=== PATIENT | male | born 1935 | race Caucasian/White ===

== ENCOUNTER 2016-10-04 12:52 | Inpatient (IN) | payer OTHER ==
[~2016-10-04] VITALS: Ht 185.4 cm; Wt 106.2 kg
[~2016-10-04 12:52] MED LIST: ASPI-482 PO; CARV3.122 PO; CARV6.25 PO; CHOL100013 PO; FURO-69 PO; GLIM4TAB PO; LOSA50TA2 PO; METF10002 PO; OM-31CAP4 PO; POTA10TA5 PO; SIMV40TA PO; WARF5TAB7 PO
--- NOTE | 2016-10-04 13:09 | PHYS DOC ---
Past Medical History Past Medical History: CHF, Diabetes-Type II, High Cholesterol, Hypertension Past Surgical History: Appendectomy Additional Past Surgical Histo: CABG mitral replaced pacer appy Alcohol Use: None Drug Use: None Adult General Chief Complaint Chief Complaint: SHORTNESS OF BREATH HPI HPI This is an 81-year-old male presents with worsening cough and acute respiratory distress today. Per EMS, the patient was using pursed lip breathing and not able to speak in complete sentences upon their arrival. Patient is usually on 4 L of home O2 for history of COPD and CHF. A breathing treatment was administered and the patient felt much better upon arrival. Patient was recently admitted for a community acquired pneumonia and sepsis on September 23. Patient additionally has history of hypertension diabetes and CK D stage III. During his last hospital stay the patient was placed on Zosyn and Vancomycin therapy for his pneumonia. Patient was discharged with an indwelling PICC line and is currently receiving ampicillin therapy. Review of Systems Review of Systems Constitutional: Denies fever or chills [] Eyes: Denies change in visual acuity, redness, or eye pain [] HENT: Denies nasal congestion or sore throat [] Respiratory: Has cough, has shortness of breath [] Cardiovascular: No additional information not addressed in HPI [] GI: Denies abdominal pain, nausea, vomiting, bloody stools or diarrhea [] : Denies dysuria or hematuria [] Musculoskeletal: Denies back pain or joint pain [] Integument: Denies rash or skin lesions [] Neurologic: Denies headache, focal weakness or sensory changes [] Endocrine: Denies polyuria or polydipsia [] Current Medications Current Medications Current Medications Medications (Trade) Dose Ordered Sig/Nito Start Time Stop Time Status Last Admin Dose Admin Albuterol/ Ipratropium (Duoneb) 3 ml 1X ONCE 10/04/16 13:15 10/04/16 13:16 DC 10/04/16 13:06 3 ML Methylprednisolone Sodium Succinate (Solu-Medrol 125mg Vial) 125 mg 1X ONCE 10/04/16 13:15 10/04/16 13:16 DC 10/04/16 13:08 125 MG Allergies Allergies Allergies Coded Allergies Type Severity Reaction Last Updated Verified No Known Drug Allergies 05/11/15 No Physical Exam Physical Exam Constitutional: Well developed, well nourished, no acute distress. [] HENT: Normocephalic, atraumatic, bilateral external ears normal, oropharynx moist, no oral exudates, nose normal. [] Eyes: PERRLA, EOMI, conjunctiva normal, no discharge. [] Neck: Normal range of motion, no tenderness, supple, no stridor. [] Cardiovascular:Heart rate regular rhythm, no murmur [] Lungs & Thorax: Moderate expiratory wheezing bilaterally with no acute respiratory distress, decreased lung sounds bilaterally [] Abdomen: Bowel sounds normal, soft, no tenderness, no masses, no pulsatile masses. [] Skin: Warm, dry, no erythema, no rash, pale. [] Back: No tenderness, no CVA tenderness. [] Extremities: No tenderness, no cyanosis, no clubbing, ROM intact, no edema. [] Neurologic: Alert and oriented X 3, normal motor function, normal sensory function, no focal deficits noted. [] Psychologic: Affect normal, judgement normal, mood normal. [] Current Patient Data Vital Signs Vital Signs Date Time Temp Pulse Resp B/P Pulse Ox O2 Delivery O2 Flow Rate FiO2 10/04/16 13:07 93 Nasal Cannula 6.0 10/04/16 12:56 98.3 75 24 156/64 98.3 Lab Values Laboratory Tests Test 10/04/16 13:00 White Blood Count 11.0x10^3/uL (4.0-11.0) Red Blood Count 4.02x10^6/uL (4.30-5.70) L Hemoglobin 12.4g/dL (13.0-17.5) L Hematocrit 38.9% (39.0-53.0) L Mean Corpuscular Volume 97fL (79-100) Mean Corpuscular Hemoglobin 31pg (25-35) Mean Corpuscular Hemoglobin Concent 32g/dL (31-37) Red Cell Distribution Width 14.8% (11.5-14.5) H Platelet Count 154x10^3/uL (140-400) # Neutrophils (%) (Auto) 82% (31-73) H Lymphocytes (%) (Auto) 10% (24-48) L Monocytes (%) (Auto) 7% (0-9) Eosinophils (%) (Auto) 0% (0-3) Basophils (%) (Auto) 1% (0-3) Neutrophils # (Auto) 9.0x10^3uL (1.8-7.7) H Lymphocytes # (Auto) 1.1x10^3/uL (1.0-4.8) Monocytes # (Auto) 0.7x10^3/uL (0.0-1.1) Eosinophils # (Auto) 0.0x10^3/uL (0.0-0.7) Basophils # (Auto) 0.1x10^3/uL (0.0-0.2) Sodium Level 141mmol/L (136-145) Potassium Level 4.8mmol/L (3.5-5.1) Chloride Level 104mmol/L (98-107) Carbon Dioxide Level 39mmol/L (21-32) H Anion Gap -2 (6-14) L Blood Urea Nitrogen 14mg/dL (8-26) Creatinine 1.3mg/dL (0.7-1.3) Estimated GFR (Cockcroft-Gault) 53.0 Glucose Level 245mg/dL (70-99) H Lactic Acid Level 1.0mmol/L (0.4-2.0) Calcium Level 8.4mg/dL (8.5-10.1) L Troponin I Quantitative 0.163ng/mL (0.000-0.055) KK-Vnx-P-Type Natriuretic Peptide 52740vk/mL (0-449) H Laboratory Tests 10/04/16 13:00 Laboratory Tests 10/04/16 13:00 EKG EKG EKG as interpreted by nm shows an irregular rhythm with a rate of 62 bpm. There do not appear to be any acute changes on this EKG as compared to previous EKG she had obtained on September 23, 2016 Radiology/Procedures Radiology/Procedures Portable one view of the chest as interpreted by nm and the radiologist demonstrates worsening CHF with increased pulmonary vascularity left greater than right perihilar infiltrates are seen. This is compatible with congestive heart failure. Course & Med Decision Making Course & Med Decision Making Pertinent Labs and Imaging studies reviewed. (See chart for details) 81-year-old male who presents with respiratory difficulty will likely be readmitted to the hospital. Blood work and chest film will be obtained to rule out any acute cause of his symptoms. His laboratory workup is consistent with a CHF exacerbation with an elevated pro BNP of 10,000 and a slightly elevated troponin as well as 0.163. The signs are discussed with the structures assembler who agreed to accept the patient for further admission and evaluation. Repeat troponins were ordered for the floor. At this time the patient has no chest pain and has an EKG that does not demonstrate any acute findings consistent with a myocardial infarction. A dose of IV Lasix and IV solumedrol was also administered with a breathing treatment. Symptomatically, the patient feels much better and is saturating in the low 90s on his usual 4 L home O2. He'll be admitted to the [facility] floor for further evaluation and treatment. His case was discussed with the hospitalist, Dr. Wang, who agreed to accept the patient for admission. Patient at this time is receiving ampicillin therapy through a PICC line and I discussed that I believe his symptoms to be primarily cardiac and not infectious in etiology. The hospitalist agreed with this plan and stated cardiology consultation at this time is appropriate Dragon Disclaimer Dragon Disclaimer This electronic medical record was generated, in whole or in part, using a voice recognition dictation system. Departure Departure Impression: Primary Impression: CHF exacerbation Disposition: ADMITTED INPATIENT Admitting Physician: Dyan Jacobs Condition: STABLE Referrals: GIA WINTER Jr, MD (PCP) RODGER PADILLA DO Oct 04, 2016 13:09
[2016-10-04] MEDS ORDERED: IPRATRPIUM/ALBUTEROL 0.5/2.5MG 3 ML NEBU. NEB ONE (13:15)
[2016-10-04] MEDS ORDERED: methylPREDNISolone SOD SUCC PF 125 MG/2 ML VIAL. IV ONE (13:15)
[2016-10-04 13:17] LABS: BASO # 0.1 x10^3/uL (0.0-0.2); BASO % 1 % (0-3); EOS % 0 % (0-3); HEMATOCRIT 38.9 % (39.0-53.0); HEMOGLOBIN 12.4 g/dL (13.0-17.5); LYMPH # 1.1 x10^3/uL (1.0-4.8); LYMPH % 10 % (24-48); MEAN CORPUSCULAR HEMOGLOBIN 31 pg (25-35); MEAN CORPUSCULAR HGB CONC 32 g/dL (31-37); MEAN CORPUSCULAR VOLUME 97 fL (79-100); MONO % 7 % (0-9); NEUT % 82 % (31-73); PLATELET COUNT 154 x10^3/uL (140-400); RED BLOOD COUNT 4.02 x10^6/uL (4.30-5.70); RED CELL DISTRIBUTION WIDTH 14.8 % (11.5-14.5)
--- NOTE | 2016-10-04 13:20 | ACF ---
Admission Forms Criteria HEART FAILURE: COMMON COMPLICATIONS Clinical Indications for Inpatient Care (Place 'X' for any and all applicable criteria): Ongoing inpatient care may be indicated for heart failure with ANY ONE of the following (1)(2)(3)(4)(5): [ ]I. Ongoing need for care for primary condition requiring frequent therapy adjustments because of changes in cardiac function (eg, drug dosage changes for drugs that are renally metabolized) [ ]II. New-onset heart failure [ ]III. Heart failure with decreased urine output not responsive to attempts to optimize volume status [ ]IV. Acute cardiac ischemia causing or associated with failure [X]V. Complications of heart failure, including ANY ONE of the following: [ ]a) Pericardial effusion [ ]b) Symptomatic pleural effusion [ ]c) O2 saturation <90% or PO2 < 60 mm Hg (8.0 kPa) on room air or require baseline supplemental O2 [ ]d) Tachypnea [X]e) Dyspnea [ ]f) Syncope [ ]g) Change in mental status [ ]h) Acute renal insufficiency that is severe (reduction of more than 50% in estimated glomerular filtration rate from baseline) or progressive reduction of more than 25% in estimated glomerular filtration rate from baseline, with creatinine continuing to rise) [ ]i) Hemodynamic instability [ ]j) Anasarca [ ]k) Clinically significant metabolic abnormalities due to heart failure (eg, new-onset metabolic acidosis) Extended stay beyond goal length of stay for primary condition may be needed until ALL of the following are present(1)(3): [ ]a) Stable and effective diuretic regimen established (or patient on stable dialysis regimen if in chronic renal failure) [ ]b) Breathing comfortably at rest [ ]c) Saturation of arterial oxygen greater than 90% or at acceptable baseline [ ]d) Pulmonary edema absent or improved [ ]e) Hemodynamic stability [ ]f) Volume status acceptable on oral medication [ ]g) Peripheral or sacral edema absent or improved [ ]h) Renal function stable and manageable at a lower level of care [ ]i) Complications (eg, pleural effusion) resolved or manageable at a lower level of care [ ]j) Patient or caregiver has received written discharge instructions or educational material addressing activity level, diet, discharge medications, follow-up appointment, weight monitoring, and what to do if symptoms worsen The original [facility] content created by [employer] has been revised. The portions of the content which have been revised are identified through the use of italic text or in bold, and [facility] has neither reviewed nor approved the modified material.All other unmodified content is copyright [facility]. Please see references footnoted in the original [facility] edition 2016 Admission Criteria Met?: Yes HARMEET BRADY Oct 04, 2016 13:20
[2016-10-04 13:22] LABS: CALCIUM 8.4 mg/dL (8.5-10.1); CREATININE 1.3 mg/dL (0.7-1.3); POTASSIUM 4.8 mmol/L (3.5-5.1)
--- NOTE | 2016-10-04 13:25 | RAD ---
Exam: AP portable chest. History: Cough, weakness. Comparison: 09/23/2016. Findings: Cardiac silhouette is enlarged. Median sternotomy wires are present. Dual-lead pacemaker by left subclavian approach is unchanged. Right-sided PICC line is present with tip projecting at the superior vena cava. There is evidence of small bilateral pleural effusions. No pneumothorax is seen. Pulmonary vascularity is increased and indistinct. Left greater than right perihilar infiltrates are seen. Findings are compatible with congestive heart failure. Impression: 1. Interval worsening of congestive heart failure.
--- NOTE | 2016-10-04 13:48 | EKG ---
[facility] [address] [place] [address] Test Date: 2016-10-04 Test Time: 13:08:29 Pat Name: KIKA CORONA Department: Room: Gender: M Blood Typer: : 1935 Requested By: RODGER PADILLA Order Number: [id number] Reading MD: Maksim Burden Measurements Intervals [place] Rate: 62 P: NC: QRS: -42 QRSD: 176 T: 86 QT: 446 QTc: 455 Interpretive Statements V-PACED Electronically Signed On 10-09-2016 10:16:46 RESIDENTIAL INSTRUCTOR by Maksim Burden
[2016-10-04] MEDS ORDERED: FUROSEMIDE 40 MG/4 ML VIAL IVP SCH (14:00)
--- NOTE | 2016-10-04 14:30 | PDOC2 ---
HA ALANIZ SYSTEMS LIBRARIAN 10/04/16 1430: CARDIAC CONSULT DATE OF CONSULT Date of Consult DATE: 10/04/16 TIME: 14:03 REASON FOR CONSULT Reason for Consult: CHF exacerbation REFERRING PHYSICIAN Referring Physician: Tiffanie SOURCE Source: Chart review, Patient HISTORY OF PRESENT ILLNESS HISTORY OF PRESENT ILLNESS This is an 81 yo male admitted for complains of SOA. He was being visited by home health and receives routine visit due to assisted antibiotic therapy in relation to previous pneumonia and bacteremia. He currently has a PICC line for it. Home health staff saw him today lethargic and SOA and was not responding well to commands as described by seda. Family is not available to elborate details of his symptoms. According to stafF as RV contacted the spouse , pt has been compliant with his cardiac meds. Leading up to altered mental state there has been no mention of chest pain, palpitations. Accdg to ED he has been noted with pursed lip breathing and increasing cough. Currently pt is drowsy but arousable enough to obtain some symptom details. Reported increasing SOA, leg swelling, and sleeping most of the day. Denies any chest pain, chills. Upon admission he has been noted with acute CHF. I did note that when fall asleep, despite his O2 he desats in the upper 80s. PAST MEDICAL HISTORY Cardiovascular: AFIB, CAD, CHF, HTN, Hyperlipidemia, Other (bioprosthetic aortic valve replacement, sick sinus syndrome) Pulmonary: COPD, Pneumonia GI: No pertinent hx Heme/Onc: No pertinent hx Hepatobiliary: Cholelithiasis Psych: No pertinent hx Musculoskeletal: Osteoarthritis Infectious disease: No pertinent hx, Other (recent bacteremia enterococcus) Renal/: Chronic renal insuff (CKD3), Benign prostatic enlarg., Other ( bilateral renal cyst) Endocrine: Diabetes (2) Dermatology: No pertinent hx PAST SURGICAL HISTORY Past Surgical History: Pacemaker, Appendectomy, CABG (with AVR bioprosthetic), Other (PICC placement) FAMILY HISTORY Family History Diabetes (brother d/t DM complications, sister has bad neuropathy. ) , Heart Disease SOCIAL HISTORY Social History Smoking: <1 pack per day (Pt started 15 years ago 7 cigs a day after his heart surgery) ALCOHOL: rare Drugs: None CURRENT MEDICATIONS CURRENT MEDICATIONS Current Medications Medications (Trade) Dose Ordered Sig/Nito Route PRN Reason Start Time Stop Time Status Last Admin Dose Admin Albuterol/ Ipratropium (Duoneb) 3 ml 1X ONCE NEB 10/04/16 13:15 10/04/16 13:16 DC 10/04/16 13:06 Methylprednisolone Sodium Succinate (Solu-Medrol 125mg Vial) 125 mg 1X ONCE IV 10/04/16 13:15 10/04/16 13:16 DC 10/04/16 13:08 ALLERGIES ALLERGIES: Coded Allergies: No Known Drug Allergies (Unverified , 05/11/15) ROS Review of System 14 point ROS evaluated with pertinent positives noted per HPI PHYSICAL EXAM General: Cooperative, mild distress HEENT: Atraumatic, Mucous membr. moist/pink Lungs: Other (diminished with bibasilar crackles) Heart: Regular rate (V paced with underlying afib), Other (2/6 systolic murmur to LLS border; S4) Abdomen: Soft, No tenderness, Other (protuberant) Extremities: No cyanosis, Other (3+ bilateral LE pitting edema) Skin: No breakdown, No significant lesion Neuro: Normal speech, Sensation intact Psych/Mental Status: Other (dorwsy) MUSCULOSKELETAL: Osteoarthritic changes both hands VITALS VITALS Vital Signs Date Time Temp Pulse Resp B/P Pulse Ox O2 Delivery O2 Flow Rate FiO2 10/04/16 13:07 93 Nasal Cannula 6.0 10/04/16 12:56 98.3 75 24 156/64 98.3 LABS Lab: Laboratory Tests Test 10/04/16 13:00 White Blood Count 11.0x10^3/uL (4.0-11.0) Red Blood Count 4.02x10^6/uL (4.30-5.70) Hemoglobin 12.4g/dL (13.0-17.5) Hematocrit 38.9% (39.0-53.0) Mean Corpuscular Volume 97fL (79-100) Mean Corpuscular Hemoglobin 31pg (25-35) Mean Corpuscular Hemoglobin Concent 32g/dL (31-37) Red Cell Distribution Width 14.8% (11.5-14.5) Platelet Count 154x10^3/uL (140-400) Neutrophils (%) (Auto) 82% (31-73) Lymphocytes (%) (Auto) 10% (24-48) Monocytes (%) (Auto) 7% (0-9) Eosinophils (%) (Auto) 0% (0-3) Basophils (%) (Auto) 1% (0-3) Neutrophils # (Auto) 9.0x10^3uL (1.8-7.7) Lymphocytes # (Auto) 1.1x10^3/uL (1.0-4.8) Monocytes # (Auto) 0.7x10^3/uL (0.0-1.1) Eosinophils # (Auto) 0.0x10^3/uL (0.0-0.7) Basophils # (Auto) 0.1x10^3/uL (0.0-0.2) Sodium Level 141mmol/L (136-145) Potassium Level 4.8mmol/L (3.5-5.1) Chloride Level 104mmol/L (98-107) Carbon Dioxide Level 39mmol/L (21-32) Anion Gap -2 (6-14) Blood Urea Nitrogen 14mg/dL (8-26) Creatinine 1.3mg/dL (0.7-1.3) Estimated GFR (Cockcroft-Gault) 53.0 Glucose Level 245mg/dL (70-99) Lactic Acid Level 1.0mmol/L (0.4-2.0) Calcium Level 8.4mg/dL (8.5-10.1) Troponin I Quantitative 0.163ng/mL (0.000-0.055) MI-Vuy-V-Type Natriuretic Peptide 87388jl/mL (0-449) ECHOCARDIOGRAM ECHOCARDIOGRAM <Conclusion> TTE Basal inferior wall hypokinesis. Abnormal septal motion secondary to CABG or paced rhythm. The Ejection Fraction is 45%. There is a pacemaker lead in the right ventricle. The left atrium is mildly dilated. Bioprosthetic aortic valve well seated and functioning well. Mild tricuspid regurgitation. The PA pressure was estimated at 41 mmHg. There is no evidence of significant pericardial effusion. DATE: 09/17/161918 <Conclusion> JEROME Left ventricle systolic function is moderately impaired. EF 40% There is no thrombus noted in the left atrial appendage. There is a bioprosthetic aortic valve prosthesis. The leaflets appear thickened but no clear vegetation or thrombus is noted. Doppler and Color Flow revealed mild to moderate mitral regurgitation. There are no obvious vegetations noted on the tricuspid, mitral and pulmonic valves. DATE: 09/21/16 1551 STRESS TEST STRESS TEST Conclusion 1. Regadenoson cardioisotope stress test showed small apical wall infarct without any ischemia. 2. Normal left ventricular systolic function with ejection fraction calculated at 62%. 3. Low risk for cardiovascular events DATE: 06/02/14 1721 ASSESSMENT/PLAN ASSESSMENT/PLAN 1. 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 Pro NT BNP 37112b. Troponin 0.163 which is likely demand mediated. EKG V paced with no acute changes. Continue with lasix therapy. Will obtain ABG. Strong suspicion with likely sleep apnea which may have induce his CHF. Will consult pulmonary. Soumya to DD for strict I & O. 2. Hypoxic encephalopathy: treat concurrent conditions. Defer to PCP. 3. CAD: CABG in the past. MPI 05/2014 unremarkable. CP free, stable. Continue secondary prevention. 4. SSS with PPM: medtronic device. Recent interrogation revealed normal functioning device 5. s/p AVR: stable, well seated per recent TTE. 6. Recent hx of enterococcus bacteremia and Pneumonia: Recent JEROME with no notable thrombus nor vegetations. 7. DM2/DLP: BG uncontrolled, per PCP. last A1C 8.1 No noted statin. HDL 34 otherwise lipids are very well controlled with LDL at 52. 8. Hypertension: Controlled, will continue home regimen. 9. Paroxysmal AFIB: V paced with underlying afib/flutter, rate controlled. Continue on ECASA for stroke prevention. Was considered for anticoagulation but unexplained thrombocytopenia was noted on previous admission with 60-70K plus notable for past med noncompliance. Currently PLT at 154. Will reevaluate OAC/NOAC as an outpt. 10. CKD3. 11. COPD/recent HCAP/bacteremia: Chronic O2 use at continuous 4 LPM. Has PICC line with outpt IV antibiotic therapy. 12. Tobaccoism: recently quit 13. Hx of noncompliance: 08/2016 left AMA. Per spouse pt has been compliant with his medications. Problems: ILYA NAVARRETE MD 10/04/16 1621: CARDIAC CONSULT ALLERGIES ALLERGIES: Coded Allergies: No Known Drug Allergies (Unverified , 05/11/15) ASSESSMENT/PLAN ASSESSMENT/PLAN Patient seen and examined. Agree with SILVER SOLUTION MIXER's assessment and plan. 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 Add Zaroxolyn for better diuresis. CAD status stable. Recent 2-D echo showed LVEF 45% with well-seated and normally functioning AVR. Recent pacemaker check showed normal function. Thank you for your consultation. Problems: HA ALANIZ APRN Oct 04, 2016 14:30 ILYA NAVARRETE MD Oct 04, 2016 16:21
[2016-10-04 14:45] VITALS: BP 140/87
[2016-10-04 15:03] VITALS: BP 140/87
[2016-10-04] MEDS ORDERED: DEXTROSE 50% 25 GM / 50ML DISP.SYRIN. IV PRN (15:15)
--- NOTE | 2016-10-04 15:54 | PDOC1 ---
History and Physical Date of Admission Date of Admission DATE: 10/04/16 TIME: 15:49 Identification/Chief Complaint Chief Complaint SOA Source Source: Chart review, Patient History of Present Illness History of Present Illness 81 y.o very poor historian male admitted for SOA, Pt claims he came form home lives with a dtr, Dtr not at bedside, rest of details of his hPI are unclear but ER work up shows congestion, pulm edema and he is known to cards for such. Got IV diuretic, breathing better, Now has scheduled iV lasix. LAbs ok , trop 0.16, BNP > 10,000 on admission. Past Medical History Cardiovascular: AFIB, CAD, CHF, HTN, Hyperlipidemia, Other (bioprosthetic aortic valve replacement, sick sinus syndrome) Pulmonary: COPD, Pneumonia GI: No pertinent hx Heme/Onc: No pertinent hx Hepatobiliary: Cholelithiasis Musculoskeletal: Osteoarthritis Infectious disease: Other (recent bacteremia enterococcus) Renal/: Chronic renal insuff (CKD3), Benign prostatic enlarg., Other ( bilateral renal cyst) Endocrine: Diabetes (2) Past Surgical History Past Surgical History: Pacemaker, Appendectomy, CABG (with AVR bioprosthetic), Other (PICC placement) Family History Family History: Diabetes, Heart Disease Social History Smoke: No ALCOHOL: rare Drugs: None Current Problem List Problem List Problems Medical Problems: (1) CHF exacerbation Status: Acute Problems: Current Medications Current Medications Current Medications Albuterol/ Ipratropium (Duoneb) 3 ml 1X ONCE NEB Last administered on 13:06; Start 10/04/16 at 13:15; Stop 10/04/16 at 13:16; Status DC Methylprednisolone Sodium Succinate (Solu-Medrol 125mg Vial) 125 mg 1X ONCE IV Last administered on 10/04/16 13:08; Start 10/04/16 at 13:15; Stop 10/04/16 at 13:16; Status DC Furosemide (Lasix) 40 mg DAILY IVP Last administered on 10/04/16 14:12; Start 10/04/16 at 14:00 Aspirin (Ecotrin) 81 mg DAILY PO ; Start 10/05/16 at 09:00 Carvedilol (Coreg) 3.125 mg BIDWMEALS PO ; Start 10/04/16 at 17:00 Losartan Potassium (Cozaar) 50 mg DAILY PO ; Start 10/04/16 at 16:00 Metformin HCl (Glucophage) 1,000 mg BIDAC PO ; Start 10/04/16 at 16:30; Stop 09/08 at 16:30; Status DC Vitamin D (Vitamin D3) 1,000 unit DAILY PO ; Start 10/05/16 at 09:00 Glimepiride (Amaryl) 4 mg DAILY PO ; Start 10/05/16 at 09:00 Potassium Chloride (Klor-Con) 20 meq DAILYWBKFT PO ; Start 10/05/16 at 08:00 Insulin Aspart (Novolog) 0-9 UNITS TIDWMEALS SQ ; Start 10/04/16 at 17:00 Dextrose 12.5 gm PRN Q15MIN PRN IV SEE COMMENTS; Start 10/04/16 at 15:15 Active Scripts Active Carvedilol 3.125 Mg Tablet 3.125 Mg PO BIDWMEALS Reported Fish Oil + Vitamin D-3 Softgel (Om-3/Dha/Epa/Fish Oil/Vit D3) 1 Each Capsule 1 Each PO Vitamin D (Cholecalciferol (Vitamin D3)) 1,000 Unit Capsule 1,000 Unit PO DAILY Klor-Con 10 (Potassium Chloride) 10 Meq Tablet.er 2 Tab PO DAILY Lasix (Furosemide) 20 Mg Tablet 10 Mg PO DAILY Aspir 81 (Aspirin) 81 Mg Tablet.dr 81 Mg PO Cozaar (Losartan Potassium) 50 Mg Tablet 50 Mg PO DAILY Amaryl (Glimepiride) 4 Mg Tablet 4 Mg PO DAILY Metformin Hcl 1,000 Mg Tablet 1,000 Mg PO BIDAC Allergies Allergies: Coded Allergies: No Known Drug Allergies (Unverified , 05/11/15) ROS Review of System limited Physical Exam General: Alert, Oriented X3, Cooperative, No acute distress HEENT: Atraumatic, PERRLA Lungs: Normal air movement, Other (dec BS) Cardiovascular: S1, S2 Breasts: Normal Abdomen: Normal bowel sounds, Soft, No tenderness, No hepatosplenomegaly, No masses Male Genitals Exam: normal genitalia, normal prostate Rectal Exam: not examined PELVIC: Nml ext genitalia Extremities: No clubbing, No cyanosis, No edema, Normal pulses, No tenderness/ swelling Skin: No rashes, No breakdown, No significant lesion Neuro: Normal gait, Normal speech, Strength at 5/5 X4 ext, Normal tone, Sensation intact, Cranial nerves 3-12 NL, Reflexes 2+ Psych/Mental Status: Mental status NL, Mood NL Vitals Vitals Vital Signs Date Time Temp Pulse Resp B/P Pulse Ox O2 Delivery O2 Flow Rate FiO2 10/04/16 15:35 Nasal Cannula 5.0 10/04/16 15:03 97.2 69 20 140/87 93 97.2 Labs Labs Laboratory Tests Test 10/04/16 13:00 White Blood Count 11.0x10^3/uL (4.0-11.0) Red Blood Count 4.02x10^6/uL (4.30-5.70) Hemoglobin 12.4g/dL (13.0-17.5) Hematocrit 38.9% (39.0-53.0) Mean Corpuscular Volume 97fL (79-100) Mean Corpuscular Hemoglobin 31pg (25-35) Mean Corpuscular Hemoglobin Concent 32g/dL (31-37) Red Cell Distribution Width 14.8% (11.5-14.5) Platelet Count 154x10^3/uL (140-400) Neutrophils (%) (Auto) 82% (31-73) Lymphocytes (%) (Auto) 10% (24-48) Monocytes (%) (Auto) 7% (0-9) Eosinophils (%) (Auto) 0% (0-3) Basophils (%) (Auto) 1% (0-3) Neutrophils # (Auto) 9.0x10^3uL (1.8-7.7) Lymphocytes # (Auto) 1.1x10^3/uL (1.0-4.8) Monocytes # (Auto) 0.7x10^3/uL (0.0-1.1) Eosinophils # (Auto) 0.0x10^3/uL (0.0-0.7) Basophils # (Auto) 0.1x10^3/uL (0.0-0.2) Sodium Level 141mmol/L (136-145) Potassium Level 4.8mmol/L (3.5-5.1) Chloride Level 104mmol/L (98-107) Carbon Dioxide Level 39mmol/L (21-32) Anion Gap -2 (6-14) Blood Urea Nitrogen 14mg/dL (8-26) Creatinine 1.3mg/dL (0.7-1.3) Estimated GFR (Cockcroft-Gault) 53.0 Glucose Level 245mg/dL (70-99) Lactic Acid Level 1.0mmol/L (0.4-2.0) Calcium Level 8.4mg/dL (8.5-10.1) Troponin I Quantitative 0.163ng/mL (0.000-0.055) KR-Cjt-U-Type Natriuretic Peptide 24898st/mL (0-449) Laboratory Tests Test 10/04/16 13:00 White Blood Count 11.0x10^3/uL (4.0-11.0) Red Blood Count 4.02x10^6/uL (4.30-5.70) Hemoglobin 12.4g/dL (13.0-17.5) Hematocrit 38.9% (39.0-53.0) Mean Corpuscular Volume 97fL (79-100) Mean Corpuscular Hemoglobin 31pg (25-35) Mean Corpuscular Hemoglobin Concent 32g/dL (31-37) Red Cell Distribution Width 14.8% (11.5-14.5) Platelet Count 154x10^3/uL (140-400) Neutrophils (%) (Auto) 82% (31-73) Lymphocytes (%) (Auto) 10% (24-48) Monocytes (%) (Auto) 7% (0-9) Eosinophils (%) (Auto) 0% (0-3) Basophils (%) (Auto) 1% (0-3) Neutrophils # (Auto) 9.0x10^3uL (1.8-7.7) Lymphocytes # (Auto) 1.1x10^3/uL (1.0-4.8) Monocytes # (Auto) 0.7x10^3/uL (0.0-1.1) Eosinophils # (Auto) 0.0x10^3/uL (0.0-0.7) Basophils # (Auto) 0.1x10^3/uL (0.0-0.2) Sodium Level 141mmol/L (136-145) Potassium Level 4.8mmol/L (3.5-5.1) Chloride Level 104mmol/L (98-107) Carbon Dioxide Level 39mmol/L (21-32) Anion Gap -2 (6-14) Blood Urea Nitrogen 14mg/dL (8-26) Creatinine 1.3mg/dL (0.7-1.3) Estimated GFR (Cockcroft-Gault) 53.0 Glucose Level 245mg/dL (70-99) Lactic Acid Level 1.0mmol/L (0.4-2.0) Calcium Level 8.4mg/dL (8.5-10.1) Troponin I Quantitative 0.163ng/mL (0.000-0.055) QQ-Rxm-B-Type Natriuretic Peptide 02162wc/mL (0-449) VTE Prophylaxis Ordered VTE Prophylaxis Devices: Yes VTE Pharmacological Prophylaxi: Yes Assessment/Plan Assessment/Plan 1. 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 2. CAD: CABG in the past. MPI 05/2014 unremarkable 3. SSS with PPM: medtronic device. Recent interrogation revealed normal functioning device 4. s/p AVR: stable, 5. Recent hx of enterococcus bacteremia and Pneumonia: Recent JEROME with no notable thrombus nor vegetations. on IV unasyn at home?? 6. DM2/DLP: last A1C 8.1 No noted statin. 7. Hypertension: Controlled, 8. Paroxysmal AFIB: V paced with underlying afib/flutter, rate controlled. Was considered for anticoagulation but unexplained thrombocytopenia was noted on previous admission with 60-70K. Currently PLT at 154. 9. CKD3. 10. 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 Tobaccoism 13. Hx of noncompliance: 08/2016 left AMA. PLAN: Diurese per cards Resume home meds PT/OT Need to look at records if he needs to cont iV unasyn he was on Elytes while on diuresis seen at [facility] ISABEL NICKERSON MD Oct 04, 2016 15:54
--- NOTE | 2016-10-04 16:20 | PDOC ---
Provider Note Provider Note dictated acute on chronic hypoxic RF due to SHF CMP EF 40% Suspected central sleep apnea/ SS as OP addend: called tonight by the nurse. pt less responsive. Received 2 mg IV ativan. Ph 7.29/ PCO2 91. orders given to place on BIPAP, reversal agent , d/c ativan. repeat ABG in MICHAEL Troncoso MD Oct 04, 2016 16:20
[2016-10-04] MEDS ORDERED: METFORMIN 1,000 MG TABLET PO SCH (16:30)
[2016-10-04] MEDS: FUROSEMIDE 40 MG/4 ML VIAL IVP SCH (16:45)
[2016-10-04] MEDS: LOSARTAN POTASSIUM 50 MG TABLET. PO SCH (16:45)
[2016-10-04] MEDS: METOLAZONE 2.5 MG TABLET PO SCH (16:45)
[2016-10-04] MEDS: CARVEDILOL 3.125 MG TABLET PO SCH (16:45)
[2016-10-04] MEDS: INSULIN ASPART 300 UNITS/3 ML INSULN.PEN SQ SCH (16:57)
[2016-10-04] MEDS ORDERED: LORAZEPAM 1 MG TABLET. PO PRN (17:30)
[2016-10-04] MEDS ORDERED: LORAZEPAM 2 MG/ML VIAL IV PRN ×2 (17:30→21:00)
[2016-10-04 19:32] VITALS: BP 125/73
[2016-10-04 20:47] LABS: HCO3 ABG 43 mmol/L (21-28); PH ABG 7.29 (7.35-7.45); PO2 ABG 57 mmHg (65-108); SAT O2 ABG 89 % (92-99)
[2016-10-04 20:49] LABS: FIO2 ABG 50; PCO2 ABG 91 mmHg (35-46)
[2016-10-04] MEDS ORDERED: FLUMAZENIL 0.5 MG/5 ML VIAL. IV ONE (21:15)
--- NOTE | 2016-10-04 21:37 | RAD ---
PROCEDURE Noncontrast head CT HISTORY Altered mental status. TECHNIQUE Noncontrast axial cross sectional CT scanning of the head was performed. One or more of the following individualized dose reduction techniques were utilized for this study: 1. Automated exposure control 2. Adjustment of the mA and/or kV according to patient size 3. Use of iterative reconstruction technique COMPARISON None available. FINDINGS No acute intracranial hemorrhage or midline shift or mass-effect or hydrocephalus or extra-axial fluid collection is seen. No focal hypodense area is seen to indicate an acute infarct or edema radiographically. No skull fracture or pneumocephalus is seen. No opacification of the mastoid sinuses or the paranasal sinuses is seen. IMPRESSION No acute intracranial abnormality is seen. Electronically signed by: Naldo Yadav MD (Oct 04, 2016 21:36:49)
[2016-10-04 23:48] VITALS: BP 111/76
[2016-10-05 02:42] LABS: BASO % 0 % (0-3); EOS % 0 % (0-3); HEMATOCRIT 37.2 % (39.0-53.0); HEMOGLOBIN 11.8 g/dL (13.0-17.5); LYMPH # 0.9 x10^3/uL (1.0-4.8); LYMPH % 10 % (24-48); MEAN CORPUSCULAR HEMOGLOBIN 31 pg (25-35); MEAN CORPUSCULAR HGB CONC 32 g/dL (31-37); MEAN CORPUSCULAR VOLUME 97 fL (79-100); MONO % 2 % (0-9); NEUT % 88 % (31-73); PLATELET COUNT 156 x10^3/uL (140-400); RED BLOOD COUNT 3.83 x10^6/uL (4.30-5.70); WHITE BLOOD COUNT 8.7 x10^3/uL (4.0-11.0)
[2016-10-05 03:42] VITALS: BP 109/75
[2016-10-05 03:47] LABS: CALCIUM 8.7 mg/dL (8.5-10.1); CREATININE 1.3 mg/dL (0.7-1.3); POTASSIUM 4.5 mmol/L (3.5-5.1)
[2016-10-05 07:30] VITALS: BP 131/78
--- NOTE | 2016-10-05 07:47 | RAD ---
EXAM: Chest, single view. HISTORY: Respiratory distress. COMPARISON: 10/04/2016. FINDINGS: A frontal view of the chest is obtained. There has been interval increase in a suspected small to moderate right pleural effusion and right lower lobe predominant infiltrate. There is a stable small left pleural effusion with lower lobe predominant infiltrate. There is cardiomegaly. There is evidence of prior CABG. There is a cardiac pacemaker with leads in expected position. There is a right PICC with the tip in the superior vena cava. There is no pneumothorax. IMPRESSION: 1. Slight interval increase in a suspected small moderate right pleural effusion and diffuse lower lobe predominant right lung infiltrate. 2. Stable small left pleural effusion with diffuse lower lobe predominant left lung infiltrate. 3. Stable cardiomegaly.
[2016-10-05 07:59] LABS: HCO3 ABG 38 mmol/L (21-28); PCO2 ABG 54 mmHg (35-46); PH ABG 7.47 (7.35-7.45); PO2 ABG 61 mmHg (65-108); SAT O2 ABG 93 % (92-99)
[2016-10-05] MEDS: INSULIN ASPART 300 UNITS/3 ML INSULN.PEN SQ SCH ×3 (08:00→18:00)
[2016-10-05 08:01] LABS: FIO2 ABG 40
[2016-10-05] MEDS: METOLAZONE 2.5 MG TABLET PO SCH (09:50)
[2016-10-05] MEDS: CARVEDILOL 3.125 MG TABLET PO SCH ×2 (09:57→17:59)
[2016-10-05] MEDS: GLIMEPIRIDE 2 MG TABLET PO SCH (09:58)
[2016-10-05] MEDS: CHOLECALCIFEROL (VITAMIN D3) 1,000 UNIT TABLET PO SCH (09:58)
[2016-10-05] MEDS: POTASSIUM CHLORIDE 10 MEQ TABLET.ER. PO SCH (09:58)
[2016-10-05] MEDS: LOSARTAN POTASSIUM 50 MG TABLET. PO SCH (09:59)
[2016-10-05] MEDS: FUROSEMIDE 40 MG/4 ML VIAL IVP SCH ×2 (10:00→16:17)
[2016-10-05] MEDS: ASPIRIN ENTERIC COATED 81 MG TABLET.DR. PO SCH (10:01)
--- NOTE | 2016-10-05 10:07 | CONS ---
DATE OF CONSULTATION: PULMONARY CONSULTATION ATTENDING PHYSICIAN: Dr. Jacobs. REASON FOR CONSULTATION: Suspected sleep apnea. HISTORY OF PRESENT ILLNESS: The patient is an 81-year-old male who is well known to the Cardiology Service. He has a history of cardiomyopathy with an EF of 40%. He has very minimal history of tobacco use. He presented to the Emergency Room with complaint of shortness of breath. He also had lower extremity edema. The patient's chest x-ray was reviewed and it was consistent with congestive heart failure. He had cardiomegaly. The nursing staff noticed that he would pause in his reading at night and also during the day. He seems to be fully awake at present. He never had the formal sleep study. He says he does this at home as well. He is on home oxygen at 2 liters. PAST MEDICAL HISTORY: Significant for history of cardiomyopathy with an EF of 40%, history of AFib, CAD, CHF, hyperlipidemia, bioprosthetic aortic valve and sick sinus syndrome, doubt clinical COPD, suspected AGUSTIN, osteoarthritis, history of recent bacteremia with enterococcus, CKD stage III, type 2 diabetes. ALLERGIES: None. PAST SURGICAL HISTORY: Including pacemaker, appendectomy, CABG with AVR. FAMILY HISTORY: Diabetes and heart disease. SOCIAL HISTORY: Smoked only for 5 years. MEDICATIONS: All reviewed as listed in the MRAD. REVIEW OF SYSTEMS: Twelve-point system obtained. Pertinent positives discussed in my history of present illness, otherwise noncontributory. All systems that were negative were reviewed as well. PHYSICAL EXAMINATION: GENERAL: He is awake, following commands. Answered questions. VITAL SIGNS: Pulse ox 93% on 5 liters, normally he is at 2 liters, afebrile. Blood pressure is stable. NECK: Supple. LUNGS: Diminished breath sounds. CARDIOVASCULAR: With regular rate. ABDOMEN: Soft and obese. EXTREMITIES: With 1+ pitting edema. LABORATORY DATA: Reviewed. White cell count 11.0, hemoglobin 12.4. BUN 14, creatinine 1.3. Troponin 0.163. BNP 10,000. IMPRESSION: 1. Cvkyi-ar-htuvldg hypoxic respiratory failure secondary to ttglt-mn-vqlboah systolic heart failure. 2. Suspected central sleep apnea related to cardiomyopathy. He has witnessed apneas while in the hospital, would benefit from outpatient sleep study. 3. Clinically I do not think he has chronic obstructive pulmonary disease, smoked less than 5 years. 4. History of atrial fibrillation. 5. History of bioprosthetic aortic valve/sick sinus syndrome. 6. History of recent enterococcus bacteremia. RECOMMENDATIONS: 1. Would recommend sleep study as an outpatient. 2. Continue diuresis per Cardiology recommendation. 3. Continue with oxygen and wean down once he makes clinical improvement to keep sats 92%-94%. 4. Replace potassium per protocol. 5. Discussed with Cardiology. We will follow along with you. MICHAEL CARVALHO MD DR: LOWELL/karuna JOB#: [id number] / [id number]
--- NOTE | 2016-10-05 10:16 | PDOC ---
PULMONARY PROGRESS NOTES Subjective on bipap, doesnt follow commands. Vitals Vital Signs Date Time Temp Pulse Resp B/P Pulse Ox O2 Delivery O2 Flow Rate FiO2 10/05/16 09:59 66 131/78 10/05/16 07:30 98.5 18 97 BiPAP/CPAP 98.5 10/04/16 19:32 5.0 Comments ros as above, discussed w rn, other sys otherwise neg General: Alert, No acute distress Lungs: Crackles Cardiovascular: S1, S2 Abdomen: Soft, Non-tender, Other (no mass) Extremities: No Edema Skin: Warm Labs Laboratory Tests Test 10/04/16 13:00 10/04/16 16:54 10/04/16 20:23 10/04/16 20:30 White Blood Count 11.0x10^3/uL (4.0-11.0) Red Blood Count 4.02x10^6/uL (4.30-5.70) Hemoglobin 12.4g/dL (13.0-17.5) Hematocrit 38.9% (39.0-53.0) Mean Corpuscular Volume 97fL (79-100) Mean Corpuscular Hemoglobin 31pg (25-35) Mean Corpuscular Hemoglobin Concent 32g/dL (31-37) Red Cell Distribution Width 14.8% (11.5-14.5) Platelet Count 154x10^3/uL (140-400) Neutrophils (%) (Auto) 82% (31-73) Lymphocytes (%) (Auto) 10% (24-48) Monocytes (%) (Auto) 7% (0-9) Eosinophils (%) (Auto) 0% (0-3) Basophils (%) (Auto) 1% (0-3) Neutrophils # (Auto) 9.0x10^3uL (1.8-7.7) Lymphocytes # (Auto) 1.1x10^3/uL (1.0-4.8) Monocytes # (Auto) 0.7x10^3/uL (0.0-1.1) Eosinophils # (Auto) 0.0x10^3/uL (0.0-0.7) Basophils # (Auto) 0.1x10^3/uL (0.0-0.2) Sodium Level 141mmol/L (136-145) Potassium Level 4.8mmol/L (3.5-5.1) Chloride Level 104mmol/L (98-107) Carbon Dioxide Level 39mmol/L (21-32) Anion Gap -2 (6-14) Blood Urea Nitrogen 14mg/dL (8-26) Creatinine 1.3mg/dL (0.7-1.3) Estimated GFR (Cockcroft-Gault) 53.0 Glucose Level 245mg/dL (70-99) Lactic Acid Level 1.0mmol/L (0.4-2.0) Calcium Level 8.4mg/dL (8.5-10.1) Troponin I Quantitative 0.163ng/mL (0.000-0.055) 0.142ng/mL (0.000-0.055) OB-Dzi-D-Type Natriuretic Peptide 80890sa/mL (0-449) Glucose (Fingerstick) 279mg/dL (70-99) 201mg/dL (70-99) Test 10/04/16 20:31 10/05/16 02:00 10/05/16 02:15 10/05/16 07:30 O2 Saturation 89% (92-99) 93% (92-99) Arterial Blood pH 7.29 (7.35-7.45) 7.47 (7.35-7.45) Arterial Blood pCO2 at Patient Temp 91mmHg (35-46) 54mmHg (35-46) Arterial Blood pO2 at Patient Temp 57mmHg (65-108) 61mmHg (65-108) Arterial Blood HCO3 43mmol/L (21-28) 38mmol/L (21-28) Arterial Blood Base Excess 12mmol/L (-3-3) 12mmol/L (-3-3) FiO2 50 40 White Blood Count 8.7x10^3/uL (4.0-11.0) Red Blood Count 3.83x10^6/uL (4.30-5.70) Hemoglobin 11.8g/dL (13.0-17.5) Hematocrit 37.2% (39.0-53.0) Mean Corpuscular Volume 97fL (79-100) Mean Corpuscular Hemoglobin 31pg (25-35) Mean Corpuscular Hemoglobin Concent 32g/dL (31-37) Red Cell Distribution Width 15.0% (11.5-14.5) Platelet Count 156x10^3/uL (140-400) Neutrophils (%) (Auto) 88% (31-73) Lymphocytes (%) (Auto) 10% (24-48) Monocytes (%) (Auto) 2% (0-9) Eosinophils (%) (Auto) 0% (0-3) Basophils (%) (Auto) 0% (0-3) Neutrophils # (Auto) 7.7x10^3uL (1.8-7.7) Lymphocytes # (Auto) 0.9x10^3/uL (1.0-4.8) Monocytes # (Auto) 0.1x10^3/uL (0.0-1.1) Eosinophils # (Auto) 0.0x10^3/uL (0.0-0.7) Basophils # (Auto) 0.0x10^3/uL (0.0-0.2) Sodium Level 144mmol/L (136-145) Potassium Level 4.5mmol/L (3.5-5.1) Chloride Level 103mmol/L (98-107) Carbon Dioxide Level 35mmol/L (21-32) Anion Gap 6 (6-14) Blood Urea Nitrogen 17mg/dL (8-26) Creatinine 1.3mg/dL (0.7-1.3) Estimated GFR (Cockcroft-Gault) 53.0 Glucose Level 205mg/dL (70-99) Calcium Level 8.7mg/dL (8.5-10.1) Magnesium Level 1.9mg/dL (1.8-2.4) Troponin I Quantitative 0.123ng/mL (0.000-0.055) Test 10/05/16 08:16 Glucose (Fingerstick) 143mg/dL (70-99) Laboratory Tests Test 10/04/16 13:00 10/04/16 16:54 10/04/16 20:23 10/04/16 20:30 White Blood Count 11.0x10^3/uL (4.0-11.0) Red Blood Count 4.02x10^6/uL (4.30-5.70) Hemoglobin 12.4g/dL (13.0-17.5) Hematocrit 38.9% (39.0-53.0) Mean Corpuscular Volume 97fL (79-100) Mean Corpuscular Hemoglobin 31pg (25-35) Mean Corpuscular Hemoglobin Concent 32g/dL (31-37) Red Cell Distribution Width 14.8% (11.5-14.5) Platelet Count 154x10^3/uL (140-400) Neutrophils (%) (Auto) 82% (31-73) Lymphocytes (%) (Auto) 10% (24-48) Monocytes (%) (Auto) 7% (0-9) Eosinophils (%) (Auto) 0% (0-3) Basophils (%) (Auto) 1% (0-3) Neutrophils # (Auto) 9.0x10^3uL (1.8-7.7) Lymphocytes # (Auto) 1.1x10^3/uL (1.0-4.8) Monocytes # (Auto) 0.7x10^3/uL (0.0-1.1) Eosinophils # (Auto) 0.0x10^3/uL (0.0-0.7) Basophils # (Auto) 0.1x10^3/uL (0.0-0.2) Sodium Level 141mmol/L (136-145) Potassium Level 4.8mmol/L (3.5-5.1) Chloride Level 104mmol/L (98-107) Carbon Dioxide Level 39mmol/L (21-32) Anion Gap -2 (6-14) Blood Urea Nitrogen 14mg/dL (8-26) Creatinine 1.3mg/dL (0.7-1.3) Estimated GFR (Cockcroft-Gault) 53.0 Glucose Level 245mg/dL (70-99) Lactic Acid Level 1.0mmol/L (0.4-2.0) Calcium Level 8.4mg/dL (8.5-10.1) Troponin I Quantitative 0.163ng/mL (0.000-0.055) 0.142ng/mL (0.000-0.055) VC-Ywh-U-Type Natriuretic Peptide 83695yb/mL (0-449) Glucose (Fingerstick) 279mg/dL (70-99) 201mg/dL (70-99) Test 10/04/16 20:31 10/05/16 02:00 10/05/16 02:15 10/05/16 07:30 O2 Saturation 89% (92-99) 93% (92-99) Arterial Blood pH 7.29 (7.35-7.45) 7.47 (7.35-7.45) Arterial Blood pCO2 at Patient Temp 91mmHg (35-46) 54mmHg (35-46) Arterial Blood pO2 at Patient Temp 57mmHg (65-108) 61mmHg (65-108) Arterial Blood HCO3 43mmol/L (21-28) 38mmol/L (21-28) Arterial Blood Base Excess 12mmol/L (-3-3) 12mmol/L (-3-3) FiO2 50 40 White Blood Count 8.7x10^3/uL (4.0-11.0) Red Blood Count 3.83x10^6/uL (4.30-5.70) Hemoglobin 11.8g/dL (13.0-17.5) Hematocrit 37.2% (39.0-53.0) Mean Corpuscular Volume 97fL (79-100) Mean Corpuscular Hemoglobin 31pg (25-35) Mean Corpuscular Hemoglobin Concent 32g/dL (31-37) Red Cell Distribution Width 15.0% (11.5-14.5) Platelet Count 156x10^3/uL (140-400) Neutrophils (%) (Auto) 88% (31-73) Lymphocytes (%) (Auto) 10% (24-48) Monocytes (%) (Auto) 2% (0-9) Eosinophils (%) (Auto) 0% (0-3) Basophils (%) (Auto) 0% (0-3) Neutrophils # (Auto) 7.7x10^3uL (1.8-7.7) Lymphocytes # (Auto) 0.9x10^3/uL (1.0-4.8) Monocytes # (Auto) 0.1x10^3/uL (0.0-1.1) Eosinophils # (Auto) 0.0x10^3/uL (0.0-0.7) Basophils # (Auto) 0.0x10^3/uL (0.0-0.2) Sodium Level 144mmol/L (136-145) Potassium Level 4.5mmol/L (3.5-5.1) Chloride Level 103mmol/L (98-107) Carbon Dioxide Level 35mmol/L (21-32) Anion Gap 6 (6-14) Blood Urea Nitrogen 17mg/dL (8-26) Creatinine 1.3mg/dL (0.7-1.3) Estimated GFR (Cockcroft-Gault) 53.0 Glucose Level 205mg/dL (70-99) Calcium Level 8.7mg/dL (8.5-10.1) Magnesium Level 1.9mg/dL (1.8-2.4) Troponin I Quantitative 0.123ng/mL (0.000-0.055) Test 10/05/16 08:16 Glucose (Fingerstick) 143mg/dL (70-99) Medications Active Scripts Medications Dose Route/Sig Days Date Category Carvedilol 3.125 Mg Tablet 3.125 Mg PO BIDWMEALS 09/26/16 Rx Fish Oil + Vitamin D-3 Softgel (Om-3/Dha/Epa/Fish Oil/Vit D3) 1 Each Capsule 1 Each PO 05/11/15 Reported Vitamin D (Cholecalciferol (Vitamin D3)) 1,000 Unit Capsule 1,000 Unit PO DAILY 05/11/15 Reported Klor-Con 10 (Potassium Chloride) 10 Meq Tablet.er 2 Tab PO DAILY 05/11/15 Reported Lasix (Furosemide) 20 Mg Tablet 10 Mg PO DAILY 05/11/15 Reported Aspir 81 (Aspirin) 81 Mg Tablet.dr 81 Mg PO 05/11/15 Reported Cozaar (Losartan Potassium) 50 Mg Tablet 50 Mg PO DAILY 05/11/15 Reported Amaryl (Glimepiride) 4 Mg Tablet 4 Mg PO DAILY 05/11/15 Reported Metformin Hcl 1,000 Mg Tablet 1,000 Mg PO BIDAC 05/11/15 Reported Comments cxr reviewed, 1. Slight interval increase in a suspected small moderate right pleural effusion and diffuse lower lobe predominant right lung infiltrate. 2. Stable small left pleural effusion with diffuse lower lobe predominant left lung infiltrate. 3. Stable cardiomegaly. Impression . acute on chronic resp fail abnl cxr acute sys chf encephalopathy Plan . o2 titration bronchodilator cont bipap until more awake, setting reviewed diuretics, keep I<O, monitor k, cr avoid over sedation psg out pt monitor resp status closely discussed w AGUSTIN Carrasquillo MD Oct 05, 2016 10:16
[2016-10-05 10:53] LABS: PLT ESTIMATE ADEQUATE (ADEQUATE)
[2016-10-05 10:54] LABS: OVALOCYTES OCC
[2016-10-05 11:18] VITALS: BP 135/87
[2016-10-05] MEDS: IPRATRPIUM/ALBUTEROL 0.5/2.5MG 3 ML NEBU. NEB SCH ×3 (11:29→20:09)
--- NOTE | 2016-10-05 12:28 | PDOC ---
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 OPERATOR 10/05/16 1228: CARDIO Progress Notes Date and Time Date of Service 10/05/2016 Time of Evaluation 1120 Subjective Subjective: No Chest Pain, No Palpitations, No Dizziness, Other (no appetite, failed to eat breakfast) Vitals Vitals Vital Signs Date Time Temp Pulse Resp B/P Pulse Ox O2 Delivery O2 Flow Rate FiO2 10/05/16 11:30 95 BiPAP/CPAP 10/05/16 11:18 97.8 59 22 135/87 97.8 10/04/16 19:32 5.0 Weight Weight [ ] Input and Output Intake and Output Intake and Output 10/05/16 07:00 Intake Total 240 ml Output Total 1950 ml Balance -1710 ml Intake Oral 240 ml Output Urine Total 1950 ml Laboratory Labs Laboratory Tests Test 10/04/16 13:00 10/04/16 16:54 10/04/16 20:23 10/04/16 20:30 White Blood Count 11.0x10^3/uL (4.0-11.0) Red Blood Count 4.02x10^6/uL (4.30-5.70) Hemoglobin 12.4g/dL (13.0-17.5) Hematocrit 38.9% (39.0-53.0) Mean Corpuscular Volume 97fL (79-100) Mean Corpuscular Hemoglobin 31pg (25-35) Mean Corpuscular Hemoglobin Concent 32g/dL (31-37) Red Cell Distribution Width 14.8% (11.5-14.5) Platelet Count 154x10^3/uL (140-400) Neutrophils (%) (Auto) 82% (31-73) Lymphocytes (%) (Auto) 10% (24-48) Monocytes (%) (Auto) 7% (0-9) Eosinophils (%) (Auto) 0% (0-3) Basophils (%) (Auto) 1% (0-3) Neutrophils # (Auto) 9.0x10^3uL (1.8-7.7) Lymphocytes # (Auto) 1.1x10^3/uL (1.0-4.8) Monocytes # (Auto) 0.7x10^3/uL (0.0-1.1) Eosinophils # (Auto) 0.0x10^3/uL (0.0-0.7) Basophils # (Auto) 0.1x10^3/uL (0.0-0.2) Sodium Level 141mmol/L (136-145) Potassium Level 4.8mmol/L (3.5-5.1) Chloride Level 104mmol/L (98-107) Carbon Dioxide Level 39mmol/L (21-32) Anion Gap -2 (6-14) Blood Urea Nitrogen 14mg/dL (8-26) Creatinine 1.3mg/dL (0.7-1.3) Estimated GFR (Cockcroft-Gault) 53.0 Glucose Level 245mg/dL (70-99) Lactic Acid Level 1.0mmol/L (0.4-2.0) Calcium Level 8.4mg/dL (8.5-10.1) Troponin I Quantitative 0.163ng/mL (0.000-0.055) 0.142ng/mL (0.000-0.055) CD-Uxj-Z-Type Natriuretic Peptide 93509su/mL (0-449) Glucose (Fingerstick) 279mg/dL (70-99) 201mg/dL (70-99) Test 10/04/16 20:31 10/05/16 02:00 10/05/16 02:15 10/05/16 07:30 O2 Saturation 89% (92-99) 93% (92-99) Arterial Blood pH 7.29 (7.35-7.45) 7.47 (7.35-7.45) Arterial Blood pCO2 at Patient Temp 91mmHg (35-46) 54mmHg (35-46) Arterial Blood pO2 at Patient Temp 57mmHg (65-108) 61mmHg (65-108) Arterial Blood HCO3 43mmol/L (21-28) 38mmol/L (21-28) Arterial Blood Base Excess 12mmol/L (-3-3) 12mmol/L (-3-3) FiO2 50 40 White Blood Count 8.7x10^3/uL (4.0-11.0) Red Blood Count 3.83x10^6/uL (4.30-5.70) Hemoglobin 11.8g/dL (13.0-17.5) Hematocrit 37.2% (39.0-53.0) Mean Corpuscular Volume 97fL (79-100) Mean Corpuscular Hemoglobin 31pg (25-35) Mean Corpuscular Hemoglobin Concent 32g/dL (31-37) Red Cell Distribution Width 15.0% (11.5-14.5) Platelet Count 156x10^3/uL (140-400) Neutrophils (%) (Auto) 88% (31-73) Lymphocytes (%) (Auto) 10% (24-48) Monocytes (%) (Auto) 2% (0-9) Eosinophils (%) (Auto) 0% (0-3) Basophils (%) (Auto) 0% (0-3) Neutrophils # (Auto) 7.7x10^3uL (1.8-7.7) Lymphocytes # (Auto) 0.9x10^3/uL (1.0-4.8) Monocytes # (Auto) 0.1x10^3/uL (0.0-1.1) Eosinophils # (Auto) 0.0x10^3/uL (0.0-0.7) Basophils # (Auto) 0.0x10^3/uL (0.0-0.2) Segmented Neutrophils % 91% (35-66) Lymphocytes % 8% (24-48) Monocytes % 1% (0-10) Platelet Estimate Adequate (ADEQUATE) Ovalocytes Occ Sodium Level 144mmol/L (136-145) Potassium Level 4.5mmol/L (3.5-5.1) Chloride Level 103mmol/L (98-107) Carbon Dioxide Level 35mmol/L (21-32) Anion Gap 6 (6-14) Blood Urea Nitrogen 17mg/dL (8-26) Creatinine 1.3mg/dL (0.7-1.3) Estimated GFR (Cockcroft-Gault) 53.0 Glucose Level 205mg/dL (70-99) Calcium Level 8.7mg/dL (8.5-10.1) Magnesium Level 1.9mg/dL (1.8-2.4) Troponin I Quantitative 0.123ng/mL (0.000-0.055) Test 10/05/16 08:16 Glucose (Fingerstick) 143mg/dL (70-99) Physical Exam HEENT: Neck Supple W Full Motion Chest: Symmetric LUNGS: Other (bibasilar crackles) Heart: S1S2, RRR (V paced), murmurs (2/6 systolic murmur to LLS border) Abdomen: Other (protuberant abd, nontender and fost) Extremities: No Calf Tenderness, Other (2-3+ bilateral pitting edema to LE) Neurology: oriented, follow commands, other (slightly drowsy) Assessment Assessment 1. 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 Pro NT BNP 01083y. Troponin 0.163 which is likely demand mediated. Continue with lasix therapy with addition of zaroxylyn.. Likely induced by sleep apnea. Pt was noted with O2 via NC today and continued in the 80s O2 sat when drifts to sleep. Replace Bipap. Pulmonary managing. 2. Hypoxic encephalopathy: Improved. Continue to treat concurrent conditions. 3. CAD: CABG in the past. MPI 05/2014 unremarkable. CP free, stable. Continue secondary prevention. 4. SSS with PPM: medtronic device. Recent interrogation revealed normal functioning device 5. s/p AVR: stable, well seated per recent TTE. 6. Recent hx of enterococcus bacteremia and Pneumonia: Recent JEROME with no notable thrombus nor vegetations. 7. DM2/DLP: BG uncontrolled, per PCP. last A1C 8.1 No noted statin. HDL 34 otherwise lipids are very well controlled with LDL at 52. 8. Hypertension: Controlled, will continue home regimen. 9. Paroxysmal AFIB: V paced with underlying afib/flutter, rate controlled. Continue on ECASA for stroke prevention. Was considered for anticoagulation but unexplained thrombocytopenia was noted on previous admission with 60-70K plus notable for past med noncompliance. Currently PLT at 154. Will reevaluate OAC/NOAC as an outpt. 10. CKD3. 11. COPD/recent HCAP/bacteremia: Chronic supplemental O2 use. Has PICC line with outpt IV antibiotic therapy. 12. Tobaccoism: recently quit 13. Hx of noncompliance: 08/2016 left AMA. Per spouse pt has been compliant with his medications. ILYA NAVARRETE MD 10/05/16 1352: CARDIO Progress Notes Assessment Assessment Patient seen and examined. Agree with SCRUBBER MACHINE TENDER's assessment and plan. Patient diuresing better with combination of Lasix and Zaroxolyn. CAD status stable. Continue current medical regimen. HA ALANIZ APRN Oct 05, 2016 12:28 ILYA NAVARRETE MD Oct 05, 2016 13:52
[2016-10-05] MEDS: LORAZEPAM 2 MG/ML VIAL IV PRN ×2 (14:59→19:49)
[2016-10-05 15:09] VITALS: BP 135/72
--- NOTE | 2016-10-05 17:06 | PDOC ---
PROGRESS NOTES Chief Complaint Chief Complaint 1. 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 Encephalopathy improved 3. CAD: CABG in the past. 4. SSS with PPM: Medtronic device. 5. s/p AVR: stable, 6. Recent hx of enterococcus bacteremia and Pneumonia: Recent JEROME with no notable thrombus nor vegetations. 7. DM2: SSI 8. Hypertension: Controlled, 9. Paroxysmal AFIB: V paced with underlying afib/flutter, rate controlled. oral AC based on Cardiology 10. CKD3. 11. COPD/recent HCAP/bacteremia: Chronic supplemental O2 use. Has PICC line with outpt IV antibiotic therapy. 12. Tobaccoism: recently quit 13. Hx of noncompliance: 08/2016 left AMA. Per spouse pt has been compliant with his medications. Plan PRN BIPAP Diuresis per cardiology, Monitor electrolytes follow blood cx. Oral AC per cardiology PT/OT DVT prophylaxis History of Present Illness History of Present Illness family at bedside no fever no chills no chest pain Vitals Vitals Vital Signs Date Time Temp Pulse Resp B/P Pulse Ox O2 Delivery O2 Flow Rate FiO2 10/05/16 15:44 98 BiPAP/CPAP 10/05/16 15:09 97.8 60 22 135/72 97.8 10/04/16 19:32 5.0 Physical Exam General: Alert, Cooperative, mild distress Heart: Regular rate (V paced with underlying afib), Other (2/6 systolic murmur to LLS border; S4) Lungs: Clear Abdomen: Soft, No tenderness, Other (protuberant) Extremities: No cyanosis, Other (3+ bilateral LE pitting edema) Skin: No breakdown, No significant lesion Labs LABS Laboratory Tests Test 10/04/16 20:23 10/04/16 20:30 10/04/16 20:31 10/05/16 02:00 Glucose (Fingerstick) 201mg/dL (70-99) Troponin I Quantitative 0.142ng/mL (0.000-0.055) O2 Saturation 89% (92-99) Arterial Blood pH 7.29 (7.35-7.45) Arterial Blood pCO2 at Patient Temp 91mmHg (35-46) Arterial Blood pO2 at Patient Temp 57mmHg (65-108) Arterial Blood HCO3 43mmol/L (21-28) Arterial Blood Base Excess 12mmol/L (-3-3) FiO2 50 White Blood Count 8.7x10^3/uL (4.0-11.0) Red Blood Count 3.83x10^6/uL (4.30-5.70) Hemoglobin 11.8g/dL (13.0-17.5) Hematocrit 37.2% (39.0-53.0) Mean Corpuscular Volume 97fL (79-100) Mean Corpuscular Hemoglobin 31pg (25-35) Mean Corpuscular Hemoglobin Concent 32g/dL (31-37) Red Cell Distribution Width 15.0% (11.5-14.5) Platelet Count 156x10^3/uL (140-400) Neutrophils (%) (Auto) 88% (31-73) Lymphocytes (%) (Auto) 10% (24-48) Monocytes (%) (Auto) 2% (0-9) Eosinophils (%) (Auto) 0% (0-3) Basophils (%) (Auto) 0% (0-3) Neutrophils # (Auto) 7.7x10^3uL (1.8-7.7) Lymphocytes # (Auto) 0.9x10^3/uL (1.0-4.8) Monocytes # (Auto) 0.1x10^3/uL (0.0-1.1) Eosinophils # (Auto) 0.0x10^3/uL (0.0-0.7) Basophils # (Auto) 0.0x10^3/uL (0.0-0.2) Segmented Neutrophils % 91% (35-66) Lymphocytes % 8% (24-48) Monocytes % 1% (0-10) Platelet Estimate Adequate (ADEQUATE) Ovalocytes Occ Sodium Level 144mmol/L (136-145) Potassium Level 4.5mmol/L (3.5-5.1) Chloride Level 103mmol/L (98-107) Carbon Dioxide Level 35mmol/L (21-32) Anion Gap 6 (6-14) Blood Urea Nitrogen 17mg/dL (8-26) Creatinine 1.3mg/dL (0.7-1.3) Estimated GFR (Cockcroft-Gault) 53.0 Glucose Level 205mg/dL (70-99) Calcium Level 8.7mg/dL (8.5-10.1) Magnesium Level 1.9mg/dL (1.8-2.4) Test 10/05/16 02:15 10/05/16 07:30 10/05/16 08:16 10/05/16 11:25 Troponin I Quantitative 0.123ng/mL (0.000-0.055) O2 Saturation 93% (92-99) Arterial Blood pH 7.47 (7.35-7.45) Arterial Blood pCO2 at Patient Temp 54mmHg (35-46) Arterial Blood pO2 at Patient Temp 61mmHg (65-108) Arterial Blood HCO3 38mmol/L (21-28) Arterial Blood Base Excess 12mmol/L (-3-3) FiO2 40 Glucose (Fingerstick) 143mg/dL (70-99) 142mg/dL (70-99) Assessment and Plan Assessmemt and Plan Problems Medical Problems: (1) CHF exacerbation Status: Acute Problems: Comment Review of Relevant I have reviewed the following items sandie (where applicable) has been applied. Labs Laboratory Tests Test 10/04/16 13:00 10/04/16 16:54 10/04/16 20:23 10/04/16 20:30 White Blood Count 11.0x10^3/uL (4.0-11.0) Red Blood Count 4.02x10^6/uL (4.30-5.70) Hemoglobin 12.4g/dL (13.0-17.5) Hematocrit 38.9% (39.0-53.0) Mean Corpuscular Volume 97fL (79-100) Mean Corpuscular Hemoglobin 31pg (25-35) Mean Corpuscular Hemoglobin Concent 32g/dL (31-37) Red Cell Distribution Width 14.8% (11.5-14.5) Platelet Count 154x10^3/uL (140-400) Neutrophils (%) (Auto) 82% (31-73) Lymphocytes (%) (Auto) 10% (24-48) Monocytes (%) (Auto) 7% (0-9) Eosinophils (%) (Auto) 0% (0-3) Basophils (%) (Auto) 1% (0-3) Neutrophils # (Auto) 9.0x10^3uL (1.8-7.7) Lymphocytes # (Auto) 1.1x10^3/uL (1.0-4.8) Monocytes # (Auto) 0.7x10^3/uL (0.0-1.1) Eosinophils # (Auto) 0.0x10^3/uL (0.0-0.7) Basophils # (Auto) 0.1x10^3/uL (0.0-0.2) Sodium Level 141mmol/L (136-145) Potassium Level 4.8mmol/L (3.5-5.1) Chloride Level 104mmol/L (98-107) Carbon Dioxide Level 39mmol/L (21-32) Anion Gap -2 (6-14) Blood Urea Nitrogen 14mg/dL (8-26) Creatinine 1.3mg/dL (0.7-1.3) Estimated GFR (Cockcroft-Gault) 53.0 Glucose Level 245mg/dL (70-99) Lactic Acid Level 1.0mmol/L (0.4-2.0) Calcium Level 8.4mg/dL (8.5-10.1) Troponin I Quantitative 0.163ng/mL (0.000-0.055) 0.142ng/mL (0.000-0.055) JZ-Fdf-F-Type Natriuretic Peptide 83437mv/mL (0-449) Glucose (Fingerstick) 279mg/dL (70-99) 201mg/dL (70-99) Test 10/04/16 20:31 10/05/16 02:00 10/05/16 02:15 10/05/16 07:30 O2 Saturation 89% (92-99) 93% (92-99) Arterial Blood pH 7.29 (7.35-7.45) 7.47 (7.35-7.45) Arterial Blood pCO2 at Patient Temp 91mmHg (35-46) 54mmHg (35-46) Arterial Blood pO2 at Patient Temp 57mmHg (65-108) 61mmHg (65-108) Arterial Blood HCO3 43mmol/L (21-28) 38mmol/L (21-28) Arterial Blood Base Excess 12mmol/L (-3-3) 12mmol/L (-3-3) FiO2 50 40 White Blood Count 8.7x10^3/uL (4.0-11.0) Red Blood Count 3.83x10^6/uL (4.30-5.70) Hemoglobin 11.8g/dL (13.0-17.5) Hematocrit 37.2% (39.0-53.0) Mean Corpuscular Volume 97fL (79-100) Mean Corpuscular Hemoglobin 31pg (25-35) Mean Corpuscular Hemoglobin Concent 32g/dL (31-37) Red Cell Distribution Width 15.0% (11.5-14.5) Platelet Count 156x10^3/uL (140-400) Neutrophils (%) (Auto) 88% (31-73) Lymphocytes (%) (Auto) 10% (24-48) Monocytes (%) (Auto) 2% (0-9) Eosinophils (%) (Auto) 0% (0-3) Basophils (%) (Auto) 0% (0-3) Neutrophils # (Auto) 7.7x10^3uL (1.8-7.7) Lymphocytes # (Auto) 0.9x10^3/uL (1.0-4.8) Monocytes # (Auto) 0.1x10^3/uL (0.0-1.1) Eosinophils # (Auto) 0.0x10^3/uL (0.0-0.7) Basophils # (Auto) 0.0x10^3/uL (0.0-0.2) Segmented Neutrophils % 91% (35-66) Lymphocytes % 8% (24-48) Monocytes % 1% (0-10) Platelet Estimate Adequate (ADEQUATE) Ovalocytes Occ Sodium Level 144mmol/L (136-145) Potassium Level 4.5mmol/L (3.5-5.1) Chloride Level 103mmol/L (98-107) Carbon Dioxide Level 35mmol/L (21-32) Anion Gap 6 (6-14) Blood Urea Nitrogen 17mg/dL (8-26) Creatinine 1.3mg/dL (0.7-1.3) Estimated GFR (Cockcroft-Gault) 53.0 Glucose Level 205mg/dL (70-99) Calcium Level 8.7mg/dL (8.5-10.1) Magnesium Level 1.9mg/dL (1.8-2.4) Troponin I Quantitative 0.123ng/mL (0.000-0.055) Test 10/05/16 08:16 10/05/16 11:25 Glucose (Fingerstick) 143mg/dL (70-99) 142mg/dL (70-99) Laboratory Tests Test 10/04/16 20:23 10/04/16 20:30 10/04/16 20:31 10/05/16 02:00 Glucose (Fingerstick) 201mg/dL (70-99) Troponin I Quantitative 0.142ng/mL (0.000-0.055) O2 Saturation 89% (92-99) Arterial Blood pH 7.29 (7.35-7.45) Arterial Blood pCO2 at Patient Temp 91mmHg (35-46) Arterial Blood pO2 at Patient Temp 57mmHg (65-108) Arterial Blood HCO3 43mmol/L (21-28) Arterial Blood Base Excess 12mmol/L (-3-3) FiO2 50 White Blood Count 8.7x10^3/uL (4.0-11.0) Red Blood Count 3.83x10^6/uL (4.30-5.70) Hemoglobin 11.8g/dL (13.0-17.5) Hematocrit 37.2% (39.0-53.0) Mean Corpuscular Volume 97fL (79-100) Mean Corpuscular Hemoglobin 31pg (25-35) Mean Corpuscular Hemoglobin Concent 32g/dL (31-37) Red Cell Distribution Width 15.0% (11.5-14.5) Platelet Count 156x10^3/uL (140-400) Neutrophils (%) (Auto) 88% (31-73) Lymphocytes (%) (Auto) 10% (24-48) Monocytes (%) (Auto) 2% (0-9) Eosinophils (%) (Auto) 0% (0-3) Basophils (%) (Auto) 0% (0-3) Neutrophils # (Auto) 7.7x10^3uL (1.8-7.7) Lymphocytes # (Auto) 0.9x10^3/uL (1.0-4.8) Monocytes # (Auto) 0.1x10^3/uL (0.0-1.1) Eosinophils # (Auto) 0.0x10^3/uL (0.0-0.7) Basophils # (Auto) 0.0x10^3/uL (0.0-0.2) Segmented Neutrophils % 91% (35-66) Lymphocytes % 8% (24-48) Monocytes % 1% (0-10) Platelet Estimate Adequate (ADEQUATE) Ovalocytes Occ Sodium Level 144mmol/L (136-145) Potassium Level 4.5mmol/L (3.5-5.1) Chloride Level 103mmol/L (98-107) Carbon Dioxide Level 35mmol/L (21-32) Anion Gap 6 (6-14) Blood Urea Nitrogen 17mg/dL (8-26) Creatinine 1.3mg/dL (0.7-1.3) Estimated GFR (Cockcroft-Gault) 53.0 Glucose Level 205mg/dL (70-99) Calcium Level 8.7mg/dL (8.5-10.1) Magnesium Level 1.9mg/dL (1.8-2.4) Test 10/05/16 02:15 10/05/16 07:30 10/05/16 08:16 10/05/16 11:25 Troponin I Quantitative 0.123ng/mL (0.000-0.055) O2 Saturation 93% (92-99) Arterial Blood pH 7.47 (7.35-7.45) Arterial Blood pCO2 at Patient Temp 54mmHg (35-46) Arterial Blood pO2 at Patient Temp 61mmHg (65-108) Arterial Blood HCO3 38mmol/L (21-28) Arterial Blood Base Excess 12mmol/L (-3-3) FiO2 40 Glucose (Fingerstick) 143mg/dL (70-99) 142mg/dL (70-99) Microbiology 10/04/16 Blood Culture - Preliminary, Resulted NO GROWTH AFTER 1 DAY Medications Current Medications Albuterol/ Ipratropium (Duoneb) 3 ml 1X ONCE NEB Last administered on 13:06; Start 10/04/16 at 13:15; Stop 10/04/16 at 13:16; Status DC Methylprednisolone Sodium Succinate (Solu-Medrol 125mg Vial) 125 mg 1X ONCE IV Last administered on 10/04/16 13:08; Start 10/04/16 at 13:15; Stop 10/04/16 at 13:16; Status DC Furosemide (Lasix) 40 mg DAILY IVP Last administered on 10/04/16 14:12; Start 10/04/16 at 14:00; Stop 10/04/16 at 16:04; Status DC Aspirin (Ecotrin) 81 mg DAILY PO Last administered on 10/05/16 10:01; Start at 09:00 Carvedilol (Coreg) 3.125 mg BIDWMEALS PO Last administered on 10/05/16 09:57; Start 10/04/16 at 17:00 Losartan Potassium (Cozaar) 50 mg DAILY PO Last administered on 10/05/16 09:59 ; Start 10/04/16 at 16:00 Metformin HCl (Glucophage) 1,000 mg BIDAC PO ; Start 10/04/16 at 16:30; Stop 09/08 at 16:30; Status DC Vitamin D (Vitamin D3) 1,000 unit DAILY PO Last administered on 10/05/16 09:58 ; Start 10/05/16 at 09:00 Glimepiride (Amaryl) 4 mg DAILY PO Last administered on 10/05/16 09:58; Start 10/05/16 at 09:00 Potassium Chloride (Klor-Con) 20 meq [id number] PO Last administered on 09:58; Start 10/05/16 at 08:00 Insulin Aspart (Novolog) 0-9 UNITS TIDWMEALS SQ Last administered on 10/04/16 16:57; Start 10/04/16 at 17:00 Dextrose 12.5 gm PRN Q15MIN PRN IV SEE COMMENTS; Start 10/04/16 at 15:15 Furosemide (Lasix) 40 mg BID94 IVP Last administered on 10/05/16 16:17; Start 10/04/16 at 16:30 Metolazone (Zaroxolyn) 5 mg DAILY PO Last administered on 10/05/16 09:50; Start 10/04/16 at 17:00 Lorazepam (Ativan) 2 mg PRN Q4HRS PRN IV ANXIETY / AGITATION Last administered on 10/04/16 17:32; Start 10/04/16 at 17:30; Stop 10/04/16 at 21:02; Status DC Lorazepam (Ativan) 1 mg PRN Q6HRS PRN PO ANXIETY / AGITATION; Start 10/04/16 at 17:30; Stop 10/04/16 at 21:02; Status DC Lorazepam (Ativan) 0.25 mg PRN Q4HRS PRN IV ANXIETY / AGITATION Last administered on 10/05/16 14:59; Start 10/04/16 at 21:00 Lorazepam (Ativan) 0.5 mg PRN Q4HRS PRN IV ANXIETY / AGITATION; Start 10/04/16 at 21:00 Flumazenil (Romazicon) 0.1 mg 1X ONCE IV Last administered on 10/04/16 21:38 ; Start 10/04/16 at 21:15; Stop 10/04/16 at 21:32; Status DC Albuterol/ Ipratropium (Duoneb) 3 ml RTQID NEB Last administered on 10/05/16 15:45; Start 10/05/16 at 12:00 Active Scripts Active Carvedilol 3.125 Mg Tablet 3.125 Mg PO BIDWMEALS Reported Fish Oil + Vitamin D-3 Softgel (Om-3/Dha/Epa/Fish Oil/Vit D3) 1 Each Capsule 1 Each PO Vitamin D (Cholecalciferol (Vitamin D3)) 1,000 Unit Capsule 1,000 Unit PO DAILY Klor-Con 10 (Potassium Chloride) 10 Meq Tablet.er 2 Tab PO DAILY Lasix (Furosemide) 20 Mg Tablet 10 Mg PO DAILY Aspir 81 (Aspirin) 81 Mg Tablet.dr 81 Mg PO Cozaar (Losartan Potassium) 50 Mg Tablet 50 Mg PO DAILY Amaryl (Glimepiride) 4 Mg Tablet 4 Mg PO DAILY Metformin Hcl 1,000 Mg Tablet 1,000 Mg PO BIDAC Vitals/I & O Vital Sign - Last 24 Hours 10/04/16 10/04/16 10/04/16 10/04/16 19:20 19:32 21:01 23:40 Temp 97.3 97.3 Pulse 60 Resp 24 B/P 125/73 Pulse Ox 88 92 91 O2 Delivery Nasal Cannula Nasal Cannula BiPAP/CPAP BiPAP/CPAP O2 Flow Rate 5.0 5.0 10/04/16 10/05/16 10/05/16 1/13/17 23:48 01:52 03:16 03:42 Temp 97.6 97.7 97.6 97.7 Pulse 67 71 Resp 18 20 B/P 111/76 109/75 Pulse Ox 96 91 92 91 O2 Delivery BiPAP/CPAP BiPAP/CPAP BiPAP/CPAP BiPAP/CPAP 10/05/16 10/05/16 10/05/16 10/05/16 05:32 07:20 07:30 08:05 Temp 98.5 98.5 Pulse 53 Resp 18 B/P 131/78 Pulse Ox 93 97 97 O2 Delivery BiPAP/CPAP BiPAP/CPAP BiPAP/CPAP Bi-pap 10/05/16 10/05/16 10/05/16 10/05/16 09:57 09:59 11:18 11:30 Temp 97.8 97.8 Pulse 76 66 59 Resp 22 B/P 131/78 135/87 Pulse Ox 95 95 O2 Delivery BiPAP/CPAP BiPAP/CPAP 10/05/16 10/05/16 10/05/16 13:08 15:09 15:44 Temp 97.8 97.8 Pulse 60 Resp 22 B/P 135/72 Pulse Ox 96 93 98 O2 Delivery BiPAP/CPAP BiPAP/CPAP BiPAP/CPAP Intake and Output 10/04/16 10/04/16 10/05/16 15:00 23:00 07:00 Intake Total 240 ml 0 ml Output Total 875 ml 1075 ml Balance -635 ml -1075 ml LOUISE [place] MD Oct 05, 2016 17:06
[2016-10-05] MEDS: ENOXAPARIN 40 MG/0.4 ML DISP.SYRIN. SQ SCH (18:00)
[2016-10-05 19:55] VITALS: BP 97/57
[2016-10-05] MEDS: HYDROCODONE/APAP 5/325MG TABLET. PO PRN (22:45)
[2016-10-05] MEDS: ONDANSETRON PF 4 MG/2 ML VIAL. IV PRN (22:45)
[2016-10-05 23:34] VITALS: BP 110/69
[2016-10-06 03:15] VITALS: BP 127/73
--- NOTE | 2016-10-06 06:01 | PDOC ---
PULMONARY PROGRESS NOTES Subjective on bipap, more alert, no pain, has sob, cough, nasal congestion Vitals Vital Signs Date Time Temp Pulse Resp B/P Pulse Ox O2 Delivery O2 Flow Rate FiO2 10/06/16 05:26 92 BiPAP/CPAP 10/06/16 03:15 98.0 60 20 127/73 98.0 10/05/16 22:45 3.0 Comments ros as above, discussed w rn, other sys otherwise neg General: Alert, No acute distress Lungs: Clear Cardiovascular: S1, S2 Abdomen: Soft, Non-tender, Other (no mass) Extremities: No Edema Skin: Warm Labs Laboratory Tests Test 10/04/16 13:00 10/04/16 16:54 10/04/16 20:23 10/04/16 20:30 White Blood Count 11.0x10^3/uL (4.0-11.0) Red Blood Count 4.02x10^6/uL (4.30-5.70) Hemoglobin 12.4g/dL (13.0-17.5) Hematocrit 38.9% (39.0-53.0) Mean Corpuscular Volume 97fL (79-100) Mean Corpuscular Hemoglobin 31pg (25-35) Mean Corpuscular Hemoglobin Concent 32g/dL (31-37) Red Cell Distribution Width 14.8% (11.5-14.5) Platelet Count 154x10^3/uL (140-400) Neutrophils (%) (Auto) 82% (31-73) Lymphocytes (%) (Auto) 10% (24-48) Monocytes (%) (Auto) 7% (0-9) Eosinophils (%) (Auto) 0% (0-3) Basophils (%) (Auto) 1% (0-3) Neutrophils # (Auto) 9.0x10^3uL (1.8-7.7) Lymphocytes # (Auto) 1.1x10^3/uL (1.0-4.8) Monocytes # (Auto) 0.7x10^3/uL (0.0-1.1) Eosinophils # (Auto) 0.0x10^3/uL (0.0-0.7) Basophils # (Auto) 0.1x10^3/uL (0.0-0.2) Sodium Level 141mmol/L (136-145) Potassium Level 4.8mmol/L (3.5-5.1) Chloride Level 104mmol/L (98-107) Carbon Dioxide Level 39mmol/L (21-32) Anion Gap -2 (6-14) Blood Urea Nitrogen 14mg/dL (8-26) Creatinine 1.3mg/dL (0.7-1.3) Estimated GFR (Cockcroft-Gault) 53.0 Glucose Level 245mg/dL (70-99) Lactic Acid Level 1.0mmol/L (0.4-2.0) Calcium Level 8.4mg/dL (8.5-10.1) Troponin I Quantitative 0.163ng/mL (0.000-0.055) 0.142ng/mL (0.000-0.055) UW-Hhf-P-Type Natriuretic Peptide 31057pm/mL (0-449) Glucose (Fingerstick) 279mg/dL (70-99) 201mg/dL (70-99) Test 10/04/16 20:31 10/05/16 02:00 10/05/16 02:15 10/05/16 07:30 O2 Saturation 89% (92-99) 93% (92-99) Arterial Blood pH 7.29 (7.35-7.45) 7.47 (7.35-7.45) Arterial Blood pCO2 at Patient Temp 91mmHg (35-46) 54mmHg (35-46) Arterial Blood pO2 at Patient Temp 57mmHg (65-108) 61mmHg (65-108) Arterial Blood HCO3 43mmol/L (21-28) 38mmol/L (21-28) Arterial Blood Base Excess 12mmol/L (-3-3) 12mmol/L (-3-3) FiO2 50 40 White Blood Count 8.7x10^3/uL (4.0-11.0) Red Blood Count 3.83x10^6/uL (4.30-5.70) Hemoglobin 11.8g/dL (13.0-17.5) Hematocrit 37.2% (39.0-53.0) Mean Corpuscular Volume 97fL (79-100) Mean Corpuscular Hemoglobin 31pg (25-35) Mean Corpuscular Hemoglobin Concent 32g/dL (31-37) Red Cell Distribution Width 15.0% (11.5-14.5) Platelet Count 156x10^3/uL (140-400) Neutrophils (%) (Auto) 88% (31-73) Lymphocytes (%) (Auto) 10% (24-48) Monocytes (%) (Auto) 2% (0-9) Eosinophils (%) (Auto) 0% (0-3) Basophils (%) (Auto) 0% (0-3) Neutrophils # (Auto) 7.7x10^3uL (1.8-7.7) Lymphocytes # (Auto) 0.9x10^3/uL (1.0-4.8) Monocytes # (Auto) 0.1x10^3/uL (0.0-1.1) Eosinophils # (Auto) 0.0x10^3/uL (0.0-0.7) Basophils # (Auto) 0.0x10^3/uL (0.0-0.2) Segmented Neutrophils % 91% (35-66) Lymphocytes % 8% (24-48) Monocytes % 1% (0-10) Platelet Estimate Adequate (ADEQUATE) Ovalocytes Occ Sodium Level 144mmol/L (136-145) Potassium Level 4.5mmol/L (3.5-5.1) Chloride Level 103mmol/L (98-107) Carbon Dioxide Level 35mmol/L (21-32) Anion Gap 6 (6-14) Blood Urea Nitrogen 17mg/dL (8-26) Creatinine 1.3mg/dL (0.7-1.3) Estimated GFR (Cockcroft-Gault) 53.0 Glucose Level 205mg/dL (70-99) Calcium Level 8.7mg/dL (8.5-10.1) Magnesium Level 1.9mg/dL (1.8-2.4) Troponin I Quantitative 0.123ng/mL (0.000-0.055) Test 10/05/16 08:16 10/05/16 11:25 10/05/16 17:31 10/05/16 20:43 Glucose (Fingerstick) 143mg/dL (70-99) 142mg/dL (70-99) 170mg/dL (70-99) 140mg/dL (70-99) Laboratory Tests Test 10/05/16 07:30 10/05/16 08:16 10/05/16 11:25 10/05/16 17:31 O2 Saturation 93% (92-99) Arterial Blood pH 7.47 (7.35-7.45) Arterial Blood pCO2 at Patient Temp 54mmHg (35-46) Arterial Blood pO2 at Patient Temp 61mmHg (65-108) Arterial Blood HCO3 38mmol/L (21-28) Arterial Blood Base Excess 12mmol/L (-3-3) FiO2 40 Glucose (Fingerstick) 143mg/dL (70-99) 142mg/dL (70-99) 170mg/dL (70-99) Test 10/05/16 20:43 Glucose (Fingerstick) 140mg/dL (70-99) Medications Active Scripts Medications Dose Route/Sig Days Date Category Carvedilol 3.125 Mg Tablet 3.125 Mg PO BIDWMEALS 09/26/16 Rx Fish Oil + Vitamin D-3 Softgel (Om-3/Dha/Epa/Fish Oil/Vit D3) 1 Each Capsule 1 Each PO 05/11/15 Reported Vitamin D (Cholecalciferol (Vitamin D3)) 1,000 Unit Capsule 1,000 Unit PO DAILY 05/11/15 Reported Klor-Con 10 (Potassium Chloride) 10 Meq Tablet.er 2 Tab PO DAILY 05/11/15 Reported Lasix (Furosemide) 20 Mg Tablet 10 Mg PO DAILY 05/11/15 Reported Aspir 81 (Aspirin) 81 Mg Tablet.dr 81 Mg PO 05/11/15 Reported Cozaar (Losartan Potassium) 50 Mg Tablet 50 Mg PO DAILY 05/11/15 Reported Amaryl (Glimepiride) 4 Mg Tablet 4 Mg PO DAILY 05/11/15 Reported Metformin Hcl 1,000 Mg Tablet 1,000 Mg PO BIDAC 05/11/15 Reported Comments cxr reviewed, 1. Slight interval increase in a suspected small moderate right pleural effusion and diffuse lower lobe predominant right lung infiltrate. 2. Stable small left pleural effusion with diffuse lower lobe predominant left lung infiltrate. 3. Stable cardiomegaly. Impression . acute on chronic resp fail abnl cxr acute sys chf encephalopathy apnea central vs obstructive Plan . o2 titration bronchodilator cont bipap pr during day and cont at night, setting reviewed diuretics, keep I<O, monitor k, cr avoid over sedation psg out pt monitor resp status closely discussed w AGUSTIN Carrasquillo MD Oct 06, 2016 06:01
[2016-10-06] MEDS: HYDROCODONE/APAP 5/325MG TABLET. PO PRN (06:36)
[2016-10-06] MEDS: ONDANSETRON PF 4 MG/2 ML VIAL. IV PRN (06:56)
[2016-10-06] MEDS: IPRATRPIUM/ALBUTEROL 0.5/2.5MG 3 ML NEBU. NEB SCH ×4 (07:24→19:53)
[2016-10-06 07:48] LABS: CALCIUM 8.8 mg/dL (8.5-10.1); CREATININE 1.4 mg/dL (0.7-1.3); GFR 48.6; POTASSIUM 4.1 mmol/L (3.5-5.1)
[2016-10-06 07:58] VITALS: BP 118/75
[2016-10-06] MEDS: INSULIN ASPART 300 UNITS/3 ML INSULN.PEN SQ SCH ×3 (08:00→17:00)
[2016-10-06] MEDS: CHOLECALCIFEROL (VITAMIN D3) 1,000 UNIT TABLET PO SCH (08:23)
[2016-10-06] MEDS: POTASSIUM CHLORIDE 10 MEQ TABLET.ER. PO SCH (08:25)
[2016-10-06] MEDS: FUROSEMIDE 40 MG/4 ML VIAL IVP SCH ×2 (08:26→16:00)
[2016-10-06] MEDS: GLIMEPIRIDE 2 MG TABLET PO SCH (08:26)
[2016-10-06] MEDS: METOLAZONE 2.5 MG TABLET PO SCH (08:26)
[2016-10-06] MEDS: CARVEDILOL 3.125 MG TABLET PO SCH ×2 (08:27→17:00)
[2016-10-06] MEDS: LOSARTAN POTASSIUM 50 MG TABLET. PO SCH (08:27)
[2016-10-06] MEDS: ASPIRIN ENTERIC COATED 81 MG TABLET.DR. PO SCH (08:28)
--- NOTE | 2016-10-06 10:11 | PDOC ---
CARDIOLOGY PROGRESS NOTE SUBJECTIVE: No acute events overnight OBJECTIVE: Vital SIgns: Vital Signs Date Time Temp Pulse Resp B/P Pulse Ox O2 Delivery O2 Flow Rate FiO2 10/06/16 08:27 65 118/75 10/06/16 07:58 98.0 20 92 BiPAP/CPAP 98.0 10/06/16 07:24 5.0 I & O Intake and Output 10/06/16 07:00 Intake Total 1120 ml Output Total 3650 ml Balance -2530 ml Intake Oral 1120 ml Output Urine Total 3650 ml Objective: Gen: A/O x 2. CVS: RRR, 2/6 systolic murmur PULM: Bilateral rhonchi, rales ABD: Soft, obese. 2+ LE edema. non-focal neuro exam. CURRENT MEDICATIONS: ASA, Metolazone, Coreg, Lasix, Losartan. DIAGNOSTIC TESTING: Hgb 11.8, Plt 156, Cr 1.4 ASSESSMENT: 1. CAD s/p CABG and AVR 2. Respiratory failure secondary to mixed diastolic and systolic HF and COPD exacerbation 3. SSS s/p Pacemaker. Problems: PLAN: 1. Will continue diuresis x 1 more day. Transition to P.O tomorrow. Monitor cr. 2. Continue other meds including metolazone, coreg and asa and losartan. Will follow. JOSE ESCOBEDO MD Oct 06, 2016 10:11
[2016-10-06 10:16] VITALS: BP 118/65
--- NOTE | 2016-10-06 10:33 | PDOC ---
PROGRESS NOTES Chief Complaint Chief Complaint 1. 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 Encephalopathy Resolved. 3. CAD: CABG in the past. 4. SSS with PPM: [employer] device. 5. s/p AVR: stable, 6. Recent hx of enterococcus bacteremia and Pneumonia: Recent JEROME with no notable thrombus nor vegetations. 7. DM2: SSI 8. Hypertension: Controlled, 9. Paroxysmal AFIB: V paced with underlying afib/flutter, rate controlled. oral AC based on Cardiology 10. CKD3. 11. COPD/recent HCAP/bacteremia: Chronic supplemental O2 use. Has PICC line with outpt IV antibiotic therapy. 12. Tobaccoism: recently quit 13. Hx of noncompliance: 08/2016 left AMA. Per spouse pt has been compliant with his medications. Plan PRN BIPAP, on 4L chronic. Diuresis per cardiology, 1 more day, transition to PO in AM per cardiology. Monitor electrolytes and Cr SSI. follow blood cx. Oral AC per cardiology PT/OT DVT prophylaxis History of Present Illness History of Present Illness family at bedside no fever no chills no chest pain Vitals Vitals Vital Signs Date Time Temp Pulse Resp B/P Pulse Ox O2 Delivery O2 Flow Rate FiO2 10/06/16 10:16 97.6 61 18 118/65 95 Nasal Cannula 4.0 97.6 Physical Exam General: Alert, Oriented X3, Cooperative, mild distress Heart: Regular rate (V paced with underlying afib), Other (2/6 systolic murmur to LLS border; S4) Lungs: Clear Abdomen: Soft, No tenderness, Other (protuberant) Extremities: No cyanosis, Other (3+ bilateral LE pitting edema) Skin: No breakdown, No significant lesion Labs LABS Laboratory Tests Test 10/05/16 11:25 10/05/16 17:31 10/05/16 20:43 10/06/16 06:28 Glucose (Fingerstick) 142mg/dL (70-99) 170mg/dL (70-99) 140mg/dL (70-99) 97mg/dL (70-99) Test 10/06/16 07:25 10/06/16 08:27 Sodium Level 144mmol/L (136-145) Potassium Level 4.1mmol/L (3.5-5.1) Chloride Level 100mmol/L (98-107) Carbon Dioxide Level 42mmol/L (21-32) Anion Gap 2 (6-14) Blood Urea Nitrogen 19mg/dL (8-26) Creatinine 1.4mg/dL (0.7-1.3) Estimated GFR (Cockcroft-Gault) 48.6 Glucose Level 87mg/dL (70-99) Calcium Level 8.8mg/dL (8.5-10.1) Glucose (Fingerstick) 78mg/dL (70-99) Assessment and Plan Assessmemt and Plan Problems Medical Problems: (1) CHF exacerbation Status: Acute Problems: Comment Review of Relevant I have reviewed the following items sandie (where applicable) has been applied. Labs Laboratory Tests Test 10/04/16 13:00 10/04/16 16:54 10/04/16 20:23 10/04/16 20:30 White Blood Count 11.0x10^3/uL (4.0-11.0) Red Blood Count 4.02x10^6/uL (4.30-5.70) Hemoglobin 12.4g/dL (13.0-17.5) Hematocrit 38.9% (39.0-53.0) Mean Corpuscular Volume 97fL (79-100) Mean Corpuscular Hemoglobin 31pg (25-35) Mean Corpuscular Hemoglobin Concent 32g/dL (31-37) Red Cell Distribution Width 14.8% (11.5-14.5) Platelet Count 154x10^3/uL (140-400) Neutrophils (%) (Auto) 82% (31-73) Lymphocytes (%) (Auto) 10% (24-48) Monocytes (%) (Auto) 7% (0-9) Eosinophils (%) (Auto) 0% (0-3) Basophils (%) (Auto) 1% (0-3) Neutrophils # (Auto) 9.0x10^3uL (1.8-7.7) Lymphocytes # (Auto) 1.1x10^3/uL (1.0-4.8) Monocytes # (Auto) 0.7x10^3/uL (0.0-1.1) Eosinophils # (Auto) 0.0x10^3/uL (0.0-0.7) Basophils # (Auto) 0.1x10^3/uL (0.0-0.2) Sodium Level 141mmol/L (136-145) Potassium Level 4.8mmol/L (3.5-5.1) Chloride Level 104mmol/L (98-107) Carbon Dioxide Level 39mmol/L (21-32) Anion Gap -2 (6-14) Blood Urea Nitrogen 14mg/dL (8-26) Creatinine 1.3mg/dL (0.7-1.3) Estimated GFR (Cockcroft-Gault) 53.0 Glucose Level 245mg/dL (70-99) Lactic Acid Level 1.0mmol/L (0.4-2.0) Calcium Level 8.4mg/dL (8.5-10.1) Troponin I Quantitative 0.163ng/mL (0.000-0.055) 0.142ng/mL (0.000-0.055) RT-Yri-T-Type Natriuretic Peptide 82164gz/mL (0-449) Glucose (Fingerstick) 279mg/dL (70-99) 201mg/dL (70-99) Test 10/04/16 20:31 10/05/16 02:00 10/05/16 02:15 10/05/16 07:30 O2 Saturation 89% (92-99) 93% (92-99) Arterial Blood pH 7.29 (7.35-7.45) 7.47 (7.35-7.45) Arterial Blood pCO2 at Patient Temp 91mmHg (35-46) 54mmHg (35-46) Arterial Blood pO2 at Patient Temp 57mmHg (65-108) 61mmHg (65-108) Arterial Blood HCO3 43mmol/L (21-28) 38mmol/L (21-28) Arterial Blood Base Excess 12mmol/L (-3-3) 12mmol/L (-3-3) FiO2 50 40 White Blood Count 8.7x10^3/uL (4.0-11.0) Red Blood Count 3.83x10^6/uL (4.30-5.70) Hemoglobin 11.8g/dL (13.0-17.5) Hematocrit 37.2% (39.0-53.0) Mean Corpuscular Volume 97fL (79-100) Mean Corpuscular Hemoglobin 31pg (25-35) Mean Corpuscular Hemoglobin Concent 32g/dL (31-37) Red Cell Distribution Width 15.0% (11.5-14.5) Platelet Count 156x10^3/uL (140-400) Neutrophils (%) (Auto) 88% (31-73) Lymphocytes (%) (Auto) 10% (24-48) Monocytes (%) (Auto) 2% (0-9) Eosinophils (%) (Auto) 0% (0-3) Basophils (%) (Auto) 0% (0-3) Neutrophils # (Auto) 7.7x10^3uL (1.8-7.7) Lymphocytes # (Auto) 0.9x10^3/uL (1.0-4.8) Monocytes # (Auto) 0.1x10^3/uL (0.0-1.1) Eosinophils # (Auto) 0.0x10^3/uL (0.0-0.7) Basophils # (Auto) 0.0x10^3/uL (0.0-0.2) Segmented Neutrophils % 91% (35-66) Lymphocytes % 8% (24-48) Monocytes % 1% (0-10) Platelet Estimate Adequate (ADEQUATE) Ovalocytes Occ Sodium Level 144mmol/L (136-145) Potassium Level 4.5mmol/L (3.5-5.1) Chloride Level 103mmol/L (98-107) Carbon Dioxide Level 35mmol/L (21-32) Anion Gap 6 (6-14) Blood Urea Nitrogen 17mg/dL (8-26) Creatinine 1.3mg/dL (0.7-1.3) Estimated GFR (Cockcroft-Gault) 53.0 Glucose Level 205mg/dL (70-99) Calcium Level 8.7mg/dL (8.5-10.1) Magnesium Level 1.9mg/dL (1.8-2.4) Troponin I Quantitative 0.123ng/mL (0.000-0.055) Test 10/05/16 08:16 10/05/16 11:25 10/05/16 17:31 10/05/16 20:43 Glucose (Fingerstick) 143mg/dL (70-99) 142mg/dL (70-99) 170mg/dL (70-99) 140mg/dL (70-99) Test 10/06/16 06:28 10/06/16 07:25 10/06/16 08:27 Glucose (Fingerstick) 97mg/dL (70-99) 78mg/dL (70-99) Sodium Level 144mmol/L (136-145) Potassium Level 4.1mmol/L (3.5-5.1) Chloride Level 100mmol/L (98-107) Carbon Dioxide Level 42mmol/L (21-32) Anion Gap 2 (6-14) Blood Urea Nitrogen 19mg/dL (8-26) Creatinine 1.4mg/dL (0.7-1.3) Estimated GFR (Cockcroft-Gault) 48.6 Glucose Level 87mg/dL (70-99) Calcium Level 8.8mg/dL (8.5-10.1) Laboratory Tests Test 10/05/16 11:25 10/05/16 17:31 10/05/16 20:43 10/06/16 06:28 Glucose (Fingerstick) 142mg/dL (70-99) 170mg/dL (70-99) 140mg/dL (70-99) 97mg/dL (70-99) Test 10/06/16 07:25 10/06/16 08:27 Sodium Level 144mmol/L (136-145) Potassium Level 4.1mmol/L (3.5-5.1) Chloride Level 100mmol/L (98-107) Carbon Dioxide Level 42mmol/L (21-32) Anion Gap 2 (6-14) Blood Urea Nitrogen 19mg/dL (8-26) Creatinine 1.4mg/dL (0.7-1.3) Estimated GFR (Cockcroft-Gault) 48.6 Glucose Level 87mg/dL (70-99) Calcium Level 8.8mg/dL (8.5-10.1) Glucose (Fingerstick) 78mg/dL (70-99) Microbiology 10/04/16 Blood Culture - Preliminary, Resulted NO GROWTH AFTER 1 DAY Medications Current Medications Albuterol/ Ipratropium (Duoneb) 3 ml 1X ONCE NEB Last administered on t 13:06; Start 10/04/16 at 13:15; Stop 10/04/16 at 13:16; Status DC Methylprednisolone Sodium Succinate (Solu-Medrol 125mg Vial) 125 mg 1X ONCE IV Last administered on 10/04/16 13:08; Start 10/04/16 at 13:15; Stop 10/04/16 at 13:16; Status DC Furosemide (Lasix) 40 mg DAILY IVP Last administered on 10/04/16 14:12; Start 10/04/16 at 14:00; Stop 10/04/16 at 16:04; Status DC Aspirin (Ecotrin) 81 mg DAILY PO Last administered on 10/06/16 08:28; Start at 09:00 Carvedilol (Coreg) 3.125 mg BIDWMEALS PO Last administered on 10/06/16 08:27; Start 10/04/16 at 17:00 Losartan Potassium (Cozaar) 50 mg DAILY PO Last administered on 10/06/16 08:27 ; Start 10/04/16 at 16:00 Metformin HCl (Glucophage) 1,000 mg BIDAC PO ; Start 10/04/16 at 16:30; Stop 09/08 at 16:30; Status DC Vitamin D (Vitamin D3) 1,000 unit DAILY PO Last administered on 10/06/16 08:23 ; Start 10/05/16 at 09:00 Glimepiride (Amaryl) 4 mg DAILY PO Last administered on 10/06/16 08:26; Start 10/05/16 at 09:00 Potassium Chloride (Klor-Con) 20 meq [id number] PO Last administered on 08:25; Start 10/05/16 at 08:00 Insulin Aspart (Novolog) 0-9 UNITS TIDWMEALS SQ Last administered on 10/05/16 18:00; Start 10/04/16 at 17:00 Dextrose 12.5 gm PRN Q15MIN PRN IV SEE COMMENTS; Start 10/04/16 at 15:15 Furosemide (Lasix) 40 mg BID94 IVP Last administered on 10/06/16 08:26; Start 10/04/16 at 16:30 Metolazone (Zaroxolyn) 5 mg DAILY PO Last administered on 10/06/16 08:26; Start 10/04/16 at 17:00 Lorazepam (Ativan) 2 mg PRN Q4HRS PRN IV ANXIETY / AGITATION Last administered on 10/04/16 17:32; Start 10/04/16 at 17:30; Stop 10/04/16 at 21:02; Status DC Lorazepam (Ativan) 1 mg PRN Q6HRS PRN PO ANXIETY / AGITATION; Start 10/04/16 at 17:30; Stop 10/04/16 at 21:02; Status DC Lorazepam (Ativan) 0.25 mg PRN Q4HRS PRN IV ANXIETY / AGITATION Last administered on 10/05/16 19:49; Start 10/04/16 at 21:00 Lorazepam (Ativan) 0.5 mg PRN Q4HRS PRN IV ANXIETY / AGITATION; Start 10/04/16 at 21:00 Flumazenil (Romazicon) 0.1 mg 1X ONCE IV Last administered on 10/04/16 21:38 ; Start 10/04/16 at 21:15; Stop 10/04/16 at 21:32; Status DC Albuterol/ Ipratropium (Duoneb) 3 ml RTQID NEB Last administered on 10/06/16 07:24; Start 10/05/16 at 12:00 Enoxaparin Sodium (Lovenox 40mg Syringe) 40 mg Q24H SQ Last administered on 18:00; Start 10/05/16 at 18:00 Ondansetron HCl (Zofran) 4 mg PRN Q6HRS PRN IV NAUSEA/VOMITING Last administered on 10/06/16 06:56; Start 10/05/16 at 22:45 Acetaminophen/ Hydrocodone Bitart (Lortab 5/325) 1 tab PRN Q4HRS PRN PO PAIN Last administered on 10/06/16 06:36; Start 10/05/16 at 22:45 Active Scripts Active Carvedilol 3.125 Mg Tablet 3.125 Mg PO BIDWMEALS Reported Fish Oil + Vitamin D-3 Softgel (Om-3/Dha/Epa/Fish Oil/Vit D3) 1 Each Capsule 1 Each PO Vitamin D (Cholecalciferol (Vitamin D3)) 1,000 Unit Capsule 1,000 Unit PO DAILY Klor-Con 10 (Potassium Chloride) 10 Meq Tablet.er 2 Tab PO DAILY Lasix (Furosemide) 20 Mg Tablet 10 Mg PO DAILY Aspir 81 (Aspirin) 81 Mg Tablet.dr 81 Mg PO Cozaar (Losartan Potassium) 50 Mg Tablet 50 Mg PO DAILY Amaryl (Glimepiride) 4 Mg Tablet 4 Mg PO DAILY Metformin Hcl 1,000 Mg Tablet 1,000 Mg PO BIDAC Vitals/I & O Vital Sign - Last 24 Hours 10/05/16 10/05/16 10/05/16 10/05/16 11:18 11:30 13:08 15:09 Temp 97.8 97.8 97.8 97.8 Pulse 59 60 Resp 22 22 B/P 135/87 135/72 Pulse Ox 95 95 96 93 O2 Delivery BiPAP/CPAP BiPAP/CPAP BiPAP/CPAP BiPAP/CPAP 10/05/16 10/05/16 10/05/16 10/05/16 15:44 17:24 17:59 19:55 Temp 97.8 97.8 Pulse 66 60 Resp 21 B/P 97/57 Pulse Ox 98 97 88 O2 Delivery BiPAP/CPAP BiPAP/CPAP BiPAP/CPAP 10/05/16 10/05/16 10/05/16 10/05/16 20:01 20:09 21:54 22:45 Resp 22 Pulse Ox 90 90 90 O2 Delivery Bi-pap BiPAP/CPAP BiPAP/CPAP Nasal Cannula O2 Flow Rate 3.0 10/05/16 10/05/16 10/05/16 10/06/16 23:34 23:36 23:45 01:10 Temp 97.7 97.7 Pulse 59 Resp 20 B/P 110/69 Pulse Ox 91 96 96 O2 Delivery BiPAP/CPAP BiPAP/CPAP BiPAP/CPAP BiPAP/CPAP 10/06/16 10/06/16 10/06/16 10/06/16 03:15 03:45 05:26 06:36 Temp 98.0 98.0 Pulse 60 Resp 20 B/P 127/73 Pulse Ox 92 92 92 92 O2 Delivery BiPAP/CPAP BiPAP/CPAP BiPAP/CPAP Nasal Cannula O2 Flow Rate 3.0 10/06/16 10/06/16 10/06/16 10/06/16 07:24 07:49 07:58 08:27 Temp 98.0 98.0 Pulse 63 63 Resp 20 B/P 118/75 118/75 Pulse Ox 91 94 92 O2 Delivery Nasal Cannula BiPAP/CPAP BiPAP/CPAP O2 Flow Rate 5.0 10/06/16 10/06/16 08:27 10:16 Temp 97.6 97.6 Pulse 65 61 Resp 18 B/P 118/75 118/65 Pulse Ox 95 O2 Delivery Nasal Cannula O2 Flow Rate 4.0 Intake and Output 10/05/16 10/05/16 10/06/16 15:00 23:00 07:00 Intake Total 920 ml 200 ml Output Total 2500 ml 1150 ml Balance -1580 ml -950 ml LOUISE [place] MD Oct 06, 2016 10:33
[2016-10-06 15:11] VITALS: BP 119/85
[2016-10-06] MEDS: ENOXAPARIN 40 MG/0.4 ML DISP.SYRIN. SQ SCH (18:00)
[2016-10-06 19:48] VITALS: BP 105/63
[2016-10-06 23:08] VITALS: BP 108/70
[2016-10-07] MEDS: ONDANSETRON PF 4 MG/2 ML VIAL. IV PRN (00:45)
[2016-10-07] MEDS: HYDROCODONE/APAP 5/325MG TABLET. PO PRN ×2 (00:46→05:59)
[2016-10-07 03:45] VITALS: BP 109/68
--- NOTE | 2016-10-07 06:58 | PDOC ---
PULMONARY PROGRESS NOTES Subjective on 02, alert, no pain, has sob, cough, nasal congestion, better. Vitals Vital Signs Date Time Temp Pulse Resp B/P Pulse Ox O2 Delivery O2 Flow Rate FiO2 10/07/16 05:59 Nasal Cannula 5.0 10/07/16 03:45 97.4 60 22 109/68 91 97.4 Comments ros as above, discussed w rn, other sys otherwise neg General: Alert, No acute distress Lungs: Clear Cardiovascular: S1, S2 Abdomen: Soft, Non-tender, Other (no mass) Extremities: No Edema Skin: Warm Labs Laboratory Tests Test 10/05/16 07:30 10/05/16 08:16 10/05/16 11:25 10/05/16 17:31 O2 Saturation 93% (92-99) Arterial Blood pH 7.47 (7.35-7.45) Arterial Blood pCO2 at Patient Temp 54mmHg (35-46) Arterial Blood pO2 at Patient Temp 61mmHg (65-108) Arterial Blood HCO3 38mmol/L (21-28) Arterial Blood Base Excess 12mmol/L (-3-3) FiO2 40 Glucose (Fingerstick) 143mg/dL (70-99) 142mg/dL (70-99) 170mg/dL (70-99) Test 10/05/16 20:43 10/06/16 06:28 10/06/16 07:25 10/06/16 08:27 Glucose (Fingerstick) 140mg/dL (70-99) 97mg/dL (70-99) 78mg/dL (70-99) Sodium Level 144mmol/L (136-145) Potassium Level 4.1mmol/L (3.5-5.1) Chloride Level 100mmol/L (98-107) Carbon Dioxide Level 42mmol/L (21-32) Anion Gap 2 (6-14) Blood Urea Nitrogen 19mg/dL (8-26) Creatinine 1.4mg/dL (0.7-1.3) Estimated GFR (Cockcroft-Gault) 48.6 Glucose Level 87mg/dL (70-99) Calcium Level 8.8mg/dL (8.5-10.1) Test 10/06/16 11:24 10/06/16 19:00 10/06/16 20:52 Glucose (Fingerstick) 111mg/dL (70-99) 253mg/dL (70-99) 206mg/dL (70-99) Laboratory Tests Test 10/06/16 07:25 10/06/16 08:27 10/06/16 11:24 10/06/16 19:00 Sodium Level 144mmol/L (136-145) Potassium Level 4.1mmol/L (3.5-5.1) Chloride Level 100mmol/L (98-107) Carbon Dioxide Level 42mmol/L (21-32) Anion Gap 2 (6-14) Blood Urea Nitrogen 19mg/dL (8-26) Creatinine 1.4mg/dL (0.7-1.3) Estimated GFR (Cockcroft-Gault) 48.6 Glucose Level 87mg/dL (70-99) Calcium Level 8.8mg/dL (8.5-10.1) Glucose (Fingerstick) 78mg/dL (70-99) 111mg/dL (70-99) 253mg/dL (70-99) Test 10/06/16 20:52 Glucose (Fingerstick) 206mg/dL (70-99) Medications Active Scripts Medications Dose Route/Sig Days Date Category Carvedilol 3.125 Mg Tablet 3.125 Mg PO BIDWMEALS 09/26/16 Rx Fish Oil + Vitamin D-3 Softgel (Om-3/Dha/Epa/Fish Oil/Vit D3) 1 Each Capsule 1 Each PO 05/11/15 Reported Vitamin D (Cholecalciferol (Vitamin D3)) 1,000 Unit Capsule 1,000 Unit PO DAILY 05/11/15 Reported Klor-Con 10 (Potassium Chloride) 10 Meq Tablet.er 2 Tab PO DAILY 05/11/15 Reported Lasix (Furosemide) 20 Mg Tablet 10 Mg PO DAILY 05/11/15 Reported Aspir 81 (Aspirin) 81 Mg Tablet.dr 81 Mg PO 05/11/15 Reported Cozaar (Losartan Potassium) 50 Mg Tablet 50 Mg PO DAILY 05/11/15 Reported Amaryl (Glimepiride) 4 Mg Tablet 4 Mg PO DAILY 05/11/15 Reported Metformin Hcl 1,000 Mg Tablet 1,000 Mg PO BIDAC 05/11/15 Reported Comments cxr reviewed, 1. Slight interval increase in a suspected small moderate right pleural effusion and diffuse lower lobe predominant right lung infiltrate. 2. Stable small left pleural effusion with diffuse lower lobe predominant left lung infiltrate. 3. Stable cardiomegaly. Impression . acute on chronic resp fail abnl cxr acute sys chf encephalopathy apnea central vs obstructive Plan . o2 titration, on home 02 4 lpm bronchodilator cont bipap pr during day and cont at night, setting reviewed diuretics, keep I<O, monitor k, cr avoid over sedation psg out pt, fu w dr shah monitor resp status closely discussed w AGUSTIN Carrasquillo MD Oct 07, 2016 06:58
[2016-10-07 07:03] VITALS: BP 124/69
[2016-10-07] MEDS: IPRATRPIUM/ALBUTEROL 0.5/2.5MG 3 ML NEBU. NEB SCH ×4 (07:10→19:24)
[2016-10-07] MEDS: INSULIN ASPART 300 UNITS/3 ML INSULN.PEN SQ SCH ×3 (08:00→17:14)
[2016-10-07] MEDS: CHOLECALCIFEROL (VITAMIN D3) 1,000 UNIT TABLET PO SCH (08:35)
[2016-10-07] MEDS: GLIMEPIRIDE 2 MG TABLET PO SCH (08:35)
[2016-10-07] MEDS: POTASSIUM CHLORIDE 10 MEQ TABLET.ER. PO SCH (08:36)
[2016-10-07] MEDS: METOLAZONE 2.5 MG TABLET PO SCH (08:36)
[2016-10-07] MEDS: CARVEDILOL 3.125 MG TABLET PO SCH ×2 (08:38→17:09)
[2016-10-07] MEDS: ASPIRIN ENTERIC COATED 81 MG TABLET.DR. PO SCH (08:38)
[2016-10-07] MEDS: LOSARTAN POTASSIUM 50 MG TABLET. PO SCH (08:39)
[2016-10-07] MEDS: FUROSEMIDE 40 MG/4 ML VIAL IVP SCH (09:00)
[2016-10-07 10:14] VITALS: BP 116/69
--- NOTE | 2016-10-07 11:42 | PDOC ---
PROGRESS NOTES Chief Complaint Chief Complaint 1. 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 Encephalopathy Resolved. 3. CAD: CABG in the past. 4. SSS with PPM: Medtronic device. 5. s/p AVR: stable, 6. Recent hx of enterococcus bacteremia and Pneumonia: Recent JEROME with no notable thrombus nor vegetations. 7. DM2: SSI 8. Hypertension: Controlled, 9. Paroxysmal AFIB: V paced with underlying afib/flutter, rate controlled. oral AC based on Cardiology 10. CKD3. 11. COPD/recent HCAP/bacteremia: Chronic supplemental O2 use. Has PICC line with outpt IV antibiotic therapy. 12. Tobaccoism: recently quit 13. Hx of noncompliance: 08/2016 left AMA. Per spouse pt has been compliant with his medications. Plan PRN BIPAP, on 4L chronic. Diuresis changed to oral, see orderelmer, BMP pending SSI. follow blood cx. no growth. Oral AC per cardiology PT/OT DVT prophylaxis anticipated DC today if family able to pick him up, and normal labs, if not tomorrow. History of Present Illness History of Present Illness family at bedside no fever no chills no chest pain Vitals Vitals Vital Signs Date Time Temp Pulse Resp B/P Pulse Ox O2 Delivery O2 Flow Rate FiO2 10/07/16 11:05 91 Nasal Cannula 4.0 10/07/16 10:14 98.1 67 18 116/69 98.1 Physical Exam General: Alert, Oriented X3, Cooperative, mild distress Heart: Regular rate (V paced with underlying afib), Other (2/6 systolic murmur to LLS border; S4) Lungs: Clear Abdomen: Soft, No tenderness, Other (protuberant) Extremities: No cyanosis, Other Skin: No breakdown, No significant lesion Labs LABS Laboratory Tests Test 10/06/16 19:00 10/06/16 20:52 10/07/16 07:49 10/07/16 10:46 Glucose (Fingerstick) 253mg/dL (70-99) 206mg/dL (70-99) 141mg/dL (70-99) 187mg/dL (70-99) Assessment and Plan Assessmemt and Plan Problems Medical Problems: (1) CHF exacerbation Status: Acute Problems: Comment Review of Relevant I have reviewed the following items sandie (where applicable) has been applied. Labs Laboratory Tests Test 10/05/16 17:31 10/05/16 20:43 10/06/16 06:28 10/06/16 07:25 Glucose (Fingerstick) 170mg/dL (70-99) 140mg/dL (70-99) 97mg/dL (70-99) Sodium Level 144mmol/L (136-145) Potassium Level 4.1mmol/L (3.5-5.1) Chloride Level 100mmol/L (98-107) Carbon Dioxide Level 42mmol/L (21-32) Anion Gap 2 (6-14) Blood Urea Nitrogen 19mg/dL (8-26) Creatinine 1.4mg/dL (0.7-1.3) Estimated GFR (Cockcroft-Gault) 48.6 Glucose Level 87mg/dL (70-99) Calcium Level 8.8mg/dL (8.5-10.1) Test 10/06/16 08:27 10/06/16 11:24 10/06/16 19:00 10/06/16 20:52 Glucose (Fingerstick) 78mg/dL (70-99) 111mg/dL (70-99) 253mg/dL (70-99) 206mg/dL (70-99) Test 10/07/16 07:49 10/07/16 10:46 Glucose (Fingerstick) 141mg/dL (70-99) 187mg/dL (70-99) Laboratory Tests Test 10/06/16 19:00 10/06/16 20:52 10/07/16 07:49 10/07/16 10:46 Glucose (Fingerstick) 253mg/dL (70-99) 206mg/dL (70-99) 141mg/dL (70-99) 187mg/dL (70-99) Microbiology 10/04/16 Blood Culture - Preliminary, Resulted NO GROWTH AFTER 2 DAYS Medications Current Medications Albuterol/ Ipratropium (Duoneb) 3 ml 1X ONCE NEB Last administered on 13:06; Start 10/04/16 at 13:15; Stop 10/04/16 at 13:16; Status DC Methylprednisolone Sodium Succinate (Solu-Medrol 125mg Vial) 125 mg 1X ONCE IV Last administered on 10/04/16 13:08; Start 10/04/16 at 13:15; Stop 10/04/16 at 13:16; Status DC Furosemide (Lasix) 40 mg DAILY IVP Last administered on 10/04/16 14:12; Start 10/04/16 at 14:00; Stop 10/04/16 at 16:04; Status DC Aspirin (Ecotrin) 81 mg DAILY PO Last administered on 10/07/16 08:38; Start at 09:00 Carvedilol (Coreg) 3.125 mg BIDWMEALS PO Last administered on 10/07/16 08:38; Start 10/04/16 at 17:00 Losartan Potassium (Cozaar) 50 mg DAILY PO Last administered on 10/07/16 08:39 ; Start 10/04/16 at 16:00 Metformin HCl (Glucophage) 1,000 mg BIDAC PO ; Start 10/04/16 at 16:30; Stop 09/08 at 16:30; Status DC Vitamin D (Vitamin D3) 1,000 unit DAILY PO Last administered on 10/07/16 08:35 ; Start 10/05/16 at 09:00 Glimepiride (Amaryl) 4 mg DAILY PO Last administered on 10/07/16 08:35; Start 10/05/16 at 09:00 Potassium Chloride (Klor-Con) 20 meq DAILYWBKFT PO Last administered on 08:36; Start 10/05/16 at 08:00 Insulin Aspart (Novolog) 0-9 UNITS TIDWMEALS SQ Last administered on 10/06/16 17:00; Start 10/04/16 at 17:00 Dextrose 12.5 gm PRN Q15MIN PRN IV SEE COMMENTS; Start 10/04/16 at 15:15 Furosemide (Lasix) 40 mg BID94 IVP Last administered on 10/06/16 16:00; Start 10/04/16 at 16:30 Metolazone (Zaroxolyn) 5 mg DAILY PO Last administered on 10/07/16 08:36; Start 10/04/16 at 17:00 Lorazepam (Ativan) 2 mg PRN Q4HRS PRN IV ANXIETY / AGITATION Last administered on 10/04/16 17:32; Start 10/04/16 at 17:30; Stop 10/04/16 at 21:02; Status DC Lorazepam (Ativan) 1 mg PRN Q6HRS PRN PO ANXIETY / AGITATION; Start 10/04/16 at 17:30; Stop 10/04/16 at 21:02; Status DC Lorazepam (Ativan) 0.25 mg PRN Q4HRS PRN IV ANXIETY / AGITATION Last administered on 10/05/16 19:49; Start 10/04/16 at 21:00 Lorazepam (Ativan) 0.5 mg PRN Q4HRS PRN IV ANXIETY / AGITATION; Start 10/04/16 at 21:00 Flumazenil (Romazicon) 0.1 mg 1X ONCE IV Last administered on 10/04/16 21:38 ; Start 10/04/16 at 21:15; Stop 10/04/16 at 21:32; Status DC Albuterol/ Ipratropium (Duoneb) 3 ml RTQID NEB Last administered on 10/07/16 11:04; Start 10/05/16 at 12:00 Enoxaparin Sodium (Lovenox 40mg Syringe) 40 mg Q24H SQ Last administered on 18:00; Start 10/05/16 at 18:00 Ondansetron HCl (Zofran) 4 mg PRN Q6HRS PRN IV NAUSEA/VOMITING Last administered on 10/07/16 00:45; Start 10/05/16 at 22:45 Acetaminophen/ Hydrocodone Bitart (Lortab 5/325) 1 tab PRN Q4HRS PRN PO PAIN Last administered on 10/07/16 05:59; Start 10/05/16 at 22:45 Active Scripts Active Carvedilol 3.125 Mg Tablet 3.125 Mg PO BIDWMEALS Reported Fish Oil + Vitamin D-3 Softgel (Om-3/Dha/Epa/Fish Oil/Vit D3) 1 Each Capsule 1 Each PO Vitamin D (Cholecalciferol (Vitamin D3)) 1,000 Unit Capsule 1,000 Unit PO DAILY Klor-Con 10 (Potassium Chloride) 10 Meq Tablet.er 2 Tab PO DAILY Lasix (Furosemide) 20 Mg Tablet 10 Mg PO DAILY Aspir 81 (Aspirin) 81 Mg Tablet.dr 81 Mg PO Cozaar (Losartan Potassium) 50 Mg Tablet 50 Mg PO DAILY Amaryl (Glimepiride) 4 Mg Tablet 4 Mg PO DAILY Metformin Hcl 1,000 Mg Tablet 1,000 Mg PO BIDAC Vitals/I & O Vital Sign - Last 24 Hours 10/06/16 10/06/16 10/06/16 10/06/16 15:11 15:16 17:00 19:48 Temp 98.2 97.4 98.2 97.4 Pulse 85 65 60 Resp 18 21 B/P 119/85 105/63 105/63 Pulse Ox 96 92 95 O2 Delivery Nasal Cannula Nasal Cannula Nasal Cannula O2 Flow Rate 4.0 5.0 5.0 10/06/16 10/06/16 10/06/16 10/07/16 19:53 20:00 23:08 00:46 Temp 97.6 97.6 Pulse 59 Resp 22 B/P 108/70 Pulse Ox 95 92 O2 Delivery Nasal Cannula Nasal Cannula Nasal Cannula Nasal Cannula O2 Flow Rate 5.0 4.0 5.0 4.0 10/07/16 10/07/16 10/07/16 10/07/16 03:45 05:59 06:59 07:03 Temp 97.4 98.0 97.4 98.0 Pulse 60 80 Resp 22 20 22 B/P 109/68 124/69 Pulse Ox 91 97 O2 Delivery Nasal Cannula Nasal Cannula Nasal Cannula Nasal Cannula O2 Flow Rate 5.0 5.0 4.0 5.0 10/07/16 10/07/16 10/07/16 10/07/16 07:11 08:00 08:38 08:39 Pulse 80 80 B/P 124/69 124/69 Pulse Ox 94 O2 Delivery Nasal Cannula Nasal Cannula O2 Flow Rate 5.0 4.0 10/07/16 10/07/16 10:14 11:05 Temp 98.1 98.1 Pulse 67 Resp 18 B/P 116/69 Pulse Ox 94 91 O2 Delivery Nasal Cannula Nasal Cannula O2 Flow Rate 5.0 4.0 Intake and Output 10/06/16 10/06/16 10/07/16 15:00 23:00 07:00 Intake Total 120 ml 150 ml Output Total 1400 ml 2350 ml Balance -1280 ml -2200 ml LOUISE [place] MD Oct 07, 2016 11:42
[2016-10-07 12:31] LABS: BLOOD UREA NITROGEN 23 mg/dL (8-26); CALCIUM 8.4 mg/dL (8.5-10.1); CHLORIDE 97 mmol/L (98-107); CREATININE 1.4 mg/dL (0.7-1.3); GFR 48.6; GLUCOSE 169 mg/dL (70-99); POTASSIUM 4.7 mmol/L (3.5-5.1); SODIUM 141 mmol/L (136-145)
[2016-10-07 12:40] LABS: CARBON DIOXIDE > 45 mmol/L (21-32)
[2016-10-07 14:05] VITALS: BP 114/69
[2016-10-07] MEDS: FUROSEMIDE 40 MG TABLET PO SCH (17:10)
[2016-10-07] MEDS: ENOXAPARIN 40 MG/0.4 ML DISP.SYRIN. SQ SCH (17:10)
[2016-10-07 19:40] VITALS: BP 102/54
[2016-10-07 23:00] VITALS: BP 104/63
[2016-10-08] VITALS (7 sets, daily range): BP systolic 93–120; BP diastolic 57–72
[2016-10-08] MEDS: ONDANSETRON PF 4 MG/2 ML VIAL. IV PRN ×2 (01:41→21:52)
[2016-10-08] MEDS: IPRATRPIUM/ALBUTEROL 0.5/2.5MG 3 ML NEBU. NEB SCH ×4 (07:55→20:20)
[2016-10-08] MEDS: CHOLECALCIFEROL (VITAMIN D3) 1,000 UNIT TABLET PO SCH (08:56)
[2016-10-08] MEDS: FUROSEMIDE 40 MG TABLET PO SCH (08:56)
[2016-10-08] MEDS: POTASSIUM CHLORIDE 10 MEQ TABLET.ER. PO SCH (08:56)
[2016-10-08] MEDS: ASPIRIN ENTERIC COATED 81 MG TABLET.DR. PO SCH (08:56)
[2016-10-08] MEDS: CARVEDILOL 3.125 MG TABLET PO SCH ×2 (08:57→17:27)
[2016-10-08] MEDS: GLIMEPIRIDE 2 MG TABLET PO SCH (08:58)
[2016-10-08] MEDS: METOLAZONE 2.5 MG TABLET PO SCH (08:59)
[2016-10-08] MEDS: INSULIN ASPART 300 UNITS/3 ML INSULN.PEN SQ SCH ×3 (09:04→17:45)
--- NOTE | 2016-10-08 10:56 | PDOC ---
PULMONARY PROGRESS NOTES Subjective on 02, alert, no pain, has sob, cough, nasal congestion, better. Vitals Vital Signs Date Time Temp Pulse Resp B/P Pulse Ox O2 Delivery O2 Flow Rate FiO2 10/08/16 10:51 97.6 63 24 97/61 91 Nasal Cannula 5.0 97.6 Comments ros as above, discussed w rn, other sys otherwise neg General: Alert, No acute distress Lungs: Clear Cardiovascular: S1, S2 Abdomen: Soft, Non-tender, Other (no mass) Extremities: No Edema Skin: Warm Labs Laboratory Tests Test 10/06/16 11:24 10/06/16 19:00 10/06/16 20:52 10/07/16 07:49 Glucose (Fingerstick) 111mg/dL (70-99) 253mg/dL (70-99) 206mg/dL (70-99) 141mg/dL (70-99) Test 10/07/16 10:46 10/07/16 11:55 10/07/16 16:35 10/07/16 20:34 Glucose (Fingerstick) 187mg/dL (70-99) 232mg/dL (70-99) 182mg/dL (70-99) Sodium Level 141mmol/L (136-145) Potassium Level 4.7mmol/L (3.5-5.1) Chloride Level 97mmol/L (98-107) Carbon Dioxide Level > 45mmol/L (21-32) Anion Gap (6-14) Blood Urea Nitrogen 23mg/dL (8-26) Creatinine 1.4mg/dL (0.7-1.3) Estimated GFR (Cockcroft-Gault) 48.6 Glucose Level 169mg/dL (70-99) Calcium Level 8.4mg/dL (8.5-10.1) Test 10/08/16 07:07 Glucose (Fingerstick) 171mg/dL (70-99) Laboratory Tests Test 10/07/16 11:55 10/07/16 16:35 10/07/16 20:34 10/08/16 07:07 Sodium Level 141mmol/L (136-145) Potassium Level 4.7mmol/L (3.5-5.1) Chloride Level 97mmol/L (98-107) Carbon Dioxide Level > 45mmol/L (21-32) Anion Gap (6-14) Blood Urea Nitrogen 23mg/dL (8-26) Creatinine 1.4mg/dL (0.7-1.3) Estimated GFR (Cockcroft-Gault) 48.6 Glucose Level 169mg/dL (70-99) Calcium Level 8.4mg/dL (8.5-10.1) Glucose (Fingerstick) 232mg/dL (70-99) 182mg/dL (70-99) 171mg/dL (70-99) Medications Active Scripts Medications Dose Route/Sig Days Date Category Carvedilol 3.125 Mg Tablet 3.125 Mg PO BIDWMEALS 09/26/16 Rx Fish Oil + Vitamin D-3 Softgel (Om-3/Dha/Epa/Fish Oil/Vit D3) 1 Each Capsule 1 Each PO 05/11/15 Reported Vitamin D (Cholecalciferol (Vitamin D3)) 1,000 Unit Capsule 1,000 Unit PO DAILY 05/11/15 Reported Klor-Con 10 (Potassium Chloride) 10 Meq Tablet.er 2 Tab PO DAILY 05/11/15 Reported Lasix (Furosemide) 20 Mg Tablet 10 Mg PO DAILY 05/11/15 Reported Aspir 81 (Aspirin) 81 Mg Tablet.dr 81 Mg PO 05/11/15 Reported Cozaar (Losartan Potassium) 50 Mg Tablet 50 Mg PO DAILY 05/11/15 Reported Amaryl (Glimepiride) 4 Mg Tablet 4 Mg PO DAILY 05/11/15 Reported Metformin Hcl 1,000 Mg Tablet 1,000 Mg PO BIDAC 05/11/15 Reported Comments cxr reviewed, 1. Slight interval increase in a suspected small moderate right pleural effusion and diffuse lower lobe predominant right lung infiltrate. 2. Stable small left pleural effusion with diffuse lower lobe predominant left lung infiltrate. 3. Stable cardiomegaly. Impression . acute on chronic resp fail abnl cxr acute sys chf encephalopathy apnea central vs obstructive Plan . o2 titration, on home 02 4 lpm bronchodilator prn bipap diuretics, keep I<O, monitor k, cr avoid over sedation PSG out pt to be arranged by PCP f/u with me in office after PSG Ok with d/c MICHAEL GUEVARA MD Oct 08, 2016 10:56
--- NOTE | 2016-10-08 11:15 | PDOC ---
CARDIO Progress Notes Date and Time Date of Service 10/08/2016 Time of Evaluation 1105 Subjective Subjective: No Chest Pain, No shortness of breath, No Palpitations, No Dizziness Vitals Vitals Vital Signs Date Time Temp Pulse Resp B/P Pulse Ox O2 Delivery O2 Flow Rate FiO2 10/08/16 10:51 97.6 63 24 97/61 91 Nasal Cannula 5.0 97.6 Weight Weight [ ] Input and Output Intake and Output Intake and Output 10/08/16 07:00 Intake Total 1070 ml Output Total 2650 ml Balance -1580 ml Intake Oral 1070 ml Output Urine Total 2650 ml Laboratory Labs Laboratory Tests Test 10/07/16 11:55 10/07/16 16:35 10/07/16 20:34 10/08/16 07:07 Sodium Level 141mmol/L (136-145) Potassium Level 4.7mmol/L (3.5-5.1) Chloride Level 97mmol/L (98-107) Carbon Dioxide Level > 45mmol/L (21-32) Anion Gap (6-14) Blood Urea Nitrogen 23mg/dL (8-26) Creatinine 1.4mg/dL (0.7-1.3) Estimated GFR (Cockcroft-Gault) 48.6 Glucose Level 169mg/dL (70-99) Calcium Level 8.4mg/dL (8.5-10.1) Glucose (Fingerstick) 232mg/dL (70-99) 182mg/dL (70-99) 171mg/dL (70-99) Microbiology Micro Microbiology 10/04/16 Blood Culture - Preliminary, Resulted NO GROWTH AFTER 3 DAYS Physical Exam HEENT: Neck Supple W Full Motion Chest: Symmetric LUNGS: Other (bibasilar crackles) Heart: S1S2, RRR (V paced), murmurs (2/6 systolic murmur to LLS border) Abdomen: Other (protuberant abd, nontender and fost) Extremities: No Calf Tenderness, Other (Trace to 1+ pitting to bilateral LE ) Neurology: alert, oriented, follow commands Assessment Assessment 1. 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 Clinically compensated. Now on PO diuretics (lasix/metolazone), much better. OK to DC to home per cardiac perspective. Follow up in 1 month. 2. Hypoxic encephalopathy: resolved. 3. CAD: CABG in the past. MPI 05/2014 unremarkable. CP free, stable. Continue secondary prevention. 4. SSS with PPM: medtronic device. Recent interrogation revealed normal functioning device 5. s/p AVR: stable, well seated per recent TTE. 6. Recent hx of enterococcus bacteremia and Pneumonia: Recent JEROME with no notable thrombus nor vegetations. 7. DM2/DLP: BG uncontrolled, per PCP. last A1C 8.1 No noted statin. HDL 34 otherwise lipids are very well controlled with LDL at 52. 8. Hypertension: Continue home regimen. 9. Paroxysmal AFIB: V paced with underlying afib/flutter, rate controlled. Continue on ECASA for stroke prevention. Was considered for anticoagulation but unexplained thrombocytopenia was noted on previous admission with 60-70K plus notable for past med noncompliance. Currently PLT at 154. Will reevaluate OAC/NOAC as an outpt. 10. CKD3. 11. COPD/recent HCAP/bacteremia: Chronic supplemental O2 use. Has PICC line with outpt IV antibiotic therapy. 12. Tobaccoism: recently quit 13. Hx of noncompliance: 08/2016 left AMA. Per spouse pt has been compliant with his medications. HA [employer]ANIZ [employer] PHYSIOLOGIST Oct 08, 2016 11:15
[2016-10-08] MEDS: LOSARTAN POTASSIUM 50 MG TABLET. PO SCH (11:20)
--- NOTE | 2016-10-08 12:33 | PDOC ---
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 - CAD: CABG in the past. - SSS with PPM: Medtronic device. - s/p AVR: stable, - Recent hx of enterococcus bacteremia and Pneumonia: Recent JEROME with no notable thrombus nor vegetations. - DM2: SSI - Hypertension: Controlled, - Paroxysmal AFIB: V paced with underlying afib/flutter, rate controlled. oral AC based on Cardiology - CKD3. - COPD/recent HCAP/bacteremia: Chronic supplemental O2 use. Has PICC line with outpt IV antibiotic therapy. - Tobaccoism: recently quit - Hx of noncompliance: 08/2016 left AMA. Per spouse pt has been compliant with his medications. History of Present Illness History of Present Illness 81 year old male examined while seated at bedside this morning. Patient states he wants to be discharged from hospital. Denies SOA, states he is breathing much better, but does still need oxygen (on 4L at home). Is otherwise without complaint as long as plan is to proceed with discharge. Vitals Vitals Vital Signs Date Time Temp Pulse Resp B/P Pulse Ox O2 Delivery O2 Flow Rate FiO2 10/08/16 11:31 94 Nasal Cannula 5.0 10/08/16 11:20 61 96/58 10/08/16 10:51 97.6 24 97.6 Physical Exam General: Alert, Oriented X3, Cooperative, mild distress Heart: Regular rate (V paced with underlying afib), Other (2/6 systolic murmur to LLS border; S4) Lungs: Clear, Other (No crackles) Abdomen: Soft, No tenderness, Other (Protuberant) Extremities: No clubbing, No cyanosis, Other Skin: No breakdown, No significant lesion Labs LABS Laboratory Tests Test 10/07/16 16:35 10/07/16 20:34 10/08/16 07:07 10/08/16 11:34 Glucose (Fingerstick) 232mg/dL (70-99) 182mg/dL (70-99) 171mg/dL (70-99) 146mg/dL (70-99) Review of Systems Review of Systems Denies chest pain or SOA Denies nausea/vomiting/fevers/chills Assessment and Plan Assessmemt and Plan Assessment: - 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 - CAD: CABG in the past. - SSS with PPM: Medtronic device. - s/p AVR: stable, - Recent hx of enterococcus bacteremia and Pneumonia: Recent JEROME with no notable thrombus nor vegetations. - DM2: SSI - Hypertension: Controlled, - Paroxysmal AFIB: V paced with underlying afib/flutter, rate controlled. oral AC based on Cardiology - CKD3. - COPD/recent HCAP/bacteremia: Chronic supplemental O2 use. Has PICC line with outpt IV antibiotic therapy. - Tobaccoism: recently quit - Hx of noncompliance: 08/2016 left AMA. Per spouse pt has been compliant with his medications. Plan: - Discharge planning in progress, plan to discharge to SNU once insurance approved - Patient to follow up with subspecialties as outpatient - Continue oxygen supplementation, BIPAP prn, on 4L chronically - Continue sliding scale insulin - PT/OT as tolerated - Recheck labs if unable to discharge - Appreciate subspecialty input Problems: Comment Review of Relevant I have reviewed the following items sandie (where applicable) has been applied. Labs Laboratory Tests Test 10/06/16 19:00 10/06/16 20:52 10/07/16 07:49 10/07/16 10:46 Glucose (Fingerstick) 253mg/dL (70-99) 206mg/dL (70-99) 141mg/dL (70-99) 187mg/dL (70-99) Test 10/07/16 11:55 10/07/16 16:35 10/07/16 20:34 10/08/16 07:07 Sodium Level 141mmol/L (136-145) Potassium Level 4.7mmol/L (3.5-5.1) Chloride Level 97mmol/L (98-107) Carbon Dioxide Level > 45mmol/L (21-32) Anion Gap (6-14) Blood Urea Nitrogen 23mg/dL (8-26) Creatinine 1.4mg/dL (0.7-1.3) Estimated GFR (Cockcroft-Gault) 48.6 Glucose Level 169mg/dL (70-99) Calcium Level 8.4mg/dL (8.5-10.1) Glucose (Fingerstick) 232mg/dL (70-99) 182mg/dL (70-99) 171mg/dL (70-99) Test 1/16/17 11:34 Glucose (Fingerstick) 146mg/dL (70-99) Laboratory Tests Test 10/07/16 16:35 10/07/16 20:34 10/08/16 07:07 10/08/16 11:34 Glucose (Fingerstick) 232mg/dL (70-99) 182mg/dL (70-99) 171mg/dL (70-99) 146mg/dL (70-99) Microbiology 10/04/16 Blood Culture - Preliminary, Resulted NO GROWTH AFTER 3 DAYS Medications Current Medications Albuterol/ Ipratropium (Duoneb) 3 ml 1X ONCE NEB Last administered on 13:06; Start 10/04/16 at 13:15; Stop 10/04/16 at 13:16; Status DC Methylprednisolone Sodium Succinate (Solu-Medrol 125mg Vial) 125 mg 1X ONCE IV Last administered on 10/04/16 13:08; Start 10/04/16 at 13:15; Stop 10/04/16 at 13:16; Status DC Furosemide (Lasix) 40 mg DAILY IVP Last administered on 10/04/16 14:12; Start 10/04/16 at 14:00; Stop 10/04/16 at 16:04; Status DC Aspirin (Ecotrin) 81 mg DAILY PO Last administered on 10/08/16 08:56; Start at 09:00 Carvedilol (Coreg) 3.125 mg BIDWMEALS PO Last administered on 10/08/16 08:57; Start 10/04/16 at 17:00 Losartan Potassium (Cozaar) 50 mg DAILY PO Last administered on 10/07/16 08:39 ; Start 10/04/16 at 16:00 Metformin HCl (Glucophage) 1,000 mg BIDAC PO ; Start 10/04/16 at 16:30; Stop 09/08 at 16:30; Status DC Vitamin D (Vitamin D3) 1,000 unit DAILY PO Last administered on 10/08/16 08:56 ; Start 10/05/16 at 09:00 Glimepiride (Amaryl) 4 mg DAILY PO Last administered on 10/08/16 08:58; Start 10/05/16 at 09:00 Potassium Chloride (Klor-Con) 20 meq DAILYWBKFT PO Last administered on 08:56; Start 10/05/16 at 08:00 Insulin Aspart (Novolog) 0-9 UNITS TIDWMEALS SQ Last administered on 10/08/16 09:04; Start 10/04/16 at 17:00 Dextrose 12.5 gm PRN Q15MIN PRN IV SEE COMMENTS; Start 10/04/16 at 15:15 Furosemide (Lasix) 40 mg BID94 IVP Last administered on 10/06/16 16:00; Start 10/04/16 at 16:30; Stop 10/07/16 at 11:40; Status DC Metolazone (Zaroxolyn) 5 mg DAILY PO Last administered on 10/07/16 08:36; Start 10/04/16 at 17:00; Stop 10/07/16 at 11:40; Status DC Lorazepam (Ativan) 2 mg PRN Q4HRS PRN IV ANXIETY / AGITATION Last administered on 10/04/16 17:32; Start 10/04/16 at 17:30; Stop 10/04/16 at 21:02; Status DC Lorazepam (Ativan) 1 mg PRN Q6HRS PRN PO ANXIETY / AGITATION; Start 10/04/16 at 17:30; Stop 10/04/16 at 21:02; Status DC Lorazepam (Ativan) 0.25 mg PRN Q4HRS PRN IV ANXIETY / AGITATION Last administered on 10/05/16 19:49; Start 10/04/16 at 21:00 Lorazepam (Ativan) 0.5 mg PRN Q4HRS PRN IV ANXIETY / AGITATION; Start 10/04/16 at 21:00 Flumazenil (Romazicon) 0.1 mg 1X ONCE IV Last administered on 10/04/16 21:38 ; Start 10/04/16 at 21:15; Stop 10/04/16 at 21:32; Status DC Albuterol/ Ipratropium (Duoneb) 3 ml RTQID NEB Last administered on 10/08/16 11:30; Start 10/05/16 at 12:00 Enoxaparin Sodium (Lovenox 40mg Syringe) 40 mg Q24H SQ Last administered on 17:10; Start 10/05/16 at 18:00 Ondansetron HCl (Zofran) 4 mg PRN Q6HRS PRN IV NAUSEA/VOMITING Last administered on 10/08/16 01:41; Start 10/05/16 at 22:45 Acetaminophen/ Hydrocodone Bitart (Lortab 5/325) 1 tab PRN Q4HRS PRN PO PAIN Last administered on 10/07/16 05:59; Start 10/05/16 at 22:45 Metolazone (Zaroxolyn) 2.5 mg DAILY PO Last administered on 10/08/16 08:59; Start 10/08/16 at 09:00 Furosemide (Lasix) 80 mg DAILY PO Last administered on 10/08/16 08:56; Start 10/07/16 at 14:15 Active Scripts Active Carvedilol 3.125 Mg Tablet 3.125 Mg PO BIDWMEALS Reported Fish Oil + Vitamin D-3 Softgel (Om-3/Dha/Epa/Fish Oil/Vit D3) 1 Each Capsule 1 Each PO Vitamin D (Cholecalciferol (Vitamin D3)) 1,000 Unit Capsule 1,000 Unit PO DAILY Klor-Con 10 (Potassium Chloride) 10 Meq Tablet.er 2 Tab PO DAILY Lasix (Furosemide) 20 Mg Tablet 10 Mg PO DAILY Aspir 81 (Aspirin) 81 Mg Tablet.dr 81 Mg PO Cozaar (Losartan Potassium) 50 Mg Tablet 50 Mg PO DAILY Amaryl (Glimepiride) 4 Mg Tablet 4 Mg PO DAILY Metformin Hcl 1,000 Mg Tablet 1,000 Mg PO BIDAC Vitals/I & O Vital Sign - Last 24 Hours 10/07/16 10/07/16 10/07/16 10/07/16 14:05 15:25 17:09 19:26 Temp 98.2 98.2 Pulse 64 64 Resp 22 B/P 114/69 114/69 Pulse Ox 94 91 92 O2 Delivery Nasal Cannula Nasal Cannula Nasal Cannula O2 Flow Rate 5.0 4.0 4.0 10/07/16 10/07/16 10/07/16 10/08/16 19:40 20:00 23:00 02:50 Temp 97.8 97.8 97.3 97.8 97.8 97.3 Pulse 63 64 60 Resp 22 22 22 B/P 102/54 104/63 107/65 Pulse Ox 95 92 96 O2 Delivery Nasal Cannula Nasal Cannula Nasal Cannula Nasal Cannula O2 Flow Rate 4.0 4.0 5.0 5.0 10/08/16 10/08/16 10/08/16 10/08/16 07:04 07:56 08:00 08:57 Temp 97.9 97.9 Pulse 61 62 Resp 22 B/P 110/67 110/67 Pulse Ox 92 95 O2 Delivery Nasal Cannula Nasal Cannula Nasal Cannula O2 Flow Rate 5.0 5.0 4.0 10/08/16 10/08/16 10/08/16 10:51 11:20 11:31 Temp 97.6 97.6 Pulse 63 61 Resp 24 B/P 97/61 96/58 Pulse Ox 91 94 O2 Delivery Nasal Cannula Nasal Cannula O2 Flow Rate 5.0 5.0 Intake and Output 10/07/16 10/07/16 10/08/16 15:00 23:00 07:00 Intake Total 250 ml 240 ml 580 ml Output Total 850 ml 1800 ml Balance 250 ml -610 ml -1220 ml MOR COVINGTON III DO Oct 08, 2016 12:33
[2016-10-08] MEDS: ENOXAPARIN 40 MG/0.4 ML DISP.SYRIN. SQ SCH (17:26)
[2016-10-08] MEDS: HYDROCODONE/APAP 5/325MG TABLET. PO PRN (22:53)
[2016-10-09 03:35] VITALS: BP 113/66
[2016-10-09 06:10] LABS: BASO % 0 % (0-3); EOS % 2 % (0-3); HEMATOCRIT 37.8 % (39.0-53.0); HEMOGLOBIN 12.3 g/dL (13.0-17.5); LYMPH # 1.7 x10^3/uL (1.0-4.8); LYMPH % 16 % (24-48); MEAN CORPUSCULAR HEMOGLOBIN 31 pg (25-35); MEAN CORPUSCULAR HGB CONC 33 g/dL (31-37); MEAN CORPUSCULAR VOLUME 95 fL (79-100); MONO % 9 % (0-9); NEUT % 73 % (31-73); PLATELET COUNT 126 x10^3/uL (140-400); RED BLOOD COUNT 3.99 x10^6/uL (4.30-5.70); RED CELL DISTRIBUTION WIDTH 14.7 % (11.5-14.5); WHITE BLOOD COUNT 10.5 x10^3/uL (4.0-11.0)
[2016-10-09 06:16] LABS: BLOOD UREA NITROGEN 25 mg/dL (8-26); CALCIUM 8.6 mg/dL (8.5-10.1); CHLORIDE 97 mmol/L (98-107); CREATININE 1.4 mg/dL (0.7-1.3); GFR 48.6; GLUCOSE 123 mg/dL (70-99); POTASSIUM 4.7 mmol/L (3.5-5.1); SODIUM 140 mmol/L (136-145)
[2016-10-09 06:21] LABS: CARBON DIOXIDE > 45 mmol/L (21-32)
[2016-10-09] MEDS: IPRATRPIUM/ALBUTEROL 0.5/2.5MG 3 ML NEBU. NEB SCH (07:11)
[2016-10-09 07:18] VITALS: BP 125/76
[2016-10-09] MEDS: INSULIN ASPART 300 UNITS/3 ML INSULN.PEN SQ SCH (08:00)
[2016-10-09] MEDS: METOLAZONE 2.5 MG TABLET PO SCH (09:46)
[2016-10-09] MEDS: CHOLECALCIFEROL (VITAMIN D3) 1,000 UNIT TABLET PO SCH (09:46)
[2016-10-09] MEDS: FUROSEMIDE 40 MG TABLET PO SCH (09:46)
[2016-10-09] MEDS: GLIMEPIRIDE 2 MG TABLET PO SCH (09:46)
[2016-10-09] MEDS: CARVEDILOL 3.125 MG TABLET PO SCH (09:47)
[2016-10-09] MEDS: POTASSIUM CHLORIDE 10 MEQ TABLET.ER. PO SCH (09:47)
[2016-10-09] MEDS: LOSARTAN POTASSIUM 50 MG TABLET. PO SCH (09:48)
[2016-10-09] MEDS: ASPIRIN ENTERIC COATED 81 MG TABLET.DR. PO SCH (09:48)
[2016-10-09 10:20] VITALS: BP 96/55
--- NOTE | 2016-10-09 11:18 | PDOC ---
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 - CAD: CABG in the past. - SSS with PPM: Medtr[employer] device. - s/p AVR: stable, - Recent hx of enterococcus bacteremia and Pneumonia: Recent JEROME with no notable thrombus nor vegetations. - DM2: SSI - Hypertension: Controlled, - Paroxysmal AFIB: V paced with underlying afib/flutter, rate controlled. oral AC based on Cardiology - CKD3. - COPD/recent HCAP/bacteremia: Chronic supplemental O2 use. Has PICC line with outpt IV antibiotic therapy. - Tobaccoism: recently quit - Hx of noncompliance: 08/2016 left AMA. Per spouse pt has been compliant with his medications. History of Present Illness History of Present Illness Patient sitting up in bed when examined this morning. Patient states he is ready for discharge. Nurse reports pt approved to go to [facility]. Denies SOA. Pt continues to need supplemental oxygen at baseline (on 4L at home) . Vitals Vitals Vital Signs Date Time Temp Pulse Resp B/P Pulse Ox O2 Delivery O2 Flow Rate FiO2 10/09/16 10:20 98.4 61 21 96/55 96 Nasal Cannula 5.0 98.4 Physical Exam General: Alert, Oriented X3, Cooperative, mild distress Heart: Regular rate (V paced with underlying afib), Other (2/6 systolic murmur to LLS border; S4) Lungs: Clear, Other (No crackles) Abdomen: Soft, No tenderness, Other (Protuberant) Extremities: No clubbing, No cyanosis, Other Skin: No breakdown, No significant lesion Labs LABS Laboratory Tests Test 10/08/16 11:34 10/08/16 16:14 10/08/16 20:58 10/09/16 05:50 Glucose (Fingerstick) 146mg/dL (70-99) 246mg/dL (70-99) 181mg/dL (70-99) White Blood Count 10.5x10^3/uL (4.0-11.0) Red Blood Count 3.99x10^6/uL (4.30-5.70) Hemoglobin 12.3g/dL (13.0-17.5) Hematocrit 37.8% (39.0-53.0) Mean Corpuscular Volume 95fL (79-100) Mean Corpuscular Hemoglobin 31pg (25-35) Mean Corpuscular Hemoglobin Concent 33g/dL (31-37) Red Cell Distribution Width 14.7% (11.5-14.5) Platelet Count 126x10^3/uL (140-400) Neutrophils (%) (Auto) 73% (31-73) Lymphocytes (%) (Auto) 16% (24-48) Monocytes (%) (Auto) 9% (0-9) Eosinophils (%) (Auto) 2% (0-3) Basophils (%) (Auto) 0% (0-3) Neutrophils # (Auto) 7.7x10^3uL (1.8-7.7) Lymphocytes # (Auto) 1.7x10^3/uL (1.0-4.8) Monocytes # (Auto) 0.9x10^3/uL (0.0-1.1) Eosinophils # (Auto) 0.2x10^3/uL (0.0-0.7) Basophils # (Auto) 0.0x10^3/uL (0.0-0.2) Sodium Level 140mmol/L (136-145) Potassium Level 4.7mmol/L (3.5-5.1) Chloride Level 97mmol/L (98-107) Carbon Dioxide Level > 45mmol/L (21-32) Anion Gap (6-14) Blood Urea Nitrogen 25mg/dL (8-26) Creatinine 1.4mg/dL (0.7-1.3) Estimated GFR (Cockcroft-Gault) 48.6 Glucose Level 123mg/dL (70-99) Calcium Level 8.6mg/dL (8.5-10.1) Test 10/09/16 07:23 Glucose (Fingerstick) 125mg/dL (70-99) Review of Systems Review of Systems denies fever/chills denies chest pain, soa Assessment and Plan Assessmemt and Plan Assessment: - 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 - CAD: CABG in the past. - SSS with PPM: Medtronic device. - s/p AVR: stable, - Recent hx of enterococcus bacteremia and Pneumonia: Recent JEROME with no notable thrombus nor vegetations. - DM2: SSI - Hypertension: Controlled, - Paroxysmal AFIB: V paced with underlying afib/flutter, rate controlled. oral AC based on Cardiology - CKD3. - COPD/recent HCAP/bacteremia: Chronic supplemental O2 use. Has PICC line with outpt IV antibiotic therapy. - Tobaccoism: recently quit - Hx of noncompliance: 08/2016 left AMA. Per spouse pt has been compliant with his medications. Plan: - Ready for d/c to [facility] - Patient to follow up with subspecialties as outpatient - Cont home O2 supplementation; 4L chronically - Cont home insulin - Appreciate subspecialty input Problems: Comment Review of Relevant I have reviewed the following items sandie (where applicable) has been applied. Labs Laboratory Tests Test 10/07/16 11:55 10/07/16 16:35 10/07/16 20:34 10/08/16 07:07 Sodium Level 141mmol/L (136-145) Potassium Level 4.7mmol/L (3.5-5.1) Chloride Level 97mmol/L (98-107) Carbon Dioxide Level > 45mmol/L (21-32) Anion Gap (6-14) Blood Urea Nitrogen 23mg/dL (8-26) Creatinine 1.4mg/dL (0.7-1.3) Estimated GFR (Cockcroft-Gault) 48.6 Glucose Level 169mg/dL (70-99) Calcium Level 8.4mg/dL (8.5-10.1) Glucose (Fingerstick) 232mg/dL (70-99) 182mg/dL (70-99) 171mg/dL (70-99) Test 10/08/16 11:34 10/08/16 16:14 10/08/16 20:58 10/09/16 05:50 Glucose (Fingerstick) 146mg/dL (70-99) 246mg/dL (70-99) 181mg/dL (70-99) White Blood Count 10.5x10^3/uL (4.0-11.0) Red Blood Count 3.99x10^6/uL (4.30-5.70) Hemoglobin 12.3g/dL (13.0-17.5) Hematocrit 37.8% (39.0-53.0) Mean Corpuscular Volume 95fL (79-100) Mean Corpuscular Hemoglobin 31pg (25-35) Mean Corpuscular Hemoglobin Concent 33g/dL (31-37) Red Cell Distribution Width 14.7% (11.5-14.5) Platelet Count 126x10^3/uL (140-400) Neutrophils (%) (Auto) 73% (31-73) Lymphocytes (%) (Auto) 16% (24-48) Monocytes (%) (Auto) 9% (0-9) Eosinophils (%) (Auto) 2% (0-3) Basophils (%) (Auto) 0% (0-3) Neutrophils # (Auto) 7.7x10^3uL (1.8-7.7) Lymphocytes # (Auto) 1.7x10^3/uL (1.0-4.8) Monocytes # (Auto) 0.9x10^3/uL (0.0-1.1) Eosinophils # (Auto) 0.2x10^3/uL (0.0-0.7) Basophils # (Auto) 0.0x10^3/uL (0.0-0.2) Sodium Level 140mmol/L (136-145) Potassium Level 4.7mmol/L (3.5-5.1) Chloride Level 97mmol/L (98-107) Carbon Dioxide Level > 45mmol/L (21-32) Anion Gap (6-14) Blood Urea Nitrogen 25mg/dL (8-26) Creatinine 1.4mg/dL (0.7-1.3) Estimated GFR (Cockcroft-Gault) 48.6 Glucose Level 123mg/dL (70-99) Calcium Level 8.6mg/dL (8.5-10.1) Test 10/09/16 07:23 Glucose (Fingerstick) 125mg/dL (70-99) Laboratory Tests Test 10/08/16 11:34 10/08/16 16:14 10/08/16 20:58 10/09/16 05:50 Glucose (Fingerstick) 146mg/dL (70-99) 246mg/dL (70-99) 181mg/dL (70-99) White Blood Count 10.5x10^3/uL (4.0-11.0) Red Blood Count 3.99x10^6/uL (4.30-5.70) Hemoglobin 12.3g/dL (13.0-17.5) Hematocrit 37.8% (39.0-53.0) Mean Corpuscular Volume 95fL (79-100) Mean Corpuscular Hemoglobin 31pg (25-35) Mean Corpuscular Hemoglobin Concent 33g/dL (31-37) Red Cell Distribution Width 14.7% (11.5-14.5) Platelet Count 126x10^3/uL (140-400) Neutrophils (%) (Auto) 73% (31-73) Lymphocytes (%) (Auto) 16% (24-48) Monocytes (%) (Auto) 9% (0-9) Eosinophils (%) (Auto) 2% (0-3) Basophils (%) (Auto) 0% (0-3) Neutrophils # (Auto) 7.7x10^3uL (1.8-7.7) Lymphocytes # (Auto) 1.7x10^3/uL (1.0-4.8) Monocytes # (Auto) 0.9x10^3/uL (0.0-1.1) Eosinophils # (Auto) 0.2x10^3/uL (0.0-0.7) Basophils # (Auto) 0.0x10^3/uL (0.0-0.2) Sodium Level 140mmol/L (136-145) Potassium Level 4.7mmol/L (3.5-5.1) Chloride Level 97mmol/L (98-107) Carbon Dioxide Level > 45mmol/L (21-32) Anion Gap (6-14) Blood Urea Nitrogen 25mg/dL (8-26) Creatinine 1.4mg/dL (0.7-1.3) Estimated GFR (Cockcroft-Gault) 48.6 Glucose Level 123mg/dL (70-99) Calcium Level 8.6mg/dL (8.5-10.1) Test 10/09/16 07:23 Glucose (Fingerstick) 125mg/dL (70-99) Microbiology 10/04/16 Blood Culture - Preliminary, Resulted NO GROWTH AFTER 4 DAYS Medications Current Medications Albuterol/ Ipratropium (Duoneb) 3 ml 1X ONCE NEB Last administered on t 13:06; Start 10/04/16 at 13:15; Stop 10/04/16 at 13:16; Status DC Methylprednisolone Sodium Succinate (Solu-Medrol 125mg Vial) 125 mg 1X ONCE IV Last administered on 10/04/16 13:08; Start 10/04/16 at 13:15; Stop 10/04/16 at 13:16; Status DC Furosemide (Lasix) 40 mg DAILY IVP Last administered on 10/04/16 14:12; Start 10/04/16 at 14:00; Stop 10/04/16 at 16:04; Status DC Aspirin (Ecotrin) 81 mg DAILY PO Last administered on 10/09/16 09:48; Start at 09:00 Carvedilol (Coreg) 3.125 mg BIDWMEALS PO Last administered on 10/09/16 09:47; Start 10/04/16 at 17:00 Losartan Potassium (Cozaar) 50 mg DAILY PO Last administered on 10/09/16 09:48 ; Start 10/04/16 at 16:00 Metformin HCl (Glucophage) 1,000 mg BIDAC PO ; Start 10/04/16 at 16:30; Stop 09/08 at 16:30; Status DC Vitamin D (Vitamin D3) 1,000 unit DAILY PO Last administered on 10/09/16 09:46 ; Start 10/05/16 at 09:00 Glimepiride (Amaryl) 4 mg DAILY PO Last administered on 10/09/16 09:46; Start 10/05/16 at 09:00 Potassium Chloride (Klor-Con) 20 meq [id number] PO Last administered on 09:47; Start 10/05/16 at 08:00 Insulin Aspart (Novolog) 0-9 UNITS TIDWMEALS SQ Last administered on 10/08/16 17:45; Start 10/04/16 at 17:00 Dextrose 12.5 gm PRN Q15MIN PRN IV SEE COMMENTS; Start 10/04/16 at 15:15 Furosemide (Lasix) 40 mg BID94 IVP Last administered on 10/06/16 16:00; Start 10/04/16 at 16:30; Stop 10/07/16 at 11:40; Status DC Metolazone (Zaroxolyn) 5 mg DAILY PO Last administered on 10/07/16 08:36; Start 10/04/16 at 17:00; Stop 10/07/16 at 11:40; Status DC Lorazepam (Ativan) 2 mg PRN Q4HRS PRN IV ANXIETY / AGITATION Last administered on 10/04/16 17:32; Start 10/04/16 at 17:30; Stop 10/04/16 at 21:02; Status DC Lorazepam (Ativan) 1 mg PRN Q6HRS PRN PO ANXIETY / AGITATION; Start 10/04/16 at 17:30; Stop 10/04/16 at 21:02; Status DC Lorazepam (Ativan) 0.25 mg PRN Q4HRS PRN IV ANXIETY / AGITATION Last administered on 10/05/16 19:49; Start 10/04/16 at 21:00 Lorazepam (Ativan) 0.5 mg PRN Q4HRS PRN IV ANXIETY / AGITATION; Start 10/04/16 at 21:00 Flumazenil (Romazicon) 0.1 mg 1X ONCE IV Last administered on 10/04/16 21:38 ; Start 10/04/16 at 21:15; Stop 10/04/16 at 21:32; Status DC Albuterol/ Ipratropium (Duoneb) 3 ml RTQID NEB Last administered on 10/09/16 07:11; Start 10/05/16 at 12:00 Enoxaparin Sodium (Lovenox 40mg Syringe) 40 mg Q24H SQ Last administered on 17:26; Start 10/05/16 at 18:00 Ondansetron HCl (Zofran) 4 mg PRN Q6HRS PRN IV NAUSEA/VOMITING Last administered on 10/08/16 21:52; Start 10/05/16 at 22:45 Acetaminophen/ Hydrocodone Bitart (Lortab 5/325) 1 tab PRN Q4HRS PRN PO PAIN Last administered on 10/08/16 22:53; Start 10/05/16 at 22:45 Metolazone (Zaroxolyn) 2.5 mg DAILY PO Last administered on 10/09/16 09:46; Start 10/08/16 at 09:00 Furosemide (Lasix) 80 mg DAILY PO Last administered on 10/09/16t 09:46; Start 10/07/16 at 14:15 Active Scripts Active Carvedilol 3.125 Mg Tablet 3.125 Mg PO BIDWMEALS Reported Fish Oil + Vitamin D-3 Softgel (Om-3/Dha/Epa/Fish Oil/Vit D3) 1 Each Capsule 1 Each PO Vitamin D (Cholecalciferol (Vitamin D3)) 1,000 Unit Capsule 1,000 Unit PO DAILY Klor-Con 10 (Potassium Chloride) 10 Meq Tablet.er 2 Tab PO DAILY Lasix (Furosemide) 20 Mg Tablet 10 Mg PO DAILY Aspir 81 (Aspirin) 81 Mg Tablet.dr 81 Mg PO Cozaar (Losartan Potassium) 50 Mg Tablet 50 Mg PO DAILY Amaryl (Glimepiride) 4 Mg Tablet 4 Mg PO DAILY Metformin Hcl 1,000 Mg Tablet 1,000 Mg PO BIDAC Vitals/I & O Vital Sign - Last 24 Hours 10/08/16 10/08/16 10/08/16 10/08/16 11:20 11:31 14:23 16:02 Temp 97.8 97.8 Pulse 61 65 Resp 21 B/P 96/58 99/59 Pulse Ox 94 88 O2 Delivery Nasal Cannula Nasal Cannula Nasal Cannula O2 Flow Rate 5.0 5.0 5.0 10/08/16 10/08/16 10/08/16 10/08/16 17:27 19:20 20:00 20:21 Temp 97.9 97.9 Pulse 62 67 Resp 22 B/P 109/68 93/57 Pulse Ox 92 94 O2 Delivery Nasal Cannula Nasal Cannula Nasal Cannula O2 Flow Rate 5.0 4.0 5.0 10/08/16 10/08/16 10/08/16 10/09/16 22:50 22:53 23:53 03:35 Temp 98.0 98.1 98.0 98.1 Pulse 64 60 Resp 22 20 20 22 B/P 101/65 113/66 Pulse Ox 92 96 O2 Delivery Nasal Cannula Nasal Cannula O2 Flow Rate 5.0 5.0 10/09/16 10/09/16 10/09/16 10/09/16 07:12 07:18 08:00 09:47 Temp 98.1 98.1 Pulse 66 66 Resp 22 B/P 125/76 125/76 Pulse Ox 94 93 O2 Delivery Nasal Cannula Nasal Cannula Nasal Cannula O2 Flow Rate 4.0 5.0 4.0 10/09/16 10/09/16 09:48 10:20 Temp 98.4 98.4 Pulse 66 61 Resp 21 B/P 125/76 96/55 Pulse Ox 96 O2 Delivery Nasal Cannula O2 Flow Rate 5.0 Intake and Output 10/08/16 10/08/16 10/09/16 15:00 23:00 07:00 Intake Total 675 ml 900 ml Output Total 900 ml 250 ml 1250 ml Balance -900 ml 425 ml -350 ml MOR COVINGTON III DO Oct 09, 2016 11:18
== END 2016-10-09 11:30 | DRG 291 ==
LOC: ER 12:52 → 2 NORTH 13:33
PROVIDERS: ADMIT Internal Medicine; ATTEND Internal Medicine
PROC: 5A09457 Assistance with Respiratory Ventilation, 24-96 Consecutive Hours, Continuous Positive Airway Pressure (ICD-10-PCS; principal; 2016-10-05)
DX: I50.43 Acute on chronic combined systolic (congestive) and diastolic (congestive) heart failure (principal); J96.21 Acute and chronic respiratory failure with hypoxia; G93.1 Anoxic brain damage, not elsewhere classified; I13.0 Hypertensive heart and chronic kidney disease with heart failure and stage 1 through stage 4 chronic kidney disease, or unspecified chronic kidney disease; I42.9 Cardiomyopathy, unspecified; I48.92 Unspecified atrial flutter; J44.1 Chronic obstructive pulmonary disease with (acute) exacerbation; D69.6 Thrombocytopenia, unspecified; E11.22 Type 2 diabetes mellitus with diabetic chronic kidney disease; E78.00 Pure hypercholesterolemia, unspecified; E78.5 Hyperlipidemia, unspecified; F17.200 Nicotine dependence, unspecified, uncomplicated; I25.10 Atherosclerotic heart disease of native coronary artery without angina pectoris; I48.0 Paroxysmal atrial fibrillation; I49.5 Sick sinus syndrome; M19.90 Unspecified osteoarthritis, unspecified site; N18.3 Chronic kidney disease, stage 3 (moderate); Z79.2 Long term (current) use of antibiotics; Z83.3 Family history of diabetes mellitus; Z87.01 Personal history of pneumonia (recurrent); Z90.49 Acquired absence of other specified parts of digestive tract; Z91.14 Patient's other noncompliance with medication regimen; Z95.0 Presence of cardiac pacemaker; Z95.1 Presence of aortocoronary bypass graft; Z95.2 Presence of prosthetic heart valve; Z95.3 Presence of xenogenic heart valve; Z99.81 Dependence on supplemental oxygen
CPT/HCPCS: 36415; 36600; 70450; 71010; 80048; 82805; 82947; 83605; 83735; 83880; 84484; 85007; 85027; 87040; 93005; 94640; 94660; 94760; 96374; 96375; J1650; J1815; J1940; J2060; J2405; J2930; J3490; J7620; 97003-GO; 97116; 97530; 97535; 99285-25

== ENCOUNTER 2016-11-10 00:18 | Inpatient (IN) | payer OTHER ==
[2016-11-10] VITALS (18 sets, daily range): BP systolic 86–111; BP diastolic 38–64
[~2016-11-10] VITALS: Ht 185.4 cm; Wt 101.6 kg
[2016-11-10] MEDS ORDERED: LIDOCAINE (700MG/PATCH) PATCH. TD ONE (01:00)
[2016-11-10 01:11] LABS: BASO % 0 % (0-3); EOS % 0 % (0-3); HEMATOCRIT 32.7 % (39.0-53.0); HEMOGLOBIN 10.2 g/dL (13.0-17.5); LYMPH # 2.2 x10^3/uL (1.0-4.8); LYMPH % 17 % (24-48); MEAN CORPUSCULAR HEMOGLOBIN 30 pg (25-35); MEAN CORPUSCULAR HGB CONC 31 g/dL (31-37); MEAN CORPUSCULAR VOLUME 96 fL (79-100); MONO % 8 % (0-9); NEUT % 74 % (31-73); PLATELET COUNT 132 x10^3/uL (140-400); RED CELL DISTRIBUTION WIDTH 14.9 % (11.5-14.5); WHITE BLOOD COUNT 12.7 x10^3/uL (4.0-11.0)
[2016-11-10] MEDS: FENTANYL PF 100 MCG/2 ML VIAL. IV PRN ×5 (01:13→23:41)
[2016-11-10 01:26] LABS: INR 1.7 (0.8-1.1); PROTHROMBIN TIME PATIENT 18.7 SEC (11.7-14.0)
[2016-11-10 01:31] LABS: ALBUMIN 2.9 g/dL (3.4-5.0); ALBUMIN/GLOBULIN RATIO 0.8 (1.0-1.7); CALCIUM 9.4 mg/dL (8.5-10.1); CREATININE 2.5 mg/dL (0.7-1.3); GFR 24.9; TOTAL BILIRUBIN 1.2 mg/dL (0.2-1.0); TOTAL PROTEIN 6.5 g/dL (6.4-8.2)
[2016-11-10 01:33] LABS: POTASSIUM 6.2 mmol/L (3.5-5.1)
--- NOTE | 2016-11-10 01:43 | RAD ---
PROCEDURE CT chest without contrast. HISTORY Patient fell, pain to lower left rib area. TECHNIQUE Helical CT imaging of the chest is performed without IV contrast. PQRS: One or more the following individualized dose reduction techniques were utilized for the study: 1. Automated exposure control. 2. Adjustment of the mA and/or kV according to patient size. 3. Use of iterative reconstruction technique. COMPARISON None. FINDINGS Left chest dual chamber pacer. Median sternotomy wires and changes of prior CABG. There is coronary artery disease. Calcific aortic valve stenosis. 1.3 centimeter left thyroid nodule. 1.4 centimeter right paratracheal lymph node. Limited evaluation of the ivonne without IV contrast. The pulmonary trunk is dilated, can be seen secondary to pulmonary arterial hypertension, diameter is 4.6 cm. There is cardiomegaly. No pericardial effusion is seen. There are small bilateral pleural effusions, larger on the right. Central airways are patent. There is respiratory motion artifact. There are upper lobe ground-glass and reticular opacities. Mild centrilobular emphysema. Mild consolidations in the basilar lower lobes bilaterally. There is ill definition and fat induration near the gallbladder. No acute displaced rib fracture is seen. There is undulation of the left anterolateral 6th and 7th ribs which could be incomplete fracture. IMPRESSION 1. Small bilateral pleural effusions. 2. There are ground-glass and reticular opacities. Considerations include atelectasis, pulmonary edema, or nonspecific pneumonitis. Mild upper lobe centrilobular emphysema. 3. Pulmonary trunk is dilated, can be secondary to pulmonary arterial hypertension. 4. Cardiomegaly. 5. There is inflammation near the gallbladder. Recommend further evaluation with right upper quadrant ultrasound. 6. Left thyroid nodule, consider outpatient thyroid ultrasound if not recently performed. Electronically signed by: Darien Jeffries MD (Nov 10, 2016 01:41:54)
--- NOTE | 2016-11-10 02:14 | EKG ---
[facility] [address] [place] [address] Test Date: 2016-11-10 Test Time: 00:58:25 Pat Name: KIKA CORONA Department: Room: Gender: M Hydrometer Calibrator: , : 1935 Requested By: CHIOMA CABALLERO Order Number: [id number] Reading MD: Measurements Intervals [place] Rate: 72 P: MD: QRS: 25 QRSD: 144 T: 10 QT: 434 QTc: 477 Interpretive Statements IRREGULAR RHYTHM, NO P-WAVE FOUND LOW LIMB LEAD VOLTAGE RIGHT BUNDLE BRANCH BLOCK RVH WITH REPOLARIZATION ABNORMALITY QRS(T) CONTOUR ABNORMALITY CONSISTENT WITH INFERIOR INFARCT AGE UNDETERMINED ABNORMAL ECG RI6.01 No previous ECG available for comparison
[2016-11-10] MEDS ORDERED: CALCIUM GLUCONATE 1,000 MG/10 ML VIAL IVP ONE ×2 (02:30→04:00)
[2016-11-10] MEDS ORDERED: SODIUM BICARB ADULT 8.4% 50 MEQ/50 ML DISP.SYRIN. IV ONE ×2 (02:30→04:00)
[2016-11-10] MEDS ORDERED: INSULIN REGULAR 100 UNIT/ML 10ML VIAL. IV ONE ×2 (02:30→04:00)
[2016-11-10] MEDS ORDERED: DEXTROSE 50% 25 GM / 50ML DISP.SYRIN. IV ONE ×2 (02:30→04:00)
--- NOTE | 2016-11-10 03:10 | RAD ---
PROCEDURE Complete abdominal ultrasound. HISTORY Elevated liver function tests, abnormal CT. TECHNIQUE Real-time ultrasound imaging of the abdomen is performed. COMPARISON CT chest without contrast, earlier same day. FINDINGS The liver measures 18.9 cm in length and is homogeneous in appearance. Portal flow is hepatopetal. There is right pleural effusion. There is trace pericholecystic fluid. Gallbladder wall is thickened measuring up to 5 millimeters. No cholelithiasis is seen. No positive Valencia's sign was elicited during transducer examination of the gallbladder. No extrahepatic biliary ductal dilatation is seen and the extrahepatic bile duct measures 5 mm. There are bilateral renal cysts. Right cyst measures 4.6 x 3 cm. Other right renal cyst measures 4.6 x 4.3 cm. The left renal cyst measures 4 x 4.1 cm. Other left renal cyst measures 1.6 cm. The right kidney measures cm in length and no hydronephrosis or renal mass or perinephric fluid collection is seen. The left kidney measures cm in length and no hydronephrosis or renal mass or perinephric fluid collection is seen. The spleen measures 10.4 cm in length and is homogeneous in appearance. The abdominal aorta, pancreas, and IVC are not well seen. No ascites is seen. IMPRESSION 1. The gallbladder wall is thickened and there is trace pericholecystic fluid. No cholelithiasis or positive sonographic Valencia's sign. 2. Right pleural effusion. 3. Hepatomegaly. 4. Bilateral renal cysts. Electronically signed by: Darien Jeffries MD (Nov 10, 2016 03:09:21)
--- NOTE | 2016-11-10 03:14 | ED.ADGEN ---
Past Medical History Past Medical History: CHF, Diabetes-Type II, High Cholesterol, Hypertension Past Surgical History: Appendectomy Additional Past Surgical Histo: CABG mitral replaced pacer appy Alcohol Use: None Drug Use: None Adult General Chief Complaint Chief Complaint: MECHANICAL FALL HPI HPI Patient is a 81 year old man, history of type 2 diabetes mellitus, hypertension , COPD, who wears 3 L nasal cannula oxygen at baseline, who presents to the emergency department with complaint of left rib pain, and generalized malaise. Patient states that he was seated in his wheelchair yesterday, and he fell asleep, when he did so he slipped out of the wheelchair, falling and striking the left side of his chest against the arms of the wheelchair. States that he did fall all the way down to the ground. He states he is feeling sore primarily on the left rib area, and in the upper abdomen area, worse with deep inspiration. He has not received any additional pain medication at this point, states that he had x-rays performed yesterday did not reveal any evidence of fracture. Denies any fevers or chills, complains of feeling generally unwell, with some increasing shortness of breath which she thinks may be due to pain. No urinary complaints, no vomiting or diarrhea. No fevers or chills. Patient is on blood thinners, denies striking his head or neck when he slid out of the chair. Medications reveals no known blood thinners, including aspirin. Review of Systems Review of Systems Constitutional: Denies fever or chills. [] Eyes: Denies change in visual acuity. [] HENT: Denies nasal congestion or sore throat. [] Respiratory: Denies cough or shortness of breath. [] Cardiovascular: Left-sided chest pain, no edema. GI: Upper quadrant abdominal pain, no nausea, vomiting, bloody stools or diarrhea. [] : Denies dysuria. [] Musculoskeletal: Denies back pain or joint pain. [] Integument: Denies rash. [] Neurologic: Denies headache, focal weakness or sensory changes. [] Endocrine: Denies polyuria or polydipsia. [] Lymphatic: Denies swollen glands. [] Psychiatric: Denies depression or anxiety. [] Current Medications Current Medications Current Medications Medications (Trade) Dose Ordered Sig/Nito Start Time Stop Time Status Last Admin Dose Admin Calcium Gluconate 1,000 mg 1X ONCE 11/10/16 04:00 11/10/16 04:01 DC 11/10/16 03:56 1,000 MG Dextrose 25 gm 1X ONCE 11/10/16 04:00 11/10/16 04:01 DC 11/10/16 04:01 25 GM Fentanyl Citrate (Fentanyl 2ml Vial) 25 mcg PRN Q15MIN PRN 11/10/16 01:00 11/11/16 00:59 11/10/16 04:39 25 MCG Insulin Human Regular (Novolin R Vial) 10 unit 1X ONCE 11/10/16 04:00 11/10/16 04:01 DC 11/10/16 03:59 10 UNIT Lidocaine (Lidoderm) 1 patch 1X ONCE 11/10/16 01:00 11/10/16 01:01 DC 11/10/16 01:14 1 PATCH Sodium Bicarbonate 50 meq 1X ONCE 11/10/16 04:00 11/10/16 04:01 DC 11/10/16 04:00 50 MEQ Allergies Allergies Allergies Coded Allergies Type Severity Reaction Last Updated Verified No Known Drug Allergies 05/11/15 No Physical Exam Physical Exam Constitutional: Well developed, well nourished, patient appears uncomfortable, pale, nasal cannula in place. [] HENT: Normocephalic, atraumatic, bilateral external ears normal, oropharynx moist, no oral exudates, nose normal. [] Eyes: PERRLA, EOMI, conjunctiva normal, no discharge. [] Neck: Normal range of motion, no tenderness, supple, no stridor. [] Cardiovascular:Heart rate regular rhythm, no murmur, S1, S2, rubs or gallops. [] Lungs & Thorax: Diminished breath sounds at bases bilaterally, no wheezing, rhonchi, rales. Patient with reproducible chest wall tenderness across the lower left rib lateral, no crepitus, no deformity, no external signs of trauma. [] Abdomen: Bowel sounds normal, soft, mild tenderness to palpation just below the rib line in the left upper abdomen, no masses, no pulsatile masses. [] Skin: Warm, dry, no erythema, no rash. [] Back: No tenderness, no CVA tenderness. [] Extremities: No tenderness, no cyanosis, no clubbing, ROM intact, no edema. [] Neurologic: Alert and oriented X 3, normal motor function, normal sensory function, no focal deficits noted. [] Psychologic: Affect normal, judgement normal, mood normal. [] Current Patient Data Vital Signs Vital Signs Date Time Temp Pulse Resp B/P Pulse Ox O2 Delivery O2 Flow Rate FiO2 11/10/16 04:00 62 97/49 Nasal Cannula 4 11/10/16 03:30 88 11/10/16 00:54 97.4 21 97.4 Lab Values Laboratory Tests Test 11/10/16 00:42 11/10/16 02:37 11/10/16 03:48 White Blood Count 12.7x10^3/uL (4.0-11.0) H Red Blood Count 3.40x10^6/uL (4.30-5.70) L Hemoglobin 10.2g/dL (13.0-17.5) L Hematocrit 32.7% (39.0-53.0) L Mean Corpuscular Volume 96fL (79-100) Mean Corpuscular Hemoglobin 30pg (25-35) Mean Corpuscular Hemoglobin Concent 31g/dL (31-37) Red Cell Distribution Width 14.9% (11.5-14.5) H Platelet Count 132x10^3/uL (140-400) L Neutrophils (%) (Auto) 74% (31-73) H Lymphocytes (%) (Auto) 17% (24-48) L Monocytes (%) (Auto) 8% (0-9) Eosinophils (%) (Auto) 0% (0-3) Basophils (%) (Auto) 0% (0-3) Neutrophils # (Auto) 9.4x10^3uL (1.8-7.7) H Lymphocytes # (Auto) 2.2x10^3/uL (1.0-4.8) Monocytes # (Auto) 1.1x10^3/uL (0.0-1.1) Eosinophils # (Auto) 0.0x10^3/uL (0.0-0.7) Basophils # (Auto) 0.0x10^3/uL (0.0-0.2) Prothrombin Time 18.7SEC (11.7-14.0) H Prothrombin Time INR 1.7 (0.8-1.1) H PTT 38SEC (24-38) Sodium Level 141mmol/L (136-145) Potassium Level 6.2mmol/L (3.5-5.1) *H Chloride Level 102mmol/L (98-107) Carbon Dioxide Level 32mmol/L (21-32) Anion Gap 7 (6-14) 16mmol/L (6-14) H Blood Urea Nitrogen 62mg/dL (8-26) H Creatinine 2.5mg/dL (0.7-1.3) H Estimated GFR (Cockcroft-Gault) 24.9 BUN/Creatinine Ratio 25 (6-20) H Glucose Level 181mg/dL (70-99) H 193mg/dL (70-99) H Calcium Level 9.4mg/dL (8.5-10.1) Total Bilirubin 1.2mg/dL (0.2-1.0) H Aspartate Amino Transferase (AST) 1041U/L (15-37) H Alanine Aminotransferase (ALT) 674U/L (16-63) H Alkaline Phosphatase 118U/L (46-116) H Troponin I Quantitative 0.135ng/mL (0.000-0.055) VA-Ycb-[id number]-Type Natriuretic Peptide > 66126xp/mL (0-449) H Total Protein 6.5g/dL (6.4-8.2) Albumin 2.9g/dL (3.4-5.0) L Albumin/Globulin Ratio 0.8 (1.0-1.7) L Lipase 49U/L (73-393) L Lactic Acid Level 2.0mmol/L (0.4-2.0) POC Hemoglobin 10.2g/dL (14-18) L POC Hematocrit 30% (37-52) L POC Sodium 137mmol/L (135-145) POC Potassium 5.0mmol/L (3.5-5.0) POC Chloride 97mmol/L (98-110) L POC Total CO2 29mmol/L (23-32) POC Blood Urea Nitrogen 55mg/dL (8-26) H POC Creatinine 2.2mg/dL (0.5-1.4) H POC Ionized Calcium (Stephanie) 1.15mmol/L (1.13-1.32) POC Troponin I 0.15ng/ml (<0.08) Laboratory Tests 11/10/16 00:42 Laboratory Tests 11/10/16 00:42 11/10/16 03:48 EKG EKG EC: Sinus rhythm, heart rate 72 bpm, respiratory hypertrophy noted, QTc of 477, QRS of 144, abnormal ECG, does not meet STEMI criteria, right bundle- branch block noted, as interpreted by me. No prior for comparison available. EC: Heart rate 74 bpm, regular rhythm, PVCs noted left axis deviation, interventricular block, does not meet STEMI criteria, abnormal ECG, with a QTC of 508, QRS of 188, change noted from prior. As interpreted by me. EC: Regular rhythm, heart rate 65 bpm, with low limb lead voltage, and ventricular block noted, contour normality is noted in the inferior leads, with mild baseline artifact noted, abnormal ECG, with changes as stated, does not meet STEMI criteria. ECGs were discussed with Dr. Sher of cardiology. Radiology/Procedures Radiology/Procedures [][facility] [address] [place], [place] [id number] IMAGING REPORT Signed PATIENT: KIKA CORONA ACCOUNT: [id number] : 1935 LOCATION: ER AGE: 81 SEX: M EXAM STATUS: REG ER ORD. PHYSICIAN: CHIOMA CABALLERO DO REASON: abd pain/elevated LFTs PROCEDURE: ABDOMEN COMPLETE PROCEDURE Complete abdominal ultrasound. HISTORY Elevated liver function tests, abnormal CT. TECHNIQUE Real-time ultrasound imaging of the abdomen is performed. COMPARISON CT chest without contrast, earlier same day. FINDINGS The liver measures 18.9 cm in length and is homogeneous in appearance. Portal flow is hepatopetal. There is right pleural effusion. There is trace pericholecystic fluid. Gallbladder wall is thickened measuring up to 5 millimeters. No cholelithiasis is seen. No positive Valencia's sign was elicited during transducer examination of the gallbladder. No extrahepatic biliary ductal dilatation is seen and the extrahepatic bile duct measures 5 mm. There are bilateral renal cysts. Right cyst measures 4.6 x 3 cm. Other right renal cyst measures 4.6 x 4.3 cm. The left renal cyst measures 4 x 4.1 cm. Other left renal cyst measures 1.6 cm. The right kidney measures cm in length and no hydronephrosis or renal mass or perinephric fluid collection is seen. The left kidney measures cm in length and no hydronephrosis or renal mass or perinephric fluid collection is seen. The spleen measures 10.4 cm in length and is homogeneous in appearance. The abdominal aorta, pancreas, and IVC are not well seen. No ascites is seen. IMPRESSION 1. The gallbladder wall is thickened and there is trace pericholecystic fluid. No cholelithiasis or positive sonographic Valencia's sign. 2. Right pleural effusion. 3. Hepatomegaly. 4. Bilateral renal cysts. Electronically signed by: Darien Jeffries MD (Nov 10, 2016 03:09:21) DICTATED and SIGNED BY: DARIEN JEFFRIES MD DATE: 11/10/16308 CC: CHIOMA CABALLERO DO; GIA WINTER Jr, MD ~ Impressions: [facility] [address] [place] [address] IMAGING REPORT Signed PATIENT: KIKA CORONA ACCOUNT: [id number] : 1935 LOCATION: ER AGE: 81 SEX: M EXAM STATUS: REG ER ORD. PHYSICIAN: CHIOMA CABALLERO DO REASON: Fall/L rib pain PROCEDURE: CHEST WO CONTRAST PROCEDURE CT chest without contrast. HISTORY Patient fell, pain to lower left rib area. TECHNIQUE Helical CT imaging of the chest is performed without IV contrast. PQRS: One or more the following individualized dose reduction techniques were utilized for the study: 1. Automated exposure control. 2. Adjustment of the mA and/or kV according to patient size. 3. Use of iterative reconstruction technique. COMPARISON None. FINDINGS Left chest dual chamber pacer. Median sternotomy wires and changes of prior CABG. There is coronary artery disease. Calcific aortic valve stenosis. 1.3 centimeter left thyroid nodule. 1.4 centimeter right paratracheal lymph node. Limited evaluation of the ivonne without IV contrast. The pulmonary trunk is dilated, can be seen secondary to pulmonary arterial hypertension, diameter is 4.6 cm. There is cardiomegaly. No pericardial effusion is seen. There are small bilateral pleural effusions, larger on the right. Central airways are patent. There is respiratory motion artifact. There are upper lobe ground-glass and reticular opacities. Mild centrilobular emphysema. Mild consolidations in the basilar lower lobes bilaterally. There is ill definition and fat induration near the gallbladder. No acute displaced rib fracture is seen. There is undulation of the left anterolateral 6th and 7th ribs which could be incomplete fracture. IMPRESSION 1. Small bilateral pleural effusions. 2. There are ground-glass and reticular opacities. Considerations include atelectasis, pulmonary edema, or nonspecific pneumonitis. Mild upper lobe centrilobular emphysema. 3. Pulmonary trunk is dilated, can be secondary to pulmonary arterial Course & Med Decision Making Course & Med Decision Making Pertinent Labs and Imaging studies reviewed. (See chart for details) Patient received CT of the chest due to previously negative x-ray, which did reveal fractures at ribs 6 and 7, lateral. Patient received fentanyl, 100 patch. However noted to have a change in his rhythm in the emergency department , from initial sinus rhythm to a junctional rhythm, with new prolongation of the QTc. Patient is not on any medications that she sugar this change, he denies any chest pain in the ED, is resting more comfortably after receiving pain medication, however is noted to have elevated troponin at 0.1, proBNP is greater than 35,000, patient with worsening of his baseline renal insufficiency , with a creatinine of 2.6, and a potassium of 6.2. With the EKG changes as stated, patient received hyperkalemia protocol, repeat potassium was 5.0, with a creatinine of 2.2, without significant change in the patient's ECG, although QTC at this point is now 483. Blood pressure noted to be fluctuating, 97/49, and then back up to 122/60, patient is a history of labile blood pressures. I did speak with Dr. Sher of cardiology regarding these findings, CT findings reviewed, patient remains comfortable at this time in the ED after pain medication given, is complaining of pain only over the site of his rib fractures , denies other complaints, at this time we'll continue to monitor the patient, no other interventions recommended at this point, and will consult nephrology, I also spoke with Dr. Medeiros of nephrology, who recommended repeating laboratory studies in several hours, and continuing with normal saline at this point. Patient's bicarbonate is within normal limits. Patient's pain improved, blood pressure back in 120s over 70s, heart rate is in the 60s, remains in junctional rhythm as stated, with no additional complaints. Oxygen saturation on 3 L nasal cannula is in the low 90s, which is baseline for patient per nursing report. Patient did receive CT of the chest is reported initially, and then additional abdomen and pelvis due to report of fall, and other abnormalities as stated, as he does have elevated LFTs. Reveal perinephric stranding of bilateral kidneys, therefore potential infection as a concern, patient was covered with broad- spectrum antibiotics due to worsening condition and unclear etiology, and blood cultures were added. At this time the patient is resting more comfortably as stated, with Lidoderm patch, fentanyl for pain, findings as above discussed with Dr. Mcbride internal medicine, patient accepted to her service as a full admission the ICU at this time, due to unclear etiology of his presentation. Blood pressure 120s over 70s, heart rate in the 70s, oxygen saturation 93% on 3Lnasal cannula, junctional rhythm on the monitor, at time of transfer to the floor. Dragon Disclaimer Dragon Disclaimer This electronic medical record was generated, in whole or in part, using a voice recognition dictation system. Departure Impression: Primary Impression: Renal failure Additional Impressions: Hypotension Hyperkalemia ECG abnormal Disposition: 09 ADMITTED INPATIENT Admitting Physician: Jamshid Mcbride Condition: IMPROVED Problem Qualifiers Additional Impressions: Hypotension Hypotension type: unspecified hypotension type Qualified Code: I95.9 - Hypotension, unspecified CHIOMA CABALLERO DO Nov 10, 2016 03:14
--- NOTE | 2016-11-10 03:44 | RAD ---
PROCEDURE CT abdomen pelvis without contrast. HISTORY Right lower rib pain after a fall. TECHNIQUE Helical CT imaging of the abdomen pelvis is performed without IV or oral contrast. PQRS: One or more the following individualized dose reduction techniques were utilized for the study: 1. Automated exposure control. 2. Adjustment of the mA and/or kV according to patient size. 3. Use of iterative reconstruction technique. COMPARISON CT chest without contrast, earlier same day. Complete abdominal ultrasound, earlier same day. FINDINGS Evaluation of solid organs and bowel is limited without oral and IV contrast, decreasing sensitivity for detection of pathology. Cardiopulmonary findings are stable, please refer to CT chest report. The liver, spleen, and pancreas are normal. Gallbladder better evaluated with same day abdominal ultrasound. Adrenal glands are normal. There is bilateral perinephric stranding, can be a normal variant in a patient of this age. There is no hydronephrosis. There are bilateral renal cysts. Atherosclerotic abdominal aorta, ectasia of the common iliac arteries. No obvious abnormality of the stomach. No dilated small bowel. No colon wall thickening is seen. No secondary signs of appendicitis. Urinary bladder is not well distended, otherwise normal. Prostate size normal. No pelvic free fluid. Probably reactive endplate changes of L2/L3. No compression fracture is seen. IMPRESSION 1. No acute abdominal or pelvic abnormality. 2. Bilateral perinephric stranding can be a normal variant or due to renal insufficiency. No obstructive uropathy. Bilateral renal cysts. Electronically signed by: Darien Jeffries MD (Nov 10, 2016 03:43:02)
[2016-11-10] MEDS ORDERED: PIP/TAZO PER PHARMACY MC PRN (04:30)
[2016-11-10] MEDS ORDERED: IV NORMAL SALINE 1000ML BAG 1,000 ML IV ONE (04:30)
[2016-11-10] MEDS ORDERED: SODIUM BICARBONATE VIAL 150 MEQ in IV STERILE WATER 1,000 ML IV SCH (04:30)
[2016-11-10] MEDS ORDERED: LIDOCAINE 2% JELLY 6ML IN APPLICATOR. MM ONE (04:30)
[2016-11-10] MEDS: PIPERACILLIN/TAZOBACTAM 2.25 GM in IV NORMAL SALINE 50ML 50 ML IV SCH ×4 (04:40→23:40)
[2016-11-10] MEDS ORDERED: METRONIDAZOLE 500mg PREMIX 100 ML IV ONE (05:00)
[2016-11-10] MEDS ORDERED: NOREPINEPHRINE VIAL 8 MG in IV NORMAL SALINE 250ML 250 ML IV PRN (07:15)
--- NOTE | 2016-11-10 07:39 | PDOC ---
Infectious Disease Note ROS ROS GEN: Denies fevers, chills, sweats HEENT: Denies blurred vision, sore throat CV: Denies chest pain RESP: Denies shortness of air, cough GI: Denies n/v/d NEURO: Denies confusion, dizziness MSK: Denies weakness, joint pain/swelling Vital Sign Vital Signs Vital Signs Date Time Temp Pulse Resp B/P Pulse Ox O2 Delivery O2 Flow Rate FiO2 11/10/16 06:30 70 24 86/42 93 Nasal Cannula 4.0 11/10/16 06:10 97.5 97.5 Physical Exam PHYSICAL EXAM GENERAL: NAD, Alert HEENT: PERRL, OC/OP NECK: Supple, no JVD, no LN LUNGS: Clear HEART: S1S2, no gallop, no murmur ABD: Soft, NT, no organomegaly, no rebound EXT: No edema, no cyanosis [employer]: Alert, oriented x 3, no focal neurologic deficit SKIN: No rash IV: ok Labs Lab Laboratory Tests Test 11/10/16 00:42 11/10/16 02:37 11/10/16 03:48 White Blood Count 12.7x10^3/uL (4.0-11.0) Red Blood Count 3.40x10^6/uL (4.30-5.70) Hemoglobin 10.2g/dL (13.0-17.5) Hematocrit 32.7% (39.0-53.0) Mean Corpuscular Volume 96fL (79-100) Mean Corpuscular Hemoglobin 30pg (25-35) Mean Corpuscular Hemoglobin Concent 31g/dL (31-37) Red Cell Distribution Width 14.9% (11.5-14.5) Platelet Count 132x10^3/uL (140-400) Neutrophils (%) (Auto) 74% (31-73) Lymphocytes (%) (Auto) 17% (24-48) Monocytes (%) (Auto) 8% (0-9) Eosinophils (%) (Auto) 0% (0-3) Basophils (%) (Auto) 0% (0-3) Neutrophils # (Auto) 9.4x10^3uL (1.8-7.7) Lymphocytes # (Auto) 2.2x10^3/uL (1.0-4.8) Monocytes # (Auto) 1.1x10^3/uL (0.0-1.1) Eosinophils # (Auto) 0.0x10^3/uL (0.0-0.7) Basophils # (Auto) 0.0x10^3/uL (0.0-0.2) Prothrombin Time 18.7SEC (11.7-14.0) Prothromb Time International Ratio 1.7 (0.8-1.1) Activated Partial Thromboplast Time 38SEC (24-38) Sodium Level 141mmol/L (136-145) Potassium Level 6.2mmol/L (3.5-5.1) Chloride Level 102mmol/L (98-107) Carbon Dioxide Level 32mmol/L (21-32) Anion Gap 7 (6-14) 16mmol/L (6-14) Blood Urea Nitrogen 62mg/dL (8-26) Creatinine 2.5mg/dL (0.7-1.3) Estimated GFR (Cockcroft-Gault) 24.9 BUN/Creatinine Ratio 25 (6-20) Glucose Level 181mg/dL (70-99) 193mg/dL (70-99) Calcium Level 9.4mg/dL (8.5-10.1) Total Bilirubin 1.2mg/dL (0.2-1.0) Aspartate Amino Transf (AST/SGOT) 1041U/L (15-37) Alanine Aminotransferase (ALT/SGPT) 674U/L (16-63) Alkaline Phosphatase 118U/L (46-116) Troponin I Quantitative 0.135ng/mL (0.000-0.055) [id number]-Type Natriuretic Peptide > 07991yi/mL (0-449) Total Protein 6.5g/dL (6.4-8.2) Albumin 2.9g/dL (3.4-5.0) Albumin/Globulin Ratio 0.8 (1.0-1.7) Lipase 49U/L (73-393) Lactic Acid Level 2.0mmol/L (0.4-2.0) Bedside Hemoglobin 10.2g/dL (14-18) Bedside Hematocrit 30% (37-52) Bedside Sodium 137mmol/L (135-145) Bedside Potassium 5.0mmol/L (3.5-5.0) Bedside Chloride 97mmol/L (98-110) Bedside Total CO2 29mmol/L (23-32) Bedside Blood Urea Nitrogen 55mg/dL (8-26) Bedside Creatinine 2.2mg/dL (0.5-1.4) Bedside Ionized Calcium (Stephanie) 1.15mmol/L (1.13-1.32) Bedside Troponin I 0.15ng/ml (<0.08) Objective Assessment ? sepsis - POA Hypotension Leukocytosis VARUN Transaminitis - Sepsis vs congestion CHF H/o Enterococcal sepsis 09/16 and 09/19 - JEROME neg AVR Plan Plan of Care UA C and S Cont Zosyn Add Zyvox given h/o Enterococcus - risk of resistance and Renal failure Add Doxy for atypical coverage D/c Flagyl F/u lab and cults Thank you 35 mins reviewed previous records and admit - No records from facility # [id number] IDALIA BRAND MD Nov 10, 2016 07:39
--- NOTE | 2016-11-10 08:30 | PDOC2 ---
CARDIAC CONSULT DATE OF CONSULT Date of Consult DATE: 11/10/16 TIME: 08:13 REASON FOR CONSULT Reason for Consult: CHF REFERRING PHYSICIAN Referring Physician: Dr. Mcbride SOURCE Source: Chart review, Patient HISTORY OF PRESENT ILLNESS HISTORY OF PRESENT ILLNESS This is an 8 yo male, with a history of CAD s/p CABG, SSS s/p PPM, hypertension , hyperlipidemia, atrial fibrillation, diabetes II, and CKD, who presented with complaints of left rib pain secondary to falling out of his wheelchair. Patient reports he was sitting up in his wheelchair and fell asleep, subsequently sliding out of the chair and hitting his left side on the chair's arm. Denies hitting his head. No other traumatic injury. Patient reports he has been doing well recently and has has no complaints of increasing shortness of breath. Was seen in our office last Saturday and was doing quite well. Denies any chest pain, palpitations, dizziness, diaphoresis, recent fevers/illness, orthopnea, or LE edema. Reports compliance with medications. PAST MEDICAL HISTORY Past Medical History Cardiovascular: AFIB, CAD s/p CABG, CHF, HTN, Hyperlipidemia, Other ( bioprosthetic aortic valve replacement, sick sinus syndrome s/p PPM) Pulmonary: COPD, Pneumonia GI: No pertinent hx Heme/Onc: No pertinent hx Hepatobiliary: Cholelithiasis Psych: No pertinent hx Musculoskeletal: Osteoarthritis Infectious disease: No pertinent hx, Other (recent bacteremia enterococcus) Renal/: Chronic renal insuff (CKD3), Benign prostatic enlarg., Other ( bilateral renal cyst) Endocrine: Diabetes (2) Dermatology: No pertinent hx PAST SURGICAL HISTORY Past Surgical History Pacemaker, Appendectomy, CABG (with AVR bioprosthetic), Other (PICC placement) FAMILY HISTORY Family History Diabetes (brother d/t DM complications, sister has bad neuropathy. ) , Heart Disease SOCIAL HISTORY Smoke: No ALCOHOL: none Drugs: None CURRENT MEDICATIONS CURRENT MEDICATIONS Current Medications Medications (Trade) Dose Ordered Sig/Nito Route PRN Reason Start Time Stop Time Status Last Admin Dose Admin Fentanyl Citrate (Fentanyl 2ml Vial) 25 mcg PRN Q15MIN PRN IV PAIN GREATER THAN 3/10 11/10/16 01:00 11/11/16 00:59 11/10/16 04:39 Lidocaine (Lidoderm) 1 patch 1X ONCE TD 11/10/16 01:00 11/10/16 01:01 DC 11/10/16 01:14 Calcium Gluconate 1,000 mg 1X ONCE IVP 11/10/16 02:30 11/10/16 02:31 DC 11/10/16 02:20 Sodium Bicarbonate 50 meq 1X ONCE IV 11/10/16 02:30 11/10/16 02:31 DC 11/10/16 02:20 Dextrose 25 gm 1X ONCE IV 11/10/16 02:30 11/10/16 02:31 DC 11/10/16 02:20 Insulin Human Regular (Novolin R Vial) 10 unit 1X ONCE IV 11/10/16 02:30 11/10/16 02:31 DC 11/10/16 02:22 Calcium Gluconate 1,000 mg 1X ONCE IVP 11/10/16 04:00 11/10/16 04:01 DC 11/10/16 03:56 Sodium Bicarbonate 50 meq 1X ONCE IV 11/10/16 04:00 11/10/16 04:01 DC 11/10/16 04:00 Dextrose 25 gm 1X ONCE IV 11/10/16 04:00 11/10/16 04:01 DC 11/10/16 04:01 Insulin Human Regular 10 unit 10 unit 1X ONCE IV 11/10/16 04:00 11/10/16 04:01 DC 11/10/16 03:59 Sodium Chloride 1,000 ml @ 100 mls/hr 1X ONCE IV 11/10/16 04:30 11/10/16 14:29 11/10/16 04:41 Metronidazole 100 ml @ 100 mls/hr 1X ONCE IV 11/10/16 05:00 11/10/16 05:59 DC 11/10/16 04:40 Piperacillin Sod/ Tazobactam Sod/ Sodium Chloride (Zosyn/Iv Sodium Chloride 0.9% 50ml) 50 ml @ 100 mls/hr Q6HRS IV 11/10/16 05:00 11/10/16 04:40 Lidocaine HCl (Glydo (Lidocaine) Jelly) 1 stevie 1X ONCE MM 11/10/16 04:30 11/10/16 04:43 DC 11/10/16 04:40 ALLERGIES ALLERGIES: Coded Allergies: No Known Drug Allergies (Unverified , 05/11/15) ROS Review of System 14 point ROS conducted with pertinent positives noted above in HPI PHYSICAL EXAM General: Alert, Oriented X3, Cooperative, No acute distress HEENT: Mucous membr. moist/pink Lungs: Other (diminished bases ) Heart: Normal S1, Normal S2, Other (2/6 systolic murmur, tele: int AV pacing with underlying AFIB) Abdomen: Soft, No tenderness Extremities: No edema, Normal pulses Skin: No significant lesion Neuro: Normal speech, Sensation intact Psych/Mental Status: Mental status NL, Mood NL MUSCULOSKELETAL: Osteoarthritic changes both hands VITALS VITALS Vital Signs Date Time Temp Pulse Resp B/P Pulse Ox O2 Delivery O2 Flow Rate FiO2 11/10/16 06:30 70 24 86/42 93 Nasal Cannula 4.0 11/10/16 06:10 97.5 97.5 LABS Lab: Laboratory Tests Test 11/10/16 00:42 11/10/16 02:37 11/10/16 03:48 11/10/16 06:55 White Blood Count 12.7x10^3/uL (4.0-11.0) Red Blood Count 3.40x10^6/uL (4.30-5.70) Hemoglobin 10.2g/dL (13.0-17.5) Hematocrit 32.7% (39.0-53.0) Mean Corpuscular Volume 96fL (79-100) Mean Corpuscular Hemoglobin 30pg (25-35) Mean Corpuscular Hemoglobin Concent 31g/dL (31-37) Red Cell Distribution Width 14.9% (11.5-14.5) Platelet Count 132x10^3/uL (140-400) Neutrophils (%) (Auto) 74% (31-73) Lymphocytes (%) (Auto) 17% (24-48) Monocytes (%) (Auto) 8% (0-9) Eosinophils (%) (Auto) 0% (0-3) Basophils (%) (Auto) 0% (0-3) Neutrophils # (Auto) 9.4x10^3uL (1.8-7.7) Lymphocytes # (Auto) 2.2x10^3/uL (1.0-4.8) Monocytes # (Auto) 1.1x10^3/uL (0.0-1.1) Eosinophils # (Auto) 0.0x10^3/uL (0.0-0.7) Basophils # (Auto) 0.0x10^3/uL (0.0-0.2) Prothrombin Time 18.7SEC (11.7-14.0) Prothromb Time International Ratio 1.7 (0.8-1.1) Activated Partial Thromboplast Time 38SEC (24-38) Sodium Level 141mmol/L (136-145) Potassium Level 6.2mmol/L (3.5-5.1) Chloride Level 102mmol/L (98-107) Carbon Dioxide Level 32mmol/L (21-32) Anion Gap 7 (6-14) 16mmol/L (6-14) Blood Urea Nitrogen 62mg/dL (8-26) Creatinine 2.5mg/dL (0.7-1.3) Estimated GFR (Cockcroft-Gault) 24.9 BUN/Creatinine Ratio 25 (6-20) Glucose Level 181mg/dL (70-99) 193mg/dL (70-99) Calcium Level 9.4mg/dL (8.5-10.1) Total Bilirubin 1.2mg/dL (0.2-1.0) Aspartate Amino Transf (AST/SGOT) 1041U/L (15-37) Alanine Aminotransferase (ALT/SGPT) 674U/L (16-63) Alkaline Phosphatase 118U/L (46-116) Troponin I Quantitative 0.135ng/mL (0.000-0.055) BB-Qwu-D-Type Natriuretic Peptide > 03391dd/mL (0-449) Total Protein 6.5g/dL (6.4-8.2) Albumin 2.9g/dL (3.4-5.0) Albumin/Globulin Ratio 0.8 (1.0-1.7) Lipase 49U/L (73-393) Lactic Acid Level 2.0mmol/L (0.4-2.0) 2.5mmol/L (0.4-2.0) Bedside Hemoglobin 10.2g/dL (14-18) Bedside Hematocrit 30% (37-52) Bedside Sodium 137mmol/L (135-145) Bedside Potassium 5.0mmol/L (3.5-5.0) Bedside Chloride 97mmol/L (98-110) Bedside Total CO2 29mmol/L (23-32) Bedside Blood Urea Nitrogen 55mg/dL (8-26) Bedside Creatinine 2.2mg/dL (0.5-1.4) Bedside Ionized Calcium (Stephanie) 1.15mmol/L (1.13-1.32) Bedside Troponin I 0.15ng/ml (<0.08) ECHOCARDIOGRAM ECHOCARDIOGRAM ECHOCARDIOGRAM TTE DATE: 09/17/161918 <Conclusion> Basal inferior wall hypokinesis. Abnormal septal motion secondary to CABG or paced rhythm. The Ejection Fraction is 45%. There is a pacemaker lead in the right ventricle. The left atrium is mildly dilated. Bioprosthetic aortic valve well seated and functioning well. Mild tricuspid regurgitation. The PA pressure was estimated at 41 mmHg. There is no evidence of significant pericardial effusion. JEROME DATE: 09/21/16 155 <Conclusion> Left ventricle systolic function is moderately impaired. EF 40% There is no thrombus noted in the left atrial appendage. There is a bioprosthetic aortic valve prosthesis. The leaflets appear thickened but no clear vegetation or thrombus is noted. Doppler and Color Flow revealed mild to moderate mitral regurgitation. There are no obvious vegetations noted on the tricuspid, mitral and pulmonic valves. STRESS TEST STRESS TEST STRESS TEST Conclusion 1. Regadenoson cardioisotope stress test showed small apical wall infarct without any ischemia. 2. Normal left ventricular systolic function with ejection fraction calculated at 62%. 3. Low risk for cardiovascular events DATE: 06/02/14 1721 ASSESSMENT/PLAN ASSESSMENT/PLAN 1. 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 CT chest with bilateral pleural effusion Recent TTE with 45% EF. Troponin 0.135, which is likely demand mediated ischemia Appears fairly well compensated from HF standpoint. May need additional diuresis, but will hold off on for now given VARUN and hypotension. Will-reevaluate fluid status in am. 2. Mild troponin elevation peak 0.135. likely demand mediated in the setting of fall, VARUN, and CHF continue with medical management consider further ischemic workup, in the form of a stress test, when acute issues resolve. 3. CAD s/p CABD MPI 05/2014 unremarkable. Stable. Continue secondary prevention. 4. SSS with PPM [employer] device. Recent interrogation revealed normal functioning device 5. s/p AVR stable, well seated per recent TTE. 6. HLP LDL at 52. no statin with transaminitis/ ? liver shock 7. Hypertension low-normotensive. Hold antiHTN therapy pressors as warranted 8. Permanent AFIB intermittent AV pacing with underlying AFIB/flutter Continue on ECASA for stroke prevention. 9. VARUN with CKD per renal 10. Leukocytosis with ?sepsis/shock lactic 2.5 Recent hx of enterococcus bacteremia and PNA; recent JEROME with no notable thrombus nor vegetations. 11. DM, II Problems: ARNAUD ALLEN APRN Nov 10, 2016 08:30
[2016-11-10] MEDS: DOXYCYCLINE HYCLATE 100 MG TABLET PO SCH ×2 (11:29→20:54)
--- NOTE | 2016-11-10 11:41 | EKG ---
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
--- NOTE | 2016-11-10 12:48 | PDOC2 ---
CONSULT Date of Consult Date of Consult DATE: 11/10/16 TIME: 12:47 Reason for Consult Reason for Consult: VARUN Referring Physician Referring Physician: Dr Kathi POTTER Identification/Chief Complaint Chief Complaint Rib Pain Problems: Source Source: Chart review Past Medical History Cardiovascular: AFIB, CAD, CHF, HTN, Hyperlipidemia, Other Pulmonary: COPD, Pneumonia GI: No pertinent hx Heme/Onc: No pertinent hx Hepatobiliary: Cholelithiasis Psych: No pertinent hx Musculoskeletal: Osteoarthritis Infectious disease: No pertinent hx, Other Renal/: Chronic renal insuff, Benign prostatic enlarg., Other Endocrine: Diabetes Past Surgical History Past Surgical History: Pacemaker, Appendectomy, CABG, Other Family History Family History: Diabetes, Heart Disease Social History ALCOHOL: rare Drugs: None Current Problem List Problem List Problems Medical Problems: (1) ECG abnormal Status: Acute (2) Hyperkalemia Status: Acute (3) Hypotension Status: Acute (4) Renal failure Status: Acute Current Medications Current Medications Current Medications Fentanyl Citrate (Fentanyl 2ml Vial) 25 mcg PRN Q15MIN PRN IV PAIN GREATER THAN 3/10 Last administered on 11/10/16 04:39; Start 11/10/16 at 01:00; Stop at 00:59 Lidocaine (Lidoderm) 1 patch 1X ONCE TD Last administered on 11/10/16 01:14; Start 11/10/16 at 01:00; Stop 11/10/16 at 01:01; Status DC Calcium Gluconate 1,000 mg 1X ONCE IVP Last administered on 11/10/16 02:20; Start 11/10/16 at 02:30; Stop 11/10/16 at 02:31; Status DC Sodium Bicarbonate 50 meq 1X ONCE IV Last administered on 11/10/16 02:20; Start 11/10/16 at 02:30; Stop 11/10/16 at 02:31; Status DC Dextrose 25 gm 1X ONCE IV Last administered on 11/10/16 02:20; Start at 02:30; Stop 11/10/16 at 02:31; Status DC Insulin Human Regular (Novolin R Vial) 10 unit 1X ONCE IV Last administered on 11/10/16 02:22; Start 11/10/16 at 02:30; Stop 11/10/16 at 02:31; Status DC Calcium Gluconate 1,000 mg 1X ONCE IVP Last administered on 11/10/16 03:56; Start 11/10/16 at 04:00; Stop 11/10/16 at 04:01; Status DC Sodium Bicarbonate 50 meq 1X ONCE IV Last administered on 11/10/16 04:00; Start 11/10/16 at 04:00; Stop 11/10/16 at 04:01; Status DC Dextrose 25 gm 1X ONCE IV Last administered on 11/10/16 04:01; Start at 04:00; Stop 11/10/16 at 04:01; Status DC Insulin Human Regular 10 unit 10 unit 1X ONCE IV Last administered on 03:59; Start 11/10/16 at 04:00; Stop 11/10/16 at 04:01; Status DC Sodium Bicarbonate 150 meq/Sterile Water 1,150 ml @ 125 mls/hr Q9H12M IV ; Start 11/10/16 at 04:30; Stop 11/10/16 at 04:30; Status DC Sodium Chloride (Iv Sodium Chloride 0.9% 1000ml Bag) 1,000 ml @ 100 mls/hr 1X ONCE IV Last administered on 11/10/16 04:41; Start 11/10/16 at 04:30; Stop at 14:29 Piperacillin Sod/ Tazobactam Sod 1 each 1 each PRN DAILY PRN MC SEE COMMENTS; Start 11/10/16 at 04:30 Metronidazole 100 ml @ 100 mls/hr Q8HRS IV ; Start 11/10/16 at 14:00; Stop at 14:00; Status DC Metronidazole 100 ml @ 100 mls/hr 1X ONCE IV Last administered on 11/10/16 04:40; Start 11/10/16 at 05:00; Stop 11/10/16 at 05:59; Status DC Piperacillin Sod/ Tazobactam Sod/ Sodium Chloride (Zosyn/Iv Sodium Chloride 0.9 % 50ml) 50 ml @ 100 mls/hr Q6HRS IV Last administered on 11/10/16 11:29; Start 11/10/16 at 05:00 Lidocaine HCl 1 stevie 1 stevie 1X ONCE MM Last administered on 11/10/16 04:40; Start 2/18/17 at 04:30; Stop 11/10/16 at 04:43; Status DC Norepinephrine Bitartrate 8 mg/ Sodium Chloride 258 ml @ 0 mls/hr CONT PRN IV SEE I/O RECORD; Start 11/10/16 at 07:15 Linezolid (Zyvox Premix) 300 ml @ 300 mls/hr Q12HR IV Last administered on 09:00; Start 11/10/16 at 09:00 Doxycycline Hyclate (Vibra-Tab) 100 mg BID PO Last administered on 11/10/16t 11 :29; Start 11/10/16 at 09:00 Active Scripts Active Carvedilol 3.125 Mg Tablet 3.125 Mg PO BIDWMEALS Reported Fish Oil + Vitamin D-3 Softgel (Om-3/Dha/Epa/Fish Oil/Vit D3) 1 Each Capsule 1 Each PO Vitamin D (Cholecalciferol (Vitamin D3)) 1,000 Unit Capsule 1,000 Unit PO DAILY Klor-Con 10 (Potassium Chloride) 10 Meq Tablet.er 2 Tab PO DAILY Lasix (Furosemide) 20 Mg Tablet 10 Mg PO DAILY Aspir 81 (Aspirin) 81 Mg Tablet.dr 81 Mg PO Cozaar (Losartan Potassium) 50 Mg Tablet 50 Mg PO DAILY Amaryl (Glimepiride) 4 Mg Tablet 4 Mg PO DAILY Metformin Hcl 1,000 Mg Tablet 1,000 Mg PO BIDAC Allergies Allergies: Coded Allergies: No Known Drug Allergies (Unverified , 05/11/15) ROS Review of System GEN: no Fevers no Chills EYES: no new Visual Complaints ENT: no EN Drainage no Hearing deficiets CVS: no Orthopnea no CP x from Rib # RESP: no SOB no MILAN GI: + Nausea + Vomiting : no Dysuria no Urgency HEME: no easy bruising no Palp Ly Nodes NEURO no Focal Weakness no Sz PSYCH: no Suicidal Ideation min Depression SKIN: no Rashes ENDO: Polyuria or Polydipsia no Hot/Cold Intolerance MU SK: ch Arthraigia no Myalgia Physical Exam Physical Exam General Appearance: Awake Alert Oriented x 2-3 In no Distress Eyes: VIsion Unchanged Conjunctiva Normal EN: No EN Drainage Mucous Memb. dryish Neck: no JVD min JVP Supple no Thyromegaly CVS: S1 S2 ? Murmur No Gallop No Rub no Edema Resp: rare basal Rales no Rhonchi no Acc. Muscle use GI: BAS +ve NO Bruit Non Tender Non Distended : no CVA tenderness x left around area of Rib # no Suprapubic Tenderness SKIN: no Rashes Breast Exam deferred Mu.Sk: Adequate ROM no Muscle Atrophy Heme: Unable to palpate Obvious LAD no Splenomegaly NEURO: Decreased strenght in Lower ext Cranial Nerves II - XII grossly intact Psych: ? Depressed no Active hallucination Vital Signs Vital Signs Date Time Temp Pulse Resp B/P Pulse Ox O2 Delivery O2 Flow Rate FiO2 11/10/16 08:00 Nasal Cannula 4.0 11/10/16 06:30 70 24 86/42 93 11/10/16 06:10 97.5 97.5 Assessment & Plan ARF: ? Vol dpeltion - IVF for now. DOubt ATN but may get to that if UO does not pickup. Pyelo vs Kidney trauma after recent fall may explain prei-nephric stranding. Current FLuid and E-lyte status does not necessitate emergent need for Dialysis. Will re-evaluate for Dialysis in am Oliguria - IVF bolus prn ^K ( POA ) - now better with temporizing measures in ER; was on KCL as OP Lactic Academia- without overt Acidosis - watch trend with Fluids as ordered; ? Due to Metformin ^ed LFTs - no obvious source on CT - ? Shock.defer to Primary Team - ? Needs GB Us as recc on Chest CT Anemia: check Iron; may need Epogen Transfuse as needed. Hypo TN: ? SIRS vs Vol dpeletion. Current meds reviewed. IVF boluses prn; May need Pressors Discussed Plan of Care and prognosis etc. at length with family. Labs Labs Laboratory Tests Test 11/10/16 00:42 11/10/16 02:37 11/10/16 03:48 11/10/16 06:55 White Blood Count 12.7x10^3/uL (4.0-11.0) Red Blood Count 3.40x10^6/uL (4.30-5.70) Hemoglobin 10.2g/dL (13.0-17.5) Hematocrit 32.7% (39.0-53.0) Mean Corpuscular Volume 96fL (79-100) Mean Corpuscular Hemoglobin 30pg (25-35) Mean Corpuscular Hemoglobin Concent 31g/dL (31-37) Red Cell Distribution Width 14.9% (11.5-14.5) Platelet Count 132x10^3/uL (140-400) Neutrophils (%) (Auto) 74% (31-73) Lymphocytes (%) (Auto) 17% (24-48) Monocytes (%) (Auto) 8% (0-9) Eosinophils (%) (Auto) 0% (0-3) Basophils (%) (Auto) 0% (0-3) Neutrophils # (Auto) 9.4x10^3uL (1.8-7.7) Lymphocytes # (Auto) 2.2x10^3/uL (1.0-4.8) Monocytes # (Auto) 1.1x10^3/uL (0.0-1.1) Eosinophils # (Auto) 0.0x10^3/uL (0.0-0.7) Basophils # (Auto) 0.0x10^3/uL (0.0-0.2) Prothrombin Time 18.7SEC (11.7-14.0) Prothromb Time International Ratio 1.7 (0.8-1.1) Activated Partial Thromboplast Time 38SEC (24-38) Sodium Level 141mmol/L (136-145) Potassium Level 6.2mmol/L (3.5-5.1) Chloride Level 102mmol/L (98-107) Carbon Dioxide Level 32mmol/L (21-32) Anion Gap 7 (6-14) 16mmol/L (6-14) Blood Urea Nitrogen 62mg/dL (8-26) Creatinine 2.5mg/dL (0.7-1.3) Estimated GFR (Cockcroft-Gault) 24.9 BUN/Creatinine Ratio 25 (6-20) Glucose Level 181mg/dL (70-99) 193mg/dL (70-99) Calcium Level 9.4mg/dL (8.5-10.1) Total Bilirubin 1.2mg/dL (0.2-1.0) Aspartate Amino Transf (AST/SGOT) 1041U/L (15-37) Alanine Aminotransferase (ALT/SGPT) 674U/L (16-63) Alkaline Phosphatase 118U/L (46-116) Troponin I Quantitative 0.135ng/mL (0.000-0.055) WH-Fdt-K-Type Natriuretic Peptide > 60848kp/mL (0-449) Total Protein 6.5g/dL (6.4-8.2) Albumin 2.9g/dL (3.4-5.0) Albumin/Globulin Ratio 0.8 (1.0-1.7) Lipase 49U/L (73-393) Lactic Acid Level 2.0mmol/L (0.4-2.0) 2.5mmol/L (0.4-2.0) Bedside Hemoglobin 10.2g/dL (14-18) Bedside Hematocrit 30% (37-52) Bedside Sodium 137mmol/L (135-145) Bedside Potassium 5.0mmol/L (3.5-5.0) Bedside Chloride 97mmol/L (98-110) Bedside Total CO2 29mmol/L (23-32) Bedside Blood Urea Nitrogen 55mg/dL (8-26) Bedside Creatinine 2.2mg/dL (0.5-1.4) Bedside Ionized Calcium (Stephanie) 1.15mmol/L (1.13-1.32) Bedside Troponin I 0.15ng/ml (<0.08) Laboratory Tests Test 11/10/16 00:42 11/10/16 02:37 11/10/16 03:48 11/10/16 06:55 White Blood Count 12.7x10^3/uL (4.0-11.0) Red Blood Count 3.40x10^6/uL (4.30-5.70) Hemoglobin 10.2g/dL (13.0-17.5) Hematocrit 32.7% (39.0-53.0) Mean Corpuscular Volume 96fL (79-100) Mean Corpuscular Hemoglobin 30pg (25-35) Mean Corpuscular Hemoglobin Concent 31g/dL (31-37) Red Cell Distribution Width 14.9% (11.5-14.5) Platelet Count 132x10^3/uL (140-400) Neutrophils (%) (Auto) 74% (31-73) Lymphocytes (%) (Auto) 17% (24-48) Monocytes (%) (Auto) 8% (0-9) Eosinophils (%) (Auto) 0% (0-3) Basophils (%) (Auto) 0% (0-3) Neutrophils # (Auto) 9.4x10^3uL (1.8-7.7) Lymphocytes # (Auto) 2.2x10^3/uL (1.0-4.8) Monocytes # (Auto) 1.1x10^3/uL (0.0-1.1) Eosinophils # (Auto) 0.0x10^3/uL (0.0-0.7) Basophils # (Auto) 0.0x10^3/uL (0.0-0.2) Prothrombin Time 18.7SEC (11.7-14.0) Prothromb Time International Ratio 1.7 (0.8-1.1) Activated Partial Thromboplast Time 38SEC (24-38) Sodium Level 141mmol/L (136-145) Potassium Level 6.2mmol/L (3.5-5.1) Chloride Level 102mmol/L (98-107) Carbon Dioxide Level 32mmol/L (21-32) Anion Gap 7 (6-14) 16mmol/L (6-14) Blood Urea Nitrogen 62mg/dL (8-26) Creatinine 2.5mg/dL (0.7-1.3) Estimated GFR (Cockcroft-Gault) 24.9 BUN/Creatinine Ratio 25 (6-20) Glucose Level 181mg/dL (70-99) 193mg/dL (70-99) Calcium Level 9.4mg/dL (8.5-10.1) Total Bilirubin 1.2mg/dL (0.2-1.0) Aspartate Amino Transf (AST/SGOT) 1041U/L (15-37) Alanine Aminotransferase (ALT/SGPT) 674U/L (16-63) Alkaline Phosphatase 118U/L (46-116) Troponin I Quantitative 0.135ng/mL (0.000-0.055) XV-Bdp-G-Type Natriuretic Peptide > 81506ly/mL (0-449) Total Protein 6.5g/dL (6.4-8.2) Albumin 2.9g/dL (3.4-5.0) Albumin/Globulin Ratio 0.8 (1.0-1.7) Lipase 49U/L (73-393) Lactic Acid Level 2.0mmol/L (0.4-2.0) 2.5mmol/L (0.4-2.0) Bedside Hemoglobin 10.2g/dL (14-18) Bedside Hematocrit 30% (37-52) Bedside Sodium 137mmol/L (135-145) Bedside Potassium 5.0mmol/L (3.5-5.0) Bedside Chloride 97mmol/L (98-110) Bedside Total CO2 29mmol/L (23-32) Bedside Blood Urea Nitrogen 55mg/dL (8-26) Bedside Creatinine 2.2mg/dL (0.5-1.4) Bedside Ionized Calcium (Stephanie) 1.15mmol/L (1.13-1.32) Bedside Troponin I 0.15ng/ml (<0.08) Images Images There is bilateral perinephric stranding, can be a normal variant in a patient of this age. There is no hydronephrosis. There are bilateral renal cysts. Atherosclerotic abdominal aorta, ectasia of the common iliac arteries. Renal US: There are bilateral renal cysts. Right cyst measures 4.6 x 3 cm. Other right renal cyst measures 4.6 x 4.3 cm. The left renal cyst measures 4 x 4.1 cm. Other left renal cyst measures 1.6 cm. The right kidney measures cm in length and no hydronephrosis or renal mass or perinephric fluid collection is seen. The left kidney measures cm in length and no hydronephrosis or renal mass or perinephric fluid collection is seen. 1. Small bilateral pleural effusions. 2. There are ground-glass and reticular opacities. Considerations include atelectasis, pulmonary edema, or nonspecific pneumonitis. Mild upper lobe centrilobular emphysema. 3. Pulmonary trunk is dilated, can be secondary to pulmonary arterial hypertension. 4. Cardiomegaly. 5. There is inflammation near the gallbladder. Recommend further evaluation with right upper quadrant ultrasound. 6. Left thyroid nodule, consider outpatient thyroid ultrasound if not recently performed. RENETTA FRAIRE MD Nov 10, 2016 12:48
[2016-11-10 12:54] LABS: BILIRUBIN,URINE MODERATE (NEG); GLUCOSE,URINE NEGATIVE (NEG); NITRITE,URINE NEGATIVE (NEG); PROTEIN,URINE 100 mg/dL (NEG-TRACE)
[2016-11-10] MEDS ORDERED: IV NORMAL SALINE 500ML BAG 500 ML IV PRN (13:00)
[2016-11-10] MEDS ORDERED: MAGNESIUM SULFATE 2GM 50 ML IV PRN (13:00)
--- NOTE | 2016-11-10 13:11 | PDOC1 ---
History and Physical Date of Admission Date of Admission 11/10/16 Identification/Chief Complaint Chief Complaint sob, fall Problems: Source Source: Chart review, Patient History of Present Illness History of Present Illness HPI HPI Patient is a 81 year old man, history of type 2 diabetes mellitus, hypertension , COPD, who wears 3 L nasal cannula oxygen at baseline, [facility]. Pt was seated in his wheelchair 2 days ago, and he fell asleep, when he did so he slipped out of the wheelchair, falling and striking the left side of his chest against the arms of the wheelchair. States that he did fall all the way down to the ground. He states he is feeling sore primarily on the left rib area , and in the upper abdomen area, worse with deep inspiration. tates that he had x-rays performed yesterday did not reveal any evidence of fracture. pt has mild cough and mild sob, no fever, chills, but said they sent him here since his sat was dropping. Past Medical History Cardiovascular: AFIB, CAD, CHF, HTN, Hyperlipidemia, Other Pulmonary: COPD, Pneumonia GI: No pertinent hx Heme/Onc: No pertinent hx Hepatobiliary: Cholelithiasis Psych: No pertinent hx Infectious disease: No pertinent hx, Other Renal/: Chronic renal insuff, Benign prostatic enlarg., Other Endocrine: Diabetes Past Surgical History Past Surgical History: Pacemaker, Appendectomy, CABG, Other Family History Family History: Diabetes, Heart Disease Social History Smoke: No ALCOHOL: none Drugs: None Current Problem List Problem List Problems Medical Problems: (1) ECG abnormal Status: Acute (2) Hyperkalemia Status: Acute (3) Hypotension Status: Acute (4) Renal failure Status: Acute Current Medications Current Medications Current Medications Medications (Trade) Dose Ordered Sig/Nito Start Time Stop Time Status Last Admin Dose Admin Aspirin (Ecotrin) 81 mg [id number] 11/11/16 08:00 Calcium Gluconate 1,000 mg 1X ONCE 11/10/16 04:00 11/10/16 04:01 DC 11/10/16 03:56 1,000 MG Dextrose 25 gm 1X ONCE 11/10/16 04:00 11/10/16 04:01 DC 11/10/16 04:01 25 GM Doxycycline Hyclate (Vibra-Tab) 100 mg BID 11/10/16 09:00 11/10/16 11:29 100 MG Fentanyl Citrate (Fentanyl 2ml Vial) 25 mcg PRN Q15MIN PRN 11/10/16 01:00 11/11/16 00:59 11/10/16 04:39 25 MCG Insulin Human Regular (Novolin R Vial) 10 unit 1X ONCE 11/10/16 02:30 11/10/16 02:31 DC 11/10/16 02:22 10 UNIT Insulin Human Regular 10 unit 10 unit 1X ONCE 11/10/16 04:00 11/10/16 04:01 DC 11/10/16 03:59 10 UNIT Lidocaine (Lidoderm) 1 patch 1X ONCE 11/10/16 01:00 11/10/16 01:01 DC 11/10/16 01:14 1 PATCH Lidocaine HCl 1 stevie 1 stevie 1X ONCE 11/10/16 04:30 11/10/16 04:43 DC 11/10/16 04:40 1 STEVIE Linezolid (Zyvox Premix) 300 ml @ 300 mls/hr Q12HR 11/10/16 09:00 11/10/16 09:00 300 MLS/HR Metronidazole 100 ml @ 100 mls/hr 1X ONCE 11/10/16 05:00 11/10/16 05:59 DC 11/10/16 04:40 100 MLS/HR Norepinephrine Bitartrate 8 mg/ Sodium Chloride 258 ml @ 0 mls/hr CONT PRN 11/10/16 07:15 Piperacillin Sod/ Tazobactam Sod 1 each 1 each PRN DAILY PRN 11/10/16 04:30 Piperacillin Sod/ Tazobactam Sod/ Sodium Chloride (Zosyn/Iv Sodium Chloride 0.9% 50ml) 50 ml @ 100 mls/hr Q6HRS 11/10/16 05:00 11/10/16 11:29 100 MLS/HR Sodium Bicarbonate 150 meq/Sterile Water 1,150 ml @ 125 mls/hr Q9H12M 11/10/16 04:30 11/10/16 04:30 DC Sodium Bicarbonate 50 meq 1X ONCE 11/10/16 04:00 11/10/16 04:01 DC 11/10/16 04:00 50 MEQ Sodium Chloride (Iv Sodium Chloride 0.9% 1000ml Bag) 1,000 ml @ 100 mls/hr 1X ONCE 11/10/16 04:30 2/18/17 14:29 11/10/16 04:41 100 MLS/HR Allergies Allergies Allergies Coded Allergies Type Severity Reaction Last Updated Verified No Known Drug Allergies 05/11/15 No ROS Review of System CONSTITUTIONAL: No fever or chills EYES: No recent changes SKIN: No rash or itching CARDIOVASCULAR: No chest pain, syncope, palpitations, or edema RESPIRATORY: No SOB or cough GASTROINTESTINAL: No nausea, vomiting or abdominal pain NEUROLOGICAL: No headaches or weakness ENDOCRINE: No cold or heat intolerance GENITOURINARY: No urgency or frequency of urination MUSCULOSKELETAL: No back pain or joint pain LYMPHATICS: No enlarged lymph nodes PSYCHIATRIC: No anxiety or depression Physical Exam Physical Exam GEN.: No apparent distress. Alert and oriented. HEENT: Head is normocephalic, atraumatic NECK: Supple. LUNGS: bl basilar crackles, mild HEART: RRR, S1, S2 present. Peripheral pulses intact ABDOMEN: Soft, nontender. Positive bowel sounds. EXTREMITIES: Without any cyanosis. NEUROLOGIC: Normal speech, normal tone PSYCHIATRIC: Normal affect, normal mood. SKIN: No ulcerations Vitals Vitals Vital Signs Date Time Temp Pulse Resp B/P Pulse Ox O2 Delivery O2 Flow Rate FiO2 11/10/16 08:00 Nasal Cannula 4.0 11/10/16 06:30 70 24 86/42 93 11/10/16 06:10 97.5 97.5 Labs Labs Laboratory Tests Test 11/10/16 00:42 11/10/16 02:37 11/10/16 03:48 11/10/16 06:55 White Blood Count 12.7x10^3/uL (4.0-11.0) Red Blood Count 3.40x10^6/uL (4.30-5.70) Hemoglobin 10.2g/dL (13.0-17.5) Hematocrit 32.7% (39.0-53.0) Mean Corpuscular Volume 96fL (79-100) Mean Corpuscular Hemoglobin 30pg (25-35) Mean Corpuscular Hemoglobin Concent 31g/dL (31-37) Red Cell Distribution Width 14.9% (11.5-14.5) Platelet Count 132x10^3/uL (140-400) Neutrophils (%) (Auto) 74% (31-73) Lymphocytes (%) (Auto) 17% (24-48) Monocytes (%) (Auto) 8% (0-9) Eosinophils (%) (Auto) 0% (0-3) Basophils (%) (Auto) 0% (0-3) Neutrophils # (Auto) 9.4x10^3uL (1.8-7.7) Lymphocytes # (Auto) 2.2x10^3/uL (1.0-4.8) Monocytes # (Auto) 1.1x10^3/uL (0.0-1.1) Eosinophils # (Auto) 0.0x10^3/uL (0.0-0.7) Basophils # (Auto) 0.0x10^3/uL (0.0-0.2) Prothrombin Time 18.7SEC (11.7-14.0) Prothromb Time International Ratio 1.7 (0.8-1.1) Activated Partial Thromboplast Time 38SEC (24-38) Sodium Level 141mmol/L (136-145) Potassium Level 6.2mmol/L (3.5-5.1) Chloride Level 102mmol/L (98-107) Carbon Dioxide Level 32mmol/L (21-32) Anion Gap 7 (6-14) 16mmol/L (6-14) Blood Urea Nitrogen 62mg/dL (8-26) Creatinine 2.5mg/dL (0.7-1.3) Estimated GFR (Cockcroft-Gault) 24.9 BUN/Creatinine Ratio 25 (6-20) Glucose Level 181mg/dL (70-99) 193mg/dL (70-99) Calcium Level 9.4mg/dL (8.5-10.1) Total Bilirubin 1.2mg/dL (0.2-1.0) Aspartate Amino Transf (AST/SGOT) 1041U/L (15-37) Alanine Aminotransferase (ALT/SGPT) 674U/L (16-63) Alkaline Phosphatase 118U/L (46-116) Troponin I Quantitative 0.135ng/mL (0.000-0.055) KD-Ytb-U-Type Natriuretic Peptide > 32098ss/mL (0-449) Total Protein 6.5g/dL (6.4-8.2) Albumin 2.9g/dL (3.4-5.0) Albumin/Globulin Ratio 0.8 (1.0-1.7) Lipase 49U/L (73-393) Lactic Acid Level 2.0mmol/L (0.4-2.0) 2.5mmol/L (0.4-2.0) Bedside Hemoglobin 10.2g/dL (14-18) Bedside Hematocrit 30% (37-52) Bedside Sodium 137mmol/L (135-145) Bedside Potassium 5.0mmol/L (3.5-5.0) Bedside Chloride 97mmol/L (98-110) Bedside Total CO2 29mmol/L (23-32) Bedside Blood Urea Nitrogen 55mg/dL (8-26) Bedside Creatinine 2.2mg/dL (0.5-1.4) Bedside Ionized Calcium (Stephanie) 1.15mmol/L (1.13-1.32) Bedside Troponin I 0.15ng/ml (<0.08) Laboratory Tests Test 11/10/16 00:42 11/10/16 02:37 11/10/16 03:48 11/10/16 06:55 White Blood Count 12.7x10^3/uL (4.0-11.0) Red Blood Count 3.40x10^6/uL (4.30-5.70) Hemoglobin 10.2g/dL (13.0-17.5) Hematocrit 32.7% (39.0-53.0) Mean Corpuscular Volume 96fL (79-100) Mean Corpuscular Hemoglobin 30pg (25-35) Mean Corpuscular Hemoglobin Concent 31g/dL (31-37) Red Cell Distribution Width 14.9% (11.5-14.5) Platelet Count 132x10^3/uL (140-400) Neutrophils (%) (Auto) 74% (31-73) Lymphocytes (%) (Auto) 17% (24-48) Monocytes (%) (Auto) 8% (0-9) Eosinophils (%) (Auto) 0% (0-3) Basophils (%) (Auto) 0% (0-3) Neutrophils # (Auto) 9.4x10^3uL (1.8-7.7) Lymphocytes # (Auto) 2.2x10^3/uL (1.0-4.8) Monocytes # (Auto) 1.1x10^3/uL (0.0-1.1) Eosinophils # (Auto) 0.0x10^3/uL (0.0-0.7) Basophils # (Auto) 0.0x10^3/uL (0.0-0.2) Prothrombin Time 18.7SEC (11.7-14.0) Prothromb Time International Ratio 1.7 (0.8-1.1) Activated Partial Thromboplast Time 38SEC (24-38) Sodium Level 141mmol/L (136-145) Potassium Level 6.2mmol/L (3.5-5.1) Chloride Level 102mmol/L (98-107) Carbon Dioxide Level 32mmol/L (21-32) Anion Gap 7 (6-14) 16mmol/L (6-14) Blood Urea Nitrogen 62mg/dL (8-26) Creatinine 2.5mg/dL (0.7-1.3) Estimated GFR (Cockcroft-Gault) 24.9 BUN/Creatinine Ratio 25 (6-20) Glucose Level 181mg/dL (70-99) 193mg/dL (70-99) Calcium Level 9.4mg/dL (8.5-10.1) Total Bilirubin 1.2mg/dL (0.2-1.0) Aspartate Amino Transf (AST/SGOT) 1041U/L (15-37) Alanine Aminotransferase (ALT/SGPT) 674U/L (16-63) Alkaline Phosphatase 118U/L (46-116) Troponin I Quantitative 0.135ng/mL (0.000-0.055) QJ-Egu-V-Type Natriuretic Peptide > 38569ir/mL (0-449) Total Protein 6.5g/dL (6.4-8.2) Albumin 2.9g/dL (3.4-5.0) Albumin/Globulin Ratio 0.8 (1.0-1.7) Lipase 49U/L (73-393) Lactic Acid Level 2.0mmol/L (0.4-2.0) 2.5mmol/L (0.4-2.0) Bedside Hemoglobin 10.2g/dL (14-18) Bedside Hematocrit 30% (37-52) Bedside Sodium 137mmol/L (135-145) Bedside Potassium 5.0mmol/L (3.5-5.0) Bedside Chloride 97mmol/L (98-110) Bedside Total CO2 29mmol/L (23-32) Bedside Blood Urea Nitrogen 55mg/dL (8-26) Bedside Creatinine 2.2mg/dL (0.5-1.4) Bedside Ionized Calcium (Stephanie) 1.15mmol/L (1.13-1.32) Bedside Troponin I 0.15ng/ml (<0.08) VTE Prophylaxis Ordered VTE Prophylaxis Devices: Yes VTE Pharmacological Prophylaxi: Yes Assessment/Plan Assessment/Plan 1. left lower chest pain post fall 2. acute on chronic resh failure, hypoxia 3. h/o CAD post CABG 4. possible sepsis with HCAP 5. shock with 2 and 4 6. dm2 7. acute on chronic 8. SSS with PPM 9. VARUN on CKD 3 10. htn 11. hld 12. elevated LFT 2/2 shock likely plan: 1 fu with id, renal, card, pulm 2. hold home meds since low bp and VARUN 3. on zyvox, zosyn, doxy as per ID 4. ssi 5. labs daily ICU care PTOT gi ppx JAYANT BUCIO MD Nov 10, 2016 13:11
[2016-11-10 13:12] LABS: RBC,URINE TNTC /HPF (0-2)
[2016-11-10 13:13] LABS: BACTERIA,URINE FEW /HPF (0-FEW); SQUAMOUS EPITHELIAL CELL,UR FEW /LPF; WBC,URINE 20-40 /HPF (0-4)
[2016-11-10] MEDS ORDERED: DEXTROSE 50% 25 GM / 50ML DISP.SYRIN. IV PRN (13:15)
[2016-11-10] MEDS ORDERED: ACETAMINOPHEN 325 MG TABLET. PO PRN (13:15)
[2016-11-10 13:26] LABS: URIC ACID 12.4 mg/dL (3.5-7.2)
[2016-11-10] MEDS: INSULIN ASPART 300 UNITS/3 ML INSULN.PEN SQ SCH ×2 (13:30→17:00)
[2016-11-10] MEDS ORDERED: HEPARIN PF for SUB-Q USE 5,000 UNIT/0.5 ML VIAL. SQ SCH (14:00)
[2016-11-10] MEDS ORDERED: METRONIDAZOLE 500mg PREMIX 100 ML IV SCH (14:00)
[2016-11-10] MEDS: PANTOPRAZOLE 40 MG TABLET. PO SCH (14:11)
[2016-11-10] MEDS: IV NORMAL SALINE 1000ML BAG 1,000 ML IV SCH ×2 (17:27→23:41)
--- NOTE | 2016-11-10 17:58 | CONS ---
DATE OF CONSULTATION: 11/10/2016 ROOM: ICU. REQUESTING PHYSICIAN: Tory Mcbride MD. REASON FOR CONSULTATION: Sepsis. HISTORY OF PRESENT ILLNESS: The patient is a pleasant 81-year-old gentleman with a previous history of enterococcal bacteremia and sepsis. This was at the end of August 2016. He underwent a JEROME that was negative and it was recommended at that time he be treated with Rocephin and ampicillin. Apparently, [facility] and had been in his normal state of health from what he says. He fell asleep in his wheelchair and suddenly slipped and fell out of his wheelchair. This occurred on the . He has some pain on his left abdominal area and was brought to [facility]. He has been afebrile; however, blood pressure has dropped into the 80s/40s. His potassium was 6.2. His creatinine was 2.5. His AST was 10,041, ALT was 674, alkaline phosphatase was 118 and his BNP was greater than 35,000. Additionally, his white blood cell count was elevated at 12.7. He was prescribed Zosyn and Flagyl and admitted to the Intensive Care Unit. Currently, he is lying in bed. Denies any gross headaches, no change in vision. He has no gross headaches. He does wear nasal cannula oxygen, but he is a mouth breather. Denies any chest pain, no shortness of breath or cough. He has some pain in the left side of the rib area ____ Lidoderm patch in place. He denies any cramps. No nausea, vomiting, diarrhea. He states they just put a Dooley in the ER and does feel some relief from that. Denies any rashes, itches, or any other complications. PAST MEDICAL HISTORY: Positive for the above-mentioned enterococcal sepsis, history of coronary artery disease, congestive heart failure, diabetes, hyperlipidemia, hypertension, obesity, pacemaker placement, aortic valve placement, atrial fibrillation, cholelithiasis, chronic kidney disease, BPH, COPD, pneumonia, previous appendectomy, previous PICC line placement. ALLERGIES: He does not have any allergies. REVIEW OF SYSTEMS: Otherwise negative except for mentioned above. SOCIAL HISTORY: Does have a distant history of smoking. No alcohol. He is . FAMILY HISTORY: Diabetes, heart disease. CURRENT MEDICATIONS: Include Zosyn, Flagyl, insulin, fentanyl. Other meds are available, have been reviewed in the chart. PHYSICAL EXAMINATION: VITAL SIGNS: Temperature currently 97.5, pulse 70, respirations 24, blood pressure 86/42, satting 92% on 4 liters with respiratory rate 24. CONSTITUTIONAL: He is very pleasant. He is cooperative. He is in no acute distress. HEENT: Pupils are equal and reactive. Normal conjunctivae. Oral cavity, pharynx is dry. NECK: Supple. No JVD. LUNGS: mild crackles. HEART: S1, S2. Pacemaker without signs of complications. ABDOMEN: Soft, nontender, nondistended with positive bowel sounds. He has a Lidoderm patch on his left chest area. He has a Dooley in place with clean urine. EXTREMITIES: Without clubbing, cyanosis or gross edema. SKIN: He has got some minimal scabs on his toes. No splinter hemorrhages. Skin is warm to touch without signs of rash. NEUROLOGIC: He is appropriate, moves all extremities. PSYCHIATRIC: Affect is pleasant. LABORATORY DATA: White count 12.7, hemoglobin 10.2, platelets 132 with neutrophils 74, current potassium 5. Creatinine of 2.2, glucose of 193. No influenza screen. CT scan of his chest shows small bilateral pleural effusions, ground glass reticular opacities. Ultrasound of his abdomen shows gallbladder is thickened and some trace pericholecystic fluid. No cholelithiasis. No [place] signs. Right pleural effusion. Some hepatomegaly. CT scan of abdomen and pelvis without contrast, bilateral perinephric stranding, can be normal variant due to renal insufficiency, no obstructive uropathy. IMPRESSION: 1. Questionable sepsis present on admission. 2. Hypotension. 3. Leukocytosis. 4. Acute kidney injury. 5. Transaminitis, questionable secondary to sepsis versus congestion. 6. Congestive heart failure. 7. 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 JEROME was negative. 8. Aortic valve replacement. RECOMMENDATIONS: Obtain a UA, C and S now, continue the Zosyn, add Zyvox. Given his history of Enterococcus and risk for resistance and renal failure, add doxycycline for atypical coverage. Discontinue the Flagyl. He is not having any diarrhea. Follow up on labs and cultures. Thank you for allowing me to participate in the patient's care. If you have any questions, please do not hesitate to contact me. I spent 35 minutes critical care reviewing his previous records, current ER records, interviewing him and discussing with the nurses. IDALIA BRAND MD DR: PASCUAL/karuna JOB#: [id number] / [id number]
[2016-11-10] MEDS: ONDANSETRON PF 4 MG/2 ML VIAL. IV PRN ×2 (18:00→23:40)
[2016-11-10 19:15] LABS: UR PROTEIN RD 127.4 mg/dL (Not Estab.)
[2016-11-11] VITALS (24 sets, daily range): BP systolic 89–109; BP diastolic 40–52
[2016-11-11] MEDS: FENTANYL PF 100 MCG/2 ML VIAL. IV PRN ×5 (02:32→23:26)
[2016-11-11 05:26] LABS: BASO % 0 % (0-3); EOS % 0 % (0-3); HEMATOCRIT 31.7 % (39.0-53.0); HEMOGLOBIN 9.8 g/dL (13.0-17.5); LYMPH % 15 % (24-48); MEAN CORPUSCULAR HEMOGLOBIN 30 pg (25-35); MEAN CORPUSCULAR HGB CONC 31 g/dL (31-37); MEAN CORPUSCULAR VOLUME 99 fL (79-100); MONO % 7 % (0-9); NEUT % 78 % (31-73); PLATELET COUNT 94 x10^3/uL (140-400); RED BLOOD COUNT 3.22 x10^6/uL (4.30-5.70); RED CELL DISTRIBUTION WIDTH 15.1 % (11.5-14.5); WHITE BLOOD COUNT 13.5 x10^3/uL (4.0-11.0)
[2016-11-11] MEDS: PIPERACILLIN/TAZOBACTAM 2.25 GM in IV NORMAL SALINE 50ML 50 ML IV SCH ×4 (06:00→23:25)
[2016-11-11 06:04] LABS: ALBUMIN 2.7 g/dL (3.4-5.0); ALBUMIN/GLOBULIN RATIO 0.8 (1.0-1.7); CALCIUM 8.6 mg/dL (8.5-10.1); GFR 20.2; PHOSPHORUS 7.6 mg/dL (2.6-4.7); TOTAL BILIRUBIN 1.2 mg/dL (0.2-1.0); TOTAL PROTEIN 6.1 g/dL (6.4-8.2)
--- NOTE | 2016-11-11 06:04 | CONS ---
DATE OF CONSULTATION: 11/10/2016 PRIMARY PHYSICIAN: Dr. Tory Mcbride. CONSULTING PHYSICIAN: ____. HISTORY OF PRESENT ILLNESS: The patient is an 81-year-old gentleman from a facility. He apparently dozed off on his wheelchair yesterday and sustained a fall prior to going to lunch. He is known to have extensive cardiac history. There were some question about underlying CKD; however, recent labs in our system showed a creatinine of anywhere from 1.1 to 1.6. He is known to have bioprosthetic aortic valve replacement, sick sinus syndrome, pacemaker, diabetes and CKD. In this setting, he was admitted to the hospital with rib fractures; however, it was noted that his potassium was elevated at 6.2 at presentation with a BUN of 62 and a creatinine of 2.5. No urine output was noted. His AST, ALT were also elevated. He denies fevers, chills, etc. at this time. He has been evaluated by . ____. I discussed his care with ____. She had already administered temporizing measures for the potassium and the potassium had come down nicely. There were some EKG changes, which were deferred to Cardiology. IV fluids were started. Given the elevated bicarbonate, normal saline was ____. Current list of medications have been reviewed. . ____ started on antibiotics. For rest of detail, see electronic records. RENETTA FRAIRE MD DR: MARI/karuna JOB#: [id number] / [id number]
[2016-11-11 06:07] LABS: POTASSIUM 6.3 mmol/L (3.5-5.1)
[2016-11-11] MEDS: ONDANSETRON PF 4 MG/2 ML VIAL. IV PRN ×2 (06:38→09:05)
[2016-11-11] MEDS ORDERED: SODIUM POLYSTYRENE SULFONATE 15 GM/60 ML ORAL.SUSP. PO ONE (06:45)
[2016-11-11] MEDS: INSULIN ASPART 300 UNITS/3 ML INSULN.PEN SQ SCH ×3 (08:00→17:00)
[2016-11-11] MEDS: ASPIRIN ENTERIC COATED 81 MG TABLET.DR. PO SCH (08:27)
[2016-11-11] MEDS: DOXYCYCLINE HYCLATE 100 MG TABLET PO SCH ×2 (08:27→23:25)
[2016-11-11] MEDS: PANTOPRAZOLE 40 MG TABLET. PO SCH (08:27)
[2016-11-11] MEDS: IV NORMAL SALINE 1000ML BAG 1,000 ML IV SCH (09:15)
--- NOTE | 2016-11-11 09:24 | PDOC ---
Infectious Disease Note Subjective Subjective c/o LUQ pain and some nausea Increase O2 demand. 10L via simple mask ROS ROS GEN: Denies fevers, chills, sweats CV: Denies chest pain RESP: Denies shortness of air, cough GI: Denies v/d Vital Sign Vital Signs Vital Signs Date Time Temp Pulse Resp B/P Pulse Ox O2 Delivery O2 Flow Rate FiO2 11/11/16 08:28 19 Nasal Cannula 10.0 11/11/16 07:08 94 11/11/16 06:00 62 108/45 11/11/16 04:00 97.9 97.9 Physical Exam PHYSICAL EXAM GENERAL: Propped up in bed, NAD HEENT: OP/OC pink. No lesions. Edentulous. NECK: Supple, no JVD, no LN LUNGS: Clear HEART: S1S2, regular ABD: Round, soft, NT. Lidoderm patch left flank : Dooley EXT: No edema, no cyanosis BISQUE CLEANER: Alert, oriented x 3, no focal neurologic deficit SKIN: No rash IV: ok Labs Lab Laboratory Tests Test 11/10/16 12:46 11/10/16 17:24 11/11/16 05:00 Urine Collection Type Unknown Urine Color Brown Urine Clarity Turbid Urine pH 5.0 Urine Specific [place] 1.025 Urine Protein 127.4mg/dL (Not Estab.) Urine Glucose (UA) Negativemg/dL (NEG) Urine Ketones (Stick) Tracemg/dL (NEG) Urine Blood Large (NEG) Urine Nitrite Negative (NEG) Urine Bilirubin Moderate (NEG) Urine Urobilinogen Dipstick 1.0mg/dL (0.2 mg/dL) Urine Leukocyte Esterase Moderate (NEG) Urine RBC Tntc/HPF (0-2) Urine WBC 20-40/HPF (0-4) Urine Squamous Epithelial Cells Few/LPF Urine Bacteria Few/HPF (0-FEW) Urine Random Creatinine 246.6mg/dL (Not Estab.) Urine Random Sodium 11mmol/L (Not Estab.) Urine Creatinine 244.8mg/dL (Not Estab.) Urine Protein/Creatinine Ratio 520mg/g creat (0-200) Glucose (Fingerstick) 149mg/dL (70-99) White Blood Count 13.5x10^3/uL (4.0-11.0) Red Blood Count 3.22x10^6/uL (4.30-5.70) Hemoglobin 9.8g/dL (13.0-17.5) Hematocrit 31.7% (39.0-53.0) Mean Corpuscular Volume 99fL (79-100) Mean Corpuscular Hemoglobin 30pg (25-35) Mean Corpuscular Hemoglobin Concent 31g/dL (31-37) Red Cell Distribution Width 15.1% (11.5-14.5) Platelet Count 94x10^3/uL (140-400) Neutrophils (%) (Auto) 78% (31-73) Lymphocytes (%) (Auto) 15% (24-48) Monocytes (%) (Auto) 7% (0-9) Eosinophils (%) (Auto) 0% (0-3) Basophils (%) (Auto) 0% (0-3) Neutrophils # (Auto) 10.5x10^3uL (1.8-7.7) Lymphocytes # (Auto) 2.0x10^3/uL (1.0-4.8) Monocytes # (Auto) 1.0x10^3/uL (0.0-1.1) Eosinophils # (Auto) 0.0x10^3/uL (0.0-0.7) Basophils # (Auto) 0.0x10^3/uL (0.0-0.2) Sodium Level 141mmol/L (136-145) Potassium Level 6.3mmol/L (3.5-5.1) Chloride Level 104mmol/L (98-107) Carbon Dioxide Level 29mmol/L (21-32) Anion Gap 8 (6-14) Blood Urea Nitrogen 67mg/dL (8-26) Creatinine 3.0mg/dL (0.7-1.3) Estimated GFR (Cockcroft-Gault) 20.2 BUN/Creatinine Ratio 22 (6-20) Glucose Level 179mg/dL (70-99) Lactic Acid Level 2.9mmol/L (0.4-2.0) Calcium Level 8.6mg/dL (8.5-10.1) Phosphorus Level 7.6mg/dL (2.6-4.7) Magnesium Level 2.4mg/dL (1.8-2.4) Total Bilirubin 1.2mg/dL (0.2-1.0) Aspartate Amino Transf (AST/SGOT) 1507U/L (15-37) Alanine Aminotransferase (ALT/SGPT) 1304U/L (16-63) Alkaline Phosphatase 99U/L (46-116) Total Protein 6.1g/dL (6.4-8.2) Albumin 2.7g/dL (3.4-5.0) Albumin/Globulin Ratio 0.8 (1.0-1.7) CT abdomen pelvis without contrast. FINDINGS Evaluation of solid organs and bowel is limited without oral and IV contrast, decreasing sensitivity for detection of pathology. Cardiopulmonary findings are stable, please refer to CT chest report. The liver, spleen, and pancreas are normal. Gallbladder better evaluated with same day abdominal ultrasound. Adrenal glands are normal. There is bilateral perinephric stranding, can be a normal variant in a patient of this age. There is no hydronephrosis. There are bilateral renal cysts. Atherosclerotic abdominal aorta, ectasia of the common iliac arteries. No obvious abnormality of the stomach. No dilated small bowel. No colon wall thickening is seen. No secondary signs of appendicitis. Urinary bladder is not well distended, otherwise normal. Prostate size normal. No pelvic free fluid. Probably reactive endplate changes of L2/L3. No compression fracture is seen. IMPRESSION 1. No acute abdominal or pelvic abnormality. 2. Bilateral perinephric stranding can be a normal variant or due to renal insufficiency. No obstructive uropathy. Bilateral renal cysts. Micro BLOOD CULTURE Preliminary NO GROWTH AFTER 1 DAY Objective Assessment Questionable sepsis present on admission. Hypotension. stable Leukocytosis -increase ? reactive Acute kidney injury. Transaminitis, questionable secondary to sepsis versus congestion.- worse Congestive heart failure. 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 JEROME was negative. Aortic valve replacement. Plan Plan of Care Cont Zyvox, Zosyn and doxy Await GI eval - May need PIPIDA F/u lab and cults Attending Co-Sign Attending Co-Sign The patient was seen and interviewed as well as examined at the bedside. The chart was reviewed. The case was discussed. Agree with the plan of care. Attending Co-Sign Attending Co-Sign The patient was seen and interviewed as well as examined at the bedside. The chart was reviewed. The case was discussed. Agree with the plan of care. ZAFAR HANNAH APRN Nov 11, 2016 09:24 IDALIA BRAND MD Nov 11, 2016 13:06
--- NOTE | 2016-11-11 11:29 | PDOC ---
PROGRESS NOTES Subjective Subjective Patient seen and examined. Largely unchanged. Objective Objective Vital Signs Date Time Temp Pulse Resp B/P Pulse Ox O2 Delivery O2 Flow Rate FiO2 11/11/16 08:28 19 Nasal Cannula 10.0 11/11/16 07:08 94 11/11/16 06:00 62 108/45 11/11/16 04:00 97.9 97.9 Intake and Output 11/11/16 07:00 Intake Total 4899 ml Output Total 388 ml Balance 4511 ml Intake Oral 200 ml Other 4699 ml Output Urine Total 388 ml Physical Exam Abdomen: Normal bowel sounds Heart: Regular rate General: mild distress Lungs: Other (mildly decreased breath sounds) Assessment Assessment Problems Medical Problems: (1) ECG abnormal Status: Acute (2) Hyperkalemia Status: Acute (3) Hypotension Status: Acute (4) Renal failure Status: Acute 1. 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 CT chest with bilateral pleural effusion Recent TTE with 45% EF. Troponin 0.135, which is likely demand mediated ischemia Appears fairly well compensated from HF standpoint. May need additional diuresis, but will hold off on for now given VARUN and hypotension. 2. Mild troponin elevation peak 0.135. likely demand mediated in the setting of fall, VARUN, and CHF continue with medical management consider further ischemic workup, in the form of a stress test, when acute issues resolve. 3. CAD s/p CABD MPI 05/2014 unremarkable. Stable. Continue secondary prevention. 4. SSS with PPM [employer] device. Recent interrogation revealed normal functioning device 5. s/p AVR stable, well seated per recent TTE. 6. HLP LDL at 52. no statin with transaminitis/ ? liver shock 7. Hypertension low-normotensive. Hold antiHTN therapy pressors as warranted 8. Permanent AFIB intermittent AV pacing with underlying AFIB/flutter Continue on ECASA for stroke prevention. 9. VARUN with CKD Potassium level of 6.3 this morning. Followed by renal. 10. Leukocytosis with ?sepsis/shock lactic 2.5 Recent hx of enterococcus bacteremia and PNA; recent JEROME with no notable thrombus nor vegetations. 11. DM, II Comment Review of Relevant I have reviewed the following items sandie (where applicable) has been applied. Labs Laboratory Tests Test 11/10/16 00:42 11/10/16 02:37 11/10/16 03:48 2/18/17 05:40 White Blood Count 12.7x10^3/uL (4.0-11.0) Red Blood Count 3.40x10^6/uL (4.30-5.70) Hemoglobin 10.2g/dL (13.0-17.5) Hematocrit 32.7% (39.0-53.0) Mean Corpuscular Volume 96fL (79-100) Mean Corpuscular Hemoglobin 30pg (25-35) Mean Corpuscular Hemoglobin Concent 31g/dL (31-37) Red Cell Distribution Width 14.9% (11.5-14.5) Platelet Count 132x10^3/uL (140-400) Neutrophils (%) (Auto) 74% (31-73) Lymphocytes (%) (Auto) 17% (24-48) Monocytes (%) (Auto) 8% (0-9) Eosinophils (%) (Auto) 0% (0-3) Basophils (%) (Auto) 0% (0-3) Neutrophils # (Auto) 9.4x10^3uL (1.8-7.7) Lymphocytes # (Auto) 2.2x10^3/uL (1.0-4.8) Monocytes # (Auto) 1.1x10^3/uL (0.0-1.1) Eosinophils # (Auto) 0.0x10^3/uL (0.0-0.7) Basophils # (Auto) 0.0x10^3/uL (0.0-0.2) Prothrombin Time 18.7SEC (11.7-14.0) Prothromb Time International Ratio 1.7 (0.8-1.1) Activated Partial Thromboplast Time 38SEC (24-38) Sodium Level 141mmol/L (136-145) Potassium Level 6.2mmol/L (3.5-5.1) Chloride Level 102mmol/L (98-107) Carbon Dioxide Level 32mmol/L (21-32) Anion Gap 7 (6-14) 16mmol/L (6-14) Blood Urea Nitrogen 62mg/dL (8-26) Creatinine 2.5mg/dL (0.7-1.3) Estimated GFR (Cockcroft-Gault) 24.9 BUN/Creatinine Ratio 25 (6-20) Glucose Level 181mg/dL (70-99) 193mg/dL (70-99) Uric Acid 12.4mg/dL (3.5-7.2) Calcium Level 9.4mg/dL (8.5-10.1) Total Bilirubin 1.2mg/dL (0.2-1.0) Aspartate Amino Transf (AST/SGOT) 1041U/L (15-37) Alanine Aminotransferase (ALT/SGPT) 674U/L (16-63) Alkaline Phosphatase 118U/L (46-116) Creatine Kinase 52U/L (39-308) Troponin I Quantitative 0.135ng/mL (0.000-0.055) EC-Qzh-S-Type Natriuretic Peptide > 46872wo/mL (0-449) Total Protein 6.5g/dL (6.4-8.2) Albumin 2.9g/dL (3.4-5.0) Albumin/Globulin Ratio 0.8 (1.0-1.7) Lipase 49U/L (73-393) Lactic Acid Level 2.0mmol/L (0.4-2.0) Bedside Hemoglobin 10.2g/dL (14-18) Bedside Hematocrit 30% (37-52) Bedside Sodium 137mmol/L (135-145) Bedside Potassium 5.0mmol/L (3.5-5.0) Bedside Chloride 97mmol/L (98-110) Bedside Total CO2 29mmol/L (23-32) Bedside Blood Urea Nitrogen 55mg/dL (8-26) Bedside Creatinine 2.2mg/dL (0.5-1.4) Bedside Ionized Calcium (Stephanie) 1.15mmol/L (1.13-1.32) Bedside Troponin I 0.15ng/ml (<0.08) Nasal Screen MRSA (PCR) Negative (Negative) Test 11/10/16 06:55 11/10/16 12:46 11/10/16 17:24 11/11/16 05:00 Lactic Acid Level 2.5mmol/L (0.4-2.0) 2.9mmol/L (0.4-2.0) Urine Collection Type Unknown Urine Color Brown Urine Clarity Turbid Urine pH 5.0 Urine Specific [place] 1.025 Urine Protein 127.4mg/dL (Not Estab.) Urine Glucose (UA) Negativemg/dL (NEG) Urine Ketones (Stick) Tracemg/dL (NEG) Urine Blood Large (NEG) Urine Nitrite Negative (NEG) Urine Bilirubin Moderate (NEG) Urine Urobilinogen Dipstick 1.0mg/dL (0.2 mg/dL) Urine Leukocyte Esterase Moderate (NEG) Urine RBC Tntc/HPF (0-2) Urine WBC 20-40/HPF (0-4) Urine Squamous Epithelial Cells Few/LPF Urine Bacteria Few/HPF (0-FEW) Urine Random Creatinine 246.6mg/dL (Not Estab.) Urine Random Sodium 11mmol/L (Not Estab.) Urine Creatinine 244.8mg/dL (Not Estab.) Urine Protein/Creatinine Ratio 520mg/g creat (0-200) Glucose (Fingerstick) 149mg/dL (70-99) White Blood Count 13.5x10^3/uL (4.0-11.0) Red Blood Count 3.22x10^6/uL (4.30-5.70) Hemoglobin 9.8g/dL (13.0-17.5) Hematocrit 31.7% (39.0-53.0) Mean Corpuscular Volume 99fL (79-100) Mean Corpuscular Hemoglobin 30pg (25-35) Mean Corpuscular Hemoglobin Concent 31g/dL (31-37) Red Cell Distribution Width 15.1% (11.5-14.5) Platelet Count 94x10^3/uL (140-400) Neutrophils (%) (Auto) 78% (31-73) Lymphocytes (%) (Auto) 15% (24-48) Monocytes (%) (Auto) 7% (0-9) Eosinophils (%) (Auto) 0% (0-3) Basophils (%) (Auto) 0% (0-3) Neutrophils # (Auto) 10.5x10^3uL (1.8-7.7) Lymphocytes # (Auto) 2.0x10^3/uL (1.0-4.8) Monocytes # (Auto) 1.0x10^3/uL (0.0-1.1) Eosinophils # (Auto) 0.0x10^3/uL (0.0-0.7) Basophils # (Auto) 0.0x10^3/uL (0.0-0.2) Sodium Level 141mmol/L (136-145) Potassium Level 6.3mmol/L (3.5-5.1) Chloride Level 104mmol/L (98-107) Carbon Dioxide Level 29mmol/L (21-32) Anion Gap 8 (6-14) Blood Urea Nitrogen 67mg/dL (8-26) Creatinine 3.0mg/dL (0.7-1.3) Estimated GFR (Cockcroft-Gault) 20.2 BUN/Creatinine Ratio 22 (6-20) Glucose Level 179mg/dL (70-99) Calcium Level 8.6mg/dL (8.5-10.1) Phosphorus Level 7.6mg/dL (2.6-4.7) Magnesium Level 2.4mg/dL (1.8-2.4) Total Bilirubin 1.2mg/dL (0.2-1.0) Aspartate Amino Transf (AST/SGOT) 1507U/L (15-37) Alanine Aminotransferase (ALT/SGPT) 1304U/L (16-63) Alkaline Phosphatase 99U/L (46-116) Total Protein 6.1g/dL (6.4-8.2) Albumin 2.7g/dL (3.4-5.0) Albumin/Globulin Ratio 0.8 (1.0-1.7) Laboratory Tests Test 11/10/16 12:46 11/10/16 17:24 11/11/16 05:00 Urine Collection Type Unknown Urine Color Brown Urine Clarity Turbid Urine pH 5.0 Urine Specific [place] 1.025 Urine Protein 127.4mg/dL (Not Estab.) Urine Glucose (UA) Negativemg/dL (NEG) Urine Ketones (Stick) Tracemg/dL (NEG) Urine Blood Large (NEG) Urine Nitrite Negative (NEG) Urine Bilirubin Moderate (NEG) Urine Urobilinogen Dipstick 1.0mg/dL (0.2 mg/dL) Urine Leukocyte Esterase Moderate (NEG) Urine RBC Tntc/HPF (0-2) Urine WBC 20-40/HPF (0-4) Urine Squamous Epithelial Cells Few/LPF Urine Bacteria Few/HPF (0-FEW) Urine Random Creatinine 246.6mg/dL (Not Estab.) Urine Random Sodium 11mmol/L (Not Estab.) Urine Creatinine 244.8mg/dL (Not Estab.) Urine Protein/Creatinine Ratio 520mg/g creat (0-200) Glucose (Fingerstick) 149mg/dL (70-99) White Blood Count 13.5x10^3/uL (4.0-11.0) Red Blood Count 3.22x10^6/uL (4.30-5.70) Hemoglobin 9.8g/dL (13.0-17.5) Hematocrit 31.7% (39.0-53.0) Mean Corpuscular Volume 99fL (79-100) Mean Corpuscular Hemoglobin 30pg (25-35) Mean Corpuscular Hemoglobin Concent 31g/dL (31-37) Red Cell Distribution Width 15.1% (11.5-14.5) Platelet Count 94x10^3/uL (140-400) Neutrophils (%) (Auto) 78% (31-73) Lymphocytes (%) (Auto) 15% (24-48) Monocytes (%) (Auto) 7% (0-9) Eosinophils (%) (Auto) 0% (0-3) Basophils (%) (Auto) 0% (0-3) Neutrophils # (Auto) 10.5x10^3uL (1.8-7.7) Lymphocytes # (Auto) 2.0x10^3/uL (1.0-4.8) Monocytes # (Auto) 1.0x10^3/uL (0.0-1.1) Eosinophils # (Auto) 0.0x10^3/uL (0.0-0.7) Basophils # (Auto) 0.0x10^3/uL (0.0-0.2) Sodium Level 141mmol/L (136-145) Potassium Level 6.3mmol/L (3.5-5.1) Chloride Level 104mmol/L (98-107) Carbon Dioxide Level 29mmol/L (21-32) Anion Gap 8 (6-14) Blood Urea Nitrogen 67mg/dL (8-26) Creatinine 3.0mg/dL (0.7-1.3) Estimated GFR (Cockcroft-Gault) 20.2 BUN/Creatinine Ratio 22 (6-20) Glucose Level 179mg/dL (70-99) Lactic Acid Level 2.9mmol/L (0.4-2.0) Calcium Level 8.6mg/dL (8.5-10.1) Phosphorus Level 7.6mg/dL (2.6-4.7) Magnesium Level 2.4mg/dL (1.8-2.4) Total Bilirubin 1.2mg/dL (0.2-1.0) Aspartate Amino Transf (AST/SGOT) 1507U/L (15-37) Alanine Aminotransferase (ALT/SGPT) 1304U/L (16-63) Alkaline Phosphatase 99U/L (46-116) Total Protein 6.1g/dL (6.4-8.2) Albumin 2.7g/dL (3.4-5.0) Albumin/Globulin Ratio 0.8 (1.0-1.7) Microbiology 11/10/16 Blood Culture - Preliminary, Resulted NO GROWTH AFTER 1 DAY Medications Current Medications Fentanyl Citrate (Fentanyl 2ml Vial) 25 mcg PRN Q15MIN PRN IV PAIN GREATER THAN 3/10 Last administered on 11/10/16 23:41; Start 11/10/16 at 01:00; Stop at 00:59; Status DC Lidocaine (Lidoderm) 1 patch 1X ONCE TD Last administered on 11/10/16 01:14; Start 11/10/16 at 01:00; Stop 11/10/16 at 01:01; Status DC Calcium Gluconate 1,000 mg 1X ONCE IVP Last administered on 11/10/16 02:20; Start 11/10/16 at 02:30; Stop 11/10/16 at 02:31; Status DC Sodium Bicarbonate 50 meq 1X ONCE IV Last administered on 11/10/16 02:20; Start 11/10/16 at 02:30; Stop 11/10/16 at 02:31; Status DC Dextrose 25 gm 1X ONCE IV Last administered on 11/10/16 02:20; Start at 02:30; Stop 11/10/16 at 02:31; Status DC Insulin Human Regular (Novolin R Vial) 10 unit 1X ONCE IV Last administered on 11/10/16 02:22; Start 11/10/16 at 02:30; Stop 11/10/16 at 02:31; Status DC Calcium Gluconate 1,000 mg 1X ONCE IVP Last administered on 11/10/16 03:56; Start 11/10/16 at 04:00; Stop 11/10/16 at 04:01; Status DC Sodium Bicarbonate 50 meq 1X ONCE IV Last administered on 11/10/16 04:00; Start 11/10/16 at 04:00; Stop 11/10/16 at 04:01; Status DC Dextrose 25 gm 1X ONCE IV Last administered on 11/10/16 04:01; Start at 04:00; Stop 11/10/16 at 04:01; Status DC Insulin Human Regular 10 unit 10 unit 1X ONCE IV Last administered on 03:59; Start 11/10/16 at 04:00; Stop 11/10/16 at 04:01; Status DC Sodium Bicarbonate 150 meq/Sterile Water 1,150 ml @ 125 mls/hr Q9H12M IV ; Start 11/10/16 at 04:30; Stop 11/10/16 at 04:30; Status DC Sodium Chloride (Iv Sodium Chloride 0.9% 1000ml Bag) 1,000 ml @ 100 mls/hr 1X ONCE IV Last administered on 11/10/16 04:41; Start 11/10/16 at 04:30; Stop at 14:29; Status DC Piperacillin Sod/ Tazobactam Sod 1 each 1 each PRN DAILY PRN MC SEE COMMENTS; Start 11/10/16 at 04:30 Metronidazole 100 ml @ 100 mls/hr Q8HRS IV ; Start 11/10/16 at 14:00; Stop at 14:00; Status DC Metronidazole 100 ml @ 100 mls/hr 1X ONCE IV Last administered on 11/10/16 04:40; Start 11/10/16 at 05:00; Stop 11/10/16 at 05:59; Status DC Piperacillin Sod/ Tazobactam Sod/ Sodium Chloride (Zosyn/Iv Sodium Chloride 0.9 % 50ml) 50 ml @ 100 mls/hr Q6HRS IV Last administered on 11/11/16 06:00; Start 11/10/16 at 05:00 Lidocaine HCl 1 stevie 1 stevie 1X ONCE MM Last administered on 11/10/16 04:40; Start 11/10/16 at 04:30; Stop 11/10/16 at 04:43; Status DC Norepinephrine Bitartrate 8 mg/ Sodium Chloride 258 ml @ 0 mls/hr CONT PRN IV SEE I/O RECORD; Start 11/10/16 at 07:15 Linezolid (Zyvox Premix) 300 ml @ 300 mls/hr Q12HR IV Last administered on 08:28; Start 11/10/16 at 09:00 Doxycycline Hyclate (Vibra-Tab) 100 mg BID PO Last administered on 11/11/16 08 :27; Start 11/10/16 at 09:00 Aspirin 81 mg 81 mg [id number] PO Last administered on 11/11/16 08:27; Start 11/11/16 at 08:00 Magnesium Sulfate/ Dextrose 50 ml @ 25 mls/hr PRN DAILY PRN IV for Mag < 1.7 on am labs; Start 11/10/16 at 13:00 Sodium Chloride (Iv Sodium Chloride 0.9% 500ml Bag) 500 ml @ 0 mls/hr QID PRN IV UO< 30cc/hr over previous 6hrs; Start 11/10/16 at 13:00 Acetaminophen (Tylenol) 650 mg PRN Q6HRS PRN PO MILD PAIN / TEMP; Start at 13:15 Ondansetron HCl (Zofran) 4 mg PRN Q6HRS PRN IV NAUSEA/VOMITING Last administered on 11/11/16 09:05; Start 11/10/16 at 13:15 Heparin Sodium (Porcine) 5,000 unit Q8HRS SQ ; Start 11/10/16 at 14:00; Stop at 14:00; Status DC Insulin Aspart (Novolog) 0-9 UNITS TIDWMEALS SQ ; Start 11/10/16 at 13:30 Dextrose 12.5 gm 12.5 gm PRN Q15MIN PRN IV SEE COMMENTS; Start 11/10/16 at 13: 15 Sodium Chloride (Iv Sodium Chloride 0.9% 1000ml Bag) 1,000 ml @ 100 mls/hr Q10H IV Last administered on 11/10/16 23:41; Start 2/18/17 at 13:15 Pantoprazole Sodium (Protonix) 40 mg DAILYAC PO Last administered on 11/11/16 08:27; Start 11/10/16 at 14:00 Fentanyl Citrate (Fentanyl 2ml Vial) 50 mcg PRN Q2HR PRN IV SEVERE PAIN Last administered on 11/11/16 08:28; Start 11/11/16 at 02:30 Sodium Polystyrene Sulfonate (Kayexalate) 60 gm 1X ONCE PO Last administered on 11/11/16 06:41; Start 11/11/16 at 06:45; Stop 11/11/16 at 06:46; Status DC Active Scripts Active Carvedilol 3.125 Mg Tablet 3.125 Mg PO BIDWMEALS Reported Fish Oil + Vitamin D-3 Softgel (Om-3/Dha/Epa/Fish Oil/Vit D3) 1 Each Capsule 1 Each PO Vitamin D (Cholecalciferol (Vitamin D3)) 1,000 Unit Capsule 1,000 Unit PO DAILY Klor-Con 10 (Potassium Chloride) 10 Meq Tablet.er 2 Tab PO DAILY Lasix (Furosemide) 20 Mg Tablet 10 Mg PO DAILY Aspir 81 (Aspirin) 81 Mg Tablet.dr 81 Mg PO Cozaar (Losartan Potassium) 50 Mg Tablet 50 Mg PO DAILY Amaryl (Glimepiride) 4 Mg Tablet 4 Mg PO DAILY Metformin Hcl 1,000 Mg Tablet 1,000 Mg PO BIDAC Vitals/I & O Vital Sign - Last 24 Hours 11/10/16 11/10/16 11/10/16 11/10/16 12:00 12:00 13:00 15:00 Temp 97.2 97.2 Pulse 63 63 63 Resp 20 B/P 110/45 111/49 95/46 Pulse Ox 94 94 79 O2 Delivery Nasal Cannula Nasal Cannula Nasal Cannula Nasal Cannula O2 Flow Rate 8.0 4.0 8.0 8.0 11/10/16 11/10/16 11/10/16 11/10/16 16:00 16:00 17:00 18:00 Temp 97.4 97.4 Pulse 84 88 64 Resp 19 B/P 99/48 99/46 91/47 Pulse Ox 96 95 97 O2 Delivery Nasal Cannula Nasal Cannula Nasal Cannula Nasal Cannula O2 Flow Rate 4.0 8.0 8.0 8.0 11/10/16 11/10/16 11/10/16 11/10/16 19:00 20:00 20:00 21:00 Temp 97.6 97.6 Pulse 74 62 66 Resp 18 17 22 B/P 105/47 93/53 101/52 Pulse Ox 94 98 97 O2 Delivery Nasal Cannula Mask Simple Mask Simple Mask O2 Flow Rate 8.0 8.0 8.0 6.0 11/10/16 11/10/16 11/10/16 11/10/16 22:00 23:00 23:41 23:59 Pulse 62 61 Resp 19 21 22 B/P 108/45 104/45 Pulse Ox 97 97 95 O2 Delivery Simple Mask Simple Mask Simple Mask Mask O2 Flow Rate 6.0 5.0 5.0 11/11/16 11/11/16 11/11/16 11/11/16 00:00 00:11 01:00 02:00 Temp 97.5 97.5 Pulse 61 62 61 Resp 28 B/P 109/52 100/44 109/44 Pulse Ox 96 97 95 97 O2 Delivery Simple Mask Simple Mask Simple Mask Simple Mask O2 Flow Rate 5.0 5.0 5.0 5.0 11/11/16 11/11/16 11/11/16 11/11/16 02:32 03:00 03:00 04:00 Temp 97.9 97.9 Pulse 91 70 Resp 22 17 16 18 B/P 96/41 91/52 Pulse Ox 98 96 97 O2 Delivery Simple Mask Simple Mask Simple Mask Simple Mask O2 Flow Rate 5.0 5.0 5.0 11/11/16 11/11/16 11/11/16 11/11/16 04:00 05:00 06:00 06:38 Pulse 70 62 Resp 18 18 23 B/P 96/42 108/45 Pulse Ox 95 97 94 O2 Delivery Mask Simple Mask Simple Mask Simple Mask O2 Flow Rate 5.0 5.0 5.0 5.0 11/11/16 11/11/16 11/11/16 07:08 08:00 08:28 Resp 19 Pulse Ox 94 O2 Delivery Nasal Cannula Nasal Cannula O2 Flow Rate 5.0 4.0 10.0 Intake and Output 11/10/16 11/10/16 11/11/16 15:00 23:00 07:00 Intake Total 4899 ml Output Total 120 ml 128 ml 140 ml Balance -120 ml -128 ml 4759 ml CAROLYN DRIVER MD Nov 11, 2016 11:29
--- NOTE | 2016-11-11 11:32 | PDOC ---
SUBJECTIVE ROS VARUN/ ATN Has remained oliguric all along CVS: no Orthopnea, no CP RESP: no SOB, no MILAN GI: min Nausea, no Vomiting + BM yest : no Dysuria, no Urgency OBJECTIVE Vital Signs Vital Signs Date Time Temp Pulse Resp B/P Pulse Ox O2 Delivery O2 Flow Rate FiO2 11/11/16 08:28 19 Nasal Cannula 10.0 11/11/16 07:08 94 11/11/16 06:00 62 108/45 11/11/16 04:00 97.9 97.9 I & 0 Intake and Output 11/11/16 07:00 Intake Total 4899 ml Output Total 388 ml Balance 4511 ml Intake Oral 200 ml Other 4699 ml Output Urine Total 388 ml PHYSICAL EXAM Physical Exam General Appearance: Awake Alert Oriented x 2-3 In no Distress Eyes: VIsion Unchanged Conjunctiva Normal EN: No EN Drainage Mucous Memb. moist Neck: no JVD min JVP Supple no Thyromegaly CVS: S1 S2 ? Murmur No Gallop No Rub no Edema Resp: rare basal Rales no Rhonchi no Acc. Muscle use GI: BS +ve NO Bruit Min Tender Non Distended : no CVA tenderness x left around area of Rib # no Suprapubic Tenderness SKIN: no Rashes Breast Exam deferred Mu.Sk: Adequate ROM no Muscle Atrophy Heme: Unable to palpate Obvious LAD no Splenomegaly NEURO: Decreased strenght in Lower ext Cranial Nerves II - XII grossly intact Psych: ? Depressed no Active hallucination Assessment & Plan ARF: ? Vol dpeltion - appears to have recieved adequate IVF for now (4.5L +ve balance) . suspect ATN. Pyelo vs Kidney trauma after recent fall may explain prei-nephric stranding. Current FLuid and E-lyte status does not necessitate emergent need for Dialysis. Will re-evaluate for Dialysis in am Oliguria - IVF bolus prn, ? resume IVF if CXR is WNL in am V/s Dialysis ^ Uric - acid - suspect from Vol dpeltion ^K (POA ) - suspect rebound - Kayexalate as done Lactic Acidemia- without overt Acidosis (no ABG) - watch trend ; ? Due to Metformin vs Gall Baldder ^ed LFTs - ? GB related - GI to see. ? Shock. Defer to Primary Team Anemia: check Iron; may need Epogen Transfuse as needed. Hypo TN: resolved with IVF hence more likely Vol dpeletion. Current meds reviewed. IVF boluses prn; May need Pressors Discussed Plan of Care and prognosis etc. at length with pt COMMENT/RELEVANT DATA Meds Current Medications Medications (Trade) Dose Ordered Sig/Nito Start Time Stop Time Status Last Admin Dose Admin Acetaminophen (Tylenol) 650 mg PRN Q6HRS PRN 11/10/16 13:15 Aspirin 81 mg 81 mg [id number] 11/11/16 08:00 11/11/16 08:27 81 MG Calcium Gluconate 1,000 mg 1X ONCE 11/10/16 04:00 11/10/16 04:01 DC 11/10/16 03:56 1,000 MG Dextrose 25 gm 1X ONCE 11/10/16 04:00 11/10/16 04:01 DC 11/10/16 04:01 25 GM Dextrose 12.5 gm 12.5 gm PRN Q15MIN PRN 11/10/16 13:15 Doxycycline Hyclate (Vibra-Tab) 100 mg BID 11/10/16 09:00 11/11/16 08:27 100 MG Fentanyl Citrate (Fentanyl 2ml Vial) 50 mcg PRN Q2HR PRN 11/11/16 02:30 11/11/16 08:28 50 MCG Heparin Sodium (Porcine) 5,000 unit Q8HRS 11/10/16 14:00 11/10/16 14:00 DC Insulin Aspart (Novolog) 0-9 UNITS TIDWMEALS 11/10/16 13:30 Insulin Human Regular (Novolin R Vial) 10 unit 1X ONCE 11/10/16 02:30 11/10/16 02:31 DC 11/10/16 02:22 10 UNIT Insulin Human Regular 10 unit 10 unit 1X ONCE 11/10/16 04:00 11/10/16 04:01 DC 11/10/16 03:59 10 UNIT Lidocaine (Lidoderm) 1 patch 1X ONCE 11/10/16 01:00 11/10/16 01:01 DC 11/10/16 01:14 1 PATCH Lidocaine HCl 1 stevie 1 stevie 1X ONCE 11/10/16 04:30 11/10/16 04:43 DC 11/10/16 04:40 1 STEVIE Linezolid (Zyvox Premix) 300 ml @ 300 mls/hr Q12HR 11/10/16 09:00 11/11/16 08:28 300 MLS/HR Magnesium Sulfate/ Dextrose 50 ml @ 25 mls/hr PRN DAILY PRN 11/10/16 13:00 Metronidazole 100 ml @ 100 mls/hr 1X ONCE 11/10/16 05:00 11/10/16 05:59 DC 11/10/16 04:40 100 MLS/HR Norepinephrine Bitartrate 8 mg/ Sodium Chloride 258 ml @ 0 mls/hr CONT PRN 11/10/16 07:15 Ondansetron HCl (Zofran) 4 mg PRN Q6HRS PRN 11/10/16 13:15 11/11/16 09:05 4 MG Pantoprazole Sodium (Protonix) 40 mg DAILYAC 11/10/16 14:00 11/11/16 08:27 40 MG Piperacillin Sod/ Tazobactam Sod 1 each 1 each PRN DAILY PRN 11/10/16 04:30 Piperacillin Sod/ Tazobactam Sod/ Sodium Chloride (Zosyn/Iv Sodium Chloride 0.9% 50ml) 50 ml @ 100 mls/hr Q6HRS 11/10/16 05:00 11/11/16 06:00 100 MLS/HR Sodium Bicarbonate/ Sterile Water 1,150 ml @ 125 mls/hr Q9H12M 11/10/16 04:30 11/10/16 04:30 DC Sodium Polystyrene Sulfonate (Kayexalate) 60 gm 1X ONCE 11/11/16 06:45 11/11/16 06:46 DC 11/11/16 06:41 60 GM Sodium Bicarbonate 50 meq 1X ONCE 11/10/16 04:00 11/10/16 04:01 DC 11/10/16 04:00 50 MEQ Sodium Chloride (Iv Sodium Chloride 0.9% 500ml Bag) 500 ml @ 0 mls/hr QID PRN 11/10/16 13:00 Sodium Chloride (Iv Sodium Chloride 0.9% 1000ml Bag) 1,000 ml @ 100 mls/hr Q10H 11/10/16 13:15 11/10/16 23:41 100 MLS/HR Lab Laboratory Tests Test 11/10/16 12:46 11/10/16 17:24 11/11/16 05:00 Urine Collection Type Unknown Urine Color Brown Urine Clarity Turbid Urine pH 5.0 Urine Specific [place] 1.025 Urine Protein 127.4mg/dL (Not Estab.) Urine Glucose (UA) Negativemg/dL (NEG) Urine Ketones (Stick) Tracemg/dL (NEG) Urine Blood Large (NEG) Urine Nitrite Negative (NEG) Urine Bilirubin Moderate (NEG) Urine Urobilinogen Dipstick 1.0mg/dL (0.2 mg/dL) Urine Leukocyte Esterase Moderate (NEG) Urine RBC Tntc/HPF (0-2) Urine WBC 20-40/HPF (0-4) Urine Squamous Epithelial Cells Few/LPF Urine Bacteria Few/HPF (0-FEW) Urine Random Creatinine 246.6mg/dL (Not Estab.) Urine Random Sodium 11mmol/L (Not Estab.) Urine Creatinine 244.8mg/dL (Not Estab.) Urine Protein/Creatinine Ratio 520mg/g creat (0-200) Glucose (Fingerstick) 149mg/dL (70-99) White Blood Count 13.5x10^3/uL (4.0-11.0) Red Blood Count 3.22x10^6/uL (4.30-5.70) Hemoglobin 9.8g/dL (13.0-17.5) Hematocrit 31.7% (39.0-53.0) Mean Corpuscular Volume 99fL (79-100) Mean Corpuscular Hemoglobin 30pg (25-35) Mean Corpuscular Hemoglobin Concent 31g/dL (31-37) Red Cell Distribution Width 15.1% (11.5-14.5) Platelet Count 94x10^3/uL (140-400) Neutrophils (%) (Auto) 78% (31-73) Lymphocytes (%) (Auto) 15% (24-48) Monocytes (%) (Auto) 7% (0-9) Eosinophils (%) (Auto) 0% (0-3) Basophils (%) (Auto) 0% (0-3) Neutrophils # (Auto) 10.5x10^3uL (1.8-7.7) Lymphocytes # (Auto) 2.0x10^3/uL (1.0-4.8) Monocytes # (Auto) 1.0x10^3/uL (0.0-1.1) Eosinophils # (Auto) 0.0x10^3/uL (0.0-0.7) Basophils # (Auto) 0.0x10^3/uL (0.0-0.2) Sodium Level 141mmol/L (136-145) Potassium Level 6.3mmol/L (3.5-5.1) Chloride Level 104mmol/L (98-107) Carbon Dioxide Level 29mmol/L (21-32) Anion Gap 8 (6-14) Blood Urea Nitrogen 67mg/dL (8-26) Creatinine 3.0mg/dL (0.7-1.3) Estimated GFR (Cockcroft-Gault) 20.2 BUN/Creatinine Ratio 22 (6-20) Glucose Level 179mg/dL (70-99) Lactic Acid Level 2.9mmol/L (0.4-2.0) Calcium Level 8.6mg/dL (8.5-10.1) Phosphorus Level 7.6mg/dL (2.6-4.7) Magnesium Level 2.4mg/dL (1.8-2.4) Total Bilirubin 1.2mg/dL (0.2-1.0) Aspartate Amino Transf (AST/SGOT) 1507U/L (15-37) Alanine Aminotransferase (ALT/SGPT) 1304U/L (16-63) Alkaline Phosphatase 99U/L (46-116) Total Protein 6.1g/dL (6.4-8.2) Albumin 2.7g/dL (3.4-5.0) Albumin/Globulin Ratio 0.8 (1.0-1.7) RENETTA FRAIRE MD Nov 11, 2016 11:32
[2016-11-11 11:55] LABS: DIRECT BILIRUBIN 0.6 mg/dL (0.0-0.2)
--- NOTE | 2016-11-11 12:41 | PDOC ---
PROGRESS NOTES Chief Complaint Chief Complaint fall, desat 1. left lower chest pain post fall wo fx as per XR outpt 2. acute on chronic resp failure, hypoxia 3. h/o CAD post CABG 4. possible sepsis with HCAP 5. shock with 2 and 4 6. dm2 7. MODERaret malnutrition 8. SSS with PPM 9. VARUN on CKD 3 , ATN 10. htn 11. hld 12. elevated LFT 2/2 shock likely 13. hyperkalemia plan: 1 fu with id, renal, card, pulm 2. hold home meds since low bp and VARUN 3. on zyvox, zosyn, doxy as per ID 4. ssi 5. labs daily ICU care PTOT gi ppx kayexalate today, had BM, repeat BMP later ABD US, GI consult History of Present Illness History of Present Illness K >6, CR 3, LFT higher required more NC 10L last night, then venti mask, low side bp low urine output low po intake Vitals Vitals Vital Signs Date Time Temp Pulse Resp B/P Pulse Ox O2 Delivery O2 Flow Rate FiO2 11/11/16 08:28 19 Nasal Cannula 10.0 11/11/16 07:08 94 11/11/16 06:00 62 108/45 11/11/16 04:00 97.9 97.9 Physical Exam General: Alert, mild distress Heart: Regular rate Lungs: Other (bl decreased bs with mild rales) Abdomen: Normal bowel sounds Extremities: No edema, Normal pulses Skin: No significant lesion Labs LABS Laboratory Tests Test 11/10/16 12:46 11/10/16 17:24 11/11/16 05:00 Urine Collection Type Unknown Urine Color Brown Urine Clarity Turbid Urine pH 5.0 Urine Specific Albers 1.025 Urine Protein 127.4mg/dL (Not Estab.) Urine Glucose (UA) Negativemg/dL (NEG) Urine Ketones (Stick) Tracemg/dL (NEG) Urine Blood Large (NEG) Urine Nitrite Negative (NEG) Urine Bilirubin Moderate (NEG) Urine Urobilinogen Dipstick 1.0mg/dL (0.2 mg/dL) Urine Leukocyte Esterase Moderate (NEG) Urine RBC Tntc/HPF (0-2) Urine WBC 20-40/HPF (0-4) Urine Squamous Epithelial Cells Few/LPF Urine Bacteria Few/HPF (0-FEW) Urine Random Creatinine 246.6mg/dL (Not Estab.) Urine Random Sodium 11mmol/L (Not Estab.) Urine Creatinine 244.8mg/dL (Not Estab.) Urine Protein/Creatinine Ratio 520mg/g creat (0-200) Glucose (Fingerstick) 149mg/dL (70-99) White Blood Count 13.5x10^3/uL (4.0-11.0) Red Blood Count 3.22x10^6/uL (4.30-5.70) Hemoglobin 9.8g/dL (13.0-17.5) Hematocrit 31.7% (39.0-53.0) Mean Corpuscular Volume 99fL (79-100) Mean Corpuscular Hemoglobin 30pg (25-35) Mean Corpuscular Hemoglobin Concent 31g/dL (31-37) Red Cell Distribution Width 15.1% (11.5-14.5) Platelet Count 94x10^3/uL (140-400) Neutrophils (%) (Auto) 78% (31-73) Lymphocytes (%) (Auto) 15% (24-48) Monocytes (%) (Auto) 7% (0-9) Eosinophils (%) (Auto) 0% (0-3) Basophils (%) (Auto) 0% (0-3) Neutrophils # (Auto) 10.5x10^3uL (1.8-7.7) Lymphocytes # (Auto) 2.0x10^3/uL (1.0-4.8) Monocytes # (Auto) 1.0x10^3/uL (0.0-1.1) Eosinophils # (Auto) 0.0x10^3/uL (0.0-0.7) Basophils # (Auto) 0.0x10^3/uL (0.0-0.2) Sodium Level 141mmol/L (136-145) Potassium Level 6.3mmol/L (3.5-5.1) Chloride Level 104mmol/L (98-107) Carbon Dioxide Level 29mmol/L (21-32) Anion Gap 8 (6-14) Blood Urea Nitrogen 67mg/dL (8-26) Creatinine 3.0mg/dL (0.7-1.3) Estimated GFR (Cockcroft-Gault) 20.2 BUN/Creatinine Ratio 22 (6-20) Glucose Level 179mg/dL (70-99) Lactic Acid Level 2.9mmol/L (0.4-2.0) Calcium Level 8.6mg/dL (8.5-10.1) Phosphorus Level 7.6mg/dL (2.6-4.7) Magnesium Level 2.4mg/dL (1.8-2.4) Total Bilirubin 1.2mg/dL (0.2-1.0) Direct Bilirubin 0.6mg/dL (0.0-0.2) Aspartate Amino Transf (AST/SGOT) 1507U/L (15-37) Alanine Aminotransferase (ALT/SGPT) 1304U/L (16-63) Alkaline Phosphatase 99U/L (46-116) Total Protein 6.1g/dL (6.4-8.2) Albumin 2.7g/dL (3.4-5.0) Albumin/Globulin Ratio 0.8 (1.0-1.7) Review of Systems Review of Systems no fever, chills, chest pain Assessment and Plan Assessmemt and Plan Problems Medical Problems: (1) ECG abnormal Status: Acute (2) Hyperkalemia Status: Acute (3) Hypotension Status: Acute (4) Renal failure Status: Acute Problems: Comment Review of Relevant I have reviewed the following items sandie (where applicable) has been applied. Labs Laboratory Tests Test 11/10/16 00:42 11/10/16 02:37 11/10/16 03:48 11/10/16 05:40 White Blood Count 12.7x10^3/uL (4.0-11.0) Red Blood Count 3.40x10^6/uL (4.30-5.70) Hemoglobin 10.2g/dL (13.0-17.5) Hematocrit 32.7% (39.0-53.0) Mean Corpuscular Volume 96fL (79-100) Mean Corpuscular Hemoglobin 30pg (25-35) Mean Corpuscular Hemoglobin Concent 31g/dL (31-37) Red Cell Distribution Width 14.9% (11.5-14.5) Platelet Count 132x10^3/uL (140-400) Neutrophils (%) (Auto) 74% (31-73) Lymphocytes (%) (Auto) 17% (24-48) Monocytes (%) (Auto) 8% (0-9) Eosinophils (%) (Auto) 0% (0-3) Basophils (%) (Auto) 0% (0-3) Neutrophils # (Auto) 9.4x10^3uL (1.8-7.7) Lymphocytes # (Auto) 2.2x10^3/uL (1.0-4.8) Monocytes # (Auto) 1.1x10^3/uL (0.0-1.1) Eosinophils # (Auto) 0.0x10^3/uL (0.0-0.7) Basophils # (Auto) 0.0x10^3/uL (0.0-0.2) Prothrombin Time 18.7SEC (11.7-14.0) Prothromb Time International Ratio 1.7 (0.8-1.1) Activated Partial Thromboplast Time 38SEC (24-38) Sodium Level 141mmol/L (136-145) Potassium Level 6.2mmol/L (3.5-5.1) Chloride Level 102mmol/L (98-107) Carbon Dioxide Level 32mmol/L (21-32) Anion Gap 7 (6-14) 16mmol/L (6-14) Blood Urea Nitrogen 62mg/dL (8-26) Creatinine 2.5mg/dL (0.7-1.3) Estimated GFR (Cockcroft-Gault) 24.9 BUN/Creatinine Ratio 25 (6-20) Glucose Level 181mg/dL (70-99) 193mg/dL (70-99) Uric Acid 12.4mg/dL (3.5-7.2) Calcium Level 9.4mg/dL (8.5-10.1) Total Bilirubin 1.2mg/dL (0.2-1.0) Aspartate Amino Transf (AST/SGOT) 1041U/L (15-37) Alanine Aminotransferase (ALT/SGPT) 674U/L (16-63) Alkaline Phosphatase 118U/L (46-116) Creatine Kinase 52U/L (39-308) Troponin I Quantitative 0.135ng/mL (0.000-0.055) [id number]-Mbq-B-Type Natriuretic Peptide > 66919il/mL (0-449) Total Protein 6.5g/dL (6.4-8.2) Albumin 2.9g/dL (3.4-5.0) Albumin/Globulin Ratio 0.8 (1.0-1.7) Lipase 49U/L (73-393) Lactic Acid Level 2.0mmol/L (0.4-2.0) Bedside Hemoglobin 10.2g/dL (14-18) Bedside Hematocrit 30% (37-52) Bedside Sodium 137mmol/L (135-145) Bedside Potassium 5.0mmol/L (3.5-5.0) Bedside Chloride 97mmol/L (98-110) Bedside Total CO2 29mmol/L (23-32) Bedside Blood Urea Nitrogen 55mg/dL (8-26) Bedside Creatinine 2.2mg/dL (0.5-1.4) Bedside Ionized Calcium (Stephanie) 1.15mmol/L (1.13-1.32) Bedside Troponin I 0.15ng/ml (<0.08) Nasal Screen MRSA (PCR) Negative (Negative) Test 11/10/16 06:55 11/10/16 12:46 11/10/16 17:24 11/11/16 05:00 Lactic Acid Level 2.5mmol/L (0.4-2.0) 2.9mmol/L (0.4-2.0) Urine Collection Type Unknown Urine Color Brown Urine Clarity Turbid Urine pH 5.0 Urine Specific Albers 1.025 Urine Protein 127.4mg/dL (Not Estab.) Urine Glucose (UA) Negativemg/dL (NEG) Urine Ketones (Stick) Tracemg/dL (NEG) Urine Blood Large (NEG) Urine Nitrite Negative (NEG) Urine Bilirubin Moderate (NEG) Urine Urobilinogen Dipstick 1.0mg/dL (0.2 mg/dL) Urine Leukocyte Esterase Moderate (NEG) Urine RBC Tntc/HPF (0-2) Urine WBC 20-40/HPF (0-4) Urine Squamous Epithelial Cells Few/LPF Urine Bacteria Few/HPF (0-FEW) Urine Random Creatinine 246.6mg/dL (Not Estab.) Urine Random Sodium 11mmol/L (Not Estab.) Urine Creatinine 244.8mg/dL (Not Estab.) Urine Protein/Creatinine Ratio 520mg/g creat (0-200) Glucose (Fingerstick) 149mg/dL (70-99) White Blood Count 13.5x10^3/uL (4.0-11.0) Red Blood Count 3.22x10^6/uL (4.30-5.70) Hemoglobin 9.8g/dL (13.0-17.5) Hematocrit 31.7% (39.0-53.0) Mean Corpuscular Volume 99fL (79-100) Mean Corpuscular Hemoglobin 30pg (25-35) Mean Corpuscular Hemoglobin Concent 31g/dL (31-37) Red Cell Distribution Width 15.1% (11.5-14.5) Platelet Count 94x10^3/uL (140-400) Neutrophils (%) (Auto) 78% (31-73) Lymphocytes (%) (Auto) 15% (24-48) Monocytes (%) (Auto) 7% (0-9) Eosinophils (%) (Auto) 0% (0-3) Basophils (%) (Auto) 0% (0-3) Neutrophils # (Auto) 10.5x10^3uL (1.8-7.7) Lymphocytes # (Auto) 2.0x10^3/uL (1.0-4.8) Monocytes # (Auto) 1.0x10^3/uL (0.0-1.1) Eosinophils # (Auto) 0.0x10^3/uL (0.0-0.7) Basophils # (Auto) 0.0x10^3/uL (0.0-0.2) Sodium Level 141mmol/L (136-145) Potassium Level 6.3mmol/L (3.5-5.1) Chloride Level 104mmol/L (98-107) Carbon Dioxide Level 29mmol/L (21-32) Anion Gap 8 (6-14) Blood Urea Nitrogen 67mg/dL (8-26) Creatinine 3.0mg/dL (0.7-1.3) Estimated GFR (Cockcroft-Gault) 20.2 BUN/Creatinine Ratio 22 (6-20) Glucose Level 179mg/dL (70-99) Calcium Level 8.6mg/dL (8.5-10.1) Phosphorus Level 7.6mg/dL (2.6-4.7) Magnesium Level 2.4mg/dL (1.8-2.4) Total Bilirubin 1.2mg/dL (0.2-1.0) Direct Bilirubin 0.6mg/dL (0.0-0.2) Aspartate Amino Transf (AST/SGOT) 1507U/L (15-37) Alanine Aminotransferase (ALT/SGPT) 1304U/L (16-63) Alkaline Phosphatase 99U/L (46-116) Total Protein 6.1g/dL (6.4-8.2) Albumin 2.7g/dL (3.4-5.0) Albumin/Globulin Ratio 0.8 (1.0-1.7) Laboratory Tests Test 11/10/16 12:46 11/10/16 17:24 11/11/16 05:00 Urine Collection Type Unknown Urine Color Brown Urine Clarity Turbid Urine pH 5.0 Urine Specific Albers 1.025 Urine Protein 127.4mg/dL (Not Estab.) Urine Glucose (UA) Negativemg/dL (NEG) Urine Ketones (Stick) Tracemg/dL (NEG) Urine Blood Large (NEG) Urine Nitrite Negative (NEG) Urine Bilirubin Moderate (NEG) Urine Urobilinogen Dipstick 1.0mg/dL (0.2 mg/dL) Urine Leukocyte Esterase Moderate (NEG) Urine RBC Tntc/HPF (0-2) Urine WBC 20-40/HPF (0-4) Urine Squamous Epithelial Cells Few/LPF Urine Bacteria Few/HPF (0-FEW) Urine Random Creatinine 246.6mg/dL (Not Estab.) Urine Random Sodium 11mmol/L (Not Estab.) Urine Creatinine 244.8mg/dL (Not Estab.) Urine Protein/Creatinine Ratio 520mg/g creat (0-200) Glucose (Fingerstick) 149mg/dL (70-99) White Blood Count 13.5x10^3/uL (4.0-11.0) Red Blood Count 3.22x10^6/uL (4.30-5.70) Hemoglobin 9.8g/dL (13.0-17.5) Hematocrit 31.7% (39.0-53.0) Mean Corpuscular Volume 99fL (79-100) Mean Corpuscular Hemoglobin 30pg (25-35) Mean Corpuscular Hemoglobin Concent 31g/dL (31-37) Red Cell Distribution Width 15.1% (11.5-14.5) Platelet Count 94x10^3/uL (140-400) Neutrophils (%) (Auto) 78% (31-73) Lymphocytes (%) (Auto) 15% (24-48) Monocytes (%) (Auto) 7% (0-9) Eosinophils (%) (Auto) 0% (0-3) Basophils (%) (Auto) 0% (0-3) Neutrophils # (Auto) 10.5x10^3uL (1.8-7.7) Lymphocytes # (Auto) 2.0x10^3/uL (1.0-4.8) Monocytes # (Auto) 1.0x10^3/uL (0.0-1.1) Eosinophils # (Auto) 0.0x10^3/uL (0.0-0.7) Basophils # (Auto) 0.0x10^3/uL (0.0-0.2) Sodium Level 141mmol/L (136-145) Potassium Level 6.3mmol/L (3.5-5.1) Chloride Level 104mmol/L (98-107) Carbon Dioxide Level 29mmol/L (21-32) Anion Gap 8 (6-14) Blood Urea Nitrogen 67mg/dL (8-26) Creatinine 3.0mg/dL (0.7-1.3) Estimated GFR (Cockcroft-Gault) 20.2 BUN/Creatinine Ratio 22 (6-20) Glucose Level 179mg/dL (70-99) Lactic Acid Level 2.9mmol/L (0.4-2.0) Calcium Level 8.6mg/dL (8.5-10.1) Phosphorus Level 7.6mg/dL (2.6-4.7) Magnesium Level 2.4mg/dL (1.8-2.4) Total Bilirubin 1.2mg/dL (0.2-1.0) Direct Bilirubin 0.6mg/dL (0.0-0.2) Aspartate Amino Transf (AST/SGOT) 1507U/L (15-37) Alanine Aminotransferase (ALT/SGPT) 1304U/L (16-63) Alkaline Phosphatase 99U/L (46-116) Total Protein 6.1g/dL (6.4-8.2) Albumin 2.7g/dL (3.4-5.0) Albumin/Globulin Ratio 0.8 (1.0-1.7) Microbiology 11/10/16 Blood Culture - Preliminary, Resulted NO GROWTH AFTER 1 DAY 11/10/16 Urine Culture - Preliminary, Resulted 11/10/16 Urine Culture Result 1 (EMMANUEL) - Preliminary, Resulted Medications Current Medications Fentanyl Citrate (Fentanyl 2ml Vial) 25 mcg PRN Q15MIN PRN IV PAIN GREATER THAN 3/10 Last administered on 11/10/16 23:41; Start 11/10/16 at 01:00; Stop at 00:59; Status DC Lidocaine (Lidoderm) 1 patch 1X ONCE TD Last administered on 11/10/16 01:14; Start 11/10/16 at 01:00; Stop 11/10/16 at 01:01; Status DC Calcium Gluconate 1,000 mg 1X ONCE IVP Last administered on 11/10/16 02:20; Start 11/10/16 at 02:30; Stop 11/10/16 at 02:31; Status DC Sodium Bicarbonate 50 meq 1X ONCE IV Last administered on 11/10/16 02:20; Start 11/10/16 at 02:30; Stop 11/10/16 at 02:31; Status DC Dextrose 25 gm 1X ONCE IV Last administered on 11/10/16 02:20; Start at 02:30; Stop 11/10/16 at 02:31; Status DC Insulin Human Regular (Novolin R Vial) 10 unit 1X ONCE IV Last administered on 11/10/16 02:22; Start 11/10/16 at 02:30; Stop 11/10/16 at 02:31; Status DC Calcium Gluconate 1,000 mg 1X ONCE IVP Last administered on 11/10/16 03:56; Start 11/10/16 at 04:00; Stop 11/10/16 at 04:01; Status DC Sodium Bicarbonate 50 meq 1X ONCE IV Last administered on 11/10/16 04:00; Start 11/10/16 at 04:00; Stop 11/10/16 at 04:01; Status DC Dextrose 25 gm 1X ONCE IV Last administered on 11/10/16 04:01; Start at 04:00; Stop 11/10/16 at 04:01; Status DC Insulin Human Regular 10 unit 10 unit 1X ONCE IV Last administered on 03:59; Start 11/10/16 at 04:00; Stop 11/10/16 at 04:01; Status DC Sodium Bicarbonate 150 meq/Sterile Water 1,150 ml @ 125 mls/hr Q9H12M IV ; Start 11/10/16 at 04:30; Stop 11/10/16 at 04:30; Status DC Sodium Chloride (Iv Sodium Chloride 0.9% 1000ml Bag) 1,000 ml @ 100 mls/hr 1X ONCE IV Last administered on 11/10/16 04:41; Start 11/10/16 at 04:30; Stop at 14:29; Status DC Piperacillin Sod/ Tazobactam Sod 1 each 1 each PRN DAILY PRN MC SEE COMMENTS; Start 11/10/16 at 04:30 Metronidazole 100 ml @ 100 mls/hr Q8HRS IV ; Start 11/10/16 at 14:00; Stop at 14:00; Status DC Metronidazole 100 ml @ 100 mls/hr 1X ONCE IV Last administered on 11/10/16 04:40; Start 11/10/16 at 05:00; Stop 11/10/16 at 05:59; Status DC Piperacillin Sod/ Tazobactam Sod/ Sodium Chloride (Zosyn/Iv Sodium Chloride 0.9 % 50ml) 50 ml @ 100 mls/hr Q6HRS IV Last administered on 11/11/16 12:37; Start 11/10/16 at 05:00 Lidocaine HCl 1 stevie 1 stevie 1X ONCE MM Last administered on 11/10/16 04:40; Start 11/10/16 at 04:30; Stop 11/10/16 at 04:43; Status DC Norepinephrine Bitartrate 8 mg/ Sodium Chloride 258 ml @ 0 mls/hr CONT PRN IV SEE I/O RECORD; Start 11/10/16 at 07:15 Linezolid (Zyvox Premix) 300 ml @ 300 mls/hr Q12HR IV Last administered on 08:28; Start 11/10/16 at 09:00 Doxycycline Hyclate (Vibra-Tab) 100 mg BID PO Last administered on 11/11/16 08 :27; Start 11/10/16 at 09:00 Aspirin 81 mg 81 mg [id number] PO Last administered on 11/11/16 08:27; Start 11/11/16 at 08:00 Magnesium Sulfate/ Dextrose 50 ml @ 25 mls/hr PRN DAILY PRN IV for Mag < 1.7 on am labs; Start 11/10/16 at 13:00 Sodium Chloride (Iv Sodium Chloride 0.9% 500ml Bag) 500 ml @ 0 mls/hr QID PRN IV UO< 30cc/hr over previous 6hrs; Start 11/10/16 at 13:00 Acetaminophen (Tylenol) 650 mg PRN Q6HRS PRN PO MILD PAIN / TEMP; Start at 13:15 Ondansetron HCl (Zofran) 4 mg PRN Q6HRS PRN IV NAUSEA/VOMITING Last administered on 11/11/16 09:05; Start 11/10/16 at 13:15 Heparin Sodium (Porcine) 5,000 unit Q8HRS SQ ; Start 11/10/16 at 14:00; Stop at 14:00; Status DC Insulin Aspart (Novolog) 0-9 UNITS TIDWMEALS SQ Last administered on 11/11/16 12:38; Start 11/10/16 at 13:30 Dextrose 12.5 gm 12.5 gm PRN Q15MIN PRN IV SEE COMMENTS; Start 11/10/16 at 13: 15 Sodium Chloride (Iv Sodium Chloride 0.9% 1000ml Bag) 1,000 ml @ 100 mls/hr Q10H IV Last administered on 11/10/16 23:41; Start 11/10/16 at 13:15 Pantoprazole Sodium (Protonix) 40 mg DAILYAC PO Last administered on 11/11/16 08:27; Start 11/10/16 at 14:00 Fentanyl Citrate (Fentanyl 2ml Vial) 50 mcg PRN Q2HR PRN IV SEVERE PAIN Last administered on 11/11/16 08:28; Start 11/11/16 at 02:30 Sodium Polystyrene Sulfonate (Kayexalate) 60 gm 1X ONCE PO Last administered on 2/19/17at 06:41; Start 11/11/16 at 06:45; Stop 11/11/16 at 06:46; Status DC Active Scripts Active Carvedilol 3.125 Mg Tablet 3.125 Mg PO BIDWMEALS Reported Fish Oil + Vitamin D-3 Softgel (Om-3/Dha/Epa/Fish Oil/Vit D3) 1 Each Capsule 1 Each PO Vitamin D (Cholecalciferol (Vitamin D3)) 1,000 Unit Capsule 1,000 Unit PO DAILY Klor-Con 10 (Potassium Chloride) 10 Meq Tablet.er 2 Tab PO DAILY Lasix (Furosemide) 20 Mg Tablet 10 Mg PO DAILY Aspir 81 (Aspirin) 81 Mg Tablet.dr 81 Mg PO Cozaar (Losartan Potassium) 50 Mg Tablet 50 Mg PO DAILY Amaryl (Glimepiride) 4 Mg Tablet 4 Mg PO DAILY Metformin Hcl 1,000 Mg Tablet 1,000 Mg PO BIDAC Vitals/I & O Vital Sign - Last 24 Hours 11/10/16 11/10/16 11/10/16 11/10/16 13:00 15:00 16:00 16:00 Temp 97.4 97.4 Pulse 63 63 84 Resp B/P 111/49 95/46 99/48 Pulse Ox 94 79 96 O2 Delivery Nasal Cannula Nasal Cannula Nasal Cannula Nasal Cannula O2 Flow Rate 8.0 8.0 4.0 8.0 11/10/16 11/10/16 11/10/16 11/10/16 17:00 18:00 19:00 20:00 Pulse 88 64 74 Resp B/P 99/46 91/47 105/47 Pulse Ox 95 97 94 O2 Delivery Nasal Cannula Nasal Cannula Nasal Cannula Mask O2 Flow Rate 8.0 8.0 8.0 8.0 11/10/16 11/10/16 11/10/16 11/10/16 20:00 21:00 22:00 23:00 Temp 97.6 97.6 Pulse 62 66 62 61 Resp B/P 93/53 101/52 108/45 104/45 Pulse Ox 98 97 97 97 O2 Delivery Simple Mask Simple Mask Simple Mask Simple Mask O2 Flow Rate 8.0 6.0 6.0 5.0 11/10/16 11/10/16 11/11/16 11/11/16 23:41 23:59 00:00 00:11 Temp 97.5 97.5 Pulse 61 Resp 22 21 20 B/P 109/52 Pulse Ox 95 96 97 O2 Delivery Simple Mask Mask Simple Mask Simple Mask O2 Flow Rate 5.0 5.0 5.0 11/11/16 11/11/16 11/11/16 11/11/16 01:00 02:00 02:32 03:00 Pulse 62 61 Resp 21 28 22 17 B/P 100/44 109/44 Pulse Ox 95 97 98 O2 Delivery Simple Mask Simple Mask Simple Mask Simple Mask O2 Flow Rate 5.0 5.0 5.0 11/11/16 11/11/16 11/11/16 11/11/16 03:00 04:00 04:00 05:00 Temp 97.9 97.9 Pulse 91 70 70 Resp 16 18 18 B/P 96/41 91/52 96/42 Pulse Ox 96 97 95 O2 Delivery Simple Mask Simple Mask Mask Simple Mask O2 Flow Rate 5.0 5.0 5.0 5.0 11/11/16 11/11/16 11/11/16 11/11/16 06:00 06:38 07:08 08:00 Pulse 62 Resp 18 23 B/P 108/45 Pulse Ox 97 94 94 O2 Delivery Simple Mask Simple Mask Nasal Cannula O2 Flow Rate 5.0 5.0 5.0 4.0 11/11/16 08:28 Resp 19 O2 Delivery Nasal Cannula O2 Flow Rate 10.0 Intake and Output 11/10/16 11/10/16 11/11/16 15:00 23:00 07:00 Intake Total 4899 ml Output Total 120 ml 128 ml 140 ml Balance -120 ml -128 ml 4759 ml JAYANT BUCIO MD Nov 11, 2016 12:41
[2016-11-11 15:56] LABS: CALCIUM 8.5 mg/dL (8.5-10.1); CREATININE 3.2 mg/dL (0.7-1.3); GFR 18.7; POTASSIUM 5.1 mmol/L (3.5-5.1)
[2016-11-11] MEDS ORDERED: NOREPINEPHRINE VIAL 8 MG in IV NORMAL SALINE 250ML 250 ML IV PRN (22:30)
[2016-11-11 22:36] LABS: HCO3 ABG 30 mmol/L (21-28); PCO2 ABG 76 mmHg (35-46); PH ABG 7.21 (7.35-7.45); SAT O2 ABG 81 % (92-99)
[2016-11-11 22:37] LABS: FIO2 ABG 40; PO2 ABG 50 mmHg (65-108)
[2016-11-11] MEDS ORDERED: methylPREDNISolone SOD SUCC PF 125 MG/2 ML VIAL. IV ONE (23:00)
[2016-11-11 23:05] LABS: CALCIUM 8.4 mg/dL (8.5-10.1); CREATININE 3.4 mg/dL (0.7-1.3); GFR 17.5
[2016-11-12] VITALS (22 sets, daily range): BP systolic 74–121; BP diastolic 40–57
--- NOTE | 2016-11-12 00:43 | RAD ---
INDICATION: Respiratory distress COMPARISON: October 05, 2016 FINDINGS: 1 view of chest obtained. Pacemaker is identified as well as enlarged cardiac silhouette and calcific atherosclerosis. Increased interstitial markings bilaterally. Patchy opacity at right lung base with volume loss on the right. Linear opacities left lung base IMPRESSION: Patchy opacity at right lung base with volume loss. Could be from atelectasis or infiltrate but some component of pleural effusion also possible Linear opacities left lung base. Could be atelectasis. There is some prominence of the interstitial markings bilaterally which could be from edema or interstitial infiltrate Electronically signed by: Jan Lawson (Nov 12, 2016 00:41:32)
[2016-11-12] MEDS ORDERED: FUROSEMIDE 40 MG/4 ML VIAL IVP ONE ×2 (01:30→11:30)
[2016-11-12 04:10] LABS: HCO3 ABG 29 mmol/L (21-28); PH ABG 7.24 (7.35-7.45); PO2 ABG 120 mmHg (65-108); SAT O2 ABG 98 % (92-99)
[2016-11-12 04:36] LABS: PCO2 ABG 70 mmHg (35-46)
[2016-11-12] MEDS: PIPERACILLIN/TAZOBACTAM 2.25 GM in IV NORMAL SALINE 50ML 50 ML IV SCH ×4 (05:50→23:26)
--- NOTE | 2016-11-12 07:42 | PDOC ---
Infectious Disease Note Subjective Subjective On Bipap Nonresponsive ROS ROS Unobtainable Vital Sign Vital Signs Vital Signs Date Time Temp Pulse Resp B/P Pulse Ox O2 Delivery O2 Flow Rate FiO2 11/12/16 05:00 74 24 90/44 100 11/12/16 04:00 Bi-pap 11/12/16 04:00 97.6 97.6 11/11/16 23:56 10.0 Physical Exam PHYSICAL EXAM GENERAL: Onbipap HEENT: PERRL, OC/OP -dry thru mask NECK: Supple, no JVD, no LN LUNGS: Crackle at bases HEART: S1S2, no gallop, no murmur, obese Dooley ABD: Soft, NT, no organomegaly, no rebound EXT: trace edema, no cyanosis PARA EDUCATOR: Min response SKIN: No rash IV: ok Labs Lab Laboratory Tests Test 11/11/16 12:35 11/11/16 15:02 11/11/16 15:35 11/11/16 17:20 Glucose (Fingerstick) 201mg/dL (70-99) 190mg/dL (70-99) Acetaminophen Level < 2mcg/ml (10-30) Acetaminophen Last Dose Date Acetaminophen Last Dose Time Sodium Level 143mmol/L (136-145) Potassium Level 5.1mmol/L (3.5-5.1) Chloride Level 104mmol/L (98-107) Carbon Dioxide Level 30mmol/L (21-32) Anion Gap 9 (6-14) Blood Urea Nitrogen 74mg/dL (8-26) Creatinine 3.2mg/dL (0.7-1.3) Estimated GFR (Cockcroft-Gault) 18.7 Glucose Level 226mg/dL (70-99) Calcium Level 8.5mg/dL (8.5-10.1) Test 11/11/16 20:32 11/11/16 21:46 11/11/16 22:45 11/12/16 03:52 Glucose (Fingerstick) 185mg/dL (70-99) O2 Saturation 81% (92-99) 98% (92-99) Arterial Blood pH 7.21 (7.35-7.45) 7.24 (7.35-7.45) Arterial Blood pCO2 at Patient Temp 76mmHg (35-46) 70mmHg (35-46) Arterial Blood pO2 at Patient Temp 50mmHg (65-108) 120mmHg (65-108) Arterial Blood HCO3 30mmol/L (21-28) 29mmol/L (21-28) Arterial Blood Base Excess 0mmol/L (-3-3) 0mmol/L (-3-3) FiO2 40 Sodium Level 145mmol/L (136-145) Potassium Level 5.0mmol/L (3.5-5.1) Chloride Level 104mmol/L (98-107) Carbon Dioxide Level 30mmol/L (21-32) Anion Gap 11 (6-14) Blood Urea Nitrogen 76mg/dL (8-26) Creatinine 3.4mg/dL (0.7-1.3) Estimated GFR (Cockcroft-Gault) 17.5 Glucose Level 209mg/dL (70-99) Calcium Level 8.4mg/dL (8.5-10.1) Objective Assessment Resp failure - now on Bipap -DNI Encephalopathy Questionable sepsis present on admission. Hypotension - had improved but now decreasing Leukocytosis -increase ? reactive. Solumedrol dosed last pm Acute kidney injury. Transaminitis, questionable secondary to sepsis versus congestion.- worse Congestive heart failure. 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 JEROME was negative. Aortic valve replacement. 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 Palliative care consulted Await ? HD Add LFTs/Lactic/BNP now Cont Zyvox, Zosyn and doxy GI eval done 11/11 F/u lab and cults Guarded prognosis IDALIA BRAND MD Nov 12, 2016 07:42
--- NOTE | 2016-11-12 07:43 | PDOC ---
PROGRESS NOTES Chief Complaint Chief Complaint fall, A/P Encephalopathy: multifactorial Shock: on Levophed GTT, Acute on Chronic respiratory failure: on PRN BIPAP, supplemental oxygen. ? Sepsis, : on zoysn, zyvox and Doxycycline, monitor wbc, Prognosis guarded, consult palliative care, Renal failure: planning for HD DM2 hyperglycemia Thrombocytopenia: monitor Shock Liver HX CAD, on Pacer HTN HLP History of Present Illness History of Present Illness ALERT not answering question wells no fever DNI seen at 750 am Vitals Vitals Vital Signs Date Time Temp Pulse Resp B/P Pulse Ox O2 Delivery O2 Flow Rate FiO2 11/12/16 05:00 74 24 90/44 100 11/12/16 04:00 Bi-pap 11/12/16 04:00 97.6 97.6 11/11/16 23:56 10.0 Physical Exam General: Alert, mild distress Heart: Regular rate, Normal S1, Normal S2 Lungs: Clear, Other (bl decreased bs with mild rales) Abdomen: Normal bowel sounds Extremities: No edema, Normal pulses, Other (mild edema) Skin: No significant lesion Labs LABS Laboratory Tests Test 11/11/16 12:35 11/11/16 15:02 11/11/16 15:35 11/11/16 17:20 Glucose (Fingerstick) 201mg/dL (70-99) 190mg/dL (70-99) Acetaminophen Level < 2mcg/ml (10-30) Acetaminophen Last Dose Date Acetaminophen Last Dose Time Sodium Level 143mmol/L (136-145) Potassium Level 5.1mmol/L (3.5-5.1) Chloride Level 104mmol/L (98-107) Carbon Dioxide Level 30mmol/L (21-32) Anion Gap 9 (6-14) Blood Urea Nitrogen 74mg/dL (8-26) Creatinine 3.2mg/dL (0.7-1.3) Estimated GFR (Cockcroft-Gault) 18.7 Glucose Level 226mg/dL (70-99) Calcium Level 8.5mg/dL (8.5-10.1) Test 11/11/16 20:32 11/11/16 21:46 11/11/16 22:45 11/12/16 03:52 Glucose (Fingerstick) 185mg/dL (70-99) O2 Saturation 81% (92-99) 98% (92-99) Arterial Blood pH 7.21 (7.35-7.45) 7.24 (7.35-7.45) Arterial Blood pCO2 at Patient Temp 76mmHg (35-46) 70mmHg (35-46) Arterial Blood pO2 at Patient Temp 50mmHg (65-108) 120mmHg (65-108) Arterial Blood HCO3 30mmol/L (21-28) 29mmol/L (21-28) Arterial Blood Base Excess 0mmol/L (-3-3) 0mmol/L (-3-3) FiO2 40 Sodium Level 145mmol/L (136-145) Potassium Level 5.0mmol/L (3.5-5.1) Chloride Level 104mmol/L (98-107) Carbon Dioxide Level 30mmol/L (21-32) Anion Gap 11 (6-14) Blood Urea Nitrogen 76mg/dL (8-26) Creatinine 3.4mg/dL (0.7-1.3) Estimated GFR (Cockcroft-Gault) 17.5 Glucose Level 209mg/dL (70-99) Calcium Level 8.4mg/dL (8.5-10.1) Assessment and Plan Assessmemt and Plan Problems Medical Problems: (1) ECG abnormal Status: Acute (2) Hyperkalemia Status: Acute (3) Hypotension Status: Acute (4) Renal failure Status: Acute Problems: Comment Review of Relevant I have reviewed the following items sandie (where applicable) has been applied. Labs Laboratory Tests Test 11/10/16 12:46 11/10/16 17:24 11/11/16 05:00 11/11/16 12:35 Urine Collection Type Unknown Urine Color Brown Urine Clarity Turbid Urine pH 5.0 Urine Specific [place] 1.025 Urine Protein 127.4mg/dL (Not Estab.) Urine Glucose (UA) Negativemg/dL (NEG) Urine Ketones (Stick) Tracemg/dL (NEG) Urine Blood Large (NEG) Urine Nitrite Negative (NEG) Urine Bilirubin Moderate (NEG) Urine Urobilinogen Dipstick 1.0mg/dL (0.2 mg/dL) Urine Leukocyte Esterase Moderate (NEG) Urine RBC Tntc/HPF (0-2) Urine WBC 20-40/HPF (0-4) Urine Squamous Epithelial Cells Few/LPF Urine Bacteria Few/HPF (0-FEW) Urine Random Creatinine 246.6mg/dL (Not Estab.) Urine Random Sodium 11mmol/L (Not Estab.) Urine Creatinine 244.8mg/dL (Not Estab.) Urine Protein/Creatinine Ratio 520mg/g creat (0-200) Glucose (Fingerstick) 149mg/dL (70-99) 201mg/dL (70-99) White Blood Count 13.5x10^3/uL (4.0-11.0) Red Blood Count 3.22x10^6/uL (4.30-5.70) Hemoglobin 9.8g/dL (13.0-17.5) Hematocrit 31.7% (39.0-53.0) Mean Corpuscular Volume 99fL (79-100) Mean Corpuscular Hemoglobin 30pg (25-35) Mean Corpuscular Hemoglobin Concent 31g/dL (31-37) Red Cell Distribution Width 15.1% (11.5-14.5) Platelet Count 94x10^3/uL (140-400) Neutrophils (%) (Auto) 78% (31-73) Lymphocytes (%) (Auto) 15% (24-48) Monocytes (%) (Auto) 7% (0-9) Eosinophils (%) (Auto) 0% (0-3) Basophils (%) (Auto) 0% (0-3) Neutrophils # (Auto) 10.5x10^3uL (1.8-7.7) Lymphocytes # (Auto) 2.0x10^3/uL (1.0-4.8) Monocytes # (Auto) 1.0x10^3/uL (0.0-1.1) Eosinophils # (Auto) 0.0x10^3/uL (0.0-0.7) Basophils # (Auto) 0.0x10^3/uL (0.0-0.2) Sodium Level 141mmol/L (136-145) Potassium Level 6.3mmol/L (3.5-5.1) Chloride Level 104mmol/L (98-107) Carbon Dioxide Level 29mmol/L (21-32) Anion Gap 8 (6-14) Blood Urea Nitrogen 67mg/dL (8-26) Creatinine 3.0mg/dL (0.7-1.3) Estimated GFR (Cockcroft-Gault) 20.2 BUN/Creatinine Ratio 22 (6-20) Glucose Level 179mg/dL (70-99) Lactic Acid Level 2.9mmol/L (0.4-2.0) Calcium Level 8.6mg/dL (8.5-10.1) Phosphorus Level 7.6mg/dL (2.6-4.7) Magnesium Level 2.4mg/dL (1.8-2.4) Total Bilirubin 1.2mg/dL (0.2-1.0) Direct Bilirubin 0.6mg/dL (0.0-0.2) Aspartate Amino Transf (AST/SGOT) 1507U/L (15-37) Alanine Aminotransferase (ALT/SGPT) 1304U/L (16-63) Alkaline Phosphatase 99U/L (46-116) Total Protein 6.1g/dL (6.4-8.2) Albumin 2.7g/dL (3.4-5.0) Albumin/Globulin Ratio 0.8 (1.0-1.7) Test 11/11/16 15:02 11/11/16 15:35 11/11/16 17:20 11/11/16 20:32 Acetaminophen Level < 2mcg/ml (10-30) Acetaminophen Last Dose Date Acetaminophen Last Dose Time Sodium Level 143mmol/L (136-145) Potassium Level 5.1mmol/L (3.5-5.1) Chloride Level 104mmol/L (98-107) Carbon Dioxide Level 30mmol/L (21-32) Anion Gap 9 (6-14) Blood Urea Nitrogen 74mg/dL (8-26) Creatinine 3.2mg/dL (0.7-1.3) Estimated GFR (Cockcroft-Gault) 18.7 Glucose Level 226mg/dL (70-99) Calcium Level 8.5mg/dL (8.5-10.1) Glucose (Fingerstick) 190mg/dL (70-99) 185mg/dL (70-99) Test 11/11/16 21:46 11/11/16 22:45 11/12/16 03:52 O2 Saturation 81% (92-99) 98% (92-99) Arterial Blood pH 7.21 (7.35-7.45) 7.24 (7.35-7.45) Arterial Blood pCO2 at Patient Temp 76mmHg (35-46) 70mmHg (35-46) Arterial Blood pO2 at Patient Temp 50mmHg (65-108) 120mmHg (65-108) Arterial Blood HCO3 30mmol/L (21-28) 29mmol/L (21-28) Arterial Blood Base Excess 0mmol/L (-3-3) 0mmol/L (-3-3) FiO2 40 Sodium Level 145mmol/L (136-145) Potassium Level 5.0mmol/L (3.5-5.1) Chloride Level 104mmol/L (98-107) Carbon Dioxide Level 30mmol/L (21-32) Anion Gap 11 (6-14) Blood Urea Nitrogen 76mg/dL (8-26) Creatinine 3.4mg/dL (0.7-1.3) Estimated GFR (Cockcroft-Gault) 17.5 Glucose Level 209mg/dL (70-99) Calcium Level 8.4mg/dL (8.5-10.1) Laboratory Tests Test 11/11/16 12:35 11/11/16 15:02 11/11/16 15:35 11/11/16 17:20 Glucose (Fingerstick) 201mg/dL (70-99) 190mg/dL (70-99) Acetaminophen Level < 2mcg/ml (10-30) Acetaminophen Last Dose Date Acetaminophen Last Dose Time Sodium Level 143mmol/L (136-145) Potassium Level 5.1mmol/L (3.5-5.1) Chloride Level 104mmol/L (98-107) Carbon Dioxide Level 30mmol/L (21-32) Anion Gap 9 (6-14) Blood Urea Nitrogen 74mg/dL (8-26) Creatinine 3.2mg/dL (0.7-1.3) Estimated GFR (Cockcroft-Gault) 18.7 Glucose Level 226mg/dL (70-99) Calcium Level 8.5mg/dL (8.5-10.1) Test 11/11/16 20:32 11/11/16 21:46 11/11/16 22:45 11/12/16 03:52 Glucose (Fingerstick) 185mg/dL (70-99) O2 Saturation 81% (92-99) 98% (92-99) Arterial Blood pH 7.21 (7.35-7.45) 7.24 (7.35-7.45) Arterial Blood pCO2 at Patient Temp 76mmHg (35-46) 70mmHg (35-46) Arterial Blood pO2 at Patient Temp 50mmHg (65-108) 120mmHg (65-108) Arterial Blood HCO3 30mmol/L (21-28) 29mmol/L (21-28) Arterial Blood Base Excess 0mmol/L (-3-3) 0mmol/L (-3-3) FiO2 40 Sodium Level 145mmol/L (136-145) Potassium Level 5.0mmol/L (3.5-5.1) Chloride Level 104mmol/L (98-107) Carbon Dioxide Level 30mmol/L (21-32) Anion Gap 11 (6-14) Blood Urea Nitrogen 76mg/dL (8-26) Creatinine 3.4mg/dL (0.7-1.3) Estimated GFR (Cockcroft-Gault) 17.5 Glucose Level 209mg/dL (70-99) Calcium Level 8.4mg/dL (8.5-10.1) Microbiology 11/10/16 Blood Culture - Preliminary, Resulted NO GROWTH AFTER 2 DAYS 11/10/16 Urine Culture - Preliminary, Resulted 11/10/16 Urine Culture Result 1 (EMMANUEL) - Preliminary, Resulted Medications Current Medications Fentanyl Citrate (Fentanyl 2ml Vial) 25 mcg PRN Q15MIN PRN IV PAIN GREATER THAN 3/10 Last administered on 11/10/16 23:41; Start 11/10/16 at 01:00; Stop at 00:59; Status DC Lidocaine (Lidoderm) 1 patch 1X ONCE TD Last administered on 11/10/16 01:14; Start 11/10/16 at 01:00; Stop 11/10/16 at 01:01; Status DC Calcium Gluconate 1,000 mg 1X ONCE IVP Last administered on 11/10/16 02:20; Start 11/10/16 at 02:30; Stop 11/10/16 at 02:31; Status DC Sodium Bicarbonate 50 meq 1X ONCE IV Last administered on 11/10/16 02:20; Start 11/10/16 at 02:30; Stop 11/10/16 at 02:31; Status DC Dextrose 25 gm 1X ONCE IV Last administered on 11/10/16 02:20; Start at 02:30; Stop 11/10/16 at 02:31; Status DC Insulin Human Regular (Novolin R Vial) 10 unit 1X ONCE IV Last administered on 11/10/16 02:22; Start 11/10/16 at 02:30; Stop 11/10/16 at 02:31; Status DC Calcium Gluconate 1,000 mg 1X ONCE IVP Last administered on 11/10/16 03:56; Start 11/10/16 at 04:00; Stop 11/10/16 at 04:01; Status DC Sodium Bicarbonate 50 meq 1X ONCE IV Last administered on 11/10/16 04:00; Start 11/10/16 at 04:00; Stop 11/10/16 at 04:01; Status DC Dextrose 25 gm 1X ONCE IV Last administered on 11/10/16 04:01; Start at 04:00; Stop 11/10/16 at 04:01; Status DC Insulin Human Regular 10 unit 10 unit 1X ONCE IV Last administered on 03:59; Start 11/10/16 at 04:00; Stop 11/10/16 at 04:01; Status DC Sodium Bicarbonate 150 meq/Sterile Water 1,150 ml @ 125 mls/hr Q9H12M IV ; Start 11/10/16 at 04:30; Stop 11/10/16 at 04:30; Status DC Sodium Chloride (Iv Sodium Chloride 0.9% 1000ml Bag) 1,000 ml @ 100 mls/hr 1X ONCE IV Last administered on 11/10/16 04:41; Start 11/10/16 at 04:30; Stop at 14:29; Status DC Piperacillin Sod/ Tazobactam Sod 1 each 1 each PRN DAILY PRN MC SEE COMMENTS; Start 11/10/16 at 04:30 Metronidazole 100 ml @ 100 mls/hr Q8HRS IV ; Start 11/10/16 at 14:00; Stop at 14:00; Status DC Metronidazole 100 ml @ 100 mls/hr 1X ONCE IV Last administered on 11/10/16 04:40; Start 11/10/16 at 05:00; Stop 11/10/16 at 05:59; Status DC Piperacillin Sod/ Tazobactam Sod/ Sodium Chloride (Zosyn/Iv Sodium Chloride 0.9 % 50ml) 50 ml @ 100 mls/hr Q6HRS IV Last administered on 11/12/16 05:50; Start 11/10/16 at 05:00 Lidocaine HCl 1 stevie 1 stevie 1X ONCE MM Last administered on 11/10/16 04:40; Start 11/10/16 at 04:30; Stop 11/10/16 at 04:43; Status DC Norepinephrine Bitartrate 8 mg/ Sodium Chloride 258 ml @ 0 mls/hr CONT PRN IV SEE I/O RECORD; Start 11/10/16 at 07:15 Linezolid (Zyvox Premix) 300 ml @ 300 mls/hr Q12HR IV Last administered on 22:36; Start 11/10/16 at 09:00 Doxycycline Hyclate (Vibra-Tab) 100 mg BID PO Last administered on 11/11/16 23 :25; Start 11/10/16 at 09:00 Aspirin 81 mg 81 mg [id number] PO Last administered on 11/11/16 08:27; Start 11/11/16 at 08:00 Magnesium Sulfate/ Dextrose 50 ml @ 25 mls/hr PRN DAILY PRN IV for Mag < 1.7 on am labs; Start 11/10/16 at 13:00 Sodium Chloride (Iv Sodium Chloride 0.9% 500ml Bag) 500 ml @ 0 mls/hr QID PRN IV UO< 30cc/hr over previous 6hrs; Start 11/10/16 at 13:00; Stop 11/11/16 at 18: 23; Status DC Acetaminophen (Tylenol) 650 mg PRN Q6HRS PRN PO MILD PAIN / TEMP; Start at 13:15 Ondansetron HCl (Zofran) 4 mg PRN Q6HRS PRN IV NAUSEA/VOMITING Last administered on 11/11/16 09:05; Start 11/10/16 at 13:15 Heparin Sodium (Porcine) 5,000 unit Q8HRS SQ ; Start 11/10/16 at 14:00; Stop at 14:00; Status DC Insulin Aspart (Novolog) 0-9 UNITS TIDWMEALS SQ Last administered on 11/11/16 12:38; Start 11/10/16 at 13:30 Dextrose 12.5 gm 12.5 gm PRN Q15MIN PRN IV SEE COMMENTS; Start 11/10/16 at 13: 15 Sodium Chloride (Iv Sodium Chloride 0.9% 1000ml Bag) 1,000 ml @ 100 mls/hr Q10H IV Last administered on 11/10/16 23:41; Start 11/10/16 at 13:15; Stop at 18:23; Status DC Pantoprazole Sodium (Protonix) 40 mg DAILYAC PO Last administered on 11/11/16 08:27; Start 11/10/16 at 14:00 Fentanyl Citrate (Fentanyl 2ml Vial) 50 mcg PRN Q2HR PRN IV SEVERE PAIN Last administered on 11/11/16 23:26; Start 11/11/16 at 02:30 Sodium Polystyrene Sulfonate 60 gm 60 gm 1X ONCE PO Last administered on 06:41; Start 11/11/16 at 06:45; Stop 11/11/16 at 06:46; Status DC Norepinephrine Bitartrate/Sodium Chloride (Levophed Vial/ Iv Sodium Chloride 0.9 % 250ml) 258 ml @ 0 mls/hr CONT PRN IV SEE I/O RECORD; Start 11/11/16 at 22:30 ; Status UNV Methylprednisolone Sodium Succinate (Solu-Medrol 125mg Vial) 125 mg 1X ONCE IV Last administered on 11/12/16 00:09; Start 11/11/16 at 23:00; Stop 11/11/16 at 23:01; Status DC Furosemide (Lasix) 40 mg 1X ONCE IVP Last administered on 11/12/16 01:31; Start 11/12/16 at 01:30; Stop 11/12/16 at 01:31; Status DC Active Scripts Active Carvedilol 3.125 Mg Tablet 3.125 Mg PO BIDWMEALS Reported Fish Oil + Vitamin D-3 Softgel (Om-3/Dha/Epa/Fish Oil/Vit D3) 1 Each Capsule 1 Each PO Vitamin D (Cholecalciferol (Vitamin D3)) 1,000 Unit Capsule 1,000 Unit PO DAILY Klor-Con 10 (Potassium Chloride) 10 Meq Tablet.er 2 Tab PO DAILY Lasix (Furosemide) 20 Mg Tablet 10 Mg PO DAILY Aspir 81 (Aspirin) 81 Mg Tablet.dr 81 Mg PO Cozaar (Losartan Potassium) 50 Mg Tablet 50 Mg PO DAILY Amaryl (Glimepiride) 4 Mg Tablet 4 Mg PO DAILY Metformin Hcl 1,000 Mg Tablet 1,000 Mg PO BIDAC Vitals/I & O Vital Sign - Last 24 Hours 11/11/16 11/11/16 11/11/16 11/11/16 08:00 08:00 08:28 09:00 Temp 97.6 97.6 Pulse 61 74 Resp B/P 94/44 92/48 Pulse Ox 94 91 O2 Delivery Nasal Cannula Simple Mask Nasal Cannula Simple Mask O2 Flow Rate 4.0 5.0 10.0 5.0 11/11/16 11/11/16 11/11/16 11/11/16 10:00 11:00 12:00 12:00 Temp 97.4 97.4 Pulse 61 64 61 Resp B/P 103/45 104/47 95/50 Pulse Ox 98 91 98 O2 Delivery Simple Mask Simple Mask Simple Mask Nasal Cannula O2 Flow Rate 5.0 5.0 5.0 4.0 11/11/16 11/11/16 11/11/16 11/11/16 13:00 14:00 15:00 16:00 Temp 97.8 97.8 Pulse 69 61 67 72 Resp B/P 109/46 93/47 103/51 102/47 Pulse Ox 98 98 97 99 O2 Delivery Simple Mask Simple Mask Simple Mask Simple Mask O2 Flow Rate 5.0 5.0 5.0 5.0 11/11/16 11/11/16 11/11/16 11/11/16 16:00 17:00 18:00 19:00 Pulse 72 64 64 Resp B/P 102/47 101/51 102/45 Pulse Ox 96 95 97 O2 Delivery Nasal Cannula Simple Mask Simple Mask O2 Flow Rate 4.0 5.0 10.0 11/11/16 11/11/16 11/11/16 11/11/16 20:00 20:00 21:04 22:11 Pulse 87 64 62 B/P 93/45 101/40 89/43 Pulse Ox 98 96 94 O2 Delivery Mask NonRebreather Mask O2 Flow Rate 10.0 11/11/16 11/11/16 11/11/16 11/11/16 23:00 23:26 23:36 23:56 Pulse 62 Resp 24 12 B/P 96/49 Pulse Ox 100 100 96 63 O2 Delivery BiPAP/CPAP Nasal Cannula O2 Flow Rate 10.0 10.0 11/11/16 11/12/16 11/12/16 11/12/16 23:59 00:00 01:00 02:00 Temp 97.2 97.2 Pulse 63 63 64 Resp 22 B/P 95/45 105/45 106/44 Pulse Ox 63 100 100 O2 Delivery Bi-pap BiPAP/CPAP 11/12/16 11/12/16 11/12/16 11/12/16 02:14 03:00 03:57 04:00 Temp 97.6 97.6 Pulse 64 62 Resp 29 24 B/P 93/46 91/40 Pulse Ox 100 100 100 100 11/12/16 11/12/16 04:00 05:00 Pulse 74 Resp 24 B/P 90/44 Pulse Ox 100 O2 Delivery Bi-pap Intake and Output 11/11/16 11/11/16 11/12/16 15:00 23:00 07:00 Intake Total 50 ml 1330 ml Output Total 65 ml 145 ml 10 ml Balance -15 ml 1185 ml -10 ml LOUISE [place] MD Nov 12, 2016 07:43
[2016-11-12 07:51] LABS: BASO % 0 % (0-3); EOS % 0 % (0-3); HEMATOCRIT 32.7 % (39.0-53.0); HEMOGLOBIN 10.2 g/dL (13.0-17.5); LYMPH # 0.8 x10^3/uL (1.0-4.8); LYMPH % 8 % (24-48); MEAN CORPUSCULAR HEMOGLOBIN 31 pg (25-35); MEAN CORPUSCULAR HGB CONC 31 g/dL (31-37); MEAN CORPUSCULAR VOLUME 99 fL (79-100); MONO % 2 % (0-9); NEUT % 90 % (31-73); PLATELET COUNT 61 x10^3/uL (140-400); RED CELL DISTRIBUTION WIDTH 15.3 % (11.5-14.5); WHITE BLOOD COUNT 10.2 x10^3/uL (4.0-11.0)
[2016-11-12] MEDS: INSULIN ASPART 300 UNITS/3 ML INSULN.PEN SQ SCH ×3 (08:00→17:00)
[2016-11-12 08:05] LABS: INR 3.1 (0.8-1.1); PROTHROMBIN TIME PATIENT 30.4 SEC (11.7-14.0)
[2016-11-12 08:06] LABS: ALBUMIN 2.6 g/dL (3.4-5.0); CALCIUM 8.6 mg/dL (8.5-10.1); CREATININE 3.4 mg/dL (0.7-1.3); DIRECT BILIRUBIN 0.6 mg/dL (0.0-0.2); GFR 17.5; MAGNESIUM 2.4 mg/dL (1.8-2.4); PHOSPHORUS 7.7 mg/dL (2.6-4.7); POTASSIUM 4.7 mmol/L (3.5-5.1); TOTAL BILIRUBIN 1.3 mg/dL (0.2-1.0)
--- NOTE | 2016-11-12 09:00 | PDOC ---
SUBJECTIVE ROS VARUN/ ATN Events of Last 12hrs reviewed; now on BiPAP and pressors CVS: min Orthopnea, no CP RESP: + SOB, no MILAN (not ambulated) GI: no Nausea, no Vomiting : no Dysuria, no Urgency OBJECTIVE Vital Signs Vital Signs Date Time Temp Pulse Resp B/P Pulse Ox O2 Delivery O2 Flow Rate FiO2 11/12/16 08:00 97.5 64 115/50 98 BiPAP/CPAP 97.5 11/12/16 07:00 24 11/11/16 23:56 10.0 I & 0 Intake and Output 11/12/16 07:00 Intake Total 1380 ml Output Total 220 ml Balance 1160 ml IV Total 1380 ml Output Urine Total 220 ml PHYSICAL EXAM Physical Exam General Appearance: Awake Alert Oriented x 2-3 In mod Distress (resp) - now on BiPAP Eyes: VIsion Unchanged Conjunctiva Normal EN: No EN Drainage Mucous Memb. moist Neck: no JVD min JVP Supple no Thyromegaly CVS: S1 S2 ? Murmur No Gallop No Rub no Edema Resp: + basal Rales no Rhonchi min Acc. Muscle use GI: BS hypoactive NO Bruit Min Tender Non Distended : no CVA tenderness x left around area of Rib # no Suprapubic Tenderness SKIN: no Rashes Breast Exam deferred Mu.Sk: Adequate ROM no Muscle Atrophy Heme: Unable to palpate Obvious LAD no Splenomegaly NEURO: Decreased strenght in Lower ext Cranial Nerves II - XII grossly intact Psych: not Depressed no Active hallucination Assessment & Plan ARF: appears to have recieved adequate IVF for now (+ve balance per I/Os) . suspect ATN kehinde now that he is oligoanuric. Pyelo (had dela cruz for 6weeks) vs Kidney trauma after recent fall may explain prei-nephric stranding. Dw Family ( daughter at bedside) HD vs CRRT Depending on trend of hemodynamics. 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 Due to Metformin vs Gall Bladder/ SIRS ^ed LFTs - GI managing. Anemia: may need Epogen Transfuse as needed. Hypo TN: now on Pressors; re-ECHO today to R/o PE Discussed Plan of Care and prognosis etc. at length with pt COMMENT/RELEVANT DATA Meds Current Medications Medications (Trade) Dose Ordered Sig/Nito Start Time Stop Time Status Last Admin Dose Admin Acetaminophen (Tylenol) 650 mg PRN Q6HRS PRN 11/10/16 13:15 Aspirin 81 mg 81 mg [id number] 11/11/16 08:00 11/11/16 08:27 81 MG Calcium Gluconate 1,000 mg 1X ONCE 11/10/16 04:00 11/10/16 04:01 DC 11/10/16 03:56 1,000 MG Dextrose 25 gm 1X ONCE 11/10/16 04:00 11/10/16 04:01 DC 11/10/16 04:01 25 GM Dextrose 12.5 gm 12.5 gm PRN Q15MIN PRN 11/10/16 13:15 Doxycycline Hyclate (Vibra-Tab) 100 mg BID 11/10/16 09:00 11/11/16 23:25 100 MG Fentanyl Citrate (Fentanyl 2ml Vial) 50 mcg PRN Q2HR PRN 11/11/16 02:30 11/11/16 23:26 50 MCG Furosemide (Lasix) 40 mg 1X ONCE 11/12/16 01:30 11/12/16 01:31 DC 11/12/16 01:31 40 MG Heparin Sodium (Porcine) 5,000 unit Q8HRS 11/10/16 14:00 11/10/16 14:00 DC Insulin Aspart (Novolog) 0-9 UNITS TIDWMEALS 11/10/16 13:30 11/11/16 12:38 3 UNITS Insulin Human Regular (Novolin R Vial) 10 unit 1X ONCE 11/10/16 02:30 11/10/16 02:31 DC 11/10/16 02:22 10 UNIT Insulin Human Regular 10 unit 10 unit 1X ONCE 11/10/16 04:00 11/10/16 04:01 DC 11/10/16 03:59 10 UNIT Lidocaine (Lidoderm) 1 patch 1X ONCE 11/10/16 01:00 11/10/16 01:01 DC 11/10/16 01:14 1 PATCH Lidocaine HCl 1 stevie 1 stevie 1X ONCE 11/10/16 04:30 11/10/16 04:43 DC 11/10/16 04:40 1 STEVIE Linezolid (Zyvox Premix) 300 ml @ 300 mls/hr Q12HR 11/10/16 09:00 11/11/16 22:36 300 MLS/HR Magnesium Sulfate/ Dextrose 50 ml @ 25 mls/hr PRN DAILY PRN 11/10/16 13:00 Methylprednisolone Sodium Succinate (Solu-Medrol 125mg Vial) 125 mg 1X ONCE 11/11/16 23:00 11/11/16 23:01 DC 11/12/16 00:09 125 MG Metronidazole 100 ml @ 100 mls/hr 1X ONCE 11/10/16 05:00 11/10/16 05:59 DC 11/10/16 04:40 100 MLS/HR Norepinephrine Bitartrate 8 mg/ Sodium Chloride 258 ml @ 0 mls/hr CONT PRN 11/10/16 07:15 Norepinephrine Bitartrate/Sodium Chloride (Levophed Vial/ Iv Sodium Chloride 0.9% 250ml) 258 ml @ 0 mls/hr CONT PRN 11/11/16 22:30 UNV Ondansetron HCl (Zofran) 4 mg PRN Q6HRS PRN 11/10/16 13:15 11/11/16 09:05 4 MG Pantoprazole Sodium (Protonix) 40 mg DAILYAC 11/10/16 14:00 11/11/16 08:27 40 MG Piperacillin Sod/ Tazobactam Sod 1 each 1 each PRN DAILY PRN 11/10/16 04:30 Piperacillin Sod/ Tazobactam Sod/ Sodium Chloride (Zosyn/Iv Sodium Chloride 0.9% 50ml) 50 ml @ 100 mls/hr Q6HRS 11/10/16 05:00 11/12/16 05:50 100 MLS/HR Sodium Bicarbonate/ Sterile Water 1,150 ml @ 125 mls/hr Q9H12M 11/10/16 04:30 11/10/16 04:30 DC Sodium Polystyrene Sulfonate 60 gm 60 gm 1X ONCE 11/11/16 06:45 11/11/16 06:46 DC 11/11/16 06:41 60 GM Sodium Bicarbonate 50 meq 1X ONCE 11/10/16 04:00 11/10/16 04:01 DC 11/10/16 04:00 50 MEQ Sodium Chloride (Iv Sodium Chloride 0.9% 500ml Bag) 500 ml @ 0 mls/hr QID PRN 11/10/16 13:00 11/11/16 18:23 DC Sodium Chloride (Iv Sodium Chloride 0.9% 1000ml Bag) 1,000 ml @ 100 mls/hr Q10H 11/10/16 13:15 11/11/16 18:23 DC 11/10/16 23:41 100 MLS/HR Lab Laboratory Tests Test 11/11/16 12:35 11/11/16 15:02 11/11/16 15:35 11/11/16 17:20 Glucose (Fingerstick) 201mg/dL (70-99) 190mg/dL (70-99) Acetaminophen Level < 2mcg/ml (10-30) Acetaminophen Last Dose Date Acetaminophen Last Dose Time Sodium Level 143mmol/L (136-145) Potassium Level 5.1mmol/L (3.5-5.1) Chloride Level 104mmol/L (98-107) Carbon Dioxide Level 30mmol/L (21-32) Anion Gap 9 (6-14) Blood Urea Nitrogen 74mg/dL (8-26) Creatinine 3.2mg/dL (0.7-1.3) Estimated GFR (Cockcroft-Gault) 18.7 Glucose Level 226mg/dL (70-99) Calcium Level 8.5mg/dL (8.5-10.1) Test 11/11/16 20:32 11/11/16 21:46 11/11/16 22:45 11/12/16 03:52 Glucose (Fingerstick) 185mg/dL (70-99) O2 Saturation 81% (92-99) 98% (92-99) Arterial Blood pH 7.21 (7.35-7.45) 7.24 (7.35-7.45) Arterial Blood pCO2 at Patient Temp 76mmHg (35-46) 70mmHg (35-46) Arterial Blood pO2 at Patient Temp 50mmHg (65-108) 120mmHg (65-108) Arterial Blood HCO3 30mmol/L (21-28) 29mmol/L (21-28) Arterial Blood Base Excess 0mmol/L (-3-3) 0mmol/L (-3-3) FiO2 40 Sodium Level 145mmol/L (136-145) Potassium Level 5.0mmol/L (3.5-5.1) Chloride Level 104mmol/L (98-107) Carbon Dioxide Level 30mmol/L (21-32) Anion Gap 11 (6-14) Blood Urea Nitrogen 76mg/dL (8-26) Creatinine 3.4mg/dL (0.7-1.3) Estimated GFR (Cockcroft-Gault) 17.5 Glucose Level 209mg/dL (70-99) Calcium Level 8.4mg/dL (8.5-10.1) Test 11/12/16 06:37 11/12/16 07:50 White Blood Count 10.2x10^3/uL (4.0-11.0) Red Blood Count 3.30x10^6/uL (4.30-5.70) Hemoglobin 10.2g/dL (13.0-17.5) Hematocrit 32.7% (39.0-53.0) Mean Corpuscular Volume 99fL (79-100) Mean Corpuscular Hemoglobin 31pg (25-35) Mean Corpuscular Hemoglobin Concent 31g/dL (31-37) Red Cell Distribution Width 15.3% (11.5-14.5) Platelet Count 61x10^3/uL (140-400) Neutrophils (%) (Auto) 90% (31-73) Lymphocytes (%) (Auto) 8% (24-48) Monocytes (%) (Auto) 2% (0-9) Eosinophils (%) (Auto) 0% (0-3) Basophils (%) (Auto) 0% (0-3) Neutrophils # (Auto) 9.2x10^3uL (1.8-7.7) Lymphocytes # (Auto) 0.8x10^3/uL (1.0-4.8) Monocytes # (Auto) 0.2x10^3/uL (0.0-1.1) Eosinophils # (Auto) 0.0x10^3/uL (0.0-0.7) Basophils # (Auto) 0.0x10^3/uL (0.0-0.2) Prothrombin Time 30.4SEC (11.7-14.0) Prothromb Time International Ratio 3.1 (0.8-1.1) TJ-Jpa-N-Type Natriuretic Peptide > 75490ba/mL (0-449) Lactic Acid Level 2.4mmol/L (0.4-2.0) RENETTA FRAIRE MD Nov 12, 2016 09:00
[2016-11-12] MEDS ORDERED: HEPARIN for IV BOLUS 10,000 UNIT/10 ML VIAL. ONE (09:09)
[2016-11-12] MEDS ORDERED: LIDOCAINE 1% / SOD BICARB 8.4% 20 ML VIAL. IJ ONE (09:15)
[2016-11-12] MEDS: ASPIRIN ENTERIC COATED 81 MG TABLET.DR. PO SCH (09:16)
[2016-11-12] MEDS: PANTOPRAZOLE 40 MG TABLET. PO SCH (09:16)
[2016-11-12] MEDS: DOXYCYCLINE HYCLATE 100 MG TABLET PO SCH ×2 (09:21→20:55)
--- NOTE | 2016-11-12 09:56 | PDOC ---
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 Bedside sono guided temp HDC + CVC insertion has been requested. Post-Procedure Diagnosis Post-Procedure Diagnosis Same Procedure Performed Procedure Performed Bedside ICU sono guided temp HDC and CVC insertion Type of Anesthesia Type of Anesthesia Local Estimated Blood Loss EBL: Minimal Drain/Tubes Drains/Tubes Rt IJ 14F 20cm temp HDC. Rt IJ 7F 3L 20cm Power Injectable CVC insertion. Condition of Patient Condition of Patient Stable. No apparent complication. Disposition Disposition STAT pCXR requested for Temp HDC + CVC insertion. Full report to follow. CHASTITY BUNN MD Nov 12, 2016 09:56
[2016-11-12] MEDS ORDERED: IV NORMAL SALINE 1000ML BAG 1,000 ML IV PRN ×2 (10:47)
[2016-11-12] MEDS ORDERED: DIPHENHYDRAMINE 50 MG/ML VIAL IV PRN ×2 (11:00)
[2016-11-12] MEDS ORDERED: 0.9 % SODIUM CHLORIDE 10 ML DISP.SYRIN. IV PRN ×2 (11:00)
[2016-11-12] MEDS ORDERED: DIALYSIS PATIENT. MC PRN (11:00)
[2016-11-12 11:05] LABS: NUCLEATED RBC 4
--- NOTE | 2016-11-12 11:05 | RAD ---
EXAM: Chest one view. HISTORY: Line placement. COMPARISON: 11/11/2016. FINDINGS: A frontal view of the chest is obtained. A right internal jugular hemodialysis catheter has its tip in the superior cavoatrial junction. A second right internal jugular central venous catheter also has its tip in the superior cavoatrial junction. There is no pneumothorax. A left-sided pacemaker has its leads in the right atrium and right ventricle. There are changes of coronary artery bypass grafting. There is a [id number] right pleural effusion with right basilar atelectasis or infiltrate. There are atherosclerotic calcifications of the aorta. The heart is moderately enlarged. IMPRESSION: 1. Right internal jugular hemodialysis and central venous catheters with their tips in the superior cavoatrial junction. No pneumothorax. 2. Small moderate right pleural effusion with right basilar atelectasis or pneumonia. 3. Moderate cardiomegaly.
[2016-11-12 11:07] LABS: ANISOCYTOSIS SLIGHT; PLT ESTIMATE DECREASED (ADEQUATE); POIKILOCYTOSIS SLIGHT
--- NOTE | 2016-11-12 11:12 | PDOC ---
CARDIO Progress Notes Date and Time Date of Service 11/12/16 Time of Evaluation 1015 Subjective Subjective: Other (confused, discussing hand washing due to "explosion") Comments: acute resp failure no requiring BiPAP Vitals Vitals Vital Signs Date Time Temp Pulse Resp B/P Pulse Ox O2 Delivery O2 Flow Rate FiO2 11/12/16 10:00 63 112/50 97 BiPAP/CPAP 11/12/16 08:00 97.5 97.5 11/12/16 07:00 24 11/11/16 23:56 10.0 Weight Weight [ ] Input and Output Intake and Output Intake and Output 11/12/16 07:00 Intake Total 1380 ml Output Total 220 ml Balance 1160 ml IV Total 1380 ml Output Urine Total 220 ml Laboratory Labs Laboratory Tests Test 11/11/16 12:35 11/11/16 15:02 11/11/16 15:35 11/11/16 17:20 Glucose (Fingerstick) 201mg/dL (70-99) 190mg/dL (70-99) Acetaminophen Level < 2mcg/ml (10-30) Acetaminophen Last Dose Date Acetaminophen Last Dose Time Sodium Level 143mmol/L (136-145) Potassium Level 5.1mmol/L (3.5-5.1) Chloride Level 104mmol/L (98-107) Carbon Dioxide Level 30mmol/L (21-32) Anion Gap 9 (6-14) Blood Urea Nitrogen 74mg/dL (8-26) Creatinine 3.2mg/dL (0.7-1.3) Estimated GFR (Cockcroft-Gault) 18.7 Glucose Level 226mg/dL (70-99) Calcium Level 8.5mg/dL (8.5-10.1) Test 11/11/16 20:32 11/11/16 21:46 11/11/16 22:45 11/12/16 03:52 Glucose (Fingerstick) 185mg/dL (70-99) O2 Saturation 81% (92-99) 98% (92-99) Arterial Blood pH 7.21 (7.35-7.45) 7.24 (7.35-7.45) Arterial Blood pCO2 at Patient Temp 76mmHg (35-46) 70mmHg (35-46) Arterial Blood pO2 at Patient Temp 50mmHg (65-108) 120mmHg (65-108) Arterial Blood HCO3 30mmol/L (21-28) 29mmol/L (21-28) Arterial Blood Base Excess 0mmol/L (-3-3) 0mmol/L (-3-3) FiO2 40 Sodium Level 145mmol/L (136-145) Potassium Level 5.0mmol/L (3.5-5.1) Chloride Level 104mmol/L (98-107) Carbon Dioxide Level 30mmol/L (21-32) Anion Gap 11 (6-14) Blood Urea Nitrogen 76mg/dL (8-26) Creatinine 3.4mg/dL (0.7-1.3) Estimated GFR (Cockcroft-Gault) 17.5 Glucose Level 209mg/dL (70-99) Calcium Level 8.4mg/dL (8.5-10.1) Test 11/12/16 06:37 11/12/16 07:50 11/12/16 09:11 White Blood Count 10.2x10^3/uL (4.0-11.0) Red Blood Count 3.30x10^6/uL (4.30-5.70) Hemoglobin 10.2g/dL (13.0-17.5) Hematocrit 32.7% (39.0-53.0) Mean Corpuscular Volume 99fL (79-100) Mean Corpuscular Hemoglobin 31pg (25-35) Mean Corpuscular Hemoglobin Concent 31g/dL (31-37) Red Cell Distribution Width 15.3% (11.5-14.5) Platelet Count 61x10^3/uL (140-400) Neutrophils (%) (Auto) 90% (31-73) Lymphocytes (%) (Auto) 8% (24-48) Monocytes (%) (Auto) 2% (0-9) Eosinophils (%) (Auto) 0% (0-3) Basophils (%) (Auto) 0% (0-3) Neutrophils # (Auto) 9.2x10^3uL (1.8-7.7) Lymphocytes # (Auto) 0.8x10^3/uL (1.0-4.8) Monocytes # (Auto) 0.2x10^3/uL (0.0-1.1) Eosinophils # (Auto) 0.0x10^3/uL (0.0-0.7) Basophils # (Auto) 0.0x10^3/uL (0.0-0.2) Prothrombin Time 30.4SEC (11.7-14.0) Prothromb Time International Ratio 3.1 (0.8-1.1) Sodium Level 145mmol/L (136-145) Potassium Level 4.7mmol/L (3.5-5.1) Chloride Level 104mmol/L (98-107) Carbon Dioxide Level 30mmol/L (21-32) Anion Gap 11 (6-14) Blood Urea Nitrogen 79mg/dL (8-26) Creatinine 3.4mg/dL (0.7-1.3) Estimated GFR (Cockcroft-Gault) 17.5 Glucose Level 211mg/dL (70-99) Calcium Level 8.6mg/dL (8.5-10.1) Phosphorus Level 7.7mg/dL (2.6-4.7) Magnesium Level 2.4mg/dL (1.8-2.4) Total Bilirubin 1.3mg/dL (0.2-1.0) Direct Bilirubin 0.6mg/dL (0.0-0.2) Aspartate Amino Transf (AST/SGOT) 1844U/L (15-37) Alanine Aminotransferase (ALT/SGPT) 1678U/L (16-63) Alkaline Phosphatase 96U/L (46-116) Troponin I Quantitative 0.086ng/mL (0.000-0.055) EM-Dmu-B-Type Natriuretic Peptide > 04004qa/mL (0-449) Total Protein 6.0g/dL (6.4-8.2) Albumin 2.6g/dL (3.4-5.0) Lactic Acid Level 2.4mmol/L (0.4-2.0) Glucose (Fingerstick) 196mg/dL (70-99) Microbiology Micro Microbiology 11/10/16 Blood Culture - Preliminary, Resulted NO GROWTH AFTER 2 DAYS 11/10/16 Urine Culture - Preliminary, Resulted 11/10/16 Urine Culture Result 1 (EMMANUEL) - Preliminary, Resulted Physical Exam HEENT: Neck Supple W Full Motion Chest: Symmetric LUNGS: Other (diminished bases- on BiPAP) Heart: irregularly irregular (tele: int AV pacing with underlying AFIB), other (heart tones difficult to appreciate) Abdomen: Soft N/T Extremities: No Calf Tenderness, Other (trace LE edema ) Neurology: alert, confused, other Assessment Assessment 1. Acute on chronic respiratory failure multifactorial requiring BiPAP; DNI 2. 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 IVF discontinued IV lasix ordered; urine output decrease ? ATN Fluid offloading per HD to commence today. 3. CAD s/p CABD MPI 05/2014 unremarkable. Stable. Continue secondary prevention. 4. SSS with PPM [employer] device. Recent interrogation revealed normal functioning device 5. s/p AVR stable, well seated per recent TTE. 6. Transaminitis ? liver shock per GI 7. Hypotension requiring pressor support; titrate as warranted Hold antiHTN therapy 8. Permanent AFIB intermittent AV pacing with underlying AFIB/flutter Continue on ECASA for stroke prevention. 9. VARUN with CKD Cr. 3.4 per renal 10. Leukocytosis with ?sepsis/shock, POA lactic 2.4 Recent hx of enterococcus bacteremia and PNA; recent JEROME with no notable thrombus nor vegetations. 11. DM, II 12. Encephalopathy ARNAUD ALLEN APRN Nov 12, 2016 11:12
--- NOTE | 2016-11-12 12:06 | PDOC ---
Objective: Objective: Dr. Farrell saw over the weekend, dictated consult, ordered HIDA, additional labs. I saw earlier this a.m. Per RN, some confusion w/ hypotension overnight. Going for HDC insertion today. Palliative care consulted. Vital Signs: Vital Signs Date Time Temp Pulse Resp B/P Pulse Ox O2 Delivery O2 Flow Rate FiO2 11/12/16 10:00 63 112/50 97 BiPAP/CPAP 11/12/16 08:00 97.5 97.5 11/12/16 07:00 24 11/11/16 23:56 10.0 Labs: Laboratory Tests Test 11/11/16 12:35 11/11/16 15:02 11/11/16 15:35 11/11/16 17:20 Glucose (Fingerstick) 201mg/dL 190mg/dL Acetaminophen Level < 2mcg/ml Acetaminophen Last Dose Date Acetaminophen Last Dose Time Sodium Level 143mmol/L Potassium Level 5.1mmol/L Chloride Level 104mmol/L Carbon Dioxide Level 30mmol/L Anion Gap 9 Blood Urea Nitrogen 74mg/dL Creatinine 3.2mg/dL Estimated GFR (Cockcroft-Gault) 18.7 Glucose Level 226mg/dL Calcium Level 8.5mg/dL Test 11/11/16 20:32 11/11/16 21:46 11/11/16 22:45 11/12/16 03:52 Glucose (Fingerstick) 185mg/dL O2 Saturation 81% 98% Arterial Blood pH 7.21 7.24 Arterial Blood pCO2 at Patient Temp 76mmHg 70mmHg Arterial Blood pO2 at Patient Temp 50mmHg 120mmHg Arterial Blood HCO3 30mmol/L 29mmol/L Arterial Blood Base Excess 0mmol/L 0mmol/L FiO2 40 Sodium Level 145mmol/L Potassium Level 5.0mmol/L Chloride Level 104mmol/L Carbon Dioxide Level 30mmol/L Anion Gap 11 Blood Urea Nitrogen 76mg/dL Creatinine 3.4mg/dL Estimated GFR (Cockcroft-Gault) 17.5 Glucose Level 209mg/dL Calcium Level 8.4mg/dL Test 11/12/16 06:37 11/12/16 07:50 11/12/16 09:11 White Blood Count 10.2x10^3/uL Red Blood Count 3.30x10^6/uL Hemoglobin 10.2g/dL Hematocrit 32.7% Mean Corpuscular Volume 99fL Mean Corpuscular Hemoglobin 31pg Mean Corpuscular Hemoglobin Concent 31g/dL Red Cell Distribution Width 15.3% Platelet Count 61x10^3/uL Neutrophils (%) (Auto) 90% Lymphocytes (%) (Auto) 8% Monocytes (%) (Auto) 2% Eosinophils (%) (Auto) 0% Basophils (%) (Auto) 0% Neutrophils # (Auto) 9.2x10^3uL Lymphocytes # (Auto) 0.8x10^3/uL Monocytes # (Auto) 0.2x10^3/uL Eosinophils # (Auto) 0.0x10^3/uL Basophils # (Auto) 0.0x10^3/uL Segmented Neutrophils % 94% Band Neutrophils % 3% Lymphocytes % 3% Nucleated Red Blood Cells 4 Platelet Estimate Decreased Poikilocytosis Slight Basophilic Stippling Present Anisocytosis Slight Prothrombin Time 30.4SEC Prothromb Time International Ratio 3.1 Sodium Level 145mmol/L Potassium Level 4.7mmol/L Chloride Level 104mmol/L Carbon Dioxide Level 30mmol/L Anion Gap 11 Blood Urea Nitrogen 79mg/dL Creatinine 3.4mg/dL Estimated GFR (Cockcroft-Gault) 17.5 Glucose Level 211mg/dL Calcium Level 8.6mg/dL Phosphorus Level 7.7mg/dL Magnesium Level 2.4mg/dL Total Bilirubin 1.3mg/dL Direct Bilirubin 0.6mg/dL Aspartate Amino Transf (AST/SGOT) 1844U/L Alanine Aminotransferase (ALT/SGPT) 1678U/L Alkaline Phosphatase 96U/L Troponin I Quantitative 0.086ng/mL AD-Ais-T-Type Natriuretic Peptide > 36070hc/mL Total Protein 6.0g/dL Albumin 2.6g/dL Lactic Acid Level 2.4mmol/L Glucose (Fingerstick) 196mg/dL Imaging: CT A/P 11/10/16 IMPRESSION 1. No acute abdominal or pelvic abnormality. 2. Bilateral perinephric stranding can be a normal variant or due to renal insufficiency. No obstructive uropathy. Bilateral renal cysts. Abd US IMPRESSION 1. The gallbladder wall is thickened and there is trace pericholecystic fluid. No cholelithiasis or positive sonographic Valencia's sign. 2. Right pleural effusion. 3. Hepatomegaly. 4. Bilateral renal cysts. CXR 11/12/16 IMPRESSION: 1. Right internal jugular hemodialysis and central venous catheters with their tips in the superior cavoatrial junction. No pneumothorax. 2. Small moderate right pleural effusion with right basilar atelectasis or pneumonia. 3. Moderate cardiomegaly. PE: GEN: NAD LUNGS: on BiPAP HEART: S1S2 ABD: S/ND/NT NEURO/PSYCH: didn't respond much to me A/P: Resp failure, leukocytosis/sepsis, hypotension, VARUN, CHF -on BiPAP -HDC today w/ possible dialysis today/tomorrow -BNP >23391 (on admission and on repeat) Abnormal LFTs - worse -imaging as above, HIDA today, additional labs pending -- Will review w/ Dr. Javier - ?shock liver vs congestion JONNATHAN ROSE Nov 12, 2016 12:06
--- NOTE | 2016-11-12 12:16 | PDOC2 ---
PALLIATIVE CARE Palliative Care Note Palliative Care Consult requested to address goals of care Diagnosis: Resp failure, leukocytosis/sepsis, hypotension, VARUN, CHF -on BiPAP -HDC today w/ possible dialysis today/tomorrow -BNP >79574 (on admission and on repeat) Abnormal LFTs - Patient currently on BiPap.; Pressor Enroute to x-ray when seen Spoke with YONIS Walton. Requests to meet tomorrow when more information available. Code Status: DNI; EZRA FIGUEROA Nov 12, 2016 12:16
--- NOTE | 2016-11-12 12:27 | RAD ---
EXAM: Hepatobiliary scintigraphy. HISTORY: Abdominal pain, nausea and elevated liver enzymes. COMPARISON: None. FINDINGS: 5.5 mCi technetium 99m Choletec was administered intravenously. Scintigraphic images of the abdomen are obtained through 60 minutes. These demonstrate clearance of activity from the blood pool. Hepatic uptake is homogeneous without clear focal lesions. There is excretion into the gallbladder and common duct. No clear small bowel activity is yet detectable within the study. No ejection fraction calculation was requested. IMPRESSION: 1. No evidence of acute cholecystitis. Neck side 2. Activity has not yet cleared into the small bowel through 60 minutes. An incidental finding is favored over biliary obstruction. Correlate clinically.
[2016-11-12] MEDS ORDERED: ALBUMIN HUMAN 25% 200 ML IV ONE (12:45)
--- NOTE | 2016-11-12 14:16 | PDOC ---
Dialysis Progress Note Dialysis Note Dialysis Note Seen on Hemodialysis, tolerating treatment OK so far; remains on BiPAP and on Levophed Vitals on Hemodialysis: 113/53 65 General Appearance: Awake: Alert Oriented x 2-3 on BiPAP Neck: No JVD or JVP Chest: CTA Jose Elias - few rales Heart: S1 S2 Abdomen - Soft NTND Extremities - No Edema ARF/ ATN : Dialysis as below F 180 NR 3.0 Hrs 3 K 2.5 Ca 140 Na 30 HC03 Qb 350 + Qd 500+ Heparin 0 Units Uf 2-3 Kgs or to dry weight as tolerated May give 25-50 gms of 25% Albumin if needed to maintain Hemodynamic stability Treatment plan reviewed and discussed with sustainability project coordinator Vitals Vital Signs Vital Signs Date Time Temp Pulse Resp B/P Pulse Ox O2 Delivery O2 Flow Rate FiO2 11/12/16 13:00 97.6 66 106/49 96 BiPAP/CPAP 97.6 11/12/16 08:00 10.0 11/12/16 07:00 24 Labs Last Labs Laboratory Tests Test 11/10/16 17:24 11/11/16 05:00 11/11/16 12:35 11/11/16 15:02 Glucose (Fingerstick) 149mg/dL (70-99) 201mg/dL (70-99) White Blood Count 13.5x10^3/uL (4.0-11.0) Red Blood Count 3.22x10^6/uL (4.30-5.70) Hemoglobin 9.8g/dL (13.0-17.5) Hematocrit 31.7% (39.0-53.0) Mean Corpuscular Volume 99fL (79-100) Mean Corpuscular Hemoglobin 30pg (25-35) Mean Corpuscular Hemoglobin Concent 31g/dL (31-37) Red Cell Distribution Width 15.1% (11.5-14.5) Platelet Count 94x10^3/uL (140-400) Neutrophils (%) (Auto) 78% (31-73) Lymphocytes (%) (Auto) 15% (24-48) Monocytes (%) (Auto) 7% (0-9) Eosinophils (%) (Auto) 0% (0-3) Basophils (%) (Auto) 0% (0-3) Neutrophils # (Auto) 10.5x10^3uL (1.8-7.7) Lymphocytes # (Auto) 2.0x10^3/uL (1.0-4.8) Monocytes # (Auto) 1.0x10^3/uL (0.0-1.1) Eosinophils # (Auto) 0.0x10^3/uL (0.0-0.7) Basophils # (Auto) 0.0x10^3/uL (0.0-0.2) Sodium Level 141mmol/L (136-145) Potassium Level 6.3mmol/L (3.5-5.1) Chloride Level 104mmol/L (98-107) Carbon Dioxide Level 29mmol/L (21-32) Anion Gap 8 (6-14) Blood Urea Nitrogen 67mg/dL (8-26) Creatinine 3.0mg/dL (0.7-1.3) Estimated GFR (Cockcroft-Gault) 20.2 BUN/Creatinine Ratio 22 (6-20) Glucose Level 179mg/dL (70-99) Lactic Acid Level 2.9mmol/L (0.4-2.0) Calcium Level 8.6mg/dL (8.5-10.1) Phosphorus Level 7.6mg/dL (2.6-4.7) Magnesium Level 2.4mg/dL (1.8-2.4) Total Bilirubin 1.2mg/dL (0.2-1.0) Direct Bilirubin 0.6mg/dL (0.0-0.2) Aspartate Amino Transf (AST/SGOT) 1507U/L (15-37) Alanine Aminotransferase (ALT/SGPT) 1304U/L (16-63) Alkaline Phosphatase 99U/L (46-116) Total Protein 6.1g/dL (6.4-8.2) Albumin 2.7g/dL (3.4-5.0) Albumin/Globulin Ratio 0.8 (1.0-1.7) Acetaminophen Level < 2mcg/ml (10-30) Acetaminophen Last Dose Date Acetaminophen Last Dose Time Test 11/11/16 15:35 11/11/16 17:20 11/11/16 20:32 11/11/16 21:46 Sodium Level 143mmol/L (136-145) Potassium Level 5.1mmol/L (3.5-5.1) Chloride Level 104mmol/L (98-107) Carbon Dioxide Level 30mmol/L (21-32) Anion Gap 9 (6-14) Blood Urea Nitrogen 74mg/dL (8-26) Creatinine 3.2mg/dL (0.7-1.3) Estimated GFR (Cockcroft-Gault) 18.7 Glucose Level 226mg/dL (70-99) Calcium Level 8.5mg/dL (8.5-10.1) Glucose (Fingerstick) 190mg/dL (70-99) 185mg/dL (70-99) O2 Saturation 81% (92-99) Arterial Blood pH 7.21 (7.35-7.45) Arterial Blood pCO2 at Patient Temp 76mmHg (35-46) Arterial Blood pO2 at Patient Temp 50mmHg (65-108) Arterial Blood HCO3 30mmol/L (21-28) Arterial Blood Base Excess 0mmol/L (-3-3) FiO2 40 Test 11/11/16 22:45 11/12/16 03:52 11/12/16 06:37 11/12/16 07:50 Sodium Level 145mmol/L (136-145) 145mmol/L (136-145) Potassium Level 5.0mmol/L (3.5-5.1) 4.7mmol/L (3.5-5.1) Chloride Level 104mmol/L (98-107) 104mmol/L (98-107) Carbon Dioxide Level 30mmol/L (21-32) 30mmol/L (21-32) Anion Gap 11 (6-14) 11 (6-14) Blood Urea Nitrogen 76mg/dL (8-26) 79mg/dL (8-26) Creatinine 3.4mg/dL (0.7-1.3) 3.4mg/dL (0.7-1.3) Estimated GFR (Cockcroft-Gault) 17.5 17.5 Glucose Level 209mg/dL (70-99) 211mg/dL (70-99) Calcium Level 8.4mg/dL (8.5-10.1) 8.6mg/dL (8.5-10.1) O2 Saturation 98% (92-99) Arterial Blood pH 7.24 (7.35-7.45) Arterial Blood pCO2 at Patient Temp 70mmHg (35-46) Arterial Blood pO2 at Patient Temp 120mmHg (65-108) Arterial Blood HCO3 29mmol/L (21-28) Arterial Blood Base Excess 0mmol/L (-3-3) White Blood Count 10.2x10^3/uL (4.0-11.0) Red Blood Count 3.30x10^6/uL (4.30-5.70) Hemoglobin 10.2g/dL (13.0-17.5) Hematocrit 32.7% (39.0-53.0) Mean Corpuscular Volume 99fL (79-100) Mean Corpuscular Hemoglobin 31pg (25-35) Mean Corpuscular Hemoglobin Concent 31g/dL (31-37) Red Cell Distribution Width 15.3% (11.5-14.5) Platelet Count 61x10^3/uL (140-400) Neutrophils (%) (Auto) 90% (31-73) Lymphocytes (%) (Auto) 8% (24-48) Monocytes (%) (Auto) 2% (0-9) Eosinophils (%) (Auto) 0% (0-3) Basophils (%) (Auto) 0% (0-3) Neutrophils # (Auto) 9.2x10^3uL (1.8-7.7) Lymphocytes # (Auto) 0.8x10^3/uL (1.0-4.8) Monocytes # (Auto) 0.2x10^3/uL (0.0-1.1) Eosinophils # (Auto) 0.0x10^3/uL (0.0-0.7) Basophils # (Auto) 0.0x10^3/uL (0.0-0.2) Segmented Neutrophils % 94% (35-66) Band Neutrophils % 3% (0-9) Lymphocytes % 3% (24-48) Nucleated Red Blood Cells 4 Platelet Estimate Decreased (ADEQUATE) Poikilocytosis Slight Basophilic Stippling Present Anisocytosis Slight Prothrombin Time 30.4SEC (11.7-14.0) Prothromb Time International Ratio 3.1 (0.8-1.1) Phosphorus Level 7.7mg/dL (2.6-4.7) Magnesium Level 2.4mg/dL (1.8-2.4) Total Bilirubin 1.3mg/dL (0.2-1.0) Direct Bilirubin 0.6mg/dL (0.0-0.2) Aspartate Amino Transf (AST/SGOT) 1844U/L (15-37) Alanine Aminotransferase (ALT/SGPT) 1678U/L (16-63) Alkaline Phosphatase 96U/L (46-116) Troponin I Quantitative 0.086ng/mL (0.000-0.055) WN-Ehv-U-Type Natriuretic Peptide > 69905ss/mL (0-449) Total Protein 6.0g/dL (6.4-8.2) Albumin 2.6g/dL (3.4-5.0) Lactic Acid Level 2.4mmol/L (0.4-2.0) Test 11/12/16 09:11 11/12/16 12:31 Glucose (Fingerstick) 196mg/dL (70-99) 203mg/dL (70-99) Laboratory Tests Test 11/11/16 15:02 11/11/16 15:35 11/11/16 17:20 11/11/16 20:32 Acetaminophen Level < 2mcg/ml (10-30) Acetaminophen Last Dose Date Acetaminophen Last Dose Time Sodium Level 143mmol/L (136-145) Potassium Level 5.1mmol/L (3.5-5.1) Chloride Level 104mmol/L (98-107) Carbon Dioxide Level 30mmol/L (21-32) Anion Gap 9 (6-14) Blood Urea Nitrogen 74mg/dL (8-26) Creatinine 3.2mg/dL (0.7-1.3) Estimated GFR (Cockcroft-Gault) 18.7 Glucose Level 226mg/dL (70-99) Calcium Level 8.5mg/dL (8.5-10.1) Glucose (Fingerstick) 190mg/dL (70-99) 185mg/dL (70-99) Test 11/11/16 21:46 11/11/16 22:45 11/12/16 03:52 11/12/16 06:37 O2 Saturation 81% (92-99) 98% (92-99) Arterial Blood pH 7.21 (7.35-7.45) 7.24 (7.35-7.45) Arterial Blood pCO2 at Patient Temp 76mmHg (35-46) 70mmHg (35-46) Arterial Blood pO2 at Patient Temp 50mmHg (65-108) 120mmHg (65-108) Arterial Blood HCO3 30mmol/L (21-28) 29mmol/L (21-28) Arterial Blood Base Excess 0mmol/L (-3-3) 0mmol/L (-3-3) FiO2 40 Sodium Level 145mmol/L (136-145) 145mmol/L (136-145) Potassium Level 5.0mmol/L (3.5-5.1) 4.7mmol/L (3.5-5.1) Chloride Level 104mmol/L (98-107) 104mmol/L (98-107) Carbon Dioxide Level 30mmol/L (21-32) 30mmol/L (21-32) Anion Gap 11 (6-14) 11 (6-14) Blood Urea Nitrogen 76mg/dL (8-26) 79mg/dL (8-26) Creatinine 3.4mg/dL (0.7-1.3) 3.4mg/dL (0.7-1.3) Estimated GFR (Cockcroft-Gault) 17.5 17.5 Glucose Level 209mg/dL (70-99) 211mg/dL (70-99) Calcium Level 8.4mg/dL (8.5-10.1) 8.6mg/dL (8.5-10.1) White Blood Count 10.2x10^3/uL (4.0-11.0) Red Blood Count 3.30x10^6/uL (4.30-5.70) Hemoglobin 10.2g/dL (13.0-17.5) Hematocrit 32.7% (39.0-53.0) Mean Corpuscular Volume 99fL (79-100) Mean Corpuscular Hemoglobin 31pg (25-35) Mean Corpuscular Hemoglobin Concent 31g/dL (31-37) Red Cell Distribution Width 15.3% (11.5-14.5) Platelet Count 61x10^3/uL (140-400) Neutrophils (%) (Auto) 90% (31-73) Lymphocytes (%) (Auto) 8% (24-48) Monocytes (%) (Auto) 2% (0-9) Eosinophils (%) (Auto) 0% (0-3) Basophils (%) (Auto) 0% (0-3) Neutrophils # (Auto) 9.2x10^3uL (1.8-7.7) Lymphocytes # (Auto) 0.8x10^3/uL (1.0-4.8) Monocytes # (Auto) 0.2x10^3/uL (0.0-1.1) Eosinophils # (Auto) 0.0x10^3/uL (0.0-0.7) Basophils # (Auto) 0.0x10^3/uL (0.0-0.2) Segmented Neutrophils % 94% (35-66) Band Neutrophils % 3% (0-9) Lymphocytes % 3% (24-48) Nucleated Red Blood Cells 4 Platelet Estimate Decreased (ADEQUATE) Poikilocytosis Slight Basophilic Stippling Present Anisocytosis Slight Prothrombin Time 30.4SEC (11.7-14.0) Prothromb Time International Ratio 3.1 (0.8-1.1) Phosphorus Level 7.7mg/dL (2.6-4.7) Magnesium Level 2.4mg/dL (1.8-2.4) Total Bilirubin 1.3mg/dL (0.2-1.0) Direct Bilirubin 0.6mg/dL (0.0-0.2) Aspartate Amino Transf (AST/SGOT) 1844U/L (15-37) Alanine Aminotransferase (ALT/SGPT) 1678U/L (16-63) Alkaline Phosphatase 96U/L (46-116) Troponin I Quantitative 0.086ng/mL (0.000-0.055) YM-Gfb-O-Type Natriuretic Peptide > 50505vc/mL (0-449) Total Protein 6.0g/dL (6.4-8.2) Albumin 2.6g/dL (3.4-5.0) Test 11/12/16 07:50 11/12/16 09:11 11/12/16 12:31 Lactic Acid Level 2.4mmol/L (0.4-2.0) Glucose (Fingerstick) 196mg/dL (70-99) 203mg/dL (70-99) Assessment Assessment Problems Medical Problems: (1) ECG abnormal Status: Acute (2) Hyperkalemia Status: Acute (3) Hypotension Status: Acute (4) Renal failure Status: Acute Problems: Plan Plan of Care Problems Medical Problems: (1) ECG abnormal Status: Acute (2) Hyperkalemia Status: Acute (3) Hypotension Status: Acute (4) Renal failure Status: Acute RENETTA FRAIRE MD Nov 12, 2016 14:16
--- NOTE | 2016-11-12 15:03 | PDOC ---
PULMONARY PROGRESS NOTES Vitals Vital Signs Date Time Temp Pulse Resp B/P Pulse Ox O2 Delivery O2 Flow Rate FiO2 11/12/16 14:00 116/54 11/12/16 14:00 65 30 96 BiPAP/CPAP 11/12/16 13:00 97.6 97.6 11/12/16 08:00 10.0 General: Alert, No acute distress Lungs: Clear, Other (bl decreased bs with mild rales) Cardiovascular: S1, S2 Abdomen: Soft, Non-tender, Other Extremities: No Edema Labs Laboratory Tests Test 11/10/16 17:24 11/11/16 05:00 11/11/16 12:35 11/11/16 15:02 Glucose (Fingerstick) 149mg/dL (70-99) 201mg/dL (70-99) White Blood Count 13.5x10^3/uL (4.0-11.0) Red Blood Count 3.22x10^6/uL (4.30-5.70) Hemoglobin 9.8g/dL (13.0-17.5) Hematocrit 31.7% (39.0-53.0) Mean Corpuscular Volume 99fL (79-100) Mean Corpuscular Hemoglobin 30pg (25-35) Mean Corpuscular Hemoglobin Concent 31g/dL (31-37) Red Cell Distribution Width 15.1% (11.5-14.5) Platelet Count 94x10^3/uL (140-400) Neutrophils (%) (Auto) 78% (31-73) Lymphocytes (%) (Auto) 15% (24-48) Monocytes (%) (Auto) 7% (0-9) Eosinophils (%) (Auto) 0% (0-3) Basophils (%) (Auto) 0% (0-3) Neutrophils # (Auto) 10.5x10^3uL (1.8-7.7) Lymphocytes # (Auto) 2.0x10^3/uL (1.0-4.8) Monocytes # (Auto) 1.0x10^3/uL (0.0-1.1) Eosinophils # (Auto) 0.0x10^3/uL (0.0-0.7) Basophils # (Auto) 0.0x10^3/uL (0.0-0.2) Sodium Level 141mmol/L (136-145) Potassium Level 6.3mmol/L (3.5-5.1) Chloride Level 104mmol/L (98-107) Carbon Dioxide Level 29mmol/L (21-32) Anion Gap 8 (6-14) Blood Urea Nitrogen 67mg/dL (8-26) Creatinine 3.0mg/dL (0.7-1.3) Estimated GFR (Cockcroft-Gault) 20.2 BUN/Creatinine Ratio 22 (6-20) Glucose Level 179mg/dL (70-99) Lactic Acid Level 2.9mmol/L (0.4-2.0) Calcium Level 8.6mg/dL (8.5-10.1) Phosphorus Level 7.6mg/dL (2.6-4.7) Magnesium Level 2.4mg/dL (1.8-2.4) Total Bilirubin 1.2mg/dL (0.2-1.0) Direct Bilirubin 0.6mg/dL (0.0-0.2) Aspartate Amino Transf (AST/SGOT) 1507U/L (15-37) Alanine Aminotransferase (ALT/SGPT) 1304U/L (16-63) Alkaline Phosphatase 99U/L (46-116) Total Protein 6.1g/dL (6.4-8.2) Albumin 2.7g/dL (3.4-5.0) Albumin/Globulin Ratio 0.8 (1.0-1.7) Acetaminophen Level < 2mcg/ml (10-30) Acetaminophen Last Dose Date Acetaminophen Last Dose Time Test 11/11/16 15:35 11/11/16 17:20 11/11/16 20:32 11/11/16 21:46 Sodium Level 143mmol/L (136-145) Potassium Level 5.1mmol/L (3.5-5.1) Chloride Level 104mmol/L (98-107) Carbon Dioxide Level 30mmol/L (21-32) Anion Gap 9 (6-14) Blood Urea Nitrogen 74mg/dL (8-26) Creatinine 3.2mg/dL (0.7-1.3) Estimated GFR (Cockcroft-Gault) 18.7 Glucose Level 226mg/dL (70-99) Calcium Level 8.5mg/dL (8.5-10.1) Glucose (Fingerstick) 190mg/dL (70-99) 185mg/dL (70-99) O2 Saturation 81% (92-99) Arterial Blood pH 7.21 (7.35-7.45) Arterial Blood pCO2 at Patient Temp 76mmHg (35-46) Arterial Blood pO2 at Patient Temp 50mmHg (65-108) Arterial Blood HCO3 30mmol/L (21-28) Arterial Blood Base Excess 0mmol/L (-3-3) FiO2 40 Test 11/11/16 22:45 11/12/16 03:52 11/12/16 06:37 11/12/16 07:50 Sodium Level 145mmol/L (136-145) 145mmol/L (136-145) Potassium Level 5.0mmol/L (3.5-5.1) 4.7mmol/L (3.5-5.1) Chloride Level 104mmol/L (98-107) 104mmol/L (98-107) Carbon Dioxide Level 30mmol/L (21-32) 30mmol/L (21-32) Anion Gap 11 (6-14) 11 (6-14) Blood Urea Nitrogen 76mg/dL (8-26) 79mg/dL (8-26) Creatinine 3.4mg/dL (0.7-1.3) 3.4mg/dL (0.7-1.3) Estimated GFR (Cockcroft-Gault) 17.5 17.5 Glucose Level 209mg/dL (70-99) 211mg/dL (70-99) Calcium Level 8.4mg/dL (8.5-10.1) 8.6mg/dL (8.5-10.1) O2 Saturation 98% (92-99) Arterial Blood pH 7.24 (7.35-7.45) Arterial Blood pCO2 at Patient Temp 70mmHg (35-46) Arterial Blood pO2 at Patient Temp 120mmHg (65-108) Arterial Blood HCO3 29mmol/L (21-28) Arterial Blood Base Excess 0mmol/L (-3-3) White Blood Count 10.2x10^3/uL (4.0-11.0) Red Blood Count 3.30x10^6/uL (4.30-5.70) Hemoglobin 10.2g/dL (13.0-17.5) Hematocrit 32.7% (39.0-53.0) Mean Corpuscular Volume 99fL (79-100) Mean Corpuscular Hemoglobin 31pg (25-35) Mean Corpuscular Hemoglobin Concent 31g/dL (31-37) Red Cell Distribution Width 15.3% (11.5-14.5) Platelet Count 61x10^3/uL (140-400) Neutrophils (%) (Auto) 90% (31-73) Lymphocytes (%) (Auto) 8% (24-48) Monocytes (%) (Auto) 2% (0-9) Eosinophils (%) (Auto) 0% (0-3) Basophils (%) (Auto) 0% (0-3) Neutrophils # (Auto) 9.2x10^3uL (1.8-7.7) Lymphocytes # (Auto) 0.8x10^3/uL (1.0-4.8) Monocytes # (Auto) 0.2x10^3/uL (0.0-1.1) Eosinophils # (Auto) 0.0x10^3/uL (0.0-0.7) Basophils # (Auto) 0.0x10^3/uL (0.0-0.2) Segmented Neutrophils % 94% (35-66) Band Neutrophils % 3% (0-9) Lymphocytes % 3% (24-48) Nucleated Red Blood Cells 4 Platelet Estimate Decreased (ADEQUATE) Poikilocytosis Slight Basophilic Stippling Present Anisocytosis Slight Prothrombin Time 30.4SEC (11.7-14.0) Prothromb Time International Ratio 3.1 (0.8-1.1) Phosphorus Level 7.7mg/dL (2.6-4.7) Magnesium Level 2.4mg/dL (1.8-2.4) Total Bilirubin 1.3mg/dL (0.2-1.0) Direct Bilirubin 0.6mg/dL (0.0-0.2) Aspartate Amino Transf (AST/SGOT) 1844U/L (15-37) Alanine Aminotransferase (ALT/SGPT) 1678U/L (16-63) Alkaline Phosphatase 96U/L (46-116) Troponin I Quantitative 0.086ng/mL (0.000-0.055) IE-Kqa-V-Type Natriuretic Peptide > 29161wv/mL (0-449) Total Protein 6.0g/dL (6.4-8.2) Albumin 2.6g/dL (3.4-5.0) Lactic Acid Level 2.4mmol/L (0.4-2.0) Test 11/12/16 09:11 11/12/16 12:31 Glucose (Fingerstick) 196mg/dL (70-99) 203mg/dL (70-99) Laboratory Tests Test 11/11/16 15:35 11/11/16 17:20 11/11/16 20:32 11/11/16 21:46 Sodium Level 143mmol/L (136-145) Potassium Level 5.1mmol/L (3.5-5.1) Chloride Level 104mmol/L (98-107) Carbon Dioxide Level 30mmol/L (21-32) Anion Gap 9 (6-14) Blood Urea Nitrogen 74mg/dL (8-26) Creatinine 3.2mg/dL (0.7-1.3) Estimated GFR (Cockcroft-Gault) 18.7 Glucose Level 226mg/dL (70-99) Calcium Level 8.5mg/dL (8.5-10.1) Glucose (Fingerstick) 190mg/dL (70-99) 185mg/dL (70-99) O2 Saturation 81% (92-99) Arterial Blood pH 7.21 (7.35-7.45) Arterial Blood pCO2 at Patient Temp 76mmHg (35-46) Arterial Blood pO2 at Patient Temp 50mmHg (65-108) Arterial Blood HCO3 30mmol/L (21-28) Arterial Blood Base Excess 0mmol/L (-3-3) FiO2 40 Test 11/11/16 22:45 11/12/16 03:52 11/12/16 06:37 11/12/16 07:50 Sodium Level 145mmol/L (136-145) 145mmol/L (136-145) Potassium Level 5.0mmol/L (3.5-5.1) 4.7mmol/L (3.5-5.1) Chloride Level 104mmol/L (98-107) 104mmol/L (98-107) Carbon Dioxide Level 30mmol/L (21-32) 30mmol/L (21-32) Anion Gap 11 (6-14) 11 (6-14) Blood Urea Nitrogen 76mg/dL (8-26) 79mg/dL (8-26) Creatinine 3.4mg/dL (0.7-1.3) 3.4mg/dL (0.7-1.3) Estimated GFR (Cockcroft-Gault) 17.5 17.5 Glucose Level 209mg/dL (70-99) 211mg/dL (70-99) Calcium Level 8.4mg/dL (8.5-10.1) 8.6mg/dL (8.5-10.1) O2 Saturation 98% (92-99) Arterial Blood pH 7.24 (7.35-7.45) Arterial Blood pCO2 at Patient Temp 70mmHg (35-46) Arterial Blood pO2 at Patient Temp 120mmHg (65-108) Arterial Blood HCO3 29mmol/L (21-28) Arterial Blood Base Excess 0mmol/L (-3-3) White Blood Count 10.2x10^3/uL (4.0-11.0) Red Blood Count 3.30x10^6/uL (4.30-5.70) Hemoglobin 10.2g/dL (13.0-17.5) Hematocrit 32.7% (39.0-53.0) Mean Corpuscular Volume 99fL (79-100) Mean Corpuscular Hemoglobin 31pg (25-35) Mean Corpuscular Hemoglobin Concent 31g/dL (31-37) Red Cell Distribution Width 15.3% (11.5-14.5) Platelet Count 61x10^3/uL (140-400) Neutrophils (%) (Auto) 90% (31-73) Lymphocytes (%) (Auto) 8% (24-48) Monocytes (%) (Auto) 2% (0-9) Eosinophils (%) (Auto) 0% (0-3) Basophils (%) (Auto) 0% (0-3) Neutrophils # (Auto) 9.2x10^3uL (1.8-7.7) Lymphocytes # (Auto) 0.8x10^3/uL (1.0-4.8) Monocytes # (Auto) 0.2x10^3/uL (0.0-1.1) Eosinophils # (Auto) 0.0x10^3/uL (0.0-0.7) Basophils # (Auto) 0.0x10^3/uL (0.0-0.2) Segmented Neutrophils % 94% (35-66) Band Neutrophils % 3% (0-9) Lymphocytes % 3% (24-48) Nucleated Red Blood Cells 4 Platelet Estimate Decreased (ADEQUATE) Poikilocytosis Slight Basophilic Stippling Present Anisocytosis Slight Prothrombin Time 30.4SEC (11.7-14.0) Prothromb Time International Ratio 3.1 (0.8-1.1) Phosphorus Level 7.7mg/dL (2.6-4.7) Magnesium Level 2.4mg/dL (1.8-2.4) Total Bilirubin 1.3mg/dL (0.2-1.0) Direct Bilirubin 0.6mg/dL (0.0-0.2) Aspartate Amino Transf (AST/SGOT) 1844U/L (15-37) Alanine Aminotransferase (ALT/SGPT) 1678U/L (16-63) Alkaline Phosphatase 96U/L (46-116) Troponin I Quantitative 0.086ng/mL (0.000-0.055) ST-Pbt-A-Type Natriuretic Peptide > 59282kr/mL (0-449) Total Protein 6.0g/dL (6.4-8.2) Albumin 2.6g/dL (3.4-5.0) Lactic Acid Level 2.4mmol/L (0.4-2.0) Test 11/12/16 09:11 11/12/16 12:31 Glucose (Fingerstick) 196mg/dL (70-99) 203mg/dL (70-99) Medications Active Scripts Medications Dose Route/Sig Days Date Category Carvedilol 3.125 Mg Tablet 3.125 Mg PO BIDWMEALS 09/26/16 Rx Fish Oil + Vitamin D-3 Softgel (Om-3/Dha/Epa/Fish Oil/Vit D3) 1 Each Capsule 1 Each PO 05/11/15 Reported Vitamin D (Cholecalciferol (Vitamin D3)) 1,000 Unit Capsule 1,000 Unit PO DAILY 05/11/15 Reported Klor-Con 10 (Potassium Chloride) 10 Meq Tablet.er 2 Tab PO DAILY 05/11/15 Reported Lasix (Furosemide) 20 Mg Tablet 10 Mg PO DAILY 05/11/15 Reported Aspir 81 (Aspirin) 81 Mg Tablet.dr 81 Mg PO 05/11/15 Reported Cozaar (Losartan Potassium) 50 Mg Tablet 50 Mg PO DAILY 05/11/15 Reported Amaryl (Glimepiride) 4 Mg Tablet 4 Mg PO DAILY 05/11/15 Reported Metformin Hcl 1,000 Mg Tablet 1,000 Mg PO BIDAC 05/11/15 Reported Impression . FULL CONSULT DICTATED 968024 A/C RESP FAILURE SEC TO A/C HEART FAILURE AND SEPSIS JEFFERY VERNON MD Nov 12, 2016 15:03
--- NOTE | 2016-11-12 16:12 | RAD ---
Bedside ultrasound guided Central venous catheter insertion Bedside ultrasound-guided temporary dialysis catheter insertion Indication: 81-year-old male respiratory failure, hypotension, acute kidney injury/ATN requiring hemodialysis, metabolic acidosis, hyperkalemia, and poor peripheral IV access. Bedside ultrasound-guided insertion of temporary hemodialysis catheter and central venous catheter has been requested. Sterility: All elements of maximal sterile barrier technique were utilized, including cap, mask, sterile gown, sterile gloves, large sterile sheet, appropriate hand hygiene, and 2% chlorhexidine for cutaneous antisepsis. Anesthesia: Local only Procedure: Informed consent was obtained from the patient's daughter. These procedures performed bedside in the intensive care unit. No conscious sedation was utilized. Central venous catheter insertion: Preliminary ultrasound examination revealed wide patency of right internal jugular vein. This was documented with a single hard copy ultrasound image. Right neck was then prepped and draped in the usual sterile fashion, utilizing all elements of maximal sterile barrier technique, as described above. Using aseptic technique, local anesthesia, direct ultrasound guidance, and the micropuncture system, successful percutaneous entry was achieved into right internal jugular vein. The right IJ venostomy tract was then dilated and a 7 [place] triple lumen 20 cm power injectable central venous line was easily advanced centrally over an angiographic guidewire. The central venous catheter was demonstrated to flush and aspirate normally and was secured at the right neck exit site utilizing suture and sterile dressing. Temporary dialysis catheter insertion: Preliminary ultrasound examination was again performed over right neck, demonstrating continued patency of right internal jugular vein. This was again documented with a single hard copy ultrasound image. Right neck had been previously prepped and draped (for the CVC insertion procedure) in the usual sterile fashion, utilizing all elements of maximal sterile barrier technique, as described above. Using aseptic technique, local anesthesia, direct ultrasound guidance, and the micropuncture system, successful percutaneous entry was again achieved into right internal jugular vein, taking care to avoid the previously placed central venous catheter. The right IJ venostomy tract was then dilated, and a 14 [place] 20 cm temporary hemodialysis catheter was easily advanced centrally over an angiographic guidewire. The catheter was demonstrated to flush and aspirate normally, was packed, and was secured at the right neck exit site utilizing suture and sterile dressing. Patient tolerated the procedures well without apparent complication. A stat portable chest x-ray was requested for central venous catheter position and temporary dialysis catheter position. Impression: 1. Successful, uneventful ultrasound-guided insertion of right IJ 7 [place] triple lumen 20 cm power injectable central venous catheter, bedside in the intensive care unit, as described. 2. Successful, uneventful ultrasound-guided insertion of right IJ 14 [place] 20 cm temporary hemodialysis catheter, bedside in the intensive care unit, as described.
--- NOTE | 2016-11-12 17:57 | CONS ---
DATE OF CONSULTATION: 11/11/2016 GASTROINTESTINAL CONSULTATION REQUESTING PHYSICIAN: Dr. Mcbride PRIMARY CARE PHYSICIAN: Dr. Tor Colin REASON FOR CONSULTATION: Abnormal gallbladder studies. HISTORY OF PRESENT ILLNESS: This is an 81-year-old gentleman who was admitted to [facility] on 11/10/2016 complaining of left-sided pain after he was found asleep in his wheelchair. He reports that he was waiting for his to have dinner and fell out of the wheelchair. This occurred on 11/09/2016. He was admitted to [facility] for further evaluation. He did undergo imaging, which included a chest CT that showed some bilateral pleural effusion with atelectasis and a question of pulmonary artery hypertension. There is also cardiomegaly noted. Inflammation was seen near the gallbladder. He subsequently underwent an abdominal ultrasound that showed a thickened gallbladder wall to 5 mm. He was also found to have bilateral renal cyst and hepatomegaly. CT of the abdomen and pelvis demonstrated bilateral perinephric stranding. His laboratory values are significant for an elevated white blood cell count that was initially 12.7, is currently 13.5. His hemoglobin low at 9.8 with an MCV of 99. His chemistries initially showed elevated liver function tests with an AST at 1041 and ALT at 674 and alk phos of 118 with low lipase at 49. His uric acid was elevated at 12.4 and his lactic acid was initially 2 and coco to 2.5. His CK was 52 and normal. His potassium remained elevated and today his liver function tests demonstrate an elevated bilirubin at 1.2 with an AST of 1507 and ALT of 1304 and alk phos normal at 99. PAST MEDICAL HISTORY: Significant for, 1. Enterococcal sepsis. 2. Coronary artery disease. 3. Heart failure. 4. Diabetes. 5. Hyperlipidemia. 6. Hypertension. 7. Obesity. 8. Pacemaker placement. 9. Aortic valve replacement. 10. Atrial fibrillation. 11. Cholelithiasis. 12. Chronic kidney disease. 13. BPH. 14. COPD. 15. Pneumonia. 16. Appendectomy. 17. PICC line placement. ALLERGIES: No known drug allergies. REVIEW OF SYSTEMS: Positive as per HPI, but otherwise 13-point review of systems is negative. SOCIAL HISTORY: He has a prior history of tobacco, but denies any alcohol or IV drug abuse. FAMILY MEDICAL HISTORY: He denies colon cancer. HOME MEDICATIONS: 1. Tylenol. 2. Aspirin. 3. Dextrose. 4. Vibra-Tabs. 5. Fentanyl. 6. Insulin. 7. Linezolid. 8. Magnesium. 9. Norepinephrine. 10. Zofran. 11. Protonix. 12. Zosyn. 13. ____. AMBULATORY MEDICATIONS: Include, 1. Aspirin. 2. Carvedilol. 3. Vitamin D. 4. Lasix. 5. Glimepiride. 6. Losartan. 7. Metformin. 8. Potassium. 9. Fish oil. PHYSICAL EXAMINATION: VITAL SIGNS: Blood pressure was 108/45, heart rate 62 and temperature was 97.9. GENERAL: He is a well-developed male, in no apparent distress. HEENT: He is wearing an oxygen face mask. CARDIOVASCULAR: S1 and S2 without murmur. LUNGS: Have decreased breath sounds anteriorly. ABDOMEN: He has got normoactive bowel sounds. Soft and tender to palpation in his left upper quadrant. EXTREMITIES: No edema. NEUROLOGIC: He is awake, alert and oriented. LABORATORY VALUES: Currently his sodium is 141, potassium 6.3. Bilirubin is 0.2. AST is 1507, ALT 1304. CBC with the white blood cell count of 13.5, hemoglobin of 9.8, MCV of 99 and platelets are at 94. IMAGING: As per HPI. ASSESSMENT AND PLAN: 1. Elevated liver function tests. His AST and ALT have crossed the thousand sandie. This is likely secondary to rhabdomyolysis versus Tylenol toxicity versus possible autoimmune liver disease versus less likely gallbladder disease. At this time, I will go ahead and check a hepatitis profile with Tylenol level and RISA with an ASMA for further evaluation. His imaging showed a thickened gallbladder wall. In the setting of normal alkaline phosphatase, I do not think that he has got gallbladder disease. We will go ahead and order ____ for further evaluation. We will await these studies for further evaluation. 2. Left upper quadrant pain. This is likely secondary due to his fall. Imaging does not elucidate this any further. We will continue to monitor. He denies any recent diarrhea or constipation. 3. Anemia: Imaging does not suggest any sort of intraabdominal bleed. We will continue to monitor his labs. I favor checking B12 and folic acid given that his MCV is high normal. ____ also causes similar pattern. Thank you for allowing me and Dr. Javier to participate in the care of this patient. PEREZ GRIFFITHS MD DR: EDVIN/karuna JOB#: [id number] / [id number] RODGER Frankel MD, WILLIAM MD
[2016-11-12 20:09] LABS: HEP A IGM ABDY Negative (Negative)
[2016-11-12] MEDS: FENTANYL PF 100 MCG/2 ML VIAL. IV PRN (20:55)
[2016-11-13] VITALS (24 sets, daily range): BP systolic 89–108; BP diastolic 40–51
--- NOTE | 2016-11-13 02:24 | CONS ---
DATE OF CONSULTATION: 11/12/2016 ATTENDING PHYSICIAN: Dr. Mcbride. REASON FOR CONSULTATION: The patient is seen in pulmonary consultation at the request of Dr. Mcbride for [id number] respiratory failure, utilizing noninvasive ventilation. HISTORY OF PRESENT ILLNESS: The patient is an 81-year-old male with a history of type 2 diabetes, hypertension and COPD, presents with increasing shortness of breath. He normally is on 3-4 liters at home. He was at [facility]. He has had previous respiratory failure and fall. The patient was evaluated, came in with a chest x-ray in comparison to the previous x-ray, which revealed right lower lobe infiltrate, atelectasis, possibly effusion. He had a CT of the chest on 11/10/2016. I reviewed it. There are ground glass opacities, reticular nodular in nature, evidence of pulmonary hypertension with enlarged pulmonary arteries. Findings are compatible with CHF. The patient has acute renal failure and is currently undergoing hemodialysis. This is his first dialysis run. The patient denies fever, chills or productive cough. No chest pain or pressure. PAST MEDICAL HISTORY: Chronic AFib, coronary artery disease, chronic heart failure, hypertension, hyperlipidemia, COPD, previous pneumonia, chronic renal failure, benign prostatic hypertrophy. PAST SURGICAL HISTORY: Status post pacemaker implantation, appendectomy, coronary artery bypass grafting. FAMILY HISTORY: Diabetes and heart disease. SOCIAL HISTORY: The patient quit tobacco many years ago. REVIEW OF SYSTEMS: Unobtainable secondary to the patient's condition. CURRENT MEDICATION: List was reviewed. Please see the MRAD. He is currently receiving IV Zosyn. PHYSICAL EXAMINATION: GENERAL: On examination, the patient was undergoing hemodialysis. He was on BiPAP, awake, alert, following commands. He has been afebrile since his admission. HEENT: Eyes, the sclerae were nonicteric. NECK: Jugular venous distention could not be assessed secondary to body habitus. CHEST: Full expansion. LUNGS: Anteriorly were clear. CARDIOVASCULAR: Regular rate and rhythm with S1, S2, no S3, distant heart sounds. ABDOMEN: Soft and obese. EXTREMITIES: No clubbing, cyanosis or pitting edema. NEUROLOGIC: The patient was awake, alert, following commands. A detailed neuro exam was not performed. He was able to raise his leg off the bed without assistance. LABORATORY DATA: White count is normal. INR was 3.1. Electrolytes were noted to be deranged. BUN and creatinine were elevated. AST was elevated. ALT was elevated. Albumin was low. Toxicology screen, acetaminophen was negative. UA was positive for possible infection. Arterial blood gas initially pH of 7.21, PaCO2 of 76, pO2 of 50. Repeat arterial blood gas, 7.24, PaCO2 of 70, pO2 of 120. Chest x-ray and CT as indicated above. IMPRESSION: 1. [id number] hypoxemic, hypercapnic respiratory failure. 2. Hogyi-di-[id number], suspect diastolic, possibly systolic heart failure. 3. Acute renal failure, on hemodialysis. 4. Sepsis present upon admission, suspect secondary to urinary tract infection. 5. Elevated liver chemistries secondary to sepsis versus congestive liver. 6. Status post aortic valve replacement. 7. Post pacemaker implantation. 8. Chronic atrial fibrillation. 9. Moderate protein malnutrition present upon admission. PLAN: 1. Continue current BiPAP. Repeat arterial blood gas later today. 2. Antibiotics per ID. 3. Negative fluid balance with hemodialysis. 4. Follow GI input regarding abnormal LFTs. 5. Continue DVT and GI prophylaxis. 6. Initiate oral feedings for nutritional support. 7. Consult dietitian for protein malnutrition. I do appreciate the privilege in sharing in the patient's care. JEFFERY VERNON MD DR: ERNESTO/karuna JOB#: [id number] / [id number]
[2016-11-13] MEDS: PIPERACILLIN/TAZOBACTAM 2.25 GM in IV NORMAL SALINE 50ML 50 ML IV SCH ×4 (05:46→23:56)
[2016-11-13 06:18] LABS: BASO % 0 % (0-3); EOS % 0 % (0-3); HEMATOCRIT 31.4 % (39.0-53.0); HEMOGLOBIN 9.9 g/dL (13.0-17.5); LYMPH # 1.3 x10^3/uL (1.0-4.8); LYMPH % 10 % (24-48); MEAN CORPUSCULAR HEMOGLOBIN 31 pg (25-35); MEAN CORPUSCULAR HGB CONC 32 g/dL (31-37); MEAN CORPUSCULAR VOLUME 98 fL (79-100); MONO % 4 % (0-9); NEUT % 86 % (31-73); PLATELET COUNT 51 x10^3/uL (140-400); WHITE BLOOD COUNT 12.5 x10^3/uL (4.0-11.0)
[2016-11-13 06:44] LABS: ALBUMIN 2.9 g/dL (3.4-5.0); CALCIUM 8.7 mg/dL (8.5-10.1); CREATININE 2.9 mg/dL (0.7-1.3); PHOSPHORUS 5.1 mg/dL (2.6-4.7); POTASSIUM 4.2 mmol/L (3.5-5.1); TOTAL BILIRUBIN 1.4 mg/dL (0.2-1.0); TOTAL PROTEIN 5.8 g/dL (6.4-8.2)
--- NOTE | 2016-11-13 07:15 | PDOC ---
Infectious Disease Note Subjective Subjective States he is some better. But sleeps easily. Didn't sleep much per nursing ROS ROS GEN: Denies fevers, chills, sweats HEENT: Denies blurred vision, sore throat CV: Denies chest pain RESP: Denies shortness of air, cough GI: Denies n/v/d NEURO: Denies confusion, dizziness MSK: Denies weakness, joint pain/swelling Vital Sign Vital Signs Vital Signs Date Time Temp Pulse Resp B/P Pulse Ox O2 Delivery O2 Flow Rate FiO2 11/13/16 06:00 63 21 101/47 96 Nasal Cannula 10.0 11/13/16 04:00 97.5 97.5 Physical Exam PHYSICAL EXAM GENERAL: NAD, Awakens easily. Appears more comfortable HEENT: PERRL, OC/OP- dry NECK: Supple, no JVD, no LN LUNGS: Clear HEART: S1S2, no gallop, no murmur ABD: Soft, NT, no organomegaly, no rebound Dooley EXT: trace edema, no cyanosis SILVER MINER: Alert, oriented x 3, no focal neurologic deficit SKIN: No rash IV: IJ clean Labs Lab Laboratory Tests Test 11/12/16 07:50 11/12/16 09:11 11/12/16 12:31 11/12/16 17:38 Lactic Acid Level 2.4mmol/L (0.4-2.0) Glucose (Fingerstick) 196mg/dL (70-99) 203mg/dL (70-99) 148mg/dL (70-99) Test 11/13/16 03:19 11/13/16 05:45 Glucose (Fingerstick) 175mg/dL (70-99) White Blood Count 12.5x10^3/uL (4.0-11.0) Red Blood Count 3.20x10^6/uL (4.30-5.70) Hemoglobin 9.9g/dL (13.0-17.5) Hematocrit 31.4% (39.0-53.0) Mean Corpuscular Volume 98fL (79-100) Mean Corpuscular Hemoglobin 31pg (25-35) Mean Corpuscular Hemoglobin Concent 32g/dL (31-37) Red Cell Distribution Width 15.0% (11.5-14.5) Platelet Count 51x10^3/uL (140-400) Neutrophils (%) (Auto) 86% (31-73) Lymphocytes (%) (Auto) 10% (24-48) Monocytes (%) (Auto) 4% (0-9) Eosinophils (%) (Auto) 0% (0-3) Basophils (%) (Auto) 0% (0-3) Neutrophils # (Auto) 10.7x10^3uL (1.8-7.7) Lymphocytes # (Auto) 1.3x10^3/uL (1.0-4.8) Monocytes # (Auto) 0.6x10^3/uL (0.0-1.1) Eosinophils # (Auto) 0.0x10^3/uL (0.0-0.7) Basophils # (Auto) 0.0x10^3/uL (0.0-0.2) Sodium Level 143mmol/L (136-145) Potassium Level 4.2mmol/L (3.5-5.1) Chloride Level 103mmol/L (98-107) Carbon Dioxide Level 30mmol/L (21-32) Anion Gap 10 (6-14) Blood Urea Nitrogen 55mg/dL (8-26) Creatinine 2.9mg/dL (0.7-1.3) Estimated GFR (Cockcroft-Gault) 21.0 BUN/Creatinine Ratio 19 (6-20) Glucose Level 204mg/dL (70-99) Calcium Level 8.7mg/dL (8.5-10.1) Phosphorus Level 5.1mg/dL (2.6-4.7) Magnesium Level 2.0mg/dL (1.8-2.4) Total Bilirubin 1.4mg/dL (0.2-1.0) Aspartate Amino Transf (AST/SGOT) 402U/L (15-37) Alanine Aminotransferase (ALT/SGPT) 944U/L (16-63) Alkaline Phosphatase 75U/L (46-116) Total Protein 5.8g/dL (6.4-8.2) Albumin 2.9g/dL (3.4-5.0) Albumin/Globulin Ratio 1.0 (1.0-1.7) Objective Assessment Resp failure - better Encephalopathy -better Questionable sepsis present on admission. Hypotension - had improved Leukocytosis -increase ? reactive. Solumedrol dosed last pm Acute kidney injury - s/p HD Transaminitis, questionable secondary to sepsis versus congestion.- better. HIDA - neg Congestive heart failure. 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 JEROME was negative. Aortic valve replacement. Plan Plan of Care Cont Zyvox, Zosyn and doxy wean soon F/u lab and cults IDALIA BRAND MD Nov 13, 2016 07:15
[2016-11-13] MEDS: ASPIRIN ENTERIC COATED 81 MG TABLET.DR. PO SCH (07:39)
[2016-11-13] MEDS: PANTOPRAZOLE 40 MG TABLET. PO SCH (07:39)
[2016-11-13] MEDS: DOXYCYCLINE HYCLATE 100 MG TABLET PO SCH ×2 (07:39→21:45)
[2016-11-13] MEDS: INSULIN ASPART 300 UNITS/3 ML INSULN.PEN SQ SCH ×3 (07:41→12:04)
[2016-11-13] MEDS ORDERED: IV NORMAL SALINE 1000ML BAG 1,000 ML IV PRN ×2 (08:00)
[2016-11-13 08:12] LABS: HCO3 ABG 25 mmol/L (21-28); PCO2 ABG 49 mmHg (35-46); PH ABG 7.32 (7.35-7.45); PO2 ABG 74 mmHg (65-108); SAT O2 ABG 93 % (92-99)
--- NOTE | 2016-11-13 08:54 | PDOC ---
Dialysis Progress Note Dialysis Note Dialysis Note Seen on Hemodialysis, tolerating treatment OK so far; remains on BiPAP and on Levophed Vitals on Hemodialysis: 97/42 64 afeb General Appearance: Awake: Alert Oriented x 2-3 on BiPAP Neck: No JVD or JVP Chest: CTA Jose Elias - few rales Heart: S1 S2 Abdomen - Soft NTND Extremities - No Edema ARF/ ATN : Dialysis as below F 180 NR 3.0 Hrs 3 K 2.5 Ca 140 Na 35 HC03 Qb 350 + Qd 500+ Heparin 0 Units Uf 1-2 Kgs or to dry weight as tolerated May give 25-50 gms of 25% Albumin if needed to maintain Hemodynamic stability Treatment plan reviewed and discussed with reset merchandiser Will reval on HD due to tenous Hemodynamics and high O2 needs Vitals Vital Signs Vital Signs Date Time Temp Pulse Resp B/P Pulse Ox O2 Delivery O2 Flow Rate FiO2 11/13/16 08:00 Nasal Cannula 10.0 11/13/16 08:00 98.1 61 20 95/46 95 98.1 Labs Last Labs Laboratory Tests Test 11/11/16 12:35 11/11/16 15:02 11/11/16 15:35 11/11/16 17:20 Glucose (Fingerstick) 201mg/dL (70-99) 190mg/dL (70-99) Acetaminophen Level < 2mcg/ml (10-30) Acetaminophen Last Dose Date Acetaminophen Last Dose Time Sodium Level 143mmol/L (136-145) Potassium Level 5.1mmol/L (3.5-5.1) Chloride Level 104mmol/L (98-107) Carbon Dioxide Level 30mmol/L (21-32) Anion Gap 9 (6-14) Blood Urea Nitrogen 74mg/dL (8-26) Creatinine 3.2mg/dL (0.7-1.3) Estimated GFR (Cockcroft-Gault) 18.7 Glucose Level 226mg/dL (70-99) Calcium Level 8.5mg/dL (8.5-10.1) Test 11/11/16 20:32 11/11/16 21:46 11/11/16 22:45 11/12/16 03:52 Glucose (Fingerstick) 185mg/dL (70-99) O2 Saturation 81% (92-99) 98% (92-99) Arterial Blood pH 7.21 (7.35-7.45) 7.24 (7.35-7.45) Arterial Blood pCO2 at Patient Temp 76mmHg (35-46) 70mmHg (35-46) Arterial Blood pO2 at Patient Temp 50mmHg (65-108) 120mmHg (65-108) Arterial Blood HCO3 30mmol/L (21-28) 29mmol/L (21-28) Arterial Blood Base Excess 0mmol/L (-3-3) 0mmol/L (-3-3) FiO2 40 Sodium Level 145mmol/L (136-145) Potassium Level 5.0mmol/L (3.5-5.1) Chloride Level 104mmol/L (98-107) Carbon Dioxide Level 30mmol/L (21-32) Anion Gap 11 (6-14) Blood Urea Nitrogen 76mg/dL (8-26) Creatinine 3.4mg/dL (0.7-1.3) Estimated GFR (Cockcroft-Gault) 17.5 Glucose Level 209mg/dL (70-99) Calcium Level 8.4mg/dL (8.5-10.1) Test 11/12/16 06:37 11/12/16 07:50 11/12/16 09:11 11/12/16 12:31 White Blood Count 10.2x10^3/uL (4.0-11.0) Red Blood Count 3.30x10^6/uL (4.30-5.70) Hemoglobin 10.2g/dL (13.0-17.5) Hematocrit 32.7% (39.0-53.0) Mean Corpuscular Volume 99fL (79-100) Mean Corpuscular Hemoglobin 31pg (25-35) Mean Corpuscular Hemoglobin Concent 31g/dL (31-37) Red Cell Distribution Width 15.3% (11.5-14.5) Platelet Count 61x10^3/uL (140-400) Neutrophils (%) (Auto) 90% (31-73) Lymphocytes (%) (Auto) 8% (24-48) Monocytes (%) (Auto) 2% (0-9) Eosinophils (%) (Auto) 0% (0-3) Basophils (%) (Auto) 0% (0-3) Neutrophils # (Auto) 9.2x10^3uL (1.8-7.7) Lymphocytes # (Auto) 0.8x10^3/uL (1.0-4.8) Monocytes # (Auto) 0.2x10^3/uL (0.0-1.1) Eosinophils # (Auto) 0.0x10^3/uL (0.0-0.7) Basophils # (Auto) 0.0x10^3/uL (0.0-0.2) Segmented Neutrophils % 94% (35-66) Band Neutrophils % 3% (0-9) Lymphocytes % 3% (24-48) Nucleated Red Blood Cells 4 Platelet Estimate Decreased (ADEQUATE) Poikilocytosis Slight Basophilic Stippling Present Anisocytosis Slight Prothrombin Time 30.4SEC (11.7-14.0) Prothromb Time International Ratio 3.1 (0.8-1.1) Sodium Level 145mmol/L (136-145) Potassium Level 4.7mmol/L (3.5-5.1) Chloride Level 104mmol/L (98-107) Carbon Dioxide Level 30mmol/L (21-32) Anion Gap 11 (6-14) Blood Urea Nitrogen 79mg/dL (8-26) Creatinine 3.4mg/dL (0.7-1.3) Estimated GFR (Cockcroft-Gault) 17.5 Glucose Level 211mg/dL (70-99) Calcium Level 8.6mg/dL (8.5-10.1) Phosphorus Level 7.7mg/dL (2.6-4.7) Magnesium Level 2.4mg/dL (1.8-2.4) Total Bilirubin 1.3mg/dL (0.2-1.0) Direct Bilirubin 0.6mg/dL (0.0-0.2) Aspartate Amino Transf (AST/SGOT) 1844U/L (15-37) Alanine Aminotransferase (ALT/SGPT) 1678U/L (16-63) Alkaline Phosphatase 96U/L (46-116) Troponin I Quantitative 0.086ng/mL (0.000-0.055) RA-Ktm-[id number]-Type Natriuretic Peptide > 57732va/mL (0-449) Total Protein 6.0g/dL (6.4-8.2) Albumin 2.6g/dL (3.4-5.0) Lactic Acid Level 2.4mmol/L (0.4-2.0) Glucose (Fingerstick) 196mg/dL (70-99) 203mg/dL (70-99) Test 11/12/16 17:38 11/13/16 03:19 11/13/16 05:45 11/13/16 07:38 Glucose (Fingerstick) 148mg/dL (70-99) 175mg/dL (70-99) 187mg/dL (70-99) White Blood Count 12.5x10^3/uL (4.0-11.0) Red Blood Count 3.20x10^6/uL (4.30-5.70) Hemoglobin 9.9g/dL (13.0-17.5) Hematocrit 31.4% (39.0-53.0) Mean Corpuscular Volume 98fL (79-100) Mean Corpuscular Hemoglobin 31pg (25-35) Mean Corpuscular Hemoglobin Concent 32g/dL (31-37) Red Cell Distribution Width 15.0% (11.5-14.5) Platelet Count 51x10^3/uL (140-400) Neutrophils (%) (Auto) 86% (31-73) Lymphocytes (%) (Auto) 10% (24-48) Monocytes (%) (Auto) 4% (0-9) Eosinophils (%) (Auto) 0% (0-3) Basophils (%) (Auto) 0% (0-3) Neutrophils # (Auto) 10.7x10^3uL (1.8-7.7) Lymphocytes # (Auto) 1.3x10^3/uL (1.0-4.8) Monocytes # (Auto) 0.6x10^3/uL (0.0-1.1) Eosinophils # (Auto) 0.0x10^3/uL (0.0-0.7) Basophils # (Auto) 0.0x10^3/uL (0.0-0.2) Sodium Level 143mmol/L (136-145) Potassium Level 4.2mmol/L (3.5-5.1) Chloride Level 103mmol/L (98-107) Carbon Dioxide Level 30mmol/L (21-32) Anion Gap 10 (6-14) Blood Urea Nitrogen 55mg/dL (8-26) Creatinine 2.9mg/dL (0.7-1.3) Estimated GFR (Cockcroft-Gault) 21.0 BUN/Creatinine Ratio 19 (6-20) Glucose Level 204mg/dL (70-99) Calcium Level 8.7mg/dL (8.5-10.1) Phosphorus Level 5.1mg/dL (2.6-4.7) Magnesium Level 2.0mg/dL (1.8-2.4) Total Bilirubin 1.4mg/dL (0.2-1.0) Aspartate Amino Transf (AST/SGOT) 402U/L (15-37) Alanine Aminotransferase (ALT/SGPT) 944U/L (16-63) Alkaline Phosphatase 75U/L (46-116) Total Protein 5.8g/dL (6.4-8.2) Albumin 2.9g/dL (3.4-5.0) Albumin/Globulin Ratio 1.0 (1.0-1.7) Laboratory Tests Test 11/12/16 09:11 11/12/16 12:31 11/12/16 17:38 11/13/16 03:19 Glucose (Fingerstick) 196mg/dL (70-99) 203mg/dL (70-99) 148mg/dL (70-99) 175mg/dL (70-99) Test 11/13/16 05:45 11/13/16 07:38 White Blood Count 12.5x10^3/uL (4.0-11.0) Red Blood Count 3.20x10^6/uL (4.30-5.70) Hemoglobin 9.9g/dL (13.0-17.5) Hematocrit 31.4% (39.0-53.0) Mean Corpuscular Volume 98fL (79-100) Mean Corpuscular Hemoglobin 31pg (25-35) Mean Corpuscular Hemoglobin Concent 32g/dL (31-37) Red Cell Distribution Width 15.0% (11.5-14.5) Platelet Count 51x10^3/uL (140-400) Neutrophils (%) (Auto) 86% (31-73) Lymphocytes (%) (Auto) 10% (24-48) Monocytes (%) (Auto) 4% (0-9) Eosinophils (%) (Auto) 0% (0-3) Basophils (%) (Auto) 0% (0-3) Neutrophils # (Auto) 10.7x10^3uL (1.8-7.7) Lymphocytes # (Auto) 1.3x10^3/uL (1.0-4.8) Monocytes # (Auto) 0.6x10^3/uL (0.0-1.1) Eosinophils # (Auto) 0.0x10^3/uL (0.0-0.7) Basophils # (Auto) 0.0x10^3/uL (0.0-0.2) Sodium Level 143mmol/L (136-145) Potassium Level 4.2mmol/L (3.5-5.1) Chloride Level 103mmol/L (98-107) Carbon Dioxide Level 30mmol/L (21-32) Anion Gap 10 (6-14) Blood Urea Nitrogen 55mg/dL (8-26) Creatinine 2.9mg/dL (0.7-1.3) Estimated GFR (Cockcroft-Gault) 21.0 BUN/Creatinine Ratio 19 (6-20) Glucose Level 204mg/dL (70-99) Calcium Level 8.7mg/dL (8.5-10.1) Phosphorus Level 5.1mg/dL (2.6-4.7) Magnesium Level 2.0mg/dL (1.8-2.4) Total Bilirubin 1.4mg/dL (0.2-1.0) Aspartate Amino Transf (AST/SGOT) 402U/L (15-37) Alanine Aminotransferase (ALT/SGPT) 944U/L (16-63) Alkaline Phosphatase 75U/L (46-116) Total Protein 5.8g/dL (6.4-8.2) Albumin 2.9g/dL (3.4-5.0) Albumin/Globulin Ratio 1.0 (1.0-1.7) Glucose (Fingerstick) 187mg/dL (70-99) Assessment Assessment Problems Medical Problems: (1) ECG abnormal Status: Acute (2) Hyperkalemia Status: Acute (3) Hypotension Status: Acute (4) Renal failure Status: Acute Problems: Plan Plan of Care Problems Medical Problems: (1) ECG abnormal Status: Acute (2) Hyperkalemia Status: Acute (3) Hypotension Status: Acute (4) Renal failure Status: Acute RENETTA FRAIRE MD Nov 13, 2016 08:54
[2016-11-13] MEDS ORDERED: DIALYSIS PATIENT. MC PRN (09:00)
--- NOTE | 2016-11-13 09:21 | PDOC ---
PROGRESS NOTES Chief Complaint Chief Complaint fall, A/P Encephalopathy: multifactorial Improving. Shock: Off Levophed GTT, Acute on Chronic respiratory failure: on PRN BIPAP, supplemental oxygen. ? Sepsis, : on zoysn, zyvox and Doxycycline, monitor wbc, Prognosis guarded, consult palliative care, family meeting in AM Renal failure: HD per nephrology Mild hyperglycemia : SSI PRN Thrombocytopenia: monitor Shock Liver: LFT improving, monitor HX CAD, on Pacer Chronic Afib : rate controlled, follow cardiology recommendations. HTN HLP History of Present Illness History of Present Illness feeling better no fever wants to talk to his no acute events off Levophed from last night. Vitals Vitals Vital Signs Date Time Temp Pulse Resp B/P Pulse Ox O2 Delivery O2 Flow Rate FiO2 11/13/16 09:00 59 20 101/49 97 Nasal Cannula 10.0 11/13/16 08:00 98.1 98.1 Physical Exam General: Alert, mild distress, Other (time 2) Heart: Regular rate, Normal S1, Normal S2 Lungs: Clear, Other (bl decreased bs with mild rales) Abdomen: Normal bowel sounds Extremities: No edema, Normal pulses, Other (mild edema) Skin: No significant lesion Labs LABS Laboratory Tests Test 11/12/16 12:31 11/12/16 17:38 11/13/16 03:19 11/13/16 05:45 Glucose (Fingerstick) 203mg/dL (70-99) 148mg/dL (70-99) 175mg/dL (70-99) White Blood Count 12.5x10^3/uL (4.0-11.0) Red Blood Count 3.20x10^6/uL (4.30-5.70) Hemoglobin 9.9g/dL (13.0-17.5) Hematocrit 31.4% (39.0-53.0) Mean Corpuscular Volume 98fL (79-100) Mean Corpuscular Hemoglobin 31pg (25-35) Mean Corpuscular Hemoglobin Concent 32g/dL (31-37) Red Cell Distribution Width 15.0% (11.5-14.5) Platelet Count 51x10^3/uL (140-400) Neutrophils (%) (Auto) 86% (31-73) Lymphocytes (%) (Auto) 10% (24-48) Monocytes (%) (Auto) 4% (0-9) Eosinophils (%) (Auto) 0% (0-3) Basophils (%) (Auto) 0% (0-3) Neutrophils # (Auto) 10.7x10^3uL (1.8-7.7) Lymphocytes # (Auto) 1.3x10^3/uL (1.0-4.8) Monocytes # (Auto) 0.6x10^3/uL (0.0-1.1) Eosinophils # (Auto) 0.0x10^3/uL (0.0-0.7) Basophils # (Auto) 0.0x10^3/uL (0.0-0.2) Sodium Level 143mmol/L (136-145) Potassium Level 4.2mmol/L (3.5-5.1) Chloride Level 103mmol/L (98-107) Carbon Dioxide Level 30mmol/L (21-32) Anion Gap 10 (6-14) Blood Urea Nitrogen 55mg/dL (8-26) Creatinine 2.9mg/dL (0.7-1.3) Estimated GFR (Cockcroft-Gault) 21.0 BUN/Creatinine Ratio 19 (6-20) Glucose Level 204mg/dL (70-99) Calcium Level 8.7mg/dL (8.5-10.1) Phosphorus Level 5.1mg/dL (2.6-4.7) Magnesium Level 2.0mg/dL (1.8-2.4) Total Bilirubin 1.4mg/dL (0.2-1.0) Aspartate Amino Transf (AST/SGOT) 402U/L (15-37) Alanine Aminotransferase (ALT/SGPT) 944U/L (16-63) Alkaline Phosphatase 75U/L (46-116) Total Protein 5.8g/dL (6.4-8.2) Albumin 2.9g/dL (3.4-5.0) Albumin/Globulin Ratio 1.0 (1.0-1.7) Test 11/13/16 07:38 Glucose (Fingerstick) 187mg/dL (70-99) Assessment and Plan Assessmemt and Plan Problems Medical Problems: (1) ECG abnormal Status: Acute (2) Hyperkalemia Status: Acute (3) Hypotension Status: Acute (4) Renal failure Status: Acute Problems: Comment Review of Relevant I have reviewed the following items sandie (where applicable) has been applied. Labs Laboratory Tests Test 11/11/16 12:35 11/11/16 15:02 11/11/16 15:35 11/11/16 17:20 Glucose (Fingerstick) 201mg/dL (70-99) 190mg/dL (70-99) Acetaminophen Level < 2mcg/ml (10-30) Acetaminophen Last Dose Date Acetaminophen Last Dose Time Sodium Level 143mmol/L (136-145) Potassium Level 5.1mmol/L (3.5-5.1) Chloride Level 104mmol/L (98-107) Carbon Dioxide Level 30mmol/L (21-32) Anion Gap 9 (6-14) Blood Urea Nitrogen 74mg/dL (8-26) Creatinine 3.2mg/dL (0.7-1.3) Estimated GFR (Cockcroft-Gault) 18.7 Glucose Level 226mg/dL (70-99) Calcium Level 8.5mg/dL (8.5-10.1) Test 11/11/16 20:32 11/11/16 21:46 11/11/16 22:45 11/12/16 03:52 Glucose (Fingerstick) 185mg/dL (70-99) O2 Saturation 81% (92-99) 98% (92-99) Arterial Blood pH 7.21 (7.35-7.45) 7.24 (7.35-7.45) Arterial Blood pCO2 at Patient Temp 76mmHg (35-46) 70mmHg (35-46) Arterial Blood pO2 at Patient Temp 50mmHg (65-108) 120mmHg (65-108) Arterial Blood HCO3 30mmol/L (21-28) 29mmol/L (21-28) Arterial Blood Base Excess 0mmol/L (-3-3) 0mmol/L (-3-3) FiO2 40 Sodium Level 145mmol/L (136-145) Potassium Level 5.0mmol/L (3.5-5.1) Chloride Level 104mmol/L (98-107) Carbon Dioxide Level 30mmol/L (21-32) Anion Gap 11 (6-14) Blood Urea Nitrogen 76mg/dL (8-26) Creatinine 3.4mg/dL (0.7-1.3) Estimated GFR (Cockcroft-Gault) 17.5 Glucose Level 209mg/dL (70-99) Calcium Level 8.4mg/dL (8.5-10.1) Test 11/12/16 06:37 11/12/16 07:50 11/12/16 09:11 11/12/16 12:31 White Blood Count 10.2x10^3/uL (4.0-11.0) Red Blood Count 3.30x10^6/uL (4.30-5.70) Hemoglobin 10.2g/dL (13.0-17.5) Hematocrit 32.7% (39.0-53.0) Mean Corpuscular Volume 99fL (79-100) Mean Corpuscular Hemoglobin 31pg (25-35) Mean Corpuscular Hemoglobin Concent 31g/dL (31-37) Red Cell Distribution Width 15.3% (11.5-14.5) Platelet Count 61x10^3/uL (140-400) Neutrophils (%) (Auto) 90% (31-73) Lymphocytes (%) (Auto) 8% (24-48) Monocytes (%) (Auto) 2% (0-9) Eosinophils (%) (Auto) 0% (0-3) Basophils (%) (Auto) 0% (0-3) Neutrophils # (Auto) 9.2x10^3uL (1.8-7.7) Lymphocytes # (Auto) 0.8x10^3/uL (1.0-4.8) Monocytes # (Auto) 0.2x10^3/uL (0.0-1.1) Eosinophils # (Auto) 0.0x10^3/uL (0.0-0.7) Basophils # (Auto) 0.0x10^3/uL (0.0-0.2) Segmented Neutrophils % 94% (35-66) Band Neutrophils % 3% (0-9) Lymphocytes % 3% (24-48) Nucleated Red Blood Cells 4 Platelet Estimate Decreased (ADEQUATE) Poikilocytosis Slight Basophilic Stippling Present Anisocytosis Slight Prothrombin Time 30.4SEC (11.7-14.0) Prothromb Time International Ratio 3.1 (0.8-1.1) Sodium Level 145mmol/L (136-145) Potassium Level 4.7mmol/L (3.5-5.1) Chloride Level 104mmol/L (98-107) Carbon Dioxide Level 30mmol/L (21-32) Anion Gap 11 (6-14) Blood Urea Nitrogen 79mg/dL (8-26) Creatinine 3.4mg/dL (0.7-1.3) Estimated GFR (Cockcroft-Gault) 17.5 Glucose Level 211mg/dL (70-99) Calcium Level 8.6mg/dL (8.5-10.1) Phosphorus Level 7.7mg/dL (2.6-4.7) Magnesium Level 2.4mg/dL (1.8-2.4) Total Bilirubin 1.3mg/dL (0.2-1.0) Direct Bilirubin 0.6mg/dL (0.0-0.2) Aspartate Amino Transf (AST/SGOT) 1844U/L (15-37) Alanine Aminotransferase (ALT/SGPT) 1678U/L (16-63) Alkaline Phosphatase 96U/L (46-116) Troponin I Quantitative 0.086ng/mL (0.000-0.055) RQ-Fcz-[id number]-Type Natriuretic Peptide > 50520xf/mL (0-449) Total Protein 6.0g/dL (6.4-8.2) Albumin 2.6g/dL (3.4-5.0) Lactic Acid Level 2.4mmol/L (0.4-2.0) Glucose (Fingerstick) 196mg/dL (70-99) 203mg/dL (70-99) Test 11/12/16 17:38 11/13/16 03:19 11/13/16 05:45 11/13/16 07:38 Glucose (Fingerstick) 148mg/dL (70-99) 175mg/dL (70-99) 187mg/dL (70-99) White Blood Count 12.5x10^3/uL (4.0-11.0) Red Blood Count 3.20x10^6/uL (4.30-5.70) Hemoglobin 9.9g/dL (13.0-17.5) Hematocrit 31.4% (39.0-53.0) Mean Corpuscular Volume 98fL (79-100) Mean Corpuscular Hemoglobin 31pg (25-35) Mean Corpuscular Hemoglobin Concent 32g/dL (31-37) Red Cell Distribution Width 15.0% (11.5-14.5) Platelet Count 51x10^3/uL (140-400) Neutrophils (%) (Auto) 86% (31-73) Lymphocytes (%) (Auto) 10% (24-48) Monocytes (%) (Auto) 4% (0-9) Eosinophils (%) (Auto) 0% (0-3) Basophils (%) (Auto) 0% (0-3) Neutrophils # (Auto) 10.7x10^3uL (1.8-7.7) Lymphocytes # (Auto) 1.3x10^3/uL (1.0-4.8) Monocytes # (Auto) 0.6x10^3/uL (0.0-1.1) Eosinophils # (Auto) 0.0x10^3/uL (0.0-0.7) Basophils # (Auto) 0.0x10^3/uL (0.0-0.2) Sodium Level 143mmol/L (136-145) Potassium Level 4.2mmol/L (3.5-5.1) Chloride Level 103mmol/L (98-107) Carbon Dioxide Level 30mmol/L (21-32) Anion Gap 10 (6-14) Blood Urea Nitrogen 55mg/dL (8-26) Creatinine 2.9mg/dL (0.7-1.3) Estimated GFR (Cockcroft-Gault) 21.0 BUN/Creatinine Ratio 19 (6-20) Glucose Level 204mg/dL (70-99) Calcium Level 8.7mg/dL (8.5-10.1) Phosphorus Level 5.1mg/dL (2.6-4.7) Magnesium Level 2.0mg/dL (1.8-2.4) Total Bilirubin 1.4mg/dL (0.2-1.0) Aspartate Amino Transf (AST/SGOT) 402U/L (15-37) Alanine Aminotransferase (ALT/SGPT) 944U/L (16-63) Alkaline Phosphatase 75U/L (46-116) Total Protein 5.8g/dL (6.4-8.2) Albumin 2.9g/dL (3.4-5.0) Albumin/Globulin Ratio 1.0 (1.0-1.7) Laboratory Tests Test 11/12/16 12:31 11/12/16 17:38 11/13/16 03:19 11/13/16 05:45 Glucose (Fingerstick) 203mg/dL (70-99) 148mg/dL (70-99) 175mg/dL (70-99) White Blood Count 12.5x10^3/uL (4.0-11.0) Red Blood Count 3.20x10^6/uL (4.30-5.70) Hemoglobin 9.9g/dL (13.0-17.5) Hematocrit 31.4% (39.0-53.0) Mean Corpuscular Volume 98fL (79-100) Mean Corpuscular Hemoglobin 31pg (25-35) Mean Corpuscular Hemoglobin Concent 32g/dL (31-37) Red Cell Distribution Width 15.0% (11.5-14.5) Platelet Count 51x10^3/uL (140-400) Neutrophils (%) (Auto) 86% (31-73) Lymphocytes (%) (Auto) 10% (24-48) Monocytes (%) (Auto) 4% (0-9) Eosinophils (%) (Auto) 0% (0-3) Basophils (%) (Auto) 0% (0-3) Neutrophils # (Auto) 10.7x10^3uL (1.8-7.7) Lymphocytes # (Auto) 1.3x10^3/uL (1.0-4.8) Monocytes # (Auto) 0.6x10^3/uL (0.0-1.1) Eosinophils # (Auto) 0.0x10^3/uL (0.0-0.7) Basophils # (Auto) 0.0x10^3/uL (0.0-0.2) Sodium Level 143mmol/L (136-145) Potassium Level 4.2mmol/L (3.5-5.1) Chloride Level 103mmol/L (98-107) Carbon Dioxide Level 30mmol/L (21-32) Anion Gap 10 (6-14) Blood Urea Nitrogen 55mg/dL (8-26) Creatinine 2.9mg/dL (0.7-1.3) Estimated GFR (Cockcroft-Gault) 21.0 BUN/Creatinine Ratio 19 (6-20) Glucose Level 204mg/dL (70-99) Calcium Level 8.7mg/dL (8.5-10.1) Phosphorus Level 5.1mg/dL (2.6-4.7) Magnesium Level 2.0mg/dL (1.8-2.4) Total Bilirubin 1.4mg/dL (0.2-1.0) Aspartate Amino Transf (AST/SGOT) 402U/L (15-37) Alanine Aminotransferase (ALT/SGPT) 944U/L (16-63) Alkaline Phosphatase 75U/L (46-116) Total Protein 5.8g/dL (6.4-8.2) Albumin 2.9g/dL (3.4-5.0) Albumin/Globulin Ratio 1.0 (1.0-1.7) Test 11/13/16 07:38 Glucose (Fingerstick) 187mg/dL (70-99) Microbiology 11/10/16 Blood Culture - Preliminary, Resulted NO GROWTH AFTER 3 DAYS 11/10/16 Urine Culture - Final, Complete 11/10/16 Urine Culture Result 1 (EMMANUEL) - Final, Complete Medications Current Medications Fentanyl Citrate (Fentanyl 2ml Vial) 25 mcg PRN Q15MIN PRN IV PAIN GREATER THAN 3/10 Last administered on 11/10/16 23:41; Start 11/10/16 at 01:00; Stop at 00:59; Status DC Lidocaine (Lidoderm) 1 patch 1X ONCE TD Last administered on 11/10/16 01:14; Start 11/10/16 at 01:00; Stop 11/10/16 at 01:01; Status DC Calcium Gluconate 1,000 mg 1X ONCE IVP Last administered on 11/10/16 02:20; Start 11/10/16 at 02:30; Stop 11/10/16 at 02:31; Status DC Sodium Bicarbonate 50 meq 1X ONCE IV Last administered on 11/10/16 02:20; Start 11/10/16 at 02:30; Stop 11/10/16 at 02:31; Status DC Dextrose 25 gm 1X ONCE IV Last administered on 11/10/16 02:20; Start at 02:30; Stop 11/10/16 at 02:31; Status DC Insulin Human Regular (Novolin R Vial) 10 unit 1X ONCE IV Last administered on 11/10/16 02:22; Start 11/10/16 at 02:30; Stop 11/10/16 at 02:31; Status DC Calcium Gluconate 1,000 mg 1X ONCE IVP Last administered on 11/10/16 03:56; Start 11/10/16 at 04:00; Stop 11/10/16 at 04:01; Status DC Sodium Bicarbonate 50 meq 1X ONCE IV Last administered on 11/10/16 04:00; Start 11/10/16 at 04:00; Stop 11/10/16 at 04:01; Status DC Dextrose 25 gm 1X ONCE IV Last administered on 11/10/16 04:01; Start at 04:00; Stop 11/10/16 at 04:01; Status DC Insulin Human Regular 10 unit 10 unit 1X ONCE IV Last administered on 03:59; Start 11/10/16 at 04:00; Stop 11/10/16 at 04:01; Status DC Sodium Bicarbonate 150 meq/Sterile Water 1,150 ml @ 125 mls/hr Q9H12M IV ; Start 11/10/16 at 04:30; Stop 11/10/16 at 04:30; Status DC Sodium Chloride (Iv Sodium Chloride 0.9% 1000ml Bag) 1,000 ml @ 100 mls/hr 1X ONCE IV Last administered on 11/10/16 04:41; Start 11/10/16 at 04:30; Stop at 14:29; Status DC Piperacillin Sod/ Tazobactam Sod 1 each 1 each PRN DAILY PRN MC SEE COMMENTS; Start 11/10/16 at 04:30 Metronidazole 100 ml @ 100 mls/hr Q8HRS IV ; Start 11/10/16 at 14:00; Stop at 14:00; Status DC Metronidazole 100 ml @ 100 mls/hr 1X ONCE IV Last administered on 11/10/16 04:40; Start 11/10/16 at 05:00; Stop 11/10/16 at 05:59; Status DC Piperacillin Sod/ Tazobactam Sod/ Sodium Chloride (Zosyn/Iv Sodium Chloride 0.9 % 50ml) 50 ml @ 100 mls/hr Q6HRS IV Last administered on 11/13/16 05:46; Start 11/10/16 at 05:00 Lidocaine HCl 1 stevie 1 stevie 1X ONCE MM Last administered on 11/10/16 04:40; Start 11/10/16 at 04:30; Stop 11/10/16 at 04:43; Status DC Norepinephrine Bitartrate 8 mg/ Sodium Chloride 258 ml @ 0 mls/hr CONT PRN IV SEE I/O RECORD; Start 11/10/16 at 07:15 Linezolid (Zyvox Premix) 300 ml @ 300 mls/hr Q12HR IV Last administered on 07:39; Start 11/10/16 at 09:00 Doxycycline Hyclate (Vibra-Tab) 100 mg BID PO Last administered on 11/13/16 07 :39; Start 11/10/16 at 09:00 Aspirin 81 mg 81 mg [id number] PO Last administered on 11/13/16 07:39; Start 11/11/16 at 08:00 Magnesium Sulfate/ Dextrose 50 ml @ 25 mls/hr PRN DAILY PRN IV for Mag < 1.7 on am labs; Start 11/10/16 at 13:00 Sodium Chloride (Iv Sodium Chloride 0.9% 500ml Bag) 500 ml @ 0 mls/hr QID PRN IV UO< 30cc/hr over previous 6hrs; Start 11/10/16 at 13:00; Stop 11/11/16 at 18: 23; Status DC Acetaminophen (Tylenol) 650 mg PRN Q6HRS PRN PO MILD PAIN / TEMP; Start at 13:15 Ondansetron HCl (Zofran) 4 mg PRN Q6HRS PRN IV NAUSEA/VOMITING Last administered on 11/11/16 09:05; Start 11/10/16 at 13:15 Heparin Sodium (Porcine) 5,000 unit Q8HRS SQ ; Start 11/10/16 at 14:00; Stop at 14:00; Status DC Insulin Aspart (Novolog) 0-9 UNITS TIDWMEALS SQ Last administered on 11/13/16 07:41; Start 11/10/16 at 13:30 Dextrose 12.5 gm 12.5 gm PRN Q15MIN PRN IV SEE COMMENTS; Start 11/10/16 at 13: 15 Sodium Chloride (Iv Sodium Chloride 0.9% 1000ml Bag) 1,000 ml @ 100 mls/hr Q10H IV Last administered on 11/10/16 23:41; Start 11/10/16 at 13:15; Stop at 18:23; Status DC Pantoprazole Sodium (Protonix) 40 mg DAILYAC PO Last administered on 11/13/16 07:39; Start 11/10/16 at 14:00 Fentanyl Citrate (Fentanyl 2ml Vial) 50 mcg PRN Q2HR PRN IV SEVERE PAIN Last administered on 11/12/16 20:55; Start 11/11/16 at 02:30 Sodium Polystyrene Sulfonate 60 gm 60 gm 1X ONCE PO Last administered on 06:41; Start 11/11/16 at 06:45; Stop 11/11/16 at 06:46; Status DC Norepinephrine Bitartrate/Sodium Chloride (Levophed Vial/ Iv Sodium Chloride 0.9 % 250ml) 258 ml @ 0 mls/hr CONT PRN IV SEE I/O RECORD; Start 11/11/16 at 22:30 ; Status UNV Methylprednisolone Sodium Succinate (Solu-Medrol 125mg Vial) 125 mg 1X ONCE IV Last administered on 11/12/16 00:09; Start 11/11/16 at 23:00; Stop 11/11/16 at 23:01; Status DC Furosemide (Lasix) 40 mg 1X ONCE IVP Last administered on 11/12/16 01:31; Start 11/12/16 at 01:30; Stop 11/12/16 at 01:31; Status DC Lidocaine/Sodium Bicarbonate (Buffered Lidocaine 1%) 3 ml 1X ONCE IJ Last administered on 11/12/16 09:43; Start 11/12/16 at 09:15; Stop 11/12/16 at 09:16 ; Status DC Heparin Sodium/ Sodium Chloride 60 unit 1X ONCE IV Last administered on 2/20/ 17at 09:43; Start 11/12/16 at 09:15; Stop 11/12/16 at 09:16; Status DC Heparin Sodium (Porcine) 2,500 unit 1X ONCE INT CAT Last administered on 09:42; Start 11/12/16 at 09:15; Stop 11/12/16 at 09:16; Status DC Heparin Sodium (Porcine) 29867 unit 10,000 unit STK-MED ONCE .ROUTE ; Start at 09:09; Stop 11/12/16 at 09:10; Status DC Sodium Chloride 1,000 ml @ 1,000 mls/hr Q1H PRN IV hypotension; Start 11/12/16 at 10:47; Stop 11/12/16 at 16:46; Status DC Albumin Human (Albuminar) 200 ml @ 200 mls/hr 1X ONCE IV Last administered on 11/12/16 13:18; Start 11/12/16 at 12:45; Stop 11/12/16 at 13:44; Status DC Diphenhydramine HCl (Benadryl) 25 mg 1X PRN PRN IV ITCHING; Start 11/12/16 at 11:00; Stop 11/13/16 at 10:59 Diphenhydramine HCl (Benadryl) 25 mg 1X PRN PRN IV ITCHING; Start 11/12/16 at 11:00; Stop 11/13/16 at 10:59 Sodium Chloride (Normal Saline Flush) 10 ml 1X PRN PRN IV AP catheter pack; Start 11/12/16 at 11:00; Stop 11/13/16 at 10:59 Sodium Chloride 10 ml 10 ml 1X PRN PRN IV F[employer] DAIRY catheter pack; Start 11/12/16 at 11:00; Stop 11/13/16 at 10:59 Sodium Chloride (Iv Sodium Chloride 0.9% 1000ml Bag) 1,000 ml @ 400 mls/hr Q2H30M PRN IV PATENCY; Start 11/12/16 at 10:47; Stop 11/12/16 at 22:46; Status DC Info (PHARMACY MONITORING -- do not chart) 1 each PRN DAILY PRN MC SEE COMMENTS ; Start 11/12/16 at 11:00 Furosemide 40 mg 40 mg 1X ONCE IVP Last administered on 11/12/16 16:25; Start 11/12/16 at 11:30; Stop 11/12/16 at 11:31; Status DC Sodium Chloride 1,000 ml @ 1,000 mls/hr Q1H PRN IV hypotension; Start 11/13/16 at 08:00; Stop 11/13/16 at 13:59 Sodium Chloride (Iv Sodium Chloride 0.9% 1000ml Bag) 1,000 ml @ 400 mls/hr Q2H30M PRN IV PATENCY; Start 11/13/16 at 08:00; Stop 11/13/16 at 19:59 Info (PHARMACY MONITORING -- do not chart) 1 each PRN DAILY PRN MC SEE COMMENTS ; Start 11/13/16 at 09:00; Status UNV Active Scripts Active Carvedilol 3.125 Mg Tablet 3.125 Mg PO BIDWMEALS Reported Fish Oil + Vitamin D-3 Softgel (Om-3/Dha/Epa/Fish Oil/Vit D3) 1 Each Capsule 1 Each PO Vitamin D (Cholecalciferol (Vitamin D3)) 1,000 Unit Capsule 1,000 Unit PO DAILY Klor-Con 10 (Potassium Chloride) 10 Meq Tablet.er 2 Tab PO DAILY Lasix (Furosemide) 20 Mg Tablet 10 Mg PO DAILY Aspir 81 (Aspirin) 81 Mg Tablet.dr 81 Mg PO Cozaar (Losartan Potassium) 50 Mg Tablet 50 Mg PO DAILY Amaryl (Glimepiride) 4 Mg Tablet 4 Mg PO DAILY Metformin Hcl 1,000 Mg Tablet 1,000 Mg PO BIDAC Vitals/I & O Vital Sign - Last 24 Hours 11/12/16 11/12/16 11/12/16 11/12/16 10:00 11:00 12:00 12:00 Pulse 63 B/P 112/50 106/43 Pulse Ox 97 O2 Delivery BiPAP/CPAP BiPAP/CPAP Bi-pap 11/12/16 11/12/16 11/12/16 11/12/16 12:20 13:00 14:00 14:00 Temp 97.6 97.6 Pulse 66 65 Resp 30 B/P 106/49 116/54 116/54 Pulse Ox 96 96 96 O2 Delivery BiPAP/CPAP BiPAP/CPAP BiPAP/CPAP 11/12/16 11/12/16 11/12/16 11/12/16 15:00 16:00 16:00 17:00 Temp 98.2 98.2 Pulse 71 62 64 B/P 118/47 108/52 91/57 Pulse Ox 99 92 O2 Delivery Nasal Cannula Nasal Cannula Bi-pap BiPAP/CPAP O2 Flow Rate 5.0 11/12/16 11/12/16 11/12/16 11/12/16 18:00 19:00 19:34 20:00 Pulse 61 71 Resp 25 B/P 94/57 116/43 Pulse Ox 96 96 97 O2 Delivery BiPAP/CPAP BiPAP/CPAP Nasal Cannula Nasal Cannula O2 Flow Rate 10.0 10.0 11/12/16 11/12/16 11/12/16 11/12/16 20:00 20:55 21:00 21:25 Temp 98.5 98.5 Pulse 62 72 Resp 22 24 B/P 102/44 115/48 Pulse Ox 96 97 96 96 O2 Delivery Nasal Cannula Nasal Cannula Nasal Cannula O2 Flow Rate 10.0 10.0 10.0 10.0 11/12/16 11/12/16 11/12/16 11/13/16 22:00 23:00 23:59 00:00 Pulse 66 66 Resp 24 26 B/P 121/53 106/53 Pulse Ox 96 96 O2 Delivery Nasal Cannula Nasal Cannula Nasal Cannula O2 Flow Rate 10.0 10.0 10.0 10.0 11/13/16 11/13/16 11/13/16 11/13/16 00:00 01:00 02:00 03:00 Temp 97.5 97.5 Pulse 62 60 66 62 Resp 29 22 24 24 B/P 100/49 94/42 99/45 100/42 Pulse Ox 94 98 99 95 O2 Delivery Nasal Cannula Nasal Cannula Nasal Cannula Nasal Cannula O2 Flow Rate 10.0 10.0 10.0 10.0 11/13/16 11/13/16 11/13/16 11/13/16 04:00 04:00 04:00 05:00 Temp 97.5 97.5 Pulse 62 62 Resp 29 B/P 108/49 95/46 Pulse Ox 94 94 O2 Delivery Nasal Cannula Nasal Cannula Nasal Cannula O2 Flow Rate 10.0 10.0 10.0 10.0 11/13/16 11/13/16 11/13/16 11/13/16 06:00 07:00 08:00 08:00 Temp 98.1 98.1 Pulse 63 60 61 Resp 21 20 20 B/P 101/47 99/51 95/46 Pulse Ox 96 94 95 O2 Delivery Nasal Cannula Nasal Cannula Nasal Cannula Nasal Cannula O2 Flow Rate 10.0 10.0 10.0 10.0 11/13/16 09:00 Pulse 59 Resp 20 B/P 101/49 Pulse Ox 97 O2 Delivery Nasal Cannula O2 Flow Rate 10.0 Intake and Output 11/12/16 11/12/16 11/13/16 15:00 23:00 07:00 Intake Total 20 ml 524 ml 406 ml Output Total 250 ml 80 ml 120 ml Balance -230 ml 444 ml 286 ml LOUISE [place] MD Nov 13, 2016 09:20
[2016-11-13 09:51] LABS: FIO2 ABG 60
--- NOTE | 2016-11-13 10:28 | PDOC ---
PULMONARY PROGRESS NOTES Subjective mild SOA, feels better then 11/12 Vitals Vital Signs Date Time Temp Pulse Resp B/P Pulse Ox O2 Delivery O2 Flow Rate FiO2 11/13/16 10:00 64 25 99/48 97 Nasal Cannula 10.0 11/13/16 08:00 98.1 98.1 General: Confused Lungs: Other (bl decreased bs with mild rales) Cardiovascular: S1, S2 Abdomen: Soft, Non-tender, Other Extremities: No Edema Labs Laboratory Tests Test 11/11/16 12:35 11/11/16 15:02 11/11/16 15:35 11/11/16 17:20 Glucose (Fingerstick) 201mg/dL (70-99) 190mg/dL (70-99) Acetaminophen Level < 2mcg/ml (10-30) Acetaminophen Last Dose Date Acetaminophen Last Dose Time Sodium Level 143mmol/L (136-145) Potassium Level 5.1mmol/L (3.5-5.1) Chloride Level 104mmol/L (98-107) Carbon Dioxide Level 30mmol/L (21-32) Anion Gap 9 (6-14) Blood Urea Nitrogen 74mg/dL (8-26) Creatinine 3.2mg/dL (0.7-1.3) Estimated GFR (Cockcroft-Gault) 18.7 Glucose Level 226mg/dL (70-99) Calcium Level 8.5mg/dL (8.5-10.1) Test 11/11/16 20:32 11/11/16 21:46 11/11/16 22:45 11/12/16 03:52 Glucose (Fingerstick) 185mg/dL (70-99) O2 Saturation 81% (92-99) 98% (92-99) Arterial Blood pH 7.21 (7.35-7.45) 7.24 (7.35-7.45) Arterial Blood pCO2 at Patient Temp 76mmHg (35-46) 70mmHg (35-46) Arterial Blood pO2 at Patient Temp 50mmHg (65-108) 120mmHg (65-108) Arterial Blood HCO3 30mmol/L (21-28) 29mmol/L (21-28) Arterial Blood Base Excess 0mmol/L (-3-3) 0mmol/L (-3-3) FiO2 40 Sodium Level 145mmol/L (136-145) Potassium Level 5.0mmol/L (3.5-5.1) Chloride Level 104mmol/L (98-107) Carbon Dioxide Level 30mmol/L (21-32) Anion Gap 11 (6-14) Blood Urea Nitrogen 76mg/dL (8-26) Creatinine 3.4mg/dL (0.7-1.3) Estimated GFR (Cockcroft-Gault) 17.5 Glucose Level 209mg/dL (70-99) Calcium Level 8.4mg/dL (8.5-10.1) Test 11/12/16 06:37 11/12/16 07:50 11/12/16 08:10 11/12/16 09:11 White Blood Count 10.2x10^3/uL (4.0-11.0) Red Blood Count 3.30x10^6/uL (4.30-5.70) Hemoglobin 10.2g/dL (13.0-17.5) Hematocrit 32.7% (39.0-53.0) Mean Corpuscular Volume 99fL (79-100) Mean Corpuscular Hemoglobin 31pg (25-35) Mean Corpuscular Hemoglobin Concent 31g/dL (31-37) Red Cell Distribution Width 15.3% (11.5-14.5) Platelet Count 61x10^3/uL (140-400) Neutrophils (%) (Auto) 90% (31-73) Lymphocytes (%) (Auto) 8% (24-48) Monocytes (%) (Auto) 2% (0-9) Eosinophils (%) (Auto) 0% (0-3) Basophils (%) (Auto) 0% (0-3) Neutrophils # (Auto) 9.2x10^3uL (1.8-7.7) Lymphocytes # (Auto) 0.8x10^3/uL (1.0-4.8) Monocytes # (Auto) 0.2x10^3/uL (0.0-1.1) Eosinophils # (Auto) 0.0x10^3/uL (0.0-0.7) Basophils # (Auto) 0.0x10^3/uL (0.0-0.2) Segmented Neutrophils % 94% (35-66) Band Neutrophils % 3% (0-9) Lymphocytes % 3% (24-48) Nucleated Red Blood Cells 4 Platelet Estimate Decreased (ADEQUATE) Poikilocytosis Slight Basophilic Stippling Present Anisocytosis Slight Prothrombin Time 30.4SEC (11.7-14.0) Prothromb Time International Ratio 3.1 (0.8-1.1) Sodium Level 145mmol/L (136-145) Potassium Level 4.7mmol/L (3.5-5.1) Chloride Level 104mmol/L (98-107) Carbon Dioxide Level 30mmol/L (21-32) Anion Gap 11 (6-14) Blood Urea Nitrogen 79mg/dL (8-26) Creatinine 3.4mg/dL (0.7-1.3) Estimated GFR (Cockcroft-Gault) 17.5 Glucose Level 211mg/dL (70-99) Calcium Level 8.6mg/dL (8.5-10.1) Phosphorus Level 7.7mg/dL (2.6-4.7) Magnesium Level 2.4mg/dL (1.8-2.4) Total Bilirubin 1.3mg/dL (0.2-1.0) Direct Bilirubin 0.6mg/dL (0.0-0.2) Aspartate Amino Transf (AST/SGOT) 1844U/L (15-37) Alanine Aminotransferase (ALT/SGPT) 1678U/L (16-63) Alkaline Phosphatase 96U/L (46-116) Troponin I Quantitative 0.086ng/mL (0.000-0.055) GJ-Mqn-U-Type Natriuretic Peptide > 02934jb/mL (0-449) Total Protein 6.0g/dL (6.4-8.2) Albumin 2.6g/dL (3.4-5.0) Lactic Acid Level 2.4mmol/L (0.4-2.0) O2 Saturation 93% (92-99) Arterial Blood pH 7.32 (7.35-7.45) Arterial Blood pCO2 at Patient Temp 49mmHg (35-46) Arterial Blood pO2 at Patient Temp 74mmHg (65-108) Arterial Blood HCO3 25mmol/L (21-28) Arterial Blood Base Excess -2mmol/L (-3-3) FiO2 60 Glucose (Fingerstick) 196mg/dL (70-99) Test 11/12/16 12:31 11/12/16 17:38 11/13/16 03:19 11/13/16 05:45 Glucose (Fingerstick) 203mg/dL (70-99) 148mg/dL (70-99) 175mg/dL (70-99) White Blood Count 12.5x10^3/uL (4.0-11.0) Red Blood Count 3.20x10^6/uL (4.30-5.70) Hemoglobin 9.9g/dL (13.0-17.5) Hematocrit 31.4% (39.0-53.0) Mean Corpuscular Volume 98fL (79-100) Mean Corpuscular Hemoglobin 31pg (25-35) Mean Corpuscular Hemoglobin Concent 32g/dL (31-37) Red Cell Distribution Width 15.0% (11.5-14.5) Platelet Count 51x10^3/uL (140-400) Neutrophils (%) (Auto) 86% (31-73) Lymphocytes (%) (Auto) 10% (24-48) Monocytes (%) (Auto) 4% (0-9) Eosinophils (%) (Auto) 0% (0-3) Basophils (%) (Auto) 0% (0-3) Neutrophils # (Auto) 10.7x10^3uL (1.8-7.7) Lymphocytes # (Auto) 1.3x10^3/uL (1.0-4.8) Monocytes # (Auto) 0.6x10^3/uL (0.0-1.1) Eosinophils # (Auto) 0.0x10^3/uL (0.0-0.7) Basophils # (Auto) 0.0x10^3/uL (0.0-0.2) Sodium Level 143mmol/L (136-145) Potassium Level 4.2mmol/L (3.5-5.1) Chloride Level 103mmol/L (98-107) Carbon Dioxide Level 30mmol/L (21-32) Anion Gap 10 (6-14) Blood Urea Nitrogen 55mg/dL (8-26) Creatinine 2.9mg/dL (0.7-1.3) Estimated GFR (Cockcroft-Gault) 21.0 BUN/Creatinine Ratio 19 (6-20) Glucose Level 204mg/dL (70-99) Calcium Level 8.7mg/dL (8.5-10.1) Phosphorus Level 5.1mg/dL (2.6-4.7) Magnesium Level 2.0mg/dL (1.8-2.4) Total Bilirubin 1.4mg/dL (0.2-1.0) Aspartate Amino Transf (AST/SGOT) 402U/L (15-37) Alanine Aminotransferase (ALT/SGPT) 944U/L (16-63) Alkaline Phosphatase 75U/L (46-116) Total Protein 5.8g/dL (6.4-8.2) Albumin 2.9g/dL (3.4-5.0) Albumin/Globulin Ratio 1.0 (1.0-1.7) Test 11/13/16 07:38 Glucose (Fingerstick) 187mg/dL (70-99) Laboratory Tests Test 11/12/16 12:31 11/12/16 17:38 11/13/16 03:19 11/13/16 05:45 Glucose (Fingerstick) 203mg/dL (70-99) 148mg/dL (70-99) 175mg/dL (70-99) White Blood Count 12.5x10^3/uL (4.0-11.0) Red Blood Count 3.20x10^6/uL (4.30-5.70) Hemoglobin 9.9g/dL (13.0-17.5) Hematocrit 31.4% (39.0-53.0) Mean Corpuscular Volume 98fL (79-100) Mean Corpuscular Hemoglobin 31pg (25-35) Mean Corpuscular Hemoglobin Concent 32g/dL (31-37) Red Cell Distribution Width 15.0% (11.5-14.5) Platelet Count 51x10^3/uL (140-400) Neutrophils (%) (Auto) 86% (31-73) Lymphocytes (%) (Auto) 10% (24-48) Monocytes (%) (Auto) 4% (0-9) Eosinophils (%) (Auto) 0% (0-3) Basophils (%) (Auto) 0% (0-3) Neutrophils # (Auto) 10.7x10^3uL (1.8-7.7) Lymphocytes # (Auto) 1.3x10^3/uL (1.0-4.8) Monocytes # (Auto) 0.6x10^3/uL (0.0-1.1) Eosinophils # (Auto) 0.0x10^3/uL (0.0-0.7) Basophils # (Auto) 0.0x10^3/uL (0.0-0.2) Sodium Level 143mmol/L (136-145) Potassium Level 4.2mmol/L (3.5-5.1) Chloride Level 103mmol/L (98-107) Carbon Dioxide Level 30mmol/L (21-32) Anion Gap 10 (6-14) Blood Urea Nitrogen 55mg/dL (8-26) Creatinine 2.9mg/dL (0.7-1.3) Estimated GFR (Cockcroft-Gault) 21.0 BUN/Creatinine Ratio 19 (6-20) Glucose Level 204mg/dL (70-99) Calcium Level 8.7mg/dL (8.5-10.1) Phosphorus Level 5.1mg/dL (2.6-4.7) Magnesium Level 2.0mg/dL (1.8-2.4) Total Bilirubin 1.4mg/dL (0.2-1.0) Aspartate Amino Transf (AST/SGOT) 402U/L (15-37) Alanine Aminotransferase (ALT/SGPT) 944U/L (16-63) Alkaline Phosphatase 75U/L (46-116) Total Protein 5.8g/dL (6.4-8.2) Albumin 2.9g/dL (3.4-5.0) Albumin/Globulin Ratio 1.0 (1.0-1.7) Test 11/13/16 07:38 Glucose (Fingerstick) 187mg/dL (70-99) Medications Active Scripts Medications Dose Route/Sig Days Date Category Carvedilol 3.125 Mg Tablet 3.125 Mg PO BIDWMEALS 09/26/16 Rx Fish Oil + Vitamin D-3 Softgel (Om-3/Dha/Epa/Fish Oil/Vit D3) 1 Each Capsule 1 Each PO 05/11/15 Reported Vitamin D (Cholecalciferol (Vitamin D3)) 1,000 Unit Capsule 1,000 Unit PO DAILY 05/11/15 Reported Klor-Con 10 (Potassium Chloride) 10 Meq Tablet.er 2 Tab PO DAILY 05/11/15 Reported Lasix (Furosemide) 20 Mg Tablet 10 Mg PO DAILY 05/11/15 Reported Aspir 81 (Aspirin) 81 Mg Tablet.dr 81 Mg PO 05/11/15 Reported Cozaar (Losartan Potassium) 50 Mg Tablet 50 Mg PO DAILY 05/11/15 Reported Amaryl (Glimepiride) 4 Mg Tablet 4 Mg PO DAILY 05/11/15 Reported Metformin Hcl 1,000 Mg Tablet 1,000 Mg PO BIDAC 05/11/15 Reported Impression . 1. Gdbfu-du-lsiittt hypoxemic, hypercapnic respiratory failure. 2. Pflef-kb-rinygbk, suspect diastolic, possibly systolic heart failure. 3. Acute renal failure, on hemodialysis. 4. Sepsis present upon admission, suspect secondary to urinary tract infection. 5. Elevated liver chemistries secondary to sepsis versus congestive liver. 6. Status post aortic valve replacement. 7. Post pacemaker implantation. 8. Chronic atrial fibrillation. 9. Moderate protein malnutrition present upon admission. 10. Abnormal ct chest c/w CHF Plan . 1. off BiPAP. Repeat arterial blood gas improving (combined Met and Resp acidosis) 2. Antibiotics per ID. 3. Negative fluid balance with hemodialysis. 4. Follow GI input regarding abnormal LFTs. 5. Continue DVT and GI prophylaxis. 6. Initiate oral feedings for nutritional support. 7. Consult dietitian for protein malnutrition. 8. d/w daughter, [place], DNR/DNI MICHAEL CARVALHO MD Nov 13, 2016 10:28
[2016-11-13] MEDS: MORPHINE SULFATE 2 MG/ML DISP.SYRIN. IV PRN (11:13)
--- NOTE | 2016-11-13 11:40 | CARD ---
APPROVED REPORT EXAM: Two-dimensional and M-mode echocardiogram with Doppler and color Doppler. Other Information Quality : Technically LimitedHR: 64bpm Rhythm : NSR INDICATION CHF, Questionable PE 2D DIMENSIONS RVDd3.1 (2.9-3.5cm)Left Atrium(2D)5.1 (1.6-4.0cm) IVSd1.3 (0.7-1.1cm)Aortic Root(2D)2.6 (2.0-3.7cm) LVDd6.2 (3.9-5.9cm)LVOT Diameter2.5 (1.8-2.4cm) PWd1.3 (0.7-1.1cm)LVDs4.9 (2.5-4.0cm) FS (%) 20.7 %SV81.2 ml LVEF(%)41.4 (>50%) Aortic Valve AoV Peak Yan.230.6cm/sAoV VTI42.4cm AO Peak GR.21.3mmHgLVOT Peak Yan.96.0cm/s AO Mean GR.12mmHgAVA (VMAX)1.97cm2 Mitral Valve MV E Eoqoqnbe194.7cm/sMV E Peak Gr.9mmHg MV DECEL [id number] A Fsqyiwjv25.1cm/s MV E Mean Gr.2mmHgE/A Ratio1.6 MV A [id number] Pulmonary Valve PV Peak Yybnaceg77.7cm/s LEFT VENTRICLE The Left Ventricle is mildly dilated. There is mild concentric left ventricular hypertrophy. The Ejec tion Fraction is 40-45%. Mild to moderate LV global hypokinesis. There is moderate to severe hypokine sis in the inferior wall and apical beaulieu Transmitral Doppler flow pattern is Grade I-abnormal relaxa tion pattern. No left ventricle thrombus noted on this study. RIGHT VENTRICLE The right ventricle is mildly dilated. There is normal right ventricular wall thickness. The right ve ntricular systolic function is normal. There is a thrombus suspected in the right atrium. There is a pacemaker lead in the right ventricle. There is a second line noted in the right atrium. ATRIA The left atrium is severely dilated. There is a thrombus suspected in the right atrium attached to on e of the indwelling lines. The interatrial septum is intact with no evidence for an atrial septal def ect or patent foramen ovale as noted on 2-D or Doppler imaging. AORTIC VALVE The aortic valve is mildly Doppler and Color Flow revealed no significant aortic regurgitation. Mildl y elevated aortic velocities but no significant stenosis seen. There is a bioprosthetic aortic valve prosthesis. MITRAL VALVE Mitral annular calcification is mild to moderate. The mitral valve leaflets are thickened. There is n o evidence of mitral valve prolapse. There is no mitral valve stenosis. Doppler and Color Flow reveal ed no mitral valve regurgitation noted. TRICUSPID VALVE Doppler and Color Flow revealed mild tricuspid regurgitation. The pulmonary artery systolic pressure is estimated at 50-60 mmHg. There is moderate pulmonary hypertension. PULMONIC VALVE The pulmonic valve is not well visualized. Doppler and Color Flow revealed no pulmonic valvular regur gitation. There is no pulmonic valvular stenosis. GREAT VESSELS The aortic root is normal in size. The ascending aorta is normal in size. The IVC is normal in size a nd collapses >50% with inspiration. PERICARDIAL EFFUSION There is no evidence of significant pericardial effusion. Critical Notification Critical Value: Yes <Conclusion> The Ejection Fraction is 40-45%. Mild to moderate LV global hypokinesis. There is moderate to severe hypokinesis in the inferior wall and apical beaulieu There is a thrombus suspected in the right atrium attached to one of the indwelling lines. Doppler and Color Flow revealed mild tricuspid regurgitation. The pulmonary artery systolic pressure is estimated at 50-60 mmHg. There is moderate pulmonary hypertension.
--- NOTE | 2016-11-13 13:01 | PDOC ---
Objective: Objective: Seen w/ RN, trying to get out of bed, thinks phone is ringing. Vital Signs: Vital Signs Date Time Temp Pulse Resp B/P Pulse Ox O2 Delivery O2 Flow Rate FiO2 11/13/16 12:00 Nasal Cannula 10.0 11/13/16 12:00 97.4 64 24 98/40 99 97.4 Labs: Laboratory Tests Test 11/12/16 17:38 11/13/16 03:19 11/13/16 05:45 11/13/16 07:38 Glucose (Fingerstick) 148mg/dL 175mg/dL 187mg/dL White Blood Count 12.5x10^3/uL Red Blood Count 3.20x10^6/uL Hemoglobin 9.9g/dL Hematocrit 31.4% Mean Corpuscular Volume 98fL Mean Corpuscular Hemoglobin 31pg Mean Corpuscular Hemoglobin Concent 32g/dL Red Cell Distribution Width 15.0% Platelet Count 51x10^3/uL Neutrophils (%) (Auto) 86% Lymphocytes (%) (Auto) 10% Monocytes (%) (Auto) 4% Eosinophils (%) (Auto) 0% Basophils (%) (Auto) 0% Neutrophils # (Auto) 10.7x10^3uL Lymphocytes # (Auto) 1.3x10^3/uL Monocytes # (Auto) 0.6x10^3/uL Eosinophils # (Auto) 0.0x10^3/uL Basophils # (Auto) 0.0x10^3/uL Sodium Level 143mmol/L Potassium Level 4.2mmol/L Chloride Level 103mmol/L Carbon Dioxide Level 30mmol/L Anion Gap 10 Blood Urea Nitrogen 55mg/dL Creatinine 2.9mg/dL Estimated GFR (Cockcroft-Gault) 21.0 BUN/Creatinine Ratio 19 Glucose Level 204mg/dL Calcium Level 8.7mg/dL Phosphorus Level 5.1mg/dL Magnesium Level 2.0mg/dL Total Bilirubin 1.4mg/dL Aspartate Amino Transf (AST/SGOT) 402U/L Alanine Aminotransferase (ALT/SGPT) 944U/L Alkaline Phosphatase 75U/L Total Protein 5.8g/dL Albumin 2.9g/dL Albumin/Globulin Ratio 1.0 Test 11/13/16 12:02 Glucose (Fingerstick) 118mg/dL Imaging: HIDA 11/12/16 IMPRESSION: 1. No evidence of acute cholecystitis. Neck side 2. Activity has not yet cleared into the small bowel through 60 minutes. An incidental finding is favored over biliary obstruction. Correlate clinically. CXR 11/12/16 IMPRESSION: 1. Right internal jugular hemodialysis and central venous catheters with their tips in the superior cavoatrial junction. No pneumothorax. 2. Small moderate right pleural effusion with right basilar atelectasis or pneumonia. 3. Moderate cardiomegaly. PE: GEN: trying to get out of bed LUNGS: nasal cannula HEART: RRR ABD: S/ND/NT NEURO/PSYCH: confused A/P: Resp failure, leukocytosis/sepsis, hypotension, VARUN, CHF, encephalopathy -on nasal canula now, had dialysis this morning, still on pressors, on IV atbx Abnormal LFTs - improved -US w/ GB wall thickening, trace pericholecystic fluid, hepatomegaly; HIDA as above -Hep panel negative, acetaminophen level normal, RISA and ASMA pending -BNP>[id number] on admission -- LFTs improving. Will review w/ Dr. Javier. JONNATHAN ROSE Nov 13, 2016 13:01
--- NOTE | 2016-11-13 14:03 | PDOC ---
CARDIO Progress Notes Date and Time Date of Service 11/13/16 Time of Evaluation 1310 Subjective Subjective: Other (confused, wanted to use athletic monitor to call ) Vitals Vitals Vital Signs Date Time Temp Pulse Resp B/P Pulse Ox O2 Delivery O2 Flow Rate FiO2 11/13/16 13:00 59 20 99/51 100 Nasal Cannula 5.0 11/13/16 12:00 97.4 97.4 Weight Weight [ ] Input and Output Intake and Output Intake and Output 11/13/16 07:00 Intake Total 950 ml Output Total 450 ml Balance 500 ml Intake Oral 50 ml IV Total 880 ml Other 20 ml Output Urine Total 450 ml Laboratory Labs Laboratory Tests Test 11/12/16 17:38 11/13/16 03:19 11/13/16 05:45 11/13/16 07:38 Glucose (Fingerstick) 148mg/dL (70-99) 175mg/dL (70-99) 187mg/dL (70-99) White Blood Count 12.5x10^3/uL (4.0-11.0) Red Blood Count 3.20x10^6/uL (4.30-5.70) Hemoglobin 9.9g/dL (13.0-17.5) Hematocrit 31.4% (39.0-53.0) Mean Corpuscular Volume 98fL (79-100) Mean Corpuscular Hemoglobin 31pg (25-35) Mean Corpuscular Hemoglobin Concent 32g/dL (31-37) Red Cell Distribution Width 15.0% (11.5-14.5) Platelet Count 51x10^3/uL (140-400) Neutrophils (%) (Auto) 86% (31-73) Lymphocytes (%) (Auto) 10% (24-48) Monocytes (%) (Auto) 4% (0-9) Eosinophils (%) (Auto) 0% (0-3) Basophils (%) (Auto) 0% (0-3) Neutrophils # (Auto) 10.7x10^3uL (1.8-7.7) Lymphocytes # (Auto) 1.3x10^3/uL (1.0-4.8) Monocytes # (Auto) 0.6x10^3/uL (0.0-1.1) Eosinophils # (Auto) 0.0x10^3/uL (0.0-0.7) Basophils # (Auto) 0.0x10^3/uL (0.0-0.2) Sodium Level 143mmol/L (136-145) Potassium Level 4.2mmol/L (3.5-5.1) Chloride Level 103mmol/L (98-107) Carbon Dioxide Level 30mmol/L (21-32) Anion Gap 10 (6-14) Blood Urea Nitrogen 55mg/dL (8-26) Creatinine 2.9mg/dL (0.7-1.3) Estimated GFR (Cockcroft-Gault) 21.0 BUN/Creatinine Ratio 19 (6-20) Glucose Level 204mg/dL (70-99) Calcium Level 8.7mg/dL (8.5-10.1) Phosphorus Level 5.1mg/dL (2.6-4.7) Magnesium Level 2.0mg/dL (1.8-2.4) Total Bilirubin 1.4mg/dL (0.2-1.0) Aspartate Amino Transf (AST/SGOT) 402U/L (15-37) Alanine Aminotransferase (ALT/SGPT) 944U/L (16-63) Alkaline Phosphatase 75U/L (46-116) Total Protein 5.8g/dL (6.4-8.2) Albumin 2.9g/dL (3.4-5.0) Albumin/Globulin Ratio 1.0 (1.0-1.7) Test 11/13/16 12:02 Glucose (Fingerstick) 118mg/dL (70-99) Microbiology Micro Microbiology 11/10/16 Blood Culture - Preliminary, Resulted NO GROWTH AFTER 3 DAYS 11/10/16 Urine Culture - Final, Complete 11/10/16 Urine Culture Result 1 (EMMANUEL) - Final, Complete Physical Exam HEENT: Neck Supple W Full Motion Chest: Symmetric LUNGS: Other (diminished bases- on 10L per NC) Heart: irregularly irregular (tele: int AV pacing with underlying AFIB), other (heart tones difficult to appreciate) Abdomen: Soft N/T Extremities: No Calf Tenderness, Other (trace LE edema ) Neurology: alert, confused, other (impulsive ) Assessment Assessment 1. Acute on chronic respiratory failure multifactorial requiring BiPAP; DNI 2. 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 fluid balance now - with dialysis repeat echo LVEF 40-45% with suspected thrombus of right atrium- consider JEROME when mentation improves- will d/w primary cardiology. INR 3.2 continue fluid offloading in HD per nephrology 3. CAD s/p CABD MPI 05/2014 unremarkable. Stable. Continue secondary prevention. 4. SSS with PPM [employer] device. Recent interrogation revealed normal functioning device 5. s/p AVR stable, well seated per recent TTE. 6. Transaminitis per GI 7. Hypotension levo off- maintaining low-normotensive pressure. 8. Permanent AFIB intermittent AV pacing with underlying AFIB/flutter Continue on ECASA for stroke prevention. 9. VARUN with CKD Cr. 3.4 per renal 10. Leukocytosis with sepsis/shock, POA 11. DM, II 12. Encephalopathy ARNAUD ALLEN APRN Nov 13, 2016 14:03
--- NOTE | 2016-11-13 15:05 | PDOC2 ---
PALLIATIVE CARE Palliative Care Note Palliative Care Met with patient and Alecia this am. ( had not returned call to arrange meeting) Alecia states she wants to take him home with Home Health. Dr. Zacarias spoke with patient and --informed of possible Amiodarone effects on lungs. Informed of swallow concerns. Evaluation to follow. Patient states he would not want PEG tube or feeding tube. 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 Leukocytosis with sepsis/shock, POA . DM, II Encephalopathy Per Speech Therapy; Video evaluation pending. Will follow as information becomes available to have more discussion of goals. EZRA FIGUEROA Nov 13, 2016 15:05
--- NOTE | 2016-11-13 15:34 | PDOC2 ---
PALLIATIVE CARE Palliative Care Note Palliative Care Patient currently on dialysis. Complaining of pain. Will be medicated for discomfort. Received permission to talk with daughter Isabelle has dementia and not able to be part of conversation. Son Yuusf not involved in patient's care. Met with Isabelle DPOA/daughter. 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 Farida: more spiritual; has not attended [employer] Discussed options for care. Daughter want to continue current active treatment. Thinks would be appropriate for patient to be DNR/DNI but wants to have more conversation with her father (patient has been medicated with morphine ). Will continue current code status until Isabelle is able to talk about this with her father. Discussed discharge options; Patient may need LTAC to continue current aggressive care. Plan: Continue current treatment plan EZRA FIGUEROA Nov 13, 2016 15:34
[2016-11-13 16:15] LABS: INR 3.2 (0.8-1.1); PROTHROMBIN TIME PATIENT 31.2 SEC (11.7-14.0)
[2016-11-14] VITALS (20 sets, daily range): BP systolic 79–108; BP diastolic 23–51
[2016-11-14] MEDS: PIPERACILLIN/TAZOBACTAM 2.25 GM in IV NORMAL SALINE 50ML 50 ML IV SCH ×4 (05:43→23:41)
[2016-11-14 06:08] LABS: ALBUMIN 2.7 g/dL (3.4-5.0); CALCIUM 8.7 mg/dL (8.5-10.1); CREATININE 2.9 mg/dL (0.7-1.3); PHOSPHORUS 4.5 mg/dL (2.6-4.7); POTASSIUM 3.9 mmol/L (3.5-5.1)
--- NOTE | 2016-11-14 07:25 | PDOC ---
Infectious Disease Note Subjective Subjective States he is better but believes he is on the wrong medicine. Said his name is Donte and not Elie and meds are mixed up Slept some better per nursing ROS ROS GEN: Denies fevers, chills, sweats HEENT: Denies blurred vision, sore throat CV: Denies chest pain RESP: Denies shortness of air, cough GI: Denies n/v/d NEURO: Denies confusion, dizziness MSK: Denies weakness, joint pain/swelling Vital Sign Vital Signs Vital Signs Date Time Temp Pulse Resp B/P Pulse Ox O2 Delivery O2 Flow Rate FiO2 11/14/16 06:00 61 20 96/23 95 Nasal Cannula 4.0 11/14/16 04:00 97.5 97.5 Physical Exam PHYSICAL EXAM GENERAL: Awakens, pleasant but back to sleep easily HEENT: PERRL, OC/OP- dry NECK: Supple, no JVD, no LN LUNGS: Clear HEART: S1S2, no gallop, no murmur ABD: Soft, NT, no organomegaly, no rebound Dooley EXT: No edema, no cyanosis [employer] OPERATOR: Alert, confused, no focal neurologic deficit SKIN: No rash IV: neck - clean Labs Lab Laboratory Tests Test 11/13/16 07:38 11/13/16 12:02 11/13/16 15:35 11/14/16 05:00 Glucose (Fingerstick) 187mg/dL (70-99) 118mg/dL (70-99) Prothrombin Time 31.2SEC (11.7-14.0) Prothromb Time International Ratio 3.2 (0.8-1.1) Sodium Level 138mmol/L (136-145) Potassium Level 3.9mmol/L (3.5-5.1) Chloride Level 101mmol/L (98-107) Carbon Dioxide Level 34mmol/L (21-32) Anion Gap 3 (6-14) Blood Urea Nitrogen 45mg/dL (8-26) Creatinine 2.9mg/dL (0.7-1.3) Estimated GFR (Cockcroft-Gault) 21.0 Glucose Level 154mg/dL (70-99) Calcium Level 8.7mg/dL (8.5-10.1) Phosphorus Level 4.5mg/dL (2.6-4.7) Magnesium Level 1.8mg/dL (1.8-2.4) Albumin 2.7g/dL (3.4-5.0) Objective Assessment Resp failure - better Encephalopathy -better Questionable sepsis present on admission.- cults neg Hypotension - had improved Leukocytosis -increase ? reactive. Solumedrol dosed last pm Acute kidney injury - s/p HD Transaminitis, questionable secondary to sepsis versus congestion.- better. HIDA - neg Congestive heart failure. 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 JEROME was negative. Aortic valve replacement. Plan Plan of Care Cont Zyvox, Zosyn wean soon D/c doxy F/u lab and cults IDALIA BRAND MD Nov 14, 2016 07:25
[2016-11-14] MEDS: PANTOPRAZOLE 40 MG TABLET. PO SCH (07:45)
[2016-11-14] MEDS: ONDANSETRON PF 4 MG/2 ML VIAL. IV PRN (07:45)
[2016-11-14] MEDS: ASPIRIN ENTERIC COATED 81 MG TABLET.DR. PO SCH (07:45)
[2016-11-14] MEDS: INSULIN ASPART 300 UNITS/3 ML INSULN.PEN SQ SCH ×3 (07:51→17:36)
[2016-11-14 09:56] LABS: INR 2.8 (0.8-1.1); PROTHROMBIN TIME PATIENT 27.6 SEC (11.7-14.0)
--- NOTE | 2016-11-14 10:26 | PDOC ---
SUBJECTIVE ROS VARUN/ ATN Feeling better but still not a whole lot better from Belly standpoint CVS: no Orthopnea, no CP RESP: min SOB, no MILAN GI: no Nausea, no Vomiting : no Dysuria, no Urgency OBJECTIVE Vital Signs Vital Signs Date Time Temp Pulse Resp B/P Pulse Ox O2 Delivery O2 Flow Rate FiO2 11/14/16 10:00 60 12 98/43 94 Nasal Cannula 4.0 11/14/16 08:00 97.8 97.8 I & 0 Intake and Output 11/14/16 07:00 Intake Total 525 ml Output Total 5 ml Balance 520 ml Intake Oral 175 ml IV Total 350 ml Output Urine Total 5 ml PHYSICAL EXAM Physical Exam General Appearance: Awake Alert Oriented x 1- 2 In no Distress ( resp) - now on BiPAP Eyes: VIsion Unchanged Conjunctiva Normal EN: No EN Drainage Mucous Memb. moist Neck: no JVD min JVP Supple no Thyromegaly CVS: S1 S2 ? Murmur No Gallop No Rub no Edema Resp: + basal Rales no Rhonchi min Acc. Muscle use GI: BS hypoactive NO Bruit Min Tender Non Distended : no CVA tenderness x left around area of Rib # no Suprapubic Tenderness Assessment & Plan ARF: ATN Current fluid and E-lyte status does not necessitate emergent need for dialysis. Will re-evaluate for dialysis in the am. He is refusing HD in am also- will await Pall care mtg Resp failure - much improved after HD and fluid status optimization Previous Oliguria - suspect ATn now Lactic Acidemia- without overt Acidosis (no ABG) - watch trend ; ? Due to Metformin vs Gall Bladder/ SIRS ^ed LFTs - defer to GI Anemia: start Epogen Transfuse as needed. Discussed Plan of Care and prognosis etc. at length with pt, RN DIAGNOSIS/ASSESSMENT Assessment & Plan Problems: COMMENT/RELEVANT DATA Meds Current Medications Medications (Trade) Dose Ordered Sig/Nito Start Time Stop Time Status Last Admin Dose Admin Acetaminophen (Tylenol) 650 mg PRN Q6HRS PRN 11/10/16 13:15 Albumin Human (Albuminar) 200 ml @ 200 mls/hr 1X ONCE 11/12/16 12:45 11/12/16 13:44 DC 11/12/16 13:18 200 MLS/HR Aspirin 81 mg 81 mg [id number] 11/11/16 08:00 2/22/17 07:45 81 MG Calcium Gluconate 1,000 mg 1X ONCE 11/10/16 04:00 11/10/16 04:01 DC 11/10/16 03:56 1,000 MG Dextrose 12.5 gm PRN Q15MIN PRN 11/10/16 13:15 Diphenhydramine HCl (Benadryl) 25 mg 1X PRN PRN 11/12/16 11:00 11/13/16 10:59 DC Doxycycline Hyclate (Vibra-Tab) 100 mg BID 11/10/16 09:00 11/14/16 07:25 DC 11/13/16 21:45 100 MG Fentanyl Citrate (Fentanyl 2ml Vial) 50 mcg PRN Q2HR PRN 11/11/16 02:30 11/12/16 20:55 50 MCG Furosemide (Lasix) 40 mg 1X ONCE 11/12/16 01:30 11/12/16 01:31 DC 11/12/16 01:31 40 MG Furosemide 40 mg 40 mg 1X ONCE 11/12/16 11:30 11/12/16 11:31 DC 11/12/16 16:25 40 MG Heparin Sodium (Porcine) 2,500 unit 1X ONCE 11/12/16 09:15 11/12/16 09:16 DC 11/12/16 09:42 2,500 UNIT Heparin Sodium (Porcine) 65064 unit 10,000 unit STK-MED ONCE 11/12/16 09:09 11/12/16 09:10 DC Heparin Sodium/ Sodium Chloride 60 unit 1X ONCE 11/12/16 09:15 11/12/16 09:16 DC 11/12/16 09:43 60 UNIT Info (PHARMACY MONITORING -- do not chart) 1 each PRN DAILY PRN 11/13/16 09:00 UNV Insulin Aspart (Novolog) 0-9 UNITS TIDWMEALS 11/10/16 13:30 11/13/16 07:41 4 UNITS Insulin Human Regular (Novolin R Vial) 10 unit 1X ONCE 11/10/16 02:30 11/10/16 02:31 DC 11/10/16 02:22 10 UNIT Insulin Human Regular 10 unit 10 unit 1X ONCE 11/10/16 04:00 11/10/16 04:01 DC 11/10/16 03:59 10 UNIT Lidocaine (Lidoderm) 1 patch 1X ONCE 11/10/16 01:00 11/10/16 01:01 DC 11/10/16 01:14 1 PATCH Lidocaine HCl 1 stevie 1 stevie 1X ONCE 11/10/16 04:30 11/10/16 04:43 DC 11/10/16 04:40 1 STEVIE Lidocaine/Sodium Bicarbonate (Buffered Lidocaine 1%) 3 ml 1X ONCE 11/12/16 09:15 11/12/16 09:16 DC 11/12/16 09:43 3 ML Linezolid (Zyvox Premix) 300 ml @ 300 mls/hr Q12HR 11/10/16 09:00 11/14/16 07:46 300 MLS/HR Magnesium Sulfate/ Dextrose 50 ml @ 25 mls/hr PRN DAILY PRN 11/10/16 13:00 Methylprednisolone Sodium Succinate (Solu-Medrol 125mg Vial) 125 mg 1X ONCE 11/11/16 23:00 11/11/16 23:01 DC 11/12/16 00:09 125 MG Metronidazole 100 ml @ 100 mls/hr 1X ONCE 11/10/16 05:00 11/10/16 05:59 DC 11/10/16 04:40 100 MLS/HR Morphine Sulfate 2 mg PRN Q2HR PRN 11/13/16 11:15 11/13/16 11:13 2 MG Norepinephrine Bitartrate 8 mg/ Sodium Chloride 258 ml @ 0 mls/hr CONT PRN 11/10/16 07:15 Norepinephrine Bitartrate/Sodium Chloride (Levophed Vial/ Iv Sodium Chloride 0.9% 250ml) 258 ml @ 0 mls/hr CONT PRN 11/11/16 22:30 UNV Ondansetron HCl (Zofran) 4 mg PRN Q6HRS PRN 11/10/16 13:15 11/14/16 07:45 4 MG Pantoprazole Sodium (Protonix) 40 mg DAILYAC 11/10/16 14:00 11/14/16 07:45 40 MG Piperacillin Sod/ Tazobactam Sod 1 each 1 each PRN DAILY PRN 11/10/16 04:30 Piperacillin Sod/ Tazobactam Sod/ Sodium Chloride (Zosyn/Iv Sodium Chloride 0.9% 50ml) 50 ml @ 100 mls/hr Q6HRS 11/10/16 05:00 11/14/16 05:43 100 MLS/HR Sodium Bicarbonate/ Sterile Water 1,150 ml @ 125 mls/hr Q9H12M 11/10/16 04:30 11/10/16 04:30 DC Sodium Polystyrene Sulfonate 60 gm 60 gm 1X ONCE 11/11/16 06:45 11/11/16 06:46 DC 11/11/16 06:41 60 GM Sodium Bicarbonate 50 meq 1X ONCE 11/10/16 04:00 11/10/16 04:01 DC 11/10/16 04:00 50 MEQ Sodium Chloride (Iv Sodium Chloride 0.9% 500ml Bag) 500 ml @ 0 mls/hr QID PRN 11/10/16 13:00 11/11/16 18:23 DC Sodium Chloride (Iv Sodium Chloride 0.9% 1000ml Bag) 1,000 ml @ 400 mls/hr Q2H30M PRN 11/13/16 08:00 11/13/16 19:59 DC Sodium Chloride (Normal Saline Flush) 10 ml 1X PRN PRN 11/12/16 11:00 11/13/16 10:59 DC Lab Laboratory Tests Test 11/13/16 12:02 11/13/16 15:35 11/14/16 05:00 11/14/16 07:50 Glucose (Fingerstick) 118mg/dL (70-99) 123mg/dL (70-99) Prothrombin Time 31.2SEC (11.7-14.0) Prothromb Time International Ratio 3.2 (0.8-1.1) Sodium Level 138mmol/L (136-145) Potassium Level 3.9mmol/L (3.5-5.1) Chloride Level 101mmol/L (98-107) Carbon Dioxide Level 34mmol/L (21-32) Anion Gap 3 (6-14) Blood Urea Nitrogen 45mg/dL (8-26) Creatinine 2.9mg/dL (0.7-1.3) Estimated GFR (Cockcroft-Gault) 21.0 Glucose Level 154mg/dL (70-99) Calcium Level 8.7mg/dL (8.5-10.1) Phosphorus Level 4.5mg/dL (2.6-4.7) Magnesium Level 1.8mg/dL (1.8-2.4) Albumin 2.7g/dL (3.4-5.0) RENETTA FRAIRE MD Nov 14, 2016 10:26
--- NOTE | 2016-11-14 10:35 | PDOC ---
PULMONARY PROGRESS NOTES Subjective feels better no soa Vitals Vital Signs Date Time Temp Pulse Resp B/P Pulse Ox O2 Delivery O2 Flow Rate FiO2 11/14/16 10:00 60 12 98/43 94 Nasal Cannula 4.0 11/14/16 08:00 97.8 97.8 General: Alert, No acute distress Lungs: Other (decrease bs) Cardiovascular: S1, S2 Abdomen: Soft, Non-tender, Other Extremities: No Edema Labs Laboratory Tests Test 11/12/16 12:31 11/12/16 17:38 11/13/16 03:19 11/13/16 05:45 Glucose (Fingerstick) 203mg/dL (70-99) 148mg/dL (70-99) 175mg/dL (70-99) White Blood Count 12.5x10^3/uL (4.0-11.0) Red Blood Count 3.20x10^6/uL (4.30-5.70) Hemoglobin 9.9g/dL (13.0-17.5) Hematocrit 31.4% (39.0-53.0) Mean Corpuscular Volume 98fL (79-100) Mean Corpuscular Hemoglobin 31pg (25-35) Mean Corpuscular Hemoglobin Concent 32g/dL (31-37) Red Cell Distribution Width 15.0% (11.5-14.5) Platelet Count 51x10^3/uL (140-400) Neutrophils (%) (Auto) 86% (31-73) Lymphocytes (%) (Auto) 10% (24-48) Monocytes (%) (Auto) 4% (0-9) Eosinophils (%) (Auto) 0% (0-3) Basophils (%) (Auto) 0% (0-3) Neutrophils # (Auto) 10.7x10^3uL (1.8-7.7) Lymphocytes # (Auto) 1.3x10^3/uL (1.0-4.8) Monocytes # (Auto) 0.6x10^3/uL (0.0-1.1) Eosinophils # (Auto) 0.0x10^3/uL (0.0-0.7) Basophils # (Auto) 0.0x10^3/uL (0.0-0.2) Sodium Level 143mmol/L (136-145) Potassium Level 4.2mmol/L (3.5-5.1) Chloride Level 103mmol/L (98-107) Carbon Dioxide Level 30mmol/L (21-32) Anion Gap 10 (6-14) Blood Urea Nitrogen 55mg/dL (8-26) Creatinine 2.9mg/dL (0.7-1.3) Estimated GFR (Cockcroft-Gault) 21.0 BUN/Creatinine Ratio 19 (6-20) Glucose Level 204mg/dL (70-99) Calcium Level 8.7mg/dL (8.5-10.1) Phosphorus Level 5.1mg/dL (2.6-4.7) Magnesium Level 2.0mg/dL (1.8-2.4) Total Bilirubin 1.4mg/dL (0.2-1.0) Aspartate Amino Transf (AST/SGOT) 402U/L (15-37) Alanine Aminotransferase (ALT/SGPT) 944U/L (16-63) Alkaline Phosphatase 75U/L (46-116) Total Protein 5.8g/dL (6.4-8.2) Albumin 2.9g/dL (3.4-5.0) Albumin/Globulin Ratio 1.0 (1.0-1.7) Test 11/13/16 07:38 11/13/16 12:02 11/13/16 15:35 11/14/16 05:00 Glucose (Fingerstick) 187mg/dL (70-99) 118mg/dL (70-99) Prothrombin Time 31.2SEC (11.7-14.0) Prothromb Time International Ratio 3.2 (0.8-1.1) Sodium Level 138mmol/L (136-145) Potassium Level 3.9mmol/L (3.5-5.1) Chloride Level 101mmol/L (98-107) Carbon Dioxide Level 34mmol/L (21-32) Anion Gap 3 (6-14) Blood Urea Nitrogen 45mg/dL (8-26) Creatinine 2.9mg/dL (0.7-1.3) Estimated GFR (Cockcroft-Gault) 21.0 Glucose Level 154mg/dL (70-99) Calcium Level 8.7mg/dL (8.5-10.1) Phosphorus Level 4.5mg/dL (2.6-4.7) Magnesium Level 1.8mg/dL (1.8-2.4) Albumin 2.7g/dL (3.4-5.0) Test 11/14/16 07:50 11/14/16 09:15 Glucose (Fingerstick) 123mg/dL (70-99) Prothrombin Time 27.6SEC (11.7-14.0) Prothromb Time International Ratio 2.8 (0.8-1.1) Laboratory Tests Test 11/13/16 12:02 11/13/16 15:35 11/14/16 05:00 11/14/16 07:50 Glucose (Fingerstick) 118mg/dL (70-99) 123mg/dL (70-99) Prothrombin Time 31.2SEC (11.7-14.0) Prothromb Time International Ratio 3.2 (0.8-1.1) Sodium Level 138mmol/L (136-145) Potassium Level 3.9mmol/L (3.5-5.1) Chloride Level 101mmol/L (98-107) Carbon Dioxide Level 34mmol/L (21-32) Anion Gap 3 (6-14) Blood Urea Nitrogen 45mg/dL (8-26) Creatinine 2.9mg/dL (0.7-1.3) Estimated GFR (Cockcroft-Gault) 21.0 Glucose Level 154mg/dL (70-99) Calcium Level 8.7mg/dL (8.5-10.1) Phosphorus Level 4.5mg/dL (2.6-4.7) Magnesium Level 1.8mg/dL (1.8-2.4) Albumin 2.7g/dL (3.4-5.0) Test 11/14/16 09:15 Prothrombin Time 27.6SEC (11.7-14.0) Prothromb Time International Ratio 2.8 (0.8-1.1) Medications Active Scripts Medications Dose Route/Sig Days Date Category Carvedilol 3.125 Mg Tablet 3.125 Mg PO BIDWMEALS 09/26/16 Rx Fish Oil + Vitamin D-3 Softgel (Om-3/Dha/Epa/Fish Oil/Vit D3) 1 Each Capsule 1 Each PO 05/11/15 Reported Vitamin D (Cholecalciferol (Vitamin D3)) 1,000 Unit Capsule 1,000 Unit PO DAILY 05/11/15 Reported Klor-Con 10 (Potassium Chloride) 10 Meq Tablet.er 2 Tab PO DAILY 05/11/15 Reported Lasix (Furosemide) 20 Mg Tablet 10 Mg PO DAILY 05/11/15 Reported Aspir 81 (Aspirin) 81 Mg Tablet.dr 81 Mg PO 05/11/15 Reported Cozaar (Losartan Potassium) 50 Mg Tablet 50 Mg PO DAILY 05/11/15 Reported Amaryl (Glimepiride) 4 Mg Tablet 4 Mg PO DAILY 05/11/15 Reported Metformin Hcl 1,000 Mg Tablet 1,000 Mg PO BIDAC 05/11/15 Reported Impression . 1. [id number] hypoxemic, hypercapnic respiratory failure. 2. [id number] diastolic/systolic heart failure. 3. Acute renal failure, on hemodialysis. 4. Sepsis present upon admission, suspect secondary to urinary tract infection. 5. Elevated liver chemistries secondary to sepsis versus congestive liver. 6. Status post aortic valve replacement. 7. Post pacemaker implantation. 8. Chronic atrial fibrillation. 9. Moderate protein malnutrition present upon admission. 10. Abnormal ct chest c/w CHF Plan . 1. off BiPAP. Repeat arterial blood gas improving (combined Met and Resp acidosis) 2. Antibiotics per ID. 3. Negative fluid balance with hemodialysis. 4. Follow GI input regarding abnormal LFTs. 5. Continue DVT and GI prophylaxis. 6. Initiate oral feedings for nutritional support. 7. Consult dietitian for protein malnutrition. 8. d/w daughter,11/13 DPOA, DNR/DNI 9 repeat echo with thrombus in right atrium/ follow cardiology rec 10. repeat cxr in MICHAEL Troncoso MD Nov 14, 2016 10:35
--- NOTE | 2016-11-14 11:56 | PDOC ---
PROGRESS NOTES Chief Complaint Chief Complaint fall, A/P Encephalopathy: multifactorial resolved. Shock: Off Levophed GTT, Acute on Chronic respiratory failure: off BIPAP, supplemental oxygen. ? Sepsis, : on zoysn, zyvox and Doxycycline, monitor wbc, Prognosis guarded, consult palliative care,DNR/DNI, Pt declined to have HD, Risk and benefits, alternative explained, verbalized the understanding. Renal failure: HD per nephrology but pt declined to have HD any more. Mild hyperglycemia : SSI PRN Thrombocytopenia: monitor Shock Liver: LFT improving, monitor HX CAD, on Pacer Chronic Afib : rate controlled, follow cardiology recommendations. not on ORAL, INR 2.8. Thrombus suspected in the right atrium : Awaiting cardiology recommendations, HTN HLP Prognosis: poor/ guarded. History of Present Illness History of Present Illness doesn't want HD No fever no chills. no acute events. Vitals Vitals Vital Signs Date Time Temp Pulse Resp B/P Pulse Ox O2 Delivery O2 Flow Rate FiO2 11/14/16 11:00 66 23 108/46 98 Nasal Cannula 4.0 11/14/16 08:00 97.8 97.8 Physical Exam General: Alert, Oriented X3, mild distress, Other Heart: Regular rate, Normal S1, Normal S2 Lungs: Other (decrease bs) Abdomen: Normal bowel sounds Extremities: No edema, Normal pulses, Other (mild edema) Skin: No significant lesion Labs LABS Laboratory Tests Test 11/13/16 12:02 11/13/16 15:35 11/14/16 05:00 11/14/16 07:50 Glucose (Fingerstick) 118mg/dL (70-99) 123mg/dL (70-99) Prothrombin Time 31.2SEC (11.7-14.0) Prothromb Time International Ratio 3.2 (0.8-1.1) Sodium Level 138mmol/L (136-145) Potassium Level 3.9mmol/L (3.5-5.1) Chloride Level 101mmol/L (98-107) Carbon Dioxide Level 34mmol/L (21-32) Anion Gap 3 (6-14) Blood Urea Nitrogen 45mg/dL (8-26) Creatinine 2.9mg/dL (0.7-1.3) Estimated GFR (Cockcroft-Gault) 21.0 Glucose Level 154mg/dL (70-99) Calcium Level 8.7mg/dL (8.5-10.1) Phosphorus Level 4.5mg/dL (2.6-4.7) Magnesium Level 1.8mg/dL (1.8-2.4) Albumin 2.7g/dL (3.4-5.0) Test 11/14/16 09:15 11/14/16 10:30 11/14/16 11:40 Prothrombin Time 27.6SEC (11.7-14.0) Prothromb Time International Ratio 2.8 (0.8-1.1) Lactic Acid Level 2.3mmol/L (0.4-2.0) Glucose (Fingerstick) 176mg/dL (70-99) Assessment and Plan Assessmemt and Plan Problems Medical Problems: (1) ECG abnormal Status: Acute (2) Hyperkalemia Status: Acute (3) Hypotension Status: Acute (4) Renal failure Status: Acute Problems: Comment Review of Relevant I have reviewed the following items sandie (where applicable) has been applied. Labs Laboratory Tests Test 11/12/16 12:31 11/12/16 17:38 11/13/16 03:19 11/13/16 05:45 Glucose (Fingerstick) 203mg/dL (70-99) 148mg/dL (70-99) 175mg/dL (70-99) White Blood Count 12.5x10^3/uL (4.0-11.0) Red Blood Count 3.20x10^6/uL (4.30-5.70) Hemoglobin 9.9g/dL (13.0-17.5) Hematocrit 31.4% (39.0-53.0) Mean Corpuscular Volume 98fL (79-100) Mean Corpuscular Hemoglobin 31pg (25-35) Mean Corpuscular Hemoglobin Concent 32g/dL (31-37) Red Cell Distribution Width 15.0% (11.5-14.5) Platelet Count 51x10^3/uL (140-400) Neutrophils (%) (Auto) 86% (31-73) Lymphocytes (%) (Auto) 10% (24-48) Monocytes (%) (Auto) 4% (0-9) Eosinophils (%) (Auto) 0% (0-3) Basophils (%) (Auto) 0% (0-3) Neutrophils # (Auto) 10.7x10^3uL (1.8-7.7) Lymphocytes # (Auto) 1.3x10^3/uL (1.0-4.8) Monocytes # (Auto) 0.6x10^3/uL (0.0-1.1) Eosinophils # (Auto) 0.0x10^3/uL (0.0-0.7) Basophils # (Auto) 0.0x10^3/uL (0.0-0.2) Sodium Level 143mmol/L (136-145) Potassium Level 4.2mmol/L (3.5-5.1) Chloride Level 103mmol/L (98-107) Carbon Dioxide Level 30mmol/L (21-32) Anion Gap 10 (6-14) Blood Urea Nitrogen 55mg/dL (8-26) Creatinine 2.9mg/dL (0.7-1.3) Estimated GFR (Cockcroft-Gault) 21.0 BUN/Creatinine Ratio 19 (6-20) Glucose Level 204mg/dL (70-99) Calcium Level 8.7mg/dL (8.5-10.1) Phosphorus Level 5.1mg/dL (2.6-4.7) Magnesium Level 2.0mg/dL (1.8-2.4) Total Bilirubin 1.4mg/dL (0.2-1.0) Aspartate Amino Transf (AST/SGOT) 402U/L (15-37) Alanine Aminotransferase (ALT/SGPT) 944U/L (16-63) Alkaline Phosphatase 75U/L (46-116) Total Protein 5.8g/dL (6.4-8.2) Albumin 2.9g/dL (3.4-5.0) Albumin/Globulin Ratio 1.0 (1.0-1.7) Test 11/13/16 07:38 11/13/16 12:02 11/13/16 15:35 11/14/16 05:00 Glucose (Fingerstick) 187mg/dL (70-99) 118mg/dL (70-99) Prothrombin Time 31.2SEC (11.7-14.0) Prothromb Time International Ratio 3.2 (0.8-1.1) Sodium Level 138mmol/L (136-145) Potassium Level 3.9mmol/L (3.5-5.1) Chloride Level 101mmol/L (98-107) Carbon Dioxide Level 34mmol/L (21-32) Anion Gap 3 (6-14) Blood Urea Nitrogen 45mg/dL (8-26) Creatinine 2.9mg/dL (0.7-1.3) Estimated GFR (Cockcroft-Gault) 21.0 Glucose Level 154mg/dL (70-99) Calcium Level 8.7mg/dL (8.5-10.1) Phosphorus Level 4.5mg/dL (2.6-4.7) Magnesium Level 1.8mg/dL (1.8-2.4) Albumin 2.7g/dL (3.4-5.0) Test 11/14/16 07:50 11/14/16 09:15 11/14/16 10:30 11/14/16 11:40 Glucose (Fingerstick) 123mg/dL (70-99) 176mg/dL (70-99) Prothrombin Time 27.6SEC (11.7-14.0) Prothromb Time International Ratio 2.8 (0.8-1.1) Lactic Acid Level 2.3mmol/L (0.4-2.0) Laboratory Tests Test 11/13/16 12:02 11/13/16 15:35 11/14/16 05:00 11/14/16 07:50 Glucose (Fingerstick) 118mg/dL (70-99) 123mg/dL (70-99) Prothrombin Time 31.2SEC (11.7-14.0) Prothromb Time International Ratio 3.2 (0.8-1.1) Sodium Level 138mmol/L (136-145) Potassium Level 3.9mmol/L (3.5-5.1) Chloride Level 101mmol/L (98-107) Carbon Dioxide Level 34mmol/L (21-32) Anion Gap 3 (6-14) Blood Urea Nitrogen 45mg/dL (8-26) Creatinine 2.9mg/dL (0.7-1.3) Estimated GFR (Cockcroft-Gault) 21.0 Glucose Level 154mg/dL (70-99) Calcium Level 8.7mg/dL (8.5-10.1) Phosphorus Level 4.5mg/dL (2.6-4.7) Magnesium Level 1.8mg/dL (1.8-2.4) Albumin 2.7g/dL (3.4-5.0) Test 11/14/16 09:15 11/14/16 10:30 11/14/16 11:40 Prothrombin Time 27.6SEC (11.7-14.0) Prothromb Time International Ratio 2.8 (0.8-1.1) Lactic Acid Level 2.3mmol/L (0.4-2.0) Glucose (Fingerstick) 176mg/dL (70-99) Microbiology 11/10/16 Blood Culture - Preliminary, Resulted NO GROWTH AFTER 4 DAYS 11/10/16 Urine Culture - Final, Complete 11/10/16 Urine Culture Result 1 (EMMANUEL) - Final, Complete Medications Current Medications Fentanyl Citrate (Fentanyl 2ml Vial) 25 mcg PRN Q15MIN PRN IV PAIN GREATER THAN 3/10 Last administered on 11/10/16 23:41; Start 11/10/16 at 01:00; Stop at 00:59; Status DC Lidocaine (Lidoderm) 1 patch 1X ONCE TD Last administered on 11/10/16 01:14; Start 11/10/16 at 01:00; Stop 11/10/16 at 01:01; Status DC Calcium Gluconate 1,000 mg 1X ONCE IVP Last administered on 11/10/16 02:20; Start 11/10/16 at 02:30; Stop 11/10/16 at 02:31; Status DC Sodium Bicarbonate 50 meq 1X ONCE IV Last administered on 11/10/16 02:20; Start 11/10/16 at 02:30; Stop 11/10/16 at 02:31; Status DC Dextrose 25 gm 1X ONCE IV Last administered on 11/10/16 02:20; Start at 02:30; Stop 11/10/16 at 02:31; Status DC Insulin Human Regular (Novolin R Vial) 10 unit 1X ONCE IV Last administered on 11/10/16 02:22; Start 11/10/16 at 02:30; Stop 11/10/16 at 02:31; Status DC Calcium Gluconate 1,000 mg 1X ONCE IVP Last administered on 11/10/16 03:56; Start 11/10/16 at 04:00; Stop 11/10/16 at 04:01; Status DC Sodium Bicarbonate 50 meq 1X ONCE IV Last administered on 11/10/16 04:00; Start 11/10/16 at 04:00; Stop 11/10/16 at 04:01; Status DC Dextrose 25 gm 1X ONCE IV Last administered on 11/10/16 04:01; Start at 04:00; Stop 11/10/16 at 04:01; Status DC Insulin Human Regular 10 unit 10 unit 1X ONCE IV Last administered on 03:59; Start 11/10/16 at 04:00; Stop 11/10/16 at 04:01; Status DC Sodium Bicarbonate 150 meq/Sterile Water 1,150 ml @ 125 mls/hr Q9H12M IV ; Start 11/10/16 at 04:30; Stop 11/10/16 at 04:30; Status DC Sodium Chloride (Iv Sodium Chloride 0.9% 1000ml Bag) 1,000 ml @ 100 mls/hr 1X ONCE IV Last administered on 11/10/16 04:41; Start 11/10/16 at 04:30; Stop at 14:29; Status DC Piperacillin Sod/ Tazobactam Sod 1 each 1 each PRN DAILY PRN MC SEE COMMENTS; Start 11/10/16 at 04:30 Metronidazole 100 ml @ 100 mls/hr Q8HRS IV ; Start 11/10/16 at 14:00; Stop at 14:00; Status DC Metronidazole 100 ml @ 100 mls/hr 1X ONCE IV Last administered on 11/10/16 04:40; Start 11/10/16 at 05:00; Stop 11/10/16 at 05:59; Status DC Piperacillin Sod/ Tazobactam Sod/ Sodium Chloride (Zosyn/Iv Sodium Chloride 0.9 % 50ml) 50 ml @ 100 mls/hr Q6HRS IV Last administered on 11/14/16 11:44; Start 11/10/16 at 05:00 Lidocaine HCl 1 stevie 1 stevie 1X ONCE MM Last administered on 11/10/16 04:40; Start 11/10/16 at 04:30; Stop 11/10/16 at 04:43; Status DC Norepinephrine Bitartrate 8 mg/ Sodium Chloride 258 ml @ 0 mls/hr CONT PRN IV SEE I/O RECORD; Start 11/10/16 at 07:15 Linezolid (Zyvox Premix) 300 ml @ 300 mls/hr Q12HR IV Last administered on 07:46; Start 11/10/16 at 09:00 Doxycycline Hyclate (Vibra-Tab) 100 mg BID PO Last administered on 11/13/16 21 :45; Start 11/10/16 at 09:00; Stop 11/14/16 at 07:25; Status DC Aspirin 81 mg 81 mg [id number] PO Last administered on 11/14/16 07:45; Start 11/11/16 at 08:00 Magnesium Sulfate/ Dextrose 50 ml @ 25 mls/hr PRN DAILY PRN IV for Mag < 1.7 on am labs; Start 11/10/16 at 13:00 Sodium Chloride (Iv Sodium Chloride 0.9% 500ml Bag) 500 ml @ 0 mls/hr QID PRN IV UO< 30cc/hr over previous 6hrs; Start 11/10/16 at 13:00; Stop 11/11/16 at 18: 23; Status DC Acetaminophen (Tylenol) 650 mg PRN Q6HRS PRN PO MILD PAIN / TEMP; Start at 13:15 Ondansetron HCl (Zofran) 4 mg PRN Q6HRS PRN IV NAUSEA/VOMITING Last administered on 11/14/16 07:45; Start 11/10/16 at 13:15 Heparin Sodium (Porcine) 5,000 unit Q8HRS SQ ; Start 11/10/16 at 14:00; Stop at 14:00; Status DC Insulin Aspart (Novolog) 0-9 UNITS TIDWMEALS SQ Last administered on 11/14/16 11:42; Start 11/10/16 at 13:30 Dextrose 12.5 gm 12.5 gm PRN Q15MIN PRN IV SEE COMMENTS; Start 11/10/16 at 13: 15 Sodium Chloride (Iv Sodium Chloride 0.9% 1000ml Bag) 1,000 ml @ 100 mls/hr Q10H IV Last administered on 11/10/16 23:41; Start 11/10/16 at 13:15; Stop at 18:23; Status DC Pantoprazole Sodium (Protonix) 40 mg DAILYAC PO Last administered on 11/14/16 07:45; Start 11/10/16 at 14:00 Fentanyl Citrate (Fentanyl 2ml Vial) 50 mcg PRN Q2HR PRN IV SEVERE PAIN Last administered on 11/12/16 20:55; Start 11/11/16 at 02:30 Sodium Polystyrene Sulfonate 60 gm 60 gm 1X ONCE PO Last administered on 06:41; Start 11/11/16 at 06:45; Stop 11/11/16 at 06:46; Status DC Norepinephrine Bitartrate/Sodium Chloride (Levophed Vial/ Iv Sodium Chloride 0.9 % 250ml) 258 ml @ 0 mls/hr CONT PRN IV SEE I/O RECORD; Start 11/11/16 at 22:30 ; Status UNV Methylprednisolone Sodium Succinate (Solu-Medrol 125mg Vial) 125 mg 1X ONCE IV Last administered on 11/12/16 00:09; Start 11/11/16 at 23:00; Stop 11/11/16 at 23:01; Status DC Furosemide (Lasix) 40 mg 1X ONCE IVP Last administered on 11/12/16 01:31; Start 11/12/16 at 01:30; Stop 11/12/16 at 01:31; Status DC Lidocaine/Sodium Bicarbonate (Buffered Lidocaine 1%) 3 ml 1X ONCE IJ Last administered on 11/12/16 09:43; Start 11/12/16 at 09:15; Stop 11/12/16 at 09:16 ; Status DC Heparin Sodium/ Sodium Chloride 60 unit 1X ONCE IV Last administered on 09:43; Start 11/12/16 at 09:15; Stop 11/12/16 at 09:16; Status DC Heparin Sodium (Porcine) 2,500 unit 1X ONCE INT CAT Last administered on 09:42; Start 11/12/16 at 09:15; Stop 11/12/16 at 09:16; Status DC Heparin Sodium (Porcine) 58588 unit 10,000 unit STK-MED ONCE .ROUTE ; Start at 09:09; Stop 11/12/16 at 09:10; Status DC Sodium Chloride 1,000 ml @ 1,000 mls/hr Q1H PRN IV hypotension; Start 11/12/16 at 10:47; Stop 11/12/16 at 16:46; Status DC Albumin Human (Albuminar) 200 ml @ 200 mls/hr 1X ONCE IV Last administered on 11/12/16 13:18; Start 11/12/16 at 12:45; Stop 11/12/16 at 13:44; Status DC Diphenhydramine HCl (Benadryl) 25 mg 1X PRN PRN IV ITCHING; Start 11/12/16 at 11:00; Stop 11/13/16 at 10:59; Status DC Diphenhydramine HCl (Benadryl) 25 mg 1X PRN PRN IV ITCHING; Start 11/12/16 at 11:00; Stop 11/13/16 at 10:59; Status DC Sodium Chloride (Normal Saline Flush) 10 ml 1X PRN PRN IV AP catheter pack; Start 11/12/16 at 11:00; Stop 11/13/16 at 10:59; Status DC Sodium Chloride 10 ml 10 ml 1X PRN PRN IV [employer] catheter pack; Start 11/12/16 at 11:00; Stop 11/13/16 at 10:59; Status DC Sodium Chloride (Iv Sodium Chloride 0.9% 1000ml Bag) 1,000 ml @ 400 mls/hr Q2H30M PRN IV PATENCY; Start 11/12/16 at 10:47; Stop 11/12/16 at 22:46; Status DC Info (PHARMACY MONITORING -- do not chart) 1 each PRN DAILY PRN MC SEE COMMENTS ; Start 11/12/16 at 11:00 Furosemide 40 mg 40 mg 1X ONCE IVP Last administered on 11/12/16t 16:25; Start 11/12/16 at 11:30; Stop 11/12/16 at 11:31; Status DC Sodium Chloride 1,000 ml @ 1,000 mls/hr Q1H PRN IV hypotension; Start 11/13/16 at 08:00; Stop 11/13/16 at 13:59; Status DC Sodium Chloride (Iv Sodium Chloride 0.9% 1000ml Bag) 1,000 ml @ 400 mls/hr Q2H30M PRN IV PATENCY; Start 11/13/16 at 08:00; Stop 11/13/16 at 19:59; Status DC Info (PHARMACY MONITORING -- do not chart) 1 each PRN DAILY PRN MC SEE COMMENTS ; Start 11/13/16 at 09:00; Status UNV Morphine Sulfate 2 mg PRN Q2HR PRN IV PAIN Last administered on 11/13/16t 11:13 ; Start 11/13/16 at 11:15 Active Scripts Active Carvedilol 3.125 Mg Tablet 3.125 Mg PO BIDWMEALS Reported Fish Oil + Vitamin D-3 Softgel (Om-3/Dha/Epa/Fish Oil/Vit D3) 1 Each Capsule 1 Each PO Vitamin D (Cholecalciferol (Vitamin D3)) 1,000 Unit Capsule 1,000 Unit PO DAILY Klor-Con 10 (Potassium Chloride) 10 Meq Tablet.er 2 Tab PO DAILY Lasix (Furosemide) 20 Mg Tablet 10 Mg PO DAILY Aspir 81 (Aspirin) 81 Mg Tablet.dr 81 Mg PO Cozaar (Losartan Potassium) 50 Mg Tablet 50 Mg PO DAILY Amaryl (Glimepiride) 4 Mg Tablet 4 Mg PO DAILY Metformin Hcl 1,000 Mg Tablet 1,000 Mg PO BIDAC Vitals/I & O Vital Sign - Last 24 Hours 11/13/16 11/13/16 11/13/16 11/13/16 12:00 12:00 13:00 14:00 Temp 97.4 97.4 Pulse 64 59 59 Resp 24 20 34 B/P 98/40 99/51 104/44 Pulse Ox 99 100 99 O2 Delivery Nasal Cannula Nasal Cannula Nasal Cannula Nasal Cannula O2 Flow Rate 10.0 10.0 5.0 5.0 11/13/16 11/13/16 11/13/16 11/13/16 15:00 16:00 16:00 17:00 Temp 98.1 98.1 Pulse 59 68 69 Resp 18 18 19 B/P 93/41 98/44 93/48 Pulse Ox 98 96 97 O2 Delivery Nasal Cannula Nasal Cannula Nasal Cannula Nasal Cannula O2 Flow Rate 5.0 4.0 4.0 4.0 11/13/16 11/13/16 11/13/16 11/13/16 18:00 19:00 20:00 20:00 Temp 97.3 97.3 Pulse 66 70 66 Resp 18 22 B/P 96/45 89/40 96/45 Pulse Ox 95 97 95 O2 Delivery Nasal Cannula Nasal Cannula Nasal Cannula Nasal Cannula O2 Flow Rate 4.0 4.0 4.0 4.0 11/13/16 11/13/16 11/13/16 11/13/16 21:00 22:00 23:00 23:59 Pulse 67 68 67 Resp 20 20 21 B/P 94/44 97/45 99/42 Pulse Ox 97 93 97 O2 Delivery Nasal Cannula Nasal Cannula Nasal Cannula Nasal Cannula O2 Flow Rate 4.0 4.0 4.0 4.0 11/14/16 11/14/16 11/14/16 11/14/16 00:00 01:00 02:00 03:00 Temp 97.3 97.3 Pulse 62 62 59 59 Resp 29 14 B/P 104/46 101/46 79/33 98/42 Pulse Ox 95 95 96 95 O2 Delivery Nasal Cannula Nasal Cannula Nasal Cannula Nasal Cannula O2 Flow Rate 4.0 4.0 4.0 4.0 11/14/16 11/14/16 11/14/16 11/14/16 04:00 04:00 05:00 06:00 Temp 97.5 97.5 Pulse 68 68 61 Resp 14 20 B/P 92/38 92/45 96/23 Pulse Ox 95 95 95 O2 Delivery Nasal Cannula Nasal Cannula Nasal Cannula Nasal Cannula O2 Flow Rate 4.0 4.0 4.0 4.0 11/14/16 11/14/16 11/14/16 11/14/16 07:00 08:00 08:00 09:00 Temp 97.8 97.8 Pulse 59 59 58 Resp 40 59 23 B/P 103/44 101/45 102/46 Pulse Ox 95 92 93 O2 Delivery Nasal Cannula Nasal Cannula Nasal Cannula Nasal Cannula O2 Flow Rate 4.0 4.0 4.0 4.0 11/14/16 11/14/16 10:00 11:00 Pulse 60 66 Resp 12 23 B/P 98/43 108/46 Pulse Ox 94 98 O2 Delivery Nasal Cannula Nasal Cannula O2 Flow Rate 4.0 4.0 Intake and Output 11/13/16 11/13/16 11/14/16 15:00 23:00 07:00 Intake Total 75 ml 100 ml 350 ml Output Total 5 ml Balance 70 ml 100 ml 350 ml LOUISE [place] MD Nov 14, 2016 11:56
--- NOTE | 2016-11-14 12:22 | PDOC ---
CARDIO Progress Notes Date and Time Date of Service 11/14/16 Time of Evaluation 1050 Subjective Subjective: No Chest Pain, No Palpitations, Other (SOA improved. Does not was dialysis- ready to but needs to ask first. ) Vitals Vitals Vital Signs Date Time Temp Pulse Resp B/P Pulse Ox O2 Delivery O2 Flow Rate FiO2 11/14/16 11:00 66 23 108/46 98 Nasal Cannula 4.0 11/14/16 08:00 97.8 97.8 Weight Weight [ ] Input and Output Intake and Output Intake and Output 11/14/16 07:00 Intake Total 525 ml Output Total 5 ml Balance 520 ml Intake Oral 175 ml IV Total 350 ml Output Urine Total 5 ml Laboratory Labs Laboratory Tests Test 11/13/16 15:35 11/14/16 05:00 11/14/16 07:50 11/14/16 09:15 Prothrombin Time 31.2SEC (11.7-14.0) 27.6SEC (11.7-14.0) Prothromb Time International Ratio 3.2 (0.8-1.1) 2.8 (0.8-1.1) Sodium Level 138mmol/L (136-145) Potassium Level 3.9mmol/L (3.5-5.1) Chloride Level 101mmol/L (98-107) Carbon Dioxide Level 34mmol/L (21-32) Anion Gap 3 (6-14) Blood Urea Nitrogen 45mg/dL (8-26) Creatinine 2.9mg/dL (0.7-1.3) Estimated GFR (Cockcroft-Gault) 21.0 Glucose Level 154mg/dL (70-99) Calcium Level 8.7mg/dL (8.5-10.1) Phosphorus Level 4.5mg/dL (2.6-4.7) Magnesium Level 1.8mg/dL (1.8-2.4) Albumin 2.7g/dL (3.4-5.0) Glucose (Fingerstick) 123mg/dL (70-99) Test 11/14/16 10:30 11/14/16 11:40 Lactic Acid Level 2.3mmol/L (0.4-2.0) Glucose (Fingerstick) 176mg/dL (70-99) Microbiology Micro Microbiology 11/10/16 Blood Culture - Preliminary, Resulted NO GROWTH AFTER 4 DAYS 11/10/16 Urine Culture - Final, Complete 11/10/16 Urine Culture Result 1 (EMMANUEL) - Final, Complete Physical Exam HEENT: Neck Supple W Full Motion Chest: Symmetric LUNGS: Clear to Auscultation, Other (diminished bases) Heart: S1S2, irregularly irregular (tele: int AV pacing with underlying AFIB) Abdomen: Soft N/T Extremities: No Calf Tenderness, Other (trace LE edema ) Neurology: alert, follow commands, confused (intermittently ), other Assessment Assessment 1. Acute on chronic respiratory failure multifactorial improved. DNR/DNI 2. 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 appears fairly well compensated presently repeat echo LVEF 40-45% with suspected thrombus of right atrium- not presently candidate for sedation/JEROME INR 2.8 despite no a/c therapy. Daily INR. ? candidacy for long-term a/c therapy decline HD today. Diuresis as per renal 3. CAD s/p CABG MPI 05/2014 unremarkable. Stable. Continue secondary prevention. 4. SSS with PPM [employer] device. Recent interrogation revealed normal functioning device 5. s/p AVR stable, well seated per recent TTE. 6. Transaminitis per GI 7. Hypotension levo off- maintaining low-normotensive pressure. 8. Permanent AFIB intermittent AV pacing with underlying AFIB/flutter Continue on ECASA for stroke prevention. INR 2.8 9. VARUN with CKD 10. Leukocytosis with sepsis/shock, POA 11. DM, II 12. Encephalopathy improving ARNAUD ALLEN APRN Nov 14, 2016 12:22
[2016-11-14 13:03] LABS: ALBUMIN 2.8 g/dL (3.4-5.0); CALCIUM 8.6 mg/dL (8.5-10.1); GFR 20.2; MAGNESIUM 1.8 mg/dL (1.8-2.4); PHOSPHORUS 4.5 mg/dL (2.6-4.7); TOTAL BILIRUBIN 1.5 mg/dL (0.2-1.0); TOTAL PROTEIN 5.6 g/dL (6.4-8.2)
--- NOTE | 2016-11-14 13:17 | PDOC ---
Objective: Objective: Per RN - left foot pain, feels cold. Pt has said he'd like to go home, doesn't want to do dialysis. Vital Signs: Vital Signs Date Time Temp Pulse Resp B/P Pulse Ox O2 Delivery O2 Flow Rate FiO2 11/14/16 12:00 97.5 62 15 92/40 98 Nasal Cannula 4.0 97.5 Labs: Laboratory Tests Test 11/13/16 15:35 11/14/16 05:00 11/14/16 07:50 11/14/16 09:15 Prothrombin Time 31.2SEC 27.6SEC Prothromb Time International Ratio 3.2 2.8 Sodium Level 140mmol/L Potassium Level 4.0mmol/L Chloride Level 101mmol/L Carbon Dioxide Level 30mmol/L Anion Gap 9 Blood Urea Nitrogen 45mg/dL Creatinine 3.0mg/dL Estimated GFR (Cockcroft-Gault) 20.2 BUN/Creatinine Ratio 15 Glucose Level 148mg/dL Calcium Level 8.6mg/dL Phosphorus Level 4.5mg/dL Magnesium Level 1.8mg/dL Total Bilirubin 1.5mg/dL Aspartate Amino Transf (AST/SGOT) 163U/L Alanine Aminotransferase (ALT/SGPT) 663U/L Alkaline Phosphatase 70U/L Total Protein 5.6g/dL Albumin 2.8g/dL Albumin/Globulin Ratio 1.0 Glucose (Fingerstick) 123mg/dL Test 11/14/16 10:30 11/14/16 11:40 Lactic Acid Level 2.3mmol/L Glucose (Fingerstick) 176mg/dL PE: GEN: NAD ABD: soft, non-tender EXTREM: left foot +pulse w/ purplish color, cool NEURO/PSYCH: less confusion A/P: Resp failure, leukocytosis/sepsis, hypotension, VARUN, CHF, lactic acidosis Abnormal LFTs - improved/stable -US w/ GB wall thickening, trace pericholecystic fluid, hepatomegaly -Hep panel negative, acetaminophen level normal, RISA and ASMA pending -on atbx -- Await further palliative care discussion. Other per Dr. Javier. JONNATHAN ROSE Nov 14, 2016 13:17
[2016-11-14 13:26] LABS: SMOOTH MUSCLE AB 7 Units (0-19)
[2016-11-14] MEDS: MORPHINE SULFATE 2 MG/ML DISP.SYRIN. IV PRN (13:57)
--- NOTE | 2016-11-14 14:01 | RAD ---
Portable chest, 11/14/2016: History: Pleural effusion, shortness of breath Comparison is made to a study from 11/12/2016. A left-sided transvenous pacemaker remains in place with 2 leads extending into the right heart. Right jugular central venous and dialysis type catheters extend into the right atrium. The heart is enlarged. The pulmonary vascularity is prominent. There are worsening basilar opacities suggesting pleural fluid and underlying atelectasis/infiltrate, right greater than left. IMPRESSION: Ongoing congestive heart failure with slight worsening of the pleural effusions and basilar infiltrates since 11/12/2016.
--- NOTE | 2016-11-14 15:40 | PDOC2 ---
PALLIATIVE CARE Palliative Care Note Palliative Care Patient awakens easily. Patient is able to verbalize changes in his desire to change plan of care; stopping dialysis--understands that without this he will . Confirmed Code Status: DNR/DNI. Understands that without this attempt he likely will Patient wants to return to [facility] to be with his . Right atrium thrombus--awaiting cardiology input. Lower extremities cool. L>R; pulses +. Complains of discomfort. Medicated with Morphine. aware of changes Call placed to Isabelle/daughter. Updated on patient's wishes and changes in extremities and thrombus. Isabelle will be here shortly. Greta BHAGAT aware of patient wishes and working with [facility] to return. EZRA FIGUEROA Nov 14, 2016 15:40
[2016-11-15 03:33] VITALS: BP 106/42
[2016-11-15 05:21] LABS: ALBUMIN 2.6 g/dL (3.4-5.0); CALCIUM 8.7 mg/dL (8.5-10.1); CREATININE 3.9 mg/dL (0.7-1.3); GFR 14.9; PHOSPHORUS 4.8 mg/dL (2.6-4.7)
[2016-11-15] MEDS: PIPERACILLIN/TAZOBACTAM 2.25 GM in IV NORMAL SALINE 50ML 50 ML IV SCH ×4 (06:14→23:34)
[2016-11-15 07:00] VITALS: BP 107/39
--- NOTE | 2016-11-15 07:36 | RAD ---
EXAM: Chest one view. HISTORY: Pleural effusion, shortness of breath. COMPARISON: 11/14/2016. FINDINGS: A frontal view of the chest is obtained. Right internal jugular hemodialysis and central venous catheters have their tips in the right atrium. A left-sided pacemaker has its leads in the right atrium and right ventricle. There are changes of coronary artery bypass grafting. Interstitial and airspace opacities in the right greater than left bases are not clearly changed. Small pleural effusions cannot be excluded. There is no pneumothorax. The heart is at least mildly enlarged. There are atherosclerotic calcifications of the aorta. IMPRESSION: 1. Stable [id number] pulmonary edema versus bibasilar pneumonia. 2. Mild cardiomegaly.
[2016-11-15] MEDS: PANTOPRAZOLE 40 MG TABLET. PO SCH (07:42)
[2016-11-15] MEDS: ASPIRIN ENTERIC COATED 81 MG TABLET.DR. PO SCH (07:42)
[2016-11-15] MEDS: INSULIN ASPART 300 UNITS/3 ML INSULN.PEN SQ SCH ×3 (08:00→17:00)
--- NOTE | 2016-11-15 08:44 | PDOC ---
Infectious Disease Note Subjective Subjective States he is better but occ nausea and left foot pain ROS ROS GEN: Denies fevers, chills, sweats HEENT: Denies blurred vision, sore throat CV: Denies chest pain RESP: Denies shortness of air, cough GI: Denies n/v/d NEURO: Denies confusion, dizziness MSK: Denies weakness, joint pain/swelling Vital Sign Vital Signs Vital Signs Date Time Temp Pulse Resp B/P Pulse Ox O2 Delivery O2 Flow Rate FiO2 11/15/16 07:00 97.8 45 16 107/39 96 Nasal Cannula 5.0 97.8 Physical Exam PHYSICAL EXAM GENERAL: NAD, Alert HEENT: PERRL, OC/OP -dry NECK: Supple, no JVD, no LN LUNGS: Clear HEART: S1S2, no gallop, no murmur ABD: Soft, NT, no organomegaly, no rebound EXT: Left foot cool with some cyanosis [employer]ER: Alert, coop SKIN: No rash IV: RIJ clean Labs Lab Laboratory Tests Test 11/14/16 09:15 11/14/16 10:30 11/14/16 11:40 11/14/16 17:32 Prothrombin Time 27.6SEC (11.7-14.0) Prothromb Time International Ratio 2.8 (0.8-1.1) Lactic Acid Level 2.3mmol/L (0.4-2.0) Glucose (Fingerstick) 176mg/dL (70-99) 248mg/dL (70-99) Test 11/14/16 20:55 11/15/16 03:31 11/15/16 07:57 Glucose (Fingerstick) 271mg/dL (70-99) 243mg/dL (70-99) Sodium Level 139mmol/L (136-145) Potassium Level 4.0mmol/L (3.5-5.1) Chloride Level 100mmol/L (98-107) Carbon Dioxide Level 29mmol/L (21-32) Anion Gap 10 (6-14) Blood Urea Nitrogen 59mg/dL (8-26) Creatinine 3.9mg/dL (0.7-1.3) Estimated GFR (Cockcroft-Gault) 14.9 Glucose Level 291mg/dL (70-99) Lactic Acid Level 2.0mmol/L (0.4-2.0) Calcium Level 8.7mg/dL (8.5-10.1) Phosphorus Level 4.8mg/dL (2.6-4.7) Magnesium Level 1.9mg/dL (1.8-2.4) Albumin 2.6g/dL (3.4-5.0) Objective Assessment Left foot is cool ? vascular issue Resp failure - better Encephalopathy -better Questionable sepsis present on admission.- cults neg Hypotension - had improved Leukocytosis -increase ? reactive. Solumedrol dosed last pm Acute kidney injury - s/p HD Transaminitis, questionable secondary to sepsis versus congestion.- better. HIDA - neg Congestive heart failure. 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 JEROME was negative. Aortic valve replacement.ECHO with ? thrombus in Right atrium Plan Plan of Care D/w Dr. Rodney re: cool foot ? need for eval and Vascular but ? how aggressive family desires to be Cont Zyvox, Zosyn wean soon F/u lab and cults IDALIA BRAND MD Nov 15, 2016 08:44
[2016-11-15] MEDS: ONDANSETRON PF 4 MG/2 ML VIAL. IV PRN (09:15)
[2016-11-15 10:08] LABS: INR 2.3 (0.8-1.1)
--- NOTE | 2016-11-15 10:22 | PDOC ---
PROGRESS NOTES Chief Complaint Chief Complaint 1. Encephalopathy: multifactorial resolved. 2. Shock: Off Levophed GTT, 3. Acute on Chronic respiratory failure: off BIPAP, supplemental oxygen. 4. Renal failure: HD per nephrology but pt declined to have HD any more. 5. Shock Liver: LFT improving, monitor 6. HX CAD, on Pacer 7. Chronic Afib : rate controlled, follow cardiology recommendations. not on ORAL, INR 2.8. 8. Thrombus suspected in the right atrium : Awaiting cardiology recommendations History of Present Illness History of Present Illness Pt awake with minimal verbal response when see and examined this AM. Pt does recoil to pain when having his left food examined. No fever or chills. No acute events over night. Pt does not want HD. Palliative care involved in case. VSS- All questions and concerns addressed and answered. Vitals Vitals Vital Signs Date Time Temp Pulse Resp B/P Pulse Ox O2 Delivery O2 Flow Rate FiO2 11/15/16 07:00 97.8 45 16 107/39 96 Nasal Cannula 5.0 97.8 Physical Exam General: Alert, Oriented X3, No acute distress, Other Heart: Regular rate, Normal S1, Normal S2 Lungs: Clear, Other (decrease bs) Abdomen: Normal bowel sounds Extremities: No edema, Normal pulses (left pedal pulse diminished, found with doppler), Other (left foot cool and mildy cyanotic) Skin: No breakdown, No significant lesion Labs LABS Laboratory Tests Test 11/14/16 10:30 11/14/16 11:40 11/14/16 17:32 11/14/16 20:55 Lactic Acid Level 2.3mmol/L (0.4-2.0) Glucose (Fingerstick) 176mg/dL (70-99) 248mg/dL (70-99) 271mg/dL (70-99) Test 11/15/16 03:31 11/15/16 07:57 Sodium Level 139mmol/L (136-145) Potassium Level 4.0mmol/L (3.5-5.1) Chloride Level 100mmol/L (98-107) Carbon Dioxide Level 29mmol/L (21-32) Anion Gap 10 (6-14) Blood Urea Nitrogen 59mg/dL (8-26) Creatinine 3.9mg/dL (0.7-1.3) Estimated GFR (Cockcroft-Gault) 14.9 Glucose Level 291mg/dL (70-99) Lactic Acid Level 2.0mmol/L (0.4-2.0) Calcium Level 8.7mg/dL (8.5-10.1) Phosphorus Level 4.8mg/dL (2.6-4.7) Magnesium Level 1.9mg/dL (1.8-2.4) Albumin 2.6g/dL (3.4-5.0) Glucose (Fingerstick) 243mg/dL (70-99) Review of Systems Review of Systems Patient complaint of hunger Patient complaint of fatigue Assessment and Plan Assessmemt and Plan Problems Medical Problems: (1) ECG abnormal Status: Acute (2) Hyperkalemia Status: Acute (3) Hypotension Status: Acute (4) Renal failure Status: Acute Assessment: 1. Encephalopathy: multifactorial resolved. 2. Shock: Off Levophed GTT, 3. Acute on Chronic respiratory failure: off BIPAP, supplemental oxygen. 4. Renal failure: HD per nephrology but pt declined to have HD any more. 5. Shock Liver: LFT improving, monitor 6. HX CAD, on Pacer 7. Chronic Afib : rate controlled, follow cardiology recommendations. not on ORAL, INR 2.8. 8. Thrombus suspected in the right atrium : Awaiting cardiology recommendations Plan: Continue to monitor the patient per floor protocol Continue daily labs- CBC, BMP, BUN, and Cr Daily PTOT Palliative care consulted and involved in case Appreciate all subspecialty input and evaluation Continue IV Abx per Infectious disease DW RN Problems: Comment Review of Relevant I have reviewed the following items sandie (where applicable) has been applied. Labs Laboratory Tests Test 11/13/16 12:02 11/13/16 15:35 11/14/16 05:00 11/14/16 07:50 Glucose (Fingerstick) 118mg/dL (70-99) 123mg/dL (70-99) Prothrombin Time 31.2SEC (11.7-14.0) Prothromb Time International Ratio 3.2 (0.8-1.1) Sodium Level 140mmol/L (136-145) Potassium Level 4.0mmol/L (3.5-5.1) Chloride Level 101mmol/L (98-107) Carbon Dioxide Level 30mmol/L (21-32) Anion Gap 9 (6-14) Blood Urea Nitrogen 45mg/dL (8-26) Creatinine 3.0mg/dL (0.7-1.3) Estimated GFR (Cockcroft-Gault) 20.2 BUN/Creatinine Ratio 15 (6-20) Glucose Level 148mg/dL (70-99) Calcium Level 8.6mg/dL (8.5-10.1) Phosphorus Level 4.5mg/dL (2.6-4.7) Magnesium Level 1.8mg/dL (1.8-2.4) Total Bilirubin 1.5mg/dL (0.2-1.0) Aspartate Amino Transf (AST/SGOT) 163U/L (15-37) Alanine Aminotransferase (ALT/SGPT) 663U/L (16-63) Alkaline Phosphatase 70U/L (46-116) Total Protein 5.6g/dL (6.4-8.2) Albumin 2.8g/dL (3.4-5.0) Albumin/Globulin Ratio 1.0 (1.0-1.7) Test 11/14/16 09:15 11/14/16 10:30 11/14/16 11:40 11/14/16 17:32 Prothrombin Time 27.6SEC (11.7-14.0) Prothromb Time International Ratio 2.8 (0.8-1.1) Lactic Acid Level 2.3mmol/L (0.4-2.0) Glucose (Fingerstick) 176mg/dL (70-99) 248mg/dL (70-99) Test 11/14/16 20:55 11/15/16 03:31 11/15/16 07:57 Glucose (Fingerstick) 271mg/dL (70-99) 243mg/dL (70-99) Prothrombin Time 24.0SEC (11.7-14.0) Prothromb Time International Ratio 2.3 (0.8-1.1) Sodium Level 139mmol/L (136-145) Potassium Level 4.0mmol/L (3.5-5.1) Chloride Level 100mmol/L (98-107) Carbon Dioxide Level 29mmol/L (21-32) Anion Gap 10 (6-14) Blood Urea Nitrogen 59mg/dL (8-26) Creatinine 3.9mg/dL (0.7-1.3) Estimated GFR (Cockcroft-Gault) 14.9 Glucose Level 291mg/dL (70-99) Lactic Acid Level 2.0mmol/L (0.4-2.0) Calcium Level 8.7mg/dL (8.5-10.1) Phosphorus Level 4.8mg/dL (2.6-4.7) Magnesium Level 1.9mg/dL (1.8-2.4) Albumin 2.6g/dL (3.4-5.0) Laboratory Tests Test 11/14/16 10:30 11/14/16 11:40 11/14/16 17:32 11/14/16 20:55 Lactic Acid Level 2.3mmol/L (0.4-2.0) Glucose (Fingerstick) 176mg/dL (70-99) 248mg/dL (70-99) 271mg/dL (70-99) Test 11/15/16 03:31 11/15/16 07:57 Prothrombin Time 24.0SEC (11.7-14.0) Prothromb Time International Ratio 2.3 (0.8-1.1) Sodium Level 139mmol/L (136-145) Potassium Level 4.0mmol/L (3.5-5.1) Chloride Level 100mmol/L (98-107) Carbon Dioxide Level 29mmol/L (21-32) Anion Gap 10 (6-14) Blood Urea Nitrogen 59mg/dL (8-26) Creatinine 3.9mg/dL (0.7-1.3) Estimated GFR (Cockcroft-Gault) 14.9 Glucose Level 291mg/dL (70-99) Lactic Acid Level 2.0mmol/L (0.4-2.0) Calcium Level 8.7mg/dL (8.5-10.1) Phosphorus Level 4.8mg/dL (2.6-4.7) Magnesium Level 1.9mg/dL (1.8-2.4) Albumin 2.6g/dL (3.4-5.0) Glucose (Fingerstick) 243mg/dL (70-99) Microbiology 11/10/16 Blood Culture - Final, Complete NO GROWTH AFTER 5 DAYS 11/10/16 Urine Culture - Final, Complete 11/10/16 Urine Culture Result 1 (EMMANUEL) - Final, Complete Medications Current Medications Fentanyl Citrate (Fentanyl 2ml Vial) 25 mcg PRN Q15MIN PRN IV PAIN GREATER THAN 3/10 Last administered on 11/10/16 23:41; Start 11/10/16 at 01:00; Stop at 00:59; Status DC Lidocaine (Lidoderm) 1 patch 1X ONCE TD Last administered on 11/10/16 01:14; Start 11/10/16 at 01:00; Stop 11/10/16 at 01:01; Status DC Calcium Gluconate 1,000 mg 1X ONCE IVP Last administered on 11/10/16 02:20; Start 11/10/16 at 02:30; Stop 11/10/16 at 02:31; Status DC Sodium Bicarbonate 50 meq 1X ONCE IV Last administered on 11/10/16 02:20; Start 11/10/16 at 02:30; Stop 11/10/16 at 02:31; Status DC Dextrose 25 gm 1X ONCE IV Last administered on 11/10/16 02:20; Start at 02:30; Stop 11/10/16 at 02:31; Status DC Insulin Human Regular (Novolin R Vial) 10 unit 1X ONCE IV Last administered on 11/10/16 02:22; Start 11/10/16 at 02:30; Stop 11/10/16 at 02:31; Status DC Calcium Gluconate 1,000 mg 1X ONCE IVP Last administered on 11/10/16 03:56; Start 11/10/16 at 04:00; Stop 11/10/16 at 04:01; Status DC Sodium Bicarbonate 50 meq 1X ONCE IV Last administered on 11/10/16 04:00; Start 11/10/16 at 04:00; Stop 11/10/16 at 04:01; Status DC Dextrose 25 gm 1X ONCE IV Last administered on 11/10/16 04:01; Start at 04:00; Stop 11/10/16 at 04:01; Status DC Insulin Human Regular 10 unit 10 unit 1X ONCE IV Last administered on 03:59; Start 11/10/16 at 04:00; Stop 11/10/16 at 04:01; Status DC Sodium Bicarbonate 150 meq/Sterile Water 1,150 ml @ 125 mls/hr Q9H12M IV ; Start 11/10/16 at 04:30; Stop 11/10/16 at 04:30; Status DC Sodium Chloride (Iv Sodium Chloride 0.9% 1000ml Bag) 1,000 ml @ 100 mls/hr 1X ONCE IV Last administered on 11/10/16 04:41; Start 11/10/16 at 04:30; Stop at 14:29; Status DC Piperacillin Sod/ Tazobactam Sod 1 each 1 each PRN DAILY PRN MC SEE COMMENTS; Start 11/10/16 at 04:30 Metronidazole 100 ml @ 100 mls/hr Q8HRS IV ; Start 11/10/16 at 14:00; Stop at 14:00; Status DC Metronidazole 100 ml @ 100 mls/hr 1X ONCE IV Last administered on 11/10/16 04:40; Start 11/10/16 at 05:00; Stop 11/10/16 at 05:59; Status DC Piperacillin Sod/ Tazobactam Sod/ Sodium Chloride (Zosyn/Iv Sodium Chloride 0.9 % 50ml) 50 ml @ 100 mls/hr Q6HRS IV Last administered on 11/15/16 06:14; Start 11/10/16 at 05:00 Lidocaine HCl 1 stevie 1 stevie 1X ONCE MM Last administered on 11/10/16 04:40; Start 11/10/16 at 04:30; Stop 11/10/16 at 04:43; Status DC Norepinephrine Bitartrate 8 mg/ Sodium Chloride 258 ml @ 0 mls/hr CONT PRN IV SEE I/O RECORD; Start 11/10/16 at 07:15 Linezolid (Zyvox Premix) 300 ml @ 300 mls/hr Q12HR IV Last administered on 07:43; Start 11/10/16 at 09:00 Doxycycline Hyclate (Vibra-Tab) 100 mg BID PO Last administered on 11/13/16 21 :45; Start 11/10/16 at 09:00; Stop 11/14/16 at 07:25; Status DC Aspirin 81 mg 81 mg [id number] PO Last administered on 11/15/16 07:42; Start 11/11/16 at 08:00 Magnesium Sulfate/ Dextrose 50 ml @ 25 mls/hr PRN DAILY PRN IV for Mag < 1.7 on am labs; Start 11/10/16 at 13:00 Sodium Chloride (Iv Sodium Chloride 0.9% 500ml Bag) 500 ml @ 0 mls/hr QID PRN IV UO< 30cc/hr over previous 6hrs; Start 11/10/16 at 13:00; Stop 11/11/16 at 18: 23; Status DC Acetaminophen (Tylenol) 650 mg PRN Q6HRS PRN PO MILD PAIN / TEMP; Start at 13:15 Ondansetron HCl (Zofran) 4 mg PRN Q6HRS PRN IV NAUSEA/VOMITING Last administered on 11/15/16 09:15; Start 11/10/16 at 13:15 Heparin Sodium (Porcine) 5,000 unit Q8HRS SQ ; Start 11/10/16 at 14:00; Stop at 14:00; Status DC Insulin Aspart (Novolog) 0-9 UNITS TIDWMEALS SQ Last administered on 11/14/16 17:36; Start 11/10/16 at 13:30 Dextrose 12.5 gm 12.5 gm PRN Q15MIN PRN IV SEE COMMENTS; Start 11/10/16 at 13: 15 Sodium Chloride (Iv Sodium Chloride 0.9% 1000ml Bag) 1,000 ml @ 100 mls/hr Q10H IV Last administered on 11/10/16 23:41; Start 11/10/16 at 13:15; Stop at 18:23; Status DC Pantoprazole Sodium (Protonix) 40 mg DAILYAC PO Last administered on 11/15/16 07:42; Start 11/10/16 at 14:00 Fentanyl Citrate (Fentanyl 2ml Vial) 50 mcg PRN Q2HR PRN IV SEVERE PAIN Last administered on 11/12/16 20:55; Start 11/11/16 at 02:30 Sodium Polystyrene Sulfonate 60 gm 60 gm 1X ONCE PO Last administered on 06:41; Start 11/11/16 at 06:45; Stop 11/11/16 at 06:46; Status DC Norepinephrine Bitartrate/Sodium Chloride (Levophed Vial/ Iv Sodium Chloride 0.9 % 250ml) 258 ml @ 0 mls/hr CONT PRN IV SEE I/O RECORD; Start 11/11/16 at 22:30 ; Status UNV Methylprednisolone Sodium Succinate (Solu-Medrol 125mg Vial) 125 mg 1X ONCE IV Last administered on 11/12/16 00:09; Start 11/11/16 at 23:00; Stop 11/11/16 at 23:01; Status DC Furosemide (Lasix) 40 mg 1X ONCE IVP Last administered on 11/12/16 01:31; Start 11/12/16 at 01:30; Stop 11/12/16 at 01:31; Status DC Lidocaine/Sodium Bicarbonate (Buffered Lidocaine 1%) 3 ml 1X ONCE IJ Last administered on 11/12/16 09:43; Start 11/12/16 at 09:15; Stop 11/12/16 at 09:16 ; Status DC Heparin Sodium/ Sodium Chloride 60 unit 1X ONCE IV Last administered on 09:43; Start 11/12/16 at 09:15; Stop 11/12/16 at 09:16; Status DC Heparin Sodium (Porcine) 2,500 unit 1X ONCE INT CAT Last administered on 09:42; Start 11/12/16 at 09:15; Stop 11/12/16 at 09:16; Status DC Heparin Sodium (Porcine) 53484 unit 10,000 unit STK-MED ONCE .ROUTE ; Start at 09:09; Stop 11/12/16 at 09:10; Status DC Sodium Chloride 1,000 ml @ 1,000 mls/hr Q1H PRN IV hypotension; Start 11/12/16 at 10:47; Stop 11/12/16 at 16:46; Status DC Albumin Human (Albuminar) 200 ml @ 200 mls/hr 1X ONCE IV Last administered on 11/12/16 13:18; Start 11/12/16 at 12:45; Stop 11/12/16 at 13:44; Status DC Diphenhydramine HCl (Benadryl) 25 mg 1X PRN PRN IV ITCHING; Start 11/12/16 at 11:00; Stop 11/13/16 at 10:59; Status DC Diphenhydramine HCl (Benadryl) 25 mg 1X PRN PRN IV ITCHING; Start 11/12/16 at 11:00; Stop 11/13/16 at 10:59; Status DC Sodium Chloride (Normal Saline Flush) 10 ml 1X PRN PRN IV AP catheter pack; Start 11/12/16 at 11:00; Stop 11/13/16 at 10:59; Status DC Sodium Chloride 10 ml 10 ml 1X PRN PRN IV [employer] catheter pack; Start 11/12/16 at 11:00; Stop 11/13/16 at 10:59; Status DC Sodium Chloride (Iv Sodium Chloride 0.9% 1000ml Bag) 1,000 ml @ 400 mls/hr Q2H30M PRN IV PATENCY; Start 11/12/16 at 10:47; Stop 11/12/16 at 22:46; Status DC Info (PHARMACY MONITORING -- do not chart) 1 each PRN DAILY PRN MC SEE COMMENTS ; Start 11/12/16 at 11:00 Furosemide 40 mg 40 mg 1X ONCE IVP Last administered on 11/12/16 16:25; Start 11/12/16 at 11:30; Stop 11/12/16 at 11:31; Status DC Sodium Chloride 1,000 ml @ 1,000 mls/hr Q1H PRN IV hypotension; Start 11/13/16 at 08:00; Stop 11/13/16 at 13:59; Status DC Sodium Chloride (Iv Sodium Chloride 0.9% 1000ml Bag) 1,000 ml @ 400 mls/hr Q2H30M PRN IV PATENCY; Start 11/13/16 at 08:00; Stop 11/13/16 at 19:59; Status DC Info (PHARMACY MONITORING -- do not chart) 1 each PRN DAILY PRN MC SEE COMMENTS ; Start 11/13/16 at 09:00; Status UNV Morphine Sulfate 2 mg PRN Q2HR PRN IV PAIN Last administered on 11/14/16 13:57 ; Start 11/13/16 at 11:15 Active Scripts Active Carvedilol 3.125 Mg Tablet 3.125 Mg PO BIDWMEALS Reported Fish Oil + Vitamin D-3 Softgel (Om-3/Dha/Epa/Fish Oil/Vit D3) 1 Each Capsule 1 Each PO Vitamin D (Cholecalciferol (Vitamin D3)) 1,000 Unit Capsule 1,000 Unit PO DAILY Klor-Con 10 (Potassium Chloride) 10 Meq Tablet.er 2 Tab PO DAILY Lasix (Furosemide) 20 Mg Tablet 10 Mg PO DAILY Aspir 81 (Aspirin) 81 Mg Tablet.dr 81 Mg PO Cozaar (Losartan Potassium) 50 Mg Tablet 50 Mg PO DAILY Amaryl (Glimepiride) 4 Mg Tablet 4 Mg PO DAILY Metformin Hcl 1,000 Mg Tablet 1,000 Mg PO BIDAC Vitals/I & O Vital Sign - Last 24 Hours 11/14/16 11/14/16 11/14/16 11/14/16 11:00 12:00 13:00 13:57 Temp 97.5 97.5 Pulse 66 62 61 Resp B/P 108/46 92/40 104/49 Pulse Ox 98 98 96 95 O2 Delivery Nasal Cannula Nasal Cannula Nasal Cannula Nasal Cannula O2 Flow Rate 4.0 4.0 4.0 4.0 11/14/16 11/14/16 11/14/16 11/14/16 14:00 14:30 15:00 16:00 Pulse 62 66 60 Resp B/P 101/42 95/44 98/51 Pulse Ox 93 92 92 97 O2 Delivery Nasal Cannula Nasal Cannula Nasal Cannula Nasal Cannula O2 Flow Rate 2.0 4.0 4.0 4.0 11/14/16 11/14/16 11/14/16 11/14/16 17:00 18:00 20:00 20:00 Temp 97.5 97.5 Pulse 59 66 60 Resp 18 B/P 98/48 101/43 103/45 Pulse Ox 97 96 95 O2 Delivery Nasal Cannula Nasal Cannula Nasal Cannula Nasal Cannula O2 Flow Rate 4.0 4.0 4.0 4.0 11/15/16 11/15/16 03:33 07:00 Temp 97.5 97.8 97.5 97.8 Pulse 63 45 Resp 16 B/P 106/42 107/39 Pulse Ox 90 96 O2 Delivery Nasal Cannula Nasal Cannula O2 Flow Rate 4.0 5.0 Intake and Output 11/14/16 11/14/16 11/15/16 15:00 23:00 07:00 Intake Total 30 ml 100 ml Balance 30 ml 100 ml MOR COVINGTON III DO Nov 15, 2016 10:22
[2016-11-15 11:03] VITALS: BP 102/40
--- NOTE | 2016-11-15 11:18 | PDOC ---
Dialysis Progress Note Dialysis Note Dialysis Note Seen on Hemodialysis, tolerating treatment OK so far; remains on BiPAP and on Levophed Vitals on Hemodialysis: 108/46 63 97.6 General Appearance: Awake: Alert Oriented x 2-3 on BiPAP Neck: No JVD or JVP Chest: CTA Jose Elias - few rales Heart: S1 S2 Abdomen - Soft NTND Extremities - No Edema ARF/ ATN : Dialysis as below F 180 NR 3.0 Hrs 3 K 2.5 Ca 140 Na 35 HC03 Qb 350 + Qd 500+ Heparin 0 Units Uf 1-2 Kgs or to dry weight as tolerated May give 25-50 gms of 25% Albumin if needed to maintain Hemodynamic stability Treatment plan reviewed and discussed with flap presser Vitals Vital Signs Vital Signs Date Time Temp Pulse Resp B/P Pulse Ox O2 Delivery O2 Flow Rate FiO2 11/15/16 11:03 97.8 60 16 102/40 94 Nasal Cannula 5.0 97.8 Labs Last Labs Laboratory Tests Test 11/13/16 12:02 11/13/16 15:35 11/14/16 05:00 11/14/16 07:50 Glucose (Fingerstick) 118mg/dL (70-99) 123mg/dL (70-99) Prothrombin Time 31.2SEC (11.7-14.0) Prothromb Time International Ratio 3.2 (0.8-1.1) Sodium Level 140mmol/L (136-145) Potassium Level 4.0mmol/L (3.5-5.1) Chloride Level 101mmol/L (98-107) Carbon Dioxide Level 30mmol/L (21-32) Anion Gap 9 (6-14) Blood Urea Nitrogen 45mg/dL (8-26) Creatinine 3.0mg/dL (0.7-1.3) Estimated GFR (Cockcroft-Gault) 20.2 BUN/Creatinine Ratio 15 (6-20) Glucose Level 148mg/dL (70-99) Calcium Level 8.6mg/dL (8.5-10.1) Phosphorus Level 4.5mg/dL (2.6-4.7) Magnesium Level 1.8mg/dL (1.8-2.4) Total Bilirubin 1.5mg/dL (0.2-1.0) Aspartate Amino Transf (AST/SGOT) 163U/L (15-37) Alanine Aminotransferase (ALT/SGPT) 663U/L (16-63) Alkaline Phosphatase 70U/L (46-116) Total Protein 5.6g/dL (6.4-8.2) Albumin 2.8g/dL (3.4-5.0) Albumin/Globulin Ratio 1.0 (1.0-1.7) Test 11/14/16 09:15 11/14/16 10:30 11/14/16 11:40 11/14/16 17:32 Prothrombin Time 27.6SEC (11.7-14.0) Prothromb Time International Ratio 2.8 (0.8-1.1) Lactic Acid Level 2.3mmol/L (0.4-2.0) Glucose (Fingerstick) 176mg/dL (70-99) 248mg/dL (70-99) Test 11/14/16 20:55 11/15/16 03:31 11/15/16 07:57 11/15/16 10:14 Glucose (Fingerstick) 271mg/dL (70-99) 243mg/dL (70-99) 269mg/dL (70-99) Prothrombin Time 24.0SEC (11.7-14.0) Prothromb Time International Ratio 2.3 (0.8-1.1) Sodium Level 139mmol/L (136-145) Potassium Level 4.0mmol/L (3.5-5.1) Chloride Level 100mmol/L (98-107) Carbon Dioxide Level 29mmol/L (21-32) Anion Gap 10 (6-14) Blood Urea Nitrogen 59mg/dL (8-26) Creatinine 3.9mg/dL (0.7-1.3) Estimated GFR (Cockcroft-Gault) 14.9 Glucose Level 291mg/dL (70-99) Lactic Acid Level 2.0mmol/L (0.4-2.0) Calcium Level 8.7mg/dL (8.5-10.1) Phosphorus Level 4.8mg/dL (2.6-4.7) Magnesium Level 1.9mg/dL (1.8-2.4) Albumin 2.6g/dL (3.4-5.0) Laboratory Tests Test 11/14/16 11:40 2/22/17 17:32 11/14/16 20:55 11/15/16 03:31 Glucose (Fingerstick) 176mg/dL (70-99) 248mg/dL (70-99) 271mg/dL (70-99) Prothrombin Time 24.0SEC (11.7-14.0) Prothromb Time International Ratio 2.3 (0.8-1.1) Sodium Level 139mmol/L (136-145) Potassium Level 4.0mmol/L (3.5-5.1) Chloride Level 100mmol/L (98-107) Carbon Dioxide Level 29mmol/L (21-32) Anion Gap 10 (6-14) Blood Urea Nitrogen 59mg/dL (8-26) Creatinine 3.9mg/dL (0.7-1.3) Estimated GFR (Cockcroft-Gault) 14.9 Glucose Level 291mg/dL (70-99) Lactic Acid Level 2.0mmol/L (0.4-2.0) Calcium Level 8.7mg/dL (8.5-10.1) Phosphorus Level 4.8mg/dL (2.6-4.7) Magnesium Level 1.9mg/dL (1.8-2.4) Albumin 2.6g/dL (3.4-5.0) Test 11/15/16 07:57 11/15/16 10:14 Glucose (Fingerstick) 243mg/dL (70-99) 269mg/dL (70-99) Assessment Assessment Problems Medical Problems: (1) ECG abnormal Status: Acute (2) Hyperkalemia Status: Acute (3) Hypotension Status: Acute (4) Renal failure Status: Acute Problems: Plan Plan of Care Problems Medical Problems: (1) ECG abnormal Status: Acute (2) Hyperkalemia Status: Acute (3) Hypotension Status: Acute (4) Renal failure Status: Acute RENETTA FRAIRE MD Nov 15, 2016 11:18
--- NOTE | 2016-11-15 11:19 | PDOC ---
Objective: Objective: Sleeping, did not awaken. Other notes indicate nausea, foot pain. Note Dr. Rodney aware of cool foot. Vital Signs: Vital Signs Date Time Temp Pulse Resp B/P Pulse Ox O2 Delivery O2 Flow Rate FiO2 11/15/16 11:03 97.8 60 16 102/40 94 Nasal Cannula 5.0 97.8 Labs: Laboratory Tests Test 11/14/16 11:40 11/14/16 17:32 11/14/16 20:55 11/15/16 07:57 Glucose (Fingerstick) 176mg/dL (70-99) 248mg/dL (70-99) 271mg/dL (70-99) 243mg/dL (70-99) Test 11/15/16 10:14 Glucose (Fingerstick) 269mg/dL (70-99) PE: GEN: NAD LUNGS:nasal cannula EXTREMITY: left foot cool NEURO/PSYCH: asleep A/P: Leukocytosis/sepsis, hypotension, CHF, VARUN, resp failure, encephalopathy, A Fib -out of ICU on nasal cannula, on atbx -echo w/ suspected thrombus of right atrium- not presently candidate for sedation/JEROME, INR 2.3 -declines dialysis, palliative care involved Abnormal LFTs - improved -US w/ GB wall thickening, trace pericholecystic fluid, hepatomegaly -Hep panel negative, RISA and ASMA WNL -- Await palliative care decisions. No new GI recs. JONNATHAN ROSE Nov 15, 2016 11:19
--- NOTE | 2016-11-15 11:21 | PDOC2 ---
PALLIATIVE CARE Palliative Care Note Palliative Care Patient alert. Daughter agrees her father is not comprehending how sick he is. Does not have the capacity to make all of his own medical decisions. Isabelle can be reached at [phone]. Spoke with Isabelle per phone. Isabelle wants to continue with dialysis and aggressive care. Spoke with her father and he agrees to do dialysis today. Understands patient circulation is compromised in lower extremities. Plan: Continue dialysis EZRA FIGUEROA Nov 15, 2016 11:21
[2016-11-15] MEDS ORDERED: IV NORMAL SALINE 1000ML BAG 1,000 ML IV PRN (11:42)
--- NOTE | 2016-11-15 11:44 | PDOC ---
ARNAUD ALLEN [facility] 11/15/16 1144: CARDIO Progress Notes Date and Time Date of Service 11/15/16 Time of Evaluation 1130 Subjective Subjective: No Chest Pain, No Palpitations, Other (tired/weak) Vitals Vitals Vital Signs Date Time Temp Pulse Resp B/P Pulse Ox O2 Delivery O2 Flow Rate FiO2 11/15/16 11:03 97.8 60 16 102/40 94 Nasal Cannula 5.0 97.8 Weight Weight [ ] Input and Output Intake and Output Intake and Output 11/15/16 07:00 Intake Total 130 ml Balance 130 ml Intake Oral 130 ml Laboratory Labs Laboratory Tests Test 11/14/16 11:40 11/14/16 17:32 11/14/16 20:55 11/15/16 03:31 Glucose (Fingerstick) 176mg/dL (70-99) 248mg/dL (70-99) 271mg/dL (70-99) Prothrombin Time 24.0SEC (11.7-14.0) Prothromb Time International Ratio 2.3 (0.8-1.1) Sodium Level 139mmol/L (136-145) Potassium Level 4.0mmol/L (3.5-5.1) Chloride Level 100mmol/L (98-107) Carbon Dioxide Level 29mmol/L (21-32) Anion Gap 10 (6-14) Blood Urea Nitrogen 59mg/dL (8-26) Creatinine 3.9mg/dL (0.7-1.3) Estimated GFR (Cockcroft-Gault) 14.9 Glucose Level 291mg/dL (70-99) Lactic Acid Level 2.0mmol/L (0.4-2.0) Calcium Level 8.7mg/dL (8.5-10.1) Phosphorus Level 4.8mg/dL (2.6-4.7) Magnesium Level 1.9mg/dL (1.8-2.4) Albumin 2.6g/dL (3.4-5.0) Test 11/15/16 07:57 11/15/16 10:14 Glucose (Fingerstick) 243mg/dL (70-99) 269mg/dL (70-99) Microbiology Micro Microbiology 11/10/16 Blood Culture - Final, Complete NO GROWTH AFTER 5 DAYS 11/10/16 Urine Culture - Final, Complete 11/10/16 Urine Culture Result 1 (EMMANUEL) - Final, Complete Physical Exam HEENT: Neck Supple W Full Motion Chest: Symmetric LUNGS: Clear to Auscultation, Other (diminished bases) Heart: S1S2, irregularly irregular (tele: int AV pacing with underlying AFIB) Abdomen: Soft N/T Extremities: No Calf Tenderness, Other (trace LE edema ) Neurology: alert, follow commands, confused (intermittently ), other (drowsy) Assessment Assessment 1. Acute on chronic respiratory failure multifactorial improved; on NC. DNR/DNI 2. 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 appears compensated repeat echo LVEF 40-45% with suspected thrombus on one of the lines in the right atrium- not presently candidate for sedation/JEROME INR 2.3- despite no a/c therapy. Continue to monitor INR. Will likely need anticoagulation initiated when INR near 2.0. agreeable with dialysis today after speaking with daughter; fluid offloading in HD per renal 3. CAD s/p CABG MPI 05/2014 unremarkable. Stable. Continue secondary prevention. 4. SSS with PPM [employer] device. Recent interrogation revealed normal functioning device 5. s/p AVR stable, well seated per recent TTE. 6. Transaminitis per GI 7. Hypotension maintaining low-normotensive pressure 8. Permanent AFIB intermittent AV pacing with underlying AFIB/flutter Continue on ECASA for stroke prevention. INR 2.3 9. VARUN with CKD 10. Leukocytosis with sepsis/shock, POA 11. DM, II 12. Encephalopathy improving ILYA NAVARRETE MD 11/15/16 1618: CARDIO Progress Notes Assessment Assessment Patient seen and examined. Agree with [employer]ER [employer]'s assessment and plan. Acute on chronic combined systolic and diastolic heart failure better compensated. Agree with initiating Coumadin once INR less than 2.0. Permanent atrial fibrillation rate controlled. CAD status stable. ARNAUD ALLEN APRN Nov 15, 2016 11:44 ILYA NAVARRETE MD Nov 15, 2016 16:18
[2016-11-15] MEDS ORDERED: DIPHENHYDRAMINE 50 MG/ML VIAL IV PRN ×2 (11:45)
[2016-11-15] MEDS ORDERED: ALBUMIN HUMAN 25% 200 ML IV PRN (11:45)
[2016-11-15] MEDS ORDERED: DIALYSIS PATIENT. MC PRN ×2 (11:45)
[2016-11-15 15:00] VITALS: BP 110/42
[2016-11-15 19:00] VITALS: BP 106/47
[2016-11-15 22:29] VITALS: BP 116/56
[2016-11-15] MEDS: MORPHINE SULFATE 2 MG/ML DISP.SYRIN. IV PRN (23:33)
[2016-11-16 01:35] LABS: BASO # 0.1 x10^3/uL (0.0-0.2); BASO % 1 % (0-3); EOS % 0 % (0-3); HEMATOCRIT 32.9 % (39.0-53.0); HEMOGLOBIN 10.4 g/dL (13.0-17.5); LYMPH # 1.7 x10^3/uL (1.0-4.8); LYMPH % 11 % (24-48); MEAN CORPUSCULAR HEMOGLOBIN 31 pg (25-35); MEAN CORPUSCULAR HGB CONC 32 g/dL (31-37); MEAN CORPUSCULAR VOLUME 99 fL (79-100); MONO % 6 % (0-9); NEUT % 82 % (31-73); PLATELET COUNT 32 x10^3/uL (140-400); RED BLOOD COUNT 3.34 x10^6/uL (4.30-5.70); WHITE BLOOD COUNT 15.6 x10^3/uL (4.0-11.0)
[2016-11-16 01:37] LABS: INR 2.1 (0.8-1.1); PROTHROMBIN TIME PATIENT 22.5 SEC (11.7-14.0)
[2016-11-16 01:55] LABS: PLT ESTIMATE DECREASED (ADEQUATE)
[2016-11-16 02:56] VITALS: BP 112/62
[2016-11-16 04:54] LABS: PROTHROMBIN TIME PATIENT 21.6 SEC (11.7-14.0)
[2016-11-16 05:04] LABS: ALBUMIN 2.5 g/dL (3.4-5.0); CALCIUM 8.5 mg/dL (8.5-10.1); CREATININE 3.4 mg/dL (0.7-1.3); GFR 17.5; PHOSPHORUS 4.3 mg/dL (2.6-4.7); POTASSIUM 4.1 mmol/L (3.5-5.1)
[2016-11-16] MEDS: PIPERACILLIN/TAZOBACTAM 2.25 GM in IV NORMAL SALINE 50ML 50 ML IV SCH ×3 (06:31→22:05)
[2016-11-16 07:00] VITALS: BP 84/41
[2016-11-16] MEDS: PANTOPRAZOLE 40 MG TABLET. PO SCH (08:32)
[2016-11-16] MEDS: ASPIRIN ENTERIC COATED 81 MG TABLET.DR. PO SCH (08:32)
[2016-11-16] MEDS: INSULIN ASPART 300 UNITS/3 ML INSULN.PEN SQ SCH ×3 (08:40→17:29)
--- NOTE | 2016-11-16 09:15 | PDOC ---
Infectious Disease Note Subjective Subjective States he is better but occ nausea and left foot pain Confused last pm and pulled out his lines ROS ROS GEN: Denies fevers, chills, sweats HEENT: Denies blurred vision, sore throat CV: Denies chest pain RESP: Denies shortness of air, cough GI: Denies n/v/d NEURO: Denies confusion, dizziness MSK: Denies weakness, joint pain/swelling Vital Sign Vital Signs Vital Signs Date Time Temp Pulse Resp B/P Pulse Ox O2 Delivery O2 Flow Rate FiO2 11/16/16 02:56 97.5 64 19 112/62 93 Nasal Cannula 5.0 97.5 Physical Exam PHYSICAL EXAM GENERAL: NAD, Alert, Eating HEENT: PERRL, OC/OP- clear NECK: Supple, no JVD, no LN LUNGS: Clear HEART: S1S2, no gallop, no murmur ABD: Soft, NT, no organomegaly, no rebound EXT: Trace edema, Left > right foot mild to mod cyanosis and cool RETAIL SERVICES PROFESSIONAL: Alert, oriented x 3, no focal neurologic deficit SKIN: No rash IV: out Labs Lab Laboratory Tests Test 11/15/16 10:14 11/15/16 15:56 11/15/16 20:24 11/16/16 01:15 Glucose (Fingerstick) 269mg/dL (70-99) 150mg/dL (70-99) 174mg/dL (70-99) White Blood Count 15.6x10^3/uL (4.0-11.0) Red Blood Count 3.34x10^6/uL (4.30-5.70) Hemoglobin 10.4g/dL (13.0-17.5) Hematocrit 32.9% (39.0-53.0) Mean Corpuscular Volume 99fL (79-100) Mean Corpuscular Hemoglobin 31pg (25-35) Mean Corpuscular Hemoglobin Concent 32g/dL (31-37) Red Cell Distribution Width 16.0% (11.5-14.5) Platelet Count 32x10^3/uL (140-400) Neutrophils (%) (Auto) 82% (31-73) Lymphocytes (%) (Auto) 11% (24-48) Monocytes (%) (Auto) 6% (0-9) Eosinophils (%) (Auto) 0% (0-3) Basophils (%) (Auto) 1% (0-3) Neutrophils # (Auto) 12.9x10^3uL (1.8-7.7) Lymphocytes # (Auto) 1.7x10^3/uL (1.0-4.8) Monocytes # (Auto) 0.9x10^3/uL (0.0-1.1) Eosinophils # (Auto) 0.0x10^3/uL (0.0-0.7) Basophils # (Auto) 0.1x10^3/uL (0.0-0.2) Platelet Estimate Decreased (ADEQUATE) Prothrombin Time 22.5SEC (11.7-14.0) Prothromb Time International Ratio 2.1 (0.8-1.1) Test 11/16/16 03:55 11/16/16 07:39 Prothrombin Time 21.6SEC (11.7-14.0) Prothromb Time International Ratio 2.0 (0.8-1.1) Sodium Level 141mmol/L (136-145) Potassium Level 4.1mmol/L (3.5-5.1) Chloride Level 99mmol/L (98-107) Carbon Dioxide Level 32mmol/L (21-32) Anion Gap 10 (6-14) Blood Urea Nitrogen 42mg/dL (8-26) Creatinine 3.4mg/dL (0.7-1.3) Estimated GFR (Cockcroft-Gault) 17.5 Glucose Level 228mg/dL (70-99) Lactic Acid Level 2.5mmol/L (0.4-2.0) Calcium Level 8.5mg/dL (8.5-10.1) Phosphorus Level 4.3mg/dL (2.6-4.7) Albumin 2.5g/dL (3.4-5.0) Glucose (Fingerstick) 214mg/dL (70-99) Objective Assessment Left foot is cool ? vascular issue. Now right also. Apparent aggressive measures cont Leukocytosis Resp failure - better Encephalopathy -better Questionable sepsis present on admission.- cults neg Hypotension - had improved Leukocytosis -increase ? reactive. Solumedrol dosed last pm Acute kidney injury - s/p HD Transaminitis, questionable secondary to sepsis versus congestion.- better. HIDA - neg Congestive heart failure. 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 JEROME was negative. Aortic valve replacement.ECHO with ? thrombus in Right atrium Plan Plan of Care He is undergoing HD and appears aggressive measures are continuing. LE arterial dopplers/vascular consult Discont Zyvox Cont Zosyn but decrease dose now F/u lab and cults IDALIA BRAND MD Nov 16, 2016 09:15
--- NOTE | 2016-11-16 09:15 | PDOC ---
PROGRESS NOTES Chief Complaint Chief Complaint s/p fall with rib injury Multiorgan failure ASSESSMENT AND PLAN: 1. Encephalopathy: multifactorial resolved. 2. Cardiogenic shock: Off Levophed gtt. BP once again soft today. ? hypovolemic/septic/PE 3. CHF: acute on chronic, systolic and diastolic. clinically improving. 4. Acute on Chronic respiratory failure: off BIPAP; supplemental oxygen. 5. COPD: 6. Renal failure: acute on chronic; HD per nephrology but pt declined to have HD any more. 7. Shock liver: LFT improving, monitor 8. Hx CAD, dysrhythmia w/ pacer. cardiology following. consider pacer interrogation 9. Chronic Afib : rate controlled. no OAC at the moment with therapeutic INR due to above. 10. Thrombus vs vegetation suspected in the right atrium : therapeutic INT w/o anticoag. continue to monitor coags with improving LFTs. 11. PVD: cool LE, suspected arterial compromise / (10.). vasc surg on hold 2 /2 palliative care discussions yesterday; obtain consult today 12. DVT: US today with clot in L calf vessels. INR "therapeutic" due to liver compromise. CTA to eval for PE, kehinde with low BP; HR difficult to eval 2/ 2 pacer need 13. Coagulopathy: DVT on "therapeutic" INR - ?inhibitor. d/w Dr Medeiros: unlikely, but will obtain W/U now before potential start of anticoag to r/o 14. Prognosis: poor. daughter wants to be aggressive per discussions with Palliative Care. further discussions will be necessary Vitals Vitals Vital Signs Date Time Temp Pulse Resp B/P Pulse Ox O2 Delivery O2 Flow Rate FiO2 11/16/16 02:56 97.5 64 19 112/62 93 Nasal Cannula 5.0 97.5 Physical Exam Physical Exam resting, wakes easily to verbal input, but dozes off almost immediately General: Alert, Oriented X3, No acute distress, Other (pale, ill appearing) Heart: Regular rate, Other (3/6 GEORGE) Lungs: Clear (anteriorly), Other (decrease bs) Abdomen: Normal bowel sounds, Soft, No tenderness Extremities: No edema, Other (left foot cool and mildy cyanotic) Skin: No breakdown, No significant lesion Labs LABS Laboratory Tests Test 11/15/16 10:14 11/15/16 15:56 11/15/16 20:24 11/16/16 01:15 Glucose (Fingerstick) 269mg/dL (70-99) 150mg/dL (70-99) 174mg/dL (70-99) White Blood Count 15.6x10^3/uL (4.0-11.0) Red Blood Count 3.34x10^6/uL (4.30-5.70) Hemoglobin 10.4g/dL (13.0-17.5) Hematocrit 32.9% (39.0-53.0) Mean Corpuscular Volume 99fL (79-100) Mean Corpuscular Hemoglobin 31pg (25-35) Mean Corpuscular Hemoglobin Concent 32g/dL (31-37) Red Cell Distribution Width 16.0% (11.5-14.5) Platelet Count 32x10^3/uL (140-400) Neutrophils (%) (Auto) 82% (31-73) Lymphocytes (%) (Auto) 11% (24-48) Monocytes (%) (Auto) 6% (0-9) Eosinophils (%) (Auto) 0% (0-3) Basophils (%) (Auto) 1% (0-3) Neutrophils # (Auto) 12.9x10^3uL (1.8-7.7) Lymphocytes # (Auto) 1.7x10^3/uL (1.0-4.8) Monocytes # (Auto) 0.9x10^3/uL (0.0-1.1) Eosinophils # (Auto) 0.0x10^3/uL (0.0-0.7) Basophils # (Auto) 0.1x10^3/uL (0.0-0.2) Platelet Estimate Decreased (ADEQUATE) Prothrombin Time 22.5SEC (11.7-14.0) Prothromb Time International Ratio 2.1 (0.8-1.1) Test 11/16/16 03:55 11/16/16 07:39 Prothrombin Time 21.6SEC (11.7-14.0) Prothromb Time International Ratio 2.0 (0.8-1.1) Sodium Level 141mmol/L (136-145) Potassium Level 4.1mmol/L (3.5-5.1) Chloride Level 99mmol/L (98-107) Carbon Dioxide Level 32mmol/L (21-32) Anion Gap 10 (6-14) Blood Urea Nitrogen 42mg/dL (8-26) Creatinine 3.4mg/dL (0.7-1.3) Estimated GFR (Cockcroft-Gault) 17.5 Glucose Level 228mg/dL (70-99) Lactic Acid Level 2.5mmol/L (0.4-2.0) Calcium Level 8.5mg/dL (8.5-10.1) Phosphorus Level 4.3mg/dL (2.6-4.7) Albumin 2.5g/dL (3.4-5.0) Glucose (Fingerstick) 214mg/dL (70-99) Review of Systems Review of Systems feels ok, denies pain FAHEEM WARE MD Nov 16, 2016 09:15
[2016-11-16] MEDS ORDERED: IV NORMAL SALINE 500ML BAG 500 ML IV ONE (10:00)
--- NOTE | 2016-11-16 10:42 | RAD ---
EXAM: Bilateral lower extremity arterial Doppler. HISTORY: Bilateral blue toes. Cold lower extremities. COMPARISON: None. FINDINGS: Grayscale and Doppler analysis of the lower study arterial systems was performed bilaterally. There are biphasic waveforms throughout the right lower extremity to the level of the ankle,, with a distal anterior tibial artery and dorsalis previous artery are monophasic. There are no focally elevated velocities. On the left, there are biphasic waveforms through the proximal superficial femoral artery. There are monophasic more distally. No flow is detectable within the anterior tibial artery, but there is flow within the dorsalis previous artery. There is diffuse calcified plaquing bilaterally. The baling machine operator notes deep venous thrombosis within the left popliteal vein. The left peroneal, posterior tibial, anterior tibial and greater saphenous veins are also involved. Subcutaneous edema is noted. IMPRESSION: 1. Extensive left lower extremity deep venous thrombosis involving the popliteal and calf veins. The left greater saphenous vein is also involved to the level of the junction with the common femoral vein. 2. On the right, there is mildly flow limiting stenosis throughout to the level of the ankle, where it becomes severe. 3. On the left, there is mild proximal flow limiting stenosis. This becomes severe at the level of the mid superficial femoral artery. These findings were called to the ordering physician by the technologist at the time of the study.
[2016-11-16 11:00] VITALS: BP 87/43
--- NOTE | 2016-11-16 11:14 | PDOC ---
SUBJECTIVE ROS VARUN/ ATN Doing a little better today. CVS: no Orthopnea, no CP RESP: no SOB, no MILAN GI: no Nausea, no Vomiting : no Dysuria, no Urgency OBJECTIVE Vital Signs Vital Signs Date Time Temp Pulse Resp B/P Pulse Ox O2 Delivery O2 Flow Rate FiO2 11/16/16 07:00 97.5 64 18 84/41 94 Nasal Cannula 4.0 97.5 PHYSICAL EXAM Physical Exam General Appearance: Awake Alert Oriented x 2 In no Distress Eyes: VIsion Unchanged Conjunctiva Normal EN: No EN Drainage Mucous Memb. moist Neck: no JVD min JVP Supple no Thyromegaly CVS: S1 S2 ? Murmur No Gallop No Rub no Edema Resp: + Left basal Rales no Rhonchi min Acc. Muscle use GI: BS hypoactive NO Bruit Min Tender Non Distended : no CVA tenderness x left around area of Rib # Assessment & Plan ARF: ATN Current fluid and E-lyte status does not necessitate emergent need for dialysis. Will re-evaluate for dialysis in the am. DVT as reported vs ? PE also - D/w Dr Zacarias and Daughter Isabelle - We need CTA to determine need for GFF +/- / t-PA (for which he may not be a canditate) - defer further eval and mangement to Dr Wolf etal ? Some underlying CKD III - Creat 1.4 as OP - D/w Daughter about CTA, dye load and possible need for IVC for CTA Sev PVD also as noted Resp failure - much improved after HD and fluid status optimization Previous Oliguria - suspect ATn now Lactic Acidemia- without overt Acidosis (no ABG) - watch trend ; ? Due to Metformin vs Gall Bladder/ SIRS ^ed LFTs - defer to GI Anemia: start Epogen Transfuse as needed. Coagulopathy - defer to Dr Christensen as extensively discussed Discussed Plan of Care and prognosis etc. at length with pt, RN COMMENT/RELEVANT DATA Meds Current Medications Medications (Trade) Dose Ordered Sig/Nito Start Time Stop Time Status Last Admin Dose Admin Acetaminophen (Tylenol) 650 mg PRN Q6HRS PRN 11/10/16 13:15 Albumin Human (Albuminar) 200 ml @ 200 mls/hr 1X PRN PRN 11/15/16 11:45 11/15/16 17:44 DC Aspirin 81 mg 81 mg [id number] 11/11/16 08:00 11/16/16 08:32 81 MG Calcium Gluconate 1,000 mg 1X ONCE 11/10/16 04:00 11/10/16 04:01 DC 11/10/16 03:56 1,000 MG Dextrose 12.5 gm PRN Q15MIN PRN 11/10/16 13:15 Diphenhydramine HCl (Benadryl) 25 mg 1X PRN PRN 11/15/16 11:45 11/15/16 19:00 DC Doxycycline Hyclate (Vibra-Tab) 100 mg BID 11/10/16 09:00 11/14/16 07:25 DC 11/13/16 21:45 100 MG Fentanyl Citrate (Fentanyl 2ml Vial) 50 mcg PRN Q2HR PRN 11/11/16 02:30 11/12/16 20:55 50 MCG Furosemide (Lasix) 40 mg 1X ONCE 11/12/16 01:30 11/12/16 01:31 DC 11/12/16 01:31 40 MG Furosemide 40 mg 40 mg 1X ONCE 11/12/16 11:30 11/12/16 11:31 DC 11/12/16 16:25 40 MG Heparin Sodium (Porcine) 10,000 unit STK-MED ONCE 11/12/16 09:09 11/12/16 09:10 DC Heparin Sodium/ Sodium Chloride 60 unit 1X ONCE 11/12/16 09:15 11/12/16 09:16 DC 11/12/16 09:43 60 UNIT Info (PHARMACY MONITORING -- do not chart) 1 each PRN DAILY PRN 11/15/16 11:45 UNV Info 1 each 1 each PRN DAILY PRN 11/15/16 11:45 UNV Insulin Aspart (Novolog) 0-9 UNITS TIDWMEALS 11/10/16 13:30 11/16/16 08:40 5 UNITS Insulin Human Regular (Novolin R Vial) 10 unit 1X ONCE 11/10/16 02:30 11/10/16 02:31 DC 11/10/16 02:22 10 UNIT Insulin Human Regular 10 unit 10 unit 1X ONCE 11/10/16 04:00 11/10/16 04:01 DC 11/10/16 03:59 10 UNIT Lidocaine (Lidoderm) 1 patch 1X ONCE 11/10/16 01:00 11/10/16 01:01 DC 11/10/16 01:14 1 PATCH Lidocaine HCl 1 stevie 1 stevie 1X ONCE 11/10/16 04:30 11/10/16 04:43 DC 11/10/16 04:40 1 STEVIE Lidocaine/Sodium Bicarbonate (Buffered Lidocaine 1%) 3 ml 1X ONCE 11/12/16 09:15 11/12/16 09:16 DC 11/12/16 09:43 3 ML Linezolid (Zyvox Premix) 300 ml @ 300 mls/hr Q12HR 11/10/16 09:00 11/16/16 09:16 DC 11/16/16 08:34 300 MLS/HR Magnesium Sulfate/ Dextrose (Magnesium Sulfate PREMIX 2GM) 50 ml @ 25 mls/hr PRN DAILY PRN 11/10/16 13:00 Methylprednisolone Sodium Succinate (Solu-Medrol 125mg Vial) 125 mg 1X ONCE 11/11/16 23:00 11/11/16 23:01 DC 11/12/16 00:09 125 MG Metronidazole 100 ml @ 100 mls/hr 1X ONCE 11/10/16 05:00 11/10/16 05:59 DC 11/10/16 04:40 100 MLS/HR Morphine Sulfate 2 mg 2 mg PRN Q2HR PRN 11/13/16 11:15 11/15/16 23:33 2 MG Norepinephrine Bitartrate 8 mg/ Sodium Chloride 258 ml @ 0 mls/hr CONT PRN 11/10/16 07:15 11/15/16 17:27 DC Norepinephrine Bitartrate/Sodium Chloride (Levophed Vial/ Iv Sodium Chloride 0.9% 250ml) 258 ml @ 0 mls/hr CONT PRN 11/11/16 22:30 UNV Ondansetron HCl (Zofran) 4 mg PRN Q6HRS PRN 11/10/16 13:15 11/15/16 09:15 4 MG Pantoprazole Sodium (Protonix) 40 mg DAILYAC 11/10/16 14:00 11/16/16 08:32 40 MG Piperacillin Sod/ Tazobactam Sod 2.25 gm/Sodium Chloride 50 ml @ 100 mls/hr Q8HRS 11/16/16 14:00 Piperacillin Sod/ Tazobactam Sod 1 each 1 each PRN DAILY PRN 11/10/16 04:30 Piperacillin Sod/ Tazobactam Sod/ Sodium Chloride (Zosyn/Iv Sodium Chloride 0.9% 50ml) 50 ml @ 100 mls/hr Q6HRS 11/10/16 05:00 11/16/16 09:16 DC 11/16/16 06:31 100 MLS/HR Sodium Bicarbonate/ Sterile Water 1,150 ml @ 125 mls/hr Q9H12M 11/10/16 04:30 11/10/16 04:30 DC Sodium Polystyrene Sulfonate 60 gm 60 gm 1X ONCE 11/11/16 06:45 11/11/16 06:46 DC 11/11/16 06:41 60 GM Sodium Bicarbonate 50 meq 1X ONCE 11/10/16 04:00 11/10/16 04:01 DC 11/10/16 04:00 50 MEQ Sodium Chloride (Iv Sodium Chloride 0.9% 500ml Bag) 500 ml @ 500 mls/hr 1X ONCE 11/16/16 10:00 11/16/16 10:59 11/16/16 10:00 500 MLS/HR Sodium Chloride (Iv Sodium Chloride 0.9% 1000ml Bag) 1,000 ml @ 400 mls/hr Q2H30M PRN 11/13/16 08:00 11/13/16 19:59 DC Sodium Chloride (Normal Saline Flush) 10 ml 1X PRN PRN 11/12/16 11:00 11/13/16 10:59 DC Lab Laboratory Tests Test 11/15/16 15:56 11/15/16 20:24 11/16/16 01:15 11/16/16 03:55 Glucose (Fingerstick) 150mg/dL (70-99) 174mg/dL (70-99) White Blood Count 15.6x10^3/uL (4.0-11.0) Red Blood Count 3.34x10^6/uL (4.30-5.70) Hemoglobin 10.4g/dL (13.0-17.5) Hematocrit 32.9% (39.0-53.0) Mean Corpuscular Volume 99fL (79-100) Mean Corpuscular Hemoglobin 31pg (25-35) Mean Corpuscular Hemoglobin Concent 32g/dL (31-37) Red Cell Distribution Width 16.0% (11.5-14.5) Platelet Count 32x10^3/uL (140-400) Neutrophils (%) (Auto) 82% (31-73) Lymphocytes (%) (Auto) 11% (24-48) Monocytes (%) (Auto) 6% (0-9) Eosinophils (%) (Auto) 0% (0-3) Basophils (%) (Auto) 1% (0-3) Neutrophils # (Auto) 12.9x10^3uL (1.8-7.7) Lymphocytes # (Auto) 1.7x10^3/uL (1.0-4.8) Monocytes # (Auto) 0.9x10^3/uL (0.0-1.1) Eosinophils # (Auto) 0.0x10^3/uL (0.0-0.7) Basophils # (Auto) 0.1x10^3/uL (0.0-0.2) Platelet Estimate Decreased (ADEQUATE) Prothrombin Time 22.5SEC (11.7-14.0) 21.6SEC (11.7-14.0) Prothromb Time International Ratio 2.1 (0.8-1.1) 2.0 (0.8-1.1) Sodium Level 141mmol/L (136-145) Potassium Level 4.1mmol/L (3.5-5.1) Chloride Level 99mmol/L (98-107) Carbon Dioxide Level 32mmol/L (21-32) Anion Gap 10 (6-14) Blood Urea Nitrogen 42mg/dL (8-26) Creatinine 3.4mg/dL (0.7-1.3) Estimated GFR (Cockcroft-Gault) 17.5 Glucose Level 228mg/dL (70-99) Lactic Acid Level 2.5mmol/L (0.4-2.0) Calcium Level 8.5mg/dL (8.5-10.1) Phosphorus Level 4.3mg/dL (2.6-4.7) Albumin 2.5g/dL (3.4-5.0) Test 11/16/16 07:39 Glucose (Fingerstick) 214mg/dL (70-99) RENETTA FRAIRE MD Nov 16, 2016 11:14
--- NOTE | 2016-11-16 11:27 | PDOC ---
PULMONARY PROGRESS NOTES Subjective c/o pain left knee no soa Vitals Vital Signs Date Time Temp Pulse Resp B/P Pulse Ox O2 Delivery O2 Flow Rate FiO2 11/16/16 07:00 97.5 64 18 84/41 94 Nasal Cannula 4.0 97.5 General: Alert, No acute distress Lungs: Other (decrease bs) Cardiovascular: S1, S2 Abdomen: Soft, Non-tender, Other Extremities: No Edema Labs Laboratory Tests Test 11/14/16 11:40 11/14/16 17:32 11/14/16 20:55 11/15/16 03:31 Glucose (Fingerstick) 176mg/dL (70-99) 248mg/dL (70-99) 271mg/dL (70-99) Prothrombin Time 24.0SEC (11.7-14.0) Prothromb Time International Ratio 2.3 (0.8-1.1) Sodium Level 139mmol/L (136-145) Potassium Level 4.0mmol/L (3.5-5.1) Chloride Level 100mmol/L (98-107) Carbon Dioxide Level 29mmol/L (21-32) Anion Gap 10 (6-14) Blood Urea Nitrogen 59mg/dL (8-26) Creatinine 3.9mg/dL (0.7-1.3) Estimated GFR (Cockcroft-Gault) 14.9 Glucose Level 291mg/dL (70-99) Lactic Acid Level 2.0mmol/L (0.4-2.0) Calcium Level 8.7mg/dL (8.5-10.1) Phosphorus Level 4.8mg/dL (2.6-4.7) Magnesium Level 1.9mg/dL (1.8-2.4) Albumin 2.6g/dL (3.4-5.0) Test 11/15/16 07:57 11/15/16 10:14 11/15/16 15:56 11/15/16 20:24 Glucose (Fingerstick) 243mg/dL (70-99) 269mg/dL (70-99) 150mg/dL (70-99) 174mg/dL (70-99) Test 11/16/16 01:15 11/16/16 03:55 11/16/16 07:39 White Blood Count 15.6x10^3/uL (4.0-11.0) Red Blood Count 3.34x10^6/uL (4.30-5.70) Hemoglobin 10.4g/dL (13.0-17.5) Hematocrit 32.9% (39.0-53.0) Mean Corpuscular Volume 99fL (79-100) Mean Corpuscular Hemoglobin 31pg (25-35) Mean Corpuscular Hemoglobin Concent 32g/dL (31-37) Red Cell Distribution Width 16.0% (11.5-14.5) Platelet Count 32x10^3/uL (140-400) Neutrophils (%) (Auto) 82% (31-73) Lymphocytes (%) (Auto) 11% (24-48) Monocytes (%) (Auto) 6% (0-9) Eosinophils (%) (Auto) 0% (0-3) Basophils (%) (Auto) 1% (0-3) Neutrophils # (Auto) 12.9x10^3uL (1.8-7.7) Lymphocytes # (Auto) 1.7x10^3/uL (1.0-4.8) Monocytes # (Auto) 0.9x10^3/uL (0.0-1.1) Eosinophils # (Auto) 0.0x10^3/uL (0.0-0.7) Basophils # (Auto) 0.1x10^3/uL (0.0-0.2) Platelet Estimate Decreased (ADEQUATE) Prothrombin Time 22.5SEC (11.7-14.0) 21.6SEC (11.7-14.0) Prothromb Time International Ratio 2.1 (0.8-1.1) 2.0 (0.8-1.1) Sodium Level 141mmol/L (136-145) Potassium Level 4.1mmol/L (3.5-5.1) Chloride Level 99mmol/L (98-107) Carbon Dioxide Level 32mmol/L (21-32) Anion Gap 10 (6-14) Blood Urea Nitrogen 42mg/dL (8-26) Creatinine 3.4mg/dL (0.7-1.3) Estimated GFR (Cockcroft-Gault) 17.5 Glucose Level 228mg/dL (70-99) Lactic Acid Level 2.5mmol/L (0.4-2.0) Calcium Level 8.5mg/dL (8.5-10.1) Phosphorus Level 4.3mg/dL (2.6-4.7) Albumin 2.5g/dL (3.4-5.0) Glucose (Fingerstick) 214mg/dL (70-99) Laboratory Tests Test 11/15/16 15:56 11/15/16 20:24 11/16/16 01:15 11/16/16 03:55 Glucose (Fingerstick) 150mg/dL (70-99) 174mg/dL (70-99) White Blood Count 15.6x10^3/uL (4.0-11.0) Red Blood Count 3.34x10^6/uL (4.30-5.70) Hemoglobin 10.4g/dL (13.0-17.5) Hematocrit 32.9% (39.0-53.0) Mean Corpuscular Volume 99fL (79-100) Mean Corpuscular Hemoglobin 31pg (25-35) Mean Corpuscular Hemoglobin Concent 32g/dL (31-37) Red Cell Distribution Width 16.0% (11.5-14.5) Platelet Count 32x10^3/uL (140-400) Neutrophils (%) (Auto) 82% (31-73) Lymphocytes (%) (Auto) 11% (24-48) Monocytes (%) (Auto) 6% (0-9) Eosinophils (%) (Auto) 0% (0-3) Basophils (%) (Auto) 1% (0-3) Neutrophils # (Auto) 12.9x10^3uL (1.8-7.7) Lymphocytes # (Auto) 1.7x10^3/uL (1.0-4.8) Monocytes # (Auto) 0.9x10^3/uL (0.0-1.1) Eosinophils # (Auto) 0.0x10^3/uL (0.0-0.7) Basophils # (Auto) 0.1x10^3/uL (0.0-0.2) Platelet Estimate Decreased (ADEQUATE) Prothrombin Time 22.5SEC (11.7-14.0) 21.6SEC (11.7-14.0) Prothromb Time International Ratio 2.1 (0.8-1.1) 2.0 (0.8-1.1) Sodium Level 141mmol/L (136-145) Potassium Level 4.1mmol/L (3.5-5.1) Chloride Level 99mmol/L (98-107) Carbon Dioxide Level 32mmol/L (21-32) Anion Gap 10 (6-14) Blood Urea Nitrogen 42mg/dL (8-26) Creatinine 3.4mg/dL (0.7-1.3) Estimated GFR (Cockcroft-Gault) 17.5 Glucose Level 228mg/dL (70-99) Lactic Acid Level 2.5mmol/L (0.4-2.0) Calcium Level 8.5mg/dL (8.5-10.1) Phosphorus Level 4.3mg/dL (2.6-4.7) Albumin 2.5g/dL (3.4-5.0) Test 11/16/16 07:39 Glucose (Fingerstick) 214mg/dL (70-99) Medications Active Scripts Medications Dose Route/Sig Days Date Category Carvedilol 3.125 Mg Tablet 3.125 Mg PO BIDWMEALS 09/26/16 Rx Fish Oil + Vitamin D-3 Softgel (Om-3/Dha/Epa/Fish Oil/Vit D3) 1 Each Capsule 1 Each PO 05/11/15 Reported Vitamin D (Cholecalciferol (Vitamin D3)) 1,000 Unit Capsule 1,000 Unit PO DAILY 05/11/15 Reported Klor-Con 10 (Potassium Chloride) 10 Meq Tablet.er 2 Tab PO DAILY 05/11/15 Reported Lasix (Furosemide) 20 Mg Tablet 10 Mg PO DAILY 05/11/15 Reported Aspir 81 (Aspirin) 81 Mg Tablet.dr 81 Mg PO 05/11/15 Reported Cozaar (Losartan Potassium) 50 Mg Tablet 50 Mg PO DAILY 05/11/15 Reported Amaryl (Glimepiride) 4 Mg Tablet 4 Mg PO DAILY 05/11/15 Reported Metformin Hcl 1,000 Mg Tablet 1,000 Mg PO BIDAC 05/11/15 Reported Impression . 1. Oivzj-ty-kojftbs hypoxemic, hypercapnic respiratory failure.POA 2. Swbba-oo-jynsewr diastolic/systolic heart failure.POA 3. Acute renal failure, on hemodialysis. 4. Sepsis present upon admission, suspect secondary to urinary tract infection. 5. Elevated liver chemistries secondary to sepsis versus congestive liver. 6. Status post aortic valve replacement. 7. Post pacemaker implantation. 8. Chronic atrial fibrillation. 9. Moderate protein malnutrition present upon admission. 10. Abnormal ct chest c/w CHF 11. New DVT left Lower extremity despite therapeutic INR, Suspect Right atrial thrombus as source, needs to r/o PE 12. Arterial insufficiency Plan . 1. Nasal canula 2. Antibiotics per ID. 3. Negative fluid balance with hemodialysis. 4. CTA chest today 5. follow cardiology input regarding RV thrombus 6. d/w Dr Rivero 7. Consult dietitian for protein malnutrition. 8. DNR/DNI 9 repeat echo with thrombus in right atrium 10. ? May need IVC filter MICHAEL CARVALHO MD Nov 16, 2016 11:27
[2016-11-16] MEDS ORDERED: IOHEXOL 300 MG/ML 75 ML VIAL IV ONE (11:45)
--- NOTE | 2016-11-16 12:45 | PDOC ---
CARDIO Progress Notes Date and Time Date of Service 11/16/2016 Time of Evaluation 1220 Subjective Subjective: No Chest Pain, No Palpitations, Other (feels hungry) Vitals Vitals Vital Signs Date Time Temp Pulse Resp B/P Pulse Ox O2 Delivery O2 Flow Rate FiO2 11/16/16 11:00 97.4 63 16 87/43 95 Nasal Cannula 5.0 97.4 Weight Weight [ ] Laboratory Labs Laboratory Tests Test 11/15/16 15:56 11/15/16 20:24 11/16/16 01:15 11/16/16 03:55 Glucose (Fingerstick) 150mg/dL (70-99) 174mg/dL (70-99) White Blood Count 15.6x10^3/uL (4.0-11.0) Red Blood Count 3.34x10^6/uL (4.30-5.70) Hemoglobin 10.4g/dL (13.0-17.5) Hematocrit 32.9% (39.0-53.0) Mean Corpuscular Volume 99fL (79-100) Mean Corpuscular Hemoglobin 31pg (25-35) Mean Corpuscular Hemoglobin Concent 32g/dL (31-37) Red Cell Distribution Width 16.0% (11.5-14.5) Platelet Count 32x10^3/uL (140-400) Neutrophils (%) (Auto) 82% (31-73) Lymphocytes (%) (Auto) 11% (24-48) Monocytes (%) (Auto) 6% (0-9) Eosinophils (%) (Auto) 0% (0-3) Basophils (%) (Auto) 1% (0-3) Neutrophils # (Auto) 12.9x10^3uL (1.8-7.7) Lymphocytes # (Auto) 1.7x10^3/uL (1.0-4.8) Monocytes # (Auto) 0.9x10^3/uL (0.0-1.1) Eosinophils # (Auto) 0.0x10^3/uL (0.0-0.7) Basophils # (Auto) 0.1x10^3/uL (0.0-0.2) Platelet Estimate Decreased (ADEQUATE) Prothrombin Time 22.5SEC (11.7-14.0) 21.6SEC (11.7-14.0) Prothromb Time International Ratio 2.1 (0.8-1.1) 2.0 (0.8-1.1) Sodium Level 141mmol/L (136-145) Potassium Level 4.1mmol/L (3.5-5.1) Chloride Level 99mmol/L (98-107) Carbon Dioxide Level 32mmol/L (21-32) Anion Gap 10 (6-14) Blood Urea Nitrogen 42mg/dL (8-26) Creatinine 3.4mg/dL (0.7-1.3) Estimated GFR (Cockcroft-Gault) 17.5 Glucose Level 228mg/dL (70-99) Lactic Acid Level 2.5mmol/L (0.4-2.0) Calcium Level 8.5mg/dL (8.5-10.1) Phosphorus Level 4.3mg/dL (2.6-4.7) Albumin 2.5g/dL (3.4-5.0) Test 11/16/16 07:39 11/16/16 11:54 Glucose (Fingerstick) 214mg/dL (70-99) 246mg/dL (70-99) Microbiology Micro Microbiology 11/10/16 Blood Culture - Final, Complete NO GROWTH AFTER 5 DAYS 11/10/16 Urine Culture - Final, Complete 11/10/16 Urine Culture Result 1 (EMMANUEL) - Final, Complete Physical Exam HEENT: Neck Supple W Full Motion Chest: Symmetric LUNGS: Clear to Auscultation, Other (diminished bases) Heart: S1S2, no gallops, irregularly irregular (tele: int AV pacing with underlying AFIB) Abdomen: Soft N/T Extremities: No Calf Tenderness, Other (trace LE edema ) Neurology: alert, oriented, follow commands Assessment Assessment 1. Acute on chronic respiratory failure and noted with small pulmonary emboli in the right lower lobe and lingula via CTA with new DVT LE Pulmonary following 2. 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 Notable for significant transaminitis. Liver disease? Caution with OAC. Will repeat LFTs. Followed by GI JEROME option if sedation is tolerated 4. CAD s/p CABG MPI 05/2014 unremarkable. CP free. Stable. Continue secondary prevention. 4. SSS with PPM [employer] device. Recent interrogation revealed normal functioning device 5. s/p AVR stable, well seated per recent TTE. 6. Hypotension: asymptomatic Multifactorial SBP 80s, PO hydration inadequate with NPO status Currently no antiHTN 8. Permanent AFIB intermittent AV pacing with underlying AFIB/flutter Currently ASA for stroke prevention but with current VTE. Will need OAC. Will defer to PCP/pulmonary INR 2.0 Not on tele monitor and will replace. HR stable, no rate controlling agents currently 9. VARUN with CKD In proceed of tunneled HD cath today 10. Persistent Leukocytosis with sepsis/shock 11. DM, II 12. Encephalopathy resolve 13. PAD Vascular surgery following HA ALANIZ APRN Nov 16, 2016 12:45
[2016-11-16] MEDS ORDERED: HEPARIN for IV BOLUS 10,000 UNIT/10 ML VIAL. ONE (12:52)
[2016-11-16] MEDS ORDERED: LIDOCAINE 1% / SOD BICARB 8.4% 20 ML VIAL. IJ ONE ×3 (12:52→13:15)
[2016-11-16 13:09] LABS: ALBUMIN 2.5 g/dL (3.4-5.0); DIRECT BILIRUBIN 1.1 mg/dL (0.0-0.2); TOTAL BILIRUBIN 2.3 mg/dL (0.2-1.0); TOTAL PROTEIN 5.3 g/dL (6.4-8.2)
--- NOTE | 2016-11-16 13:15 | RAD ---
EXAM: CT ANGIOGRAPHY OF THE CHEST WITH AND WITHOUT INTRAVENOUS CONTRAST. HISTORY: Deep venous thrombosis. Assess for pulmonary. TECHNIQUE: Computed tomographic angiography of the chest was performed before and after the intravenous administration of 60 mL Omnipaque 300. 3-D maximum intensity projections were also performed. COMPARISON: None. FINDINGS: Images of the upper abdomen reveal no acute abnormality. Bone windows reveal no suspicious lesions.There is an intramuscular lipoma in the right trapezius muscle that measures 6.7 x 3.2 cm. There are small pulmonary emboli bilaterally in the right lower lobe and the lingula. There is respiratory motion artifact. The main pulmonary artery measures 4.1 cm. There is no aortic dissection or aneurysm. There are no pathologically enlarged mediastinal or axillary lymph nodes. There are small bilateral pleural effusions. There is no pericardial effusion. The heart is moderately enlarged. There are changes of coronary artery bypass grafting. A left-sided pacemaker has its leads in the right atrium and right ventricle. There is atelectasis in both lower lobes. There is a small infiltrate laterally in the right middle lobe. There is mild to moderate centrilobular emphysema in the apices. Mild groundglass opacities in the bases. IMPRESSION: 1. Small pulmonary emboli in the right lower lobe and lingula. 2. Small pleural effusions with associated atelectasis. Mild pulmonary edema. 3. Small focal infiltrate laterally in the right middle lobe indicating pneumonia versus additional pulmonary edema. 4. Moderate cardiomegaly. Pulmonary arterial enlargement is consistent with pulmonary arterial hypertension. 5. Vbex-ah-[id number] centrilobular emphysema in the apices. These findings were called to hailey by Willem Andrews on 11/16/2015 at 1300. *One or more of the following individualized dose reduction techniques were utilized for this examination: 1. Automated exposure control. 2. Adjustment of the mA and/or kV according to patient size. 3. Use of iterative reconstruction technique.
--- NOTE | 2016-11-16 13:21 | PDOC ---
Subjective: Subjective: Out for CT. Objective: Objective: Decided to continue dialysis. Vital Signs: Vital Signs Date Time Temp Pulse Resp B/P Pulse Ox O2 Delivery O2 Flow Rate FiO2 11/16/16 11:00 97.4 63 16 87/43 95 Nasal Cannula 5.0 97.4 Labs: Laboratory Tests Test 11/15/16 15:56 11/15/16 20:24 11/16/16 01:15 11/16/16 03:55 Glucose (Fingerstick) 150mg/dL 174mg/dL White Blood Count 15.6x10^3/uL Red Blood Count 3.34x10^6/uL Hemoglobin 10.4g/dL Hematocrit 32.9% Mean Corpuscular Volume 99fL Mean Corpuscular Hemoglobin 31pg Mean Corpuscular Hemoglobin Concent 32g/dL Red Cell Distribution Width 16.0% Platelet Count 32x10^3/uL Neutrophils (%) (Auto) 82% Lymphocytes (%) (Auto) 11% Monocytes (%) (Auto) 6% Eosinophils (%) (Auto) 0% Basophils (%) (Auto) 1% Neutrophils # (Auto) 12.9x10^3uL Lymphocytes # (Auto) 1.7x10^3/uL Monocytes # (Auto) 0.9x10^3/uL Eosinophils # (Auto) 0.0x10^3/uL Basophils # (Auto) 0.1x10^3/uL Platelet Estimate Decreased Prothrombin Time 22.5SEC 21.6SEC Prothromb Time International Ratio 2.1 2.0 Sodium Level 141mmol/L Potassium Level 4.1mmol/L Chloride Level 99mmol/L Carbon Dioxide Level 32mmol/L Anion Gap 10 Blood Urea Nitrogen 42mg/dL Creatinine 3.4mg/dL Estimated GFR (Cockcroft-Gault) 17.5 Glucose Level 228mg/dL Lactic Acid Level 2.5mmol/L Calcium Level 8.5mg/dL Phosphorus Level 4.3mg/dL Total Bilirubin 2.3mg/dL Direct Bilirubin 1.1mg/dL Aspartate Amino Transf (AST/SGOT) 73U/L Alanine Aminotransferase (ALT/SGPT) 359U/L Alkaline Phosphatase 63U/L Total Protein 5.3g/dL Albumin 2.5g/dL Test 11/16/16 07:39 11/16/16 11:54 Glucose (Fingerstick) 214mg/dL 246mg/dL Imaging: Chest CTA IMPRESSION: 1. Small pulmonary emboli in the right lower lobe and lingula. 2. Small pleural effusions with associated atelectasis. Mild pulmonary edema. 3. Small focal infiltrate laterally in the right middle lobe indicating pneumonia versus additional pulmonary edema. 4. Moderate cardiomegaly. Pulmonary arterial enlargement is consistent with pulmonary arterial hypertension. 5. Jrht-rr-[id number] centrilobular emphysema in the apices. BLE Duplex IMPRESSION: 1. Extensive left lower extremity deep venous thrombosis involving the popliteal and calf veins. The left greater saphenous vein is also involved to the level of the junction with the common femoral vein. 2. On the right, there is mildly flow limiting stenosis throughout to the level of the ankle, where it becomes severe. 3. On the left, there is mild proximal flow limiting stenosis. This becomes severe at the level of the mid superficial femoral artery. PE: no exam A/P: Abnormal LFTs -bili worse 2.3 -US w/ GB wall thickening, trace pericholecystic fluid, hepatomegaly -Hep panel negative, RISA and ASMA WNL -- Plans to continue care. Note Duplex and CTA results. Will review w/ Dr. Javier. JONNATHAN ROSE Nov 16, 2016 13:21
[2016-11-16] MEDS ORDERED: HEPARIN for IV BOLUS 10,000 UNIT/10 ML VIAL. IV ONE (13:30)
--- NOTE | 2016-11-16 13:33 | PDOC ---
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 Temp HDC pulled out. Post-Procedure Diagnosis Post-Procedure Diagnosis Same Procedure Performed Procedure Performed Sono/fluoro guided rt IJ temp HDC insertion Type of Anesthesia Type of Anesthesia Local Estimated Blood Loss EBL: Minimal Drain/Tubes Drains/Tubes Right IJ 14F 20cm Schon Temp HDC Condition of Patient Condition of Patient Stable. No apparent complication Disposition Disposition From IR return to [facility]. OK to use temp HDC. Full report to follow. CHASTITY BUNN MD Nov 16, 2016 13:33
[2016-11-16 15:00] VITALS: BP 105/42
[2016-11-16 15:35] LABS: INR 1.9 (0.8-1.1); PROTHROMBIN TIME PATIENT 21.1 SEC (11.7-14.0)
--- NOTE | 2016-11-16 17:54 | PDOC2 ---
CONSULT Date of Consult Date of Consult DATE: 11/16/16 TIME: 17:51 Past Medical History Cardiovascular: AFIB, CAD, CHF, HTN, Hyperlipidemia, Other Pulmonary: COPD, Pneumonia GI: No pertinent hx Heme/Onc: No pertinent hx Hepatobiliary: Cholelithiasis Psych: No pertinent hx Musculoskeletal: Osteoarthritis Infectious disease: No pertinent hx, Other Renal/: Chronic renal insuff, Benign prostatic enlarg., Other Endocrine: Diabetes Past Surgical History Past Surgical History: Pacemaker, Appendectomy, CABG, Other Family History Family History: Diabetes, Heart Disease Social History No ALCOHOL: none Drugs: None Current Problem List Problem List Problems Medical Problems: (1) ECG abnormal Status: Acute (2) Hyperkalemia Status: Acute (3) Hypotension Status: Acute (4) Renal failure Status: Acute Current Medications Current Medications Current Medications Fentanyl Citrate (Fentanyl 2ml Vial) 25 mcg PRN Q15MIN PRN IV PAIN GREATER THAN 3/10 Last administered on 11/10/16 23:41; Start 11/10/16 at 01:00; Stop at 00:59; Status DC Lidocaine (Lidoderm) 1 patch 1X ONCE TD Last administered on 11/10/16 01:14; Start 11/10/16 at 01:00; Stop 11/10/16 at 01:01; Status DC Calcium Gluconate 1,000 mg 1X ONCE IVP Last administered on 11/10/16 02:20; Start 11/10/16 at 02:30; Stop 11/10/16 at 02:31; Status DC Sodium Bicarbonate 50 meq 1X ONCE IV Last administered on 11/10/16 02:20; Start 11/10/16 at 02:30; Stop 11/10/16 at 02:31; Status DC Dextrose 25 gm 1X ONCE IV Last administered on 11/10/16 02:20; Start at 02:30; Stop 11/10/16 at 02:31; Status DC Insulin Human Regular (Novolin R Vial) 10 unit 1X ONCE IV Last administered on 11/10/16 02:22; Start 11/10/16 at 02:30; Stop 11/10/16 at 02:31; Status DC Calcium Gluconate 1,000 mg 1X ONCE IVP Last administered on 11/10/16 03:56; Start 11/10/16 at 04:00; Stop 11/10/16 at 04:01; Status DC Sodium Bicarbonate 50 meq 1X ONCE IV Last administered on 11/10/16 04:00; Start 11/10/16 at 04:00; Stop 11/10/16 at 04:01; Status DC Dextrose 25 gm 1X ONCE IV Last administered on 11/10/16 04:01; Start at 04:00; Stop 11/10/16 at 04:01; Status DC Insulin Human Regular 10 unit 10 unit 1X ONCE IV Last administered on 03:59; Start 11/10/16 at 04:00; Stop 11/10/16 at 04:01; Status DC Sodium Bicarbonate 150 meq/Sterile Water 1,150 ml @ 125 mls/hr Q9H12M IV ; Start 11/10/16 at 04:30; Stop 11/10/16 at 04:30; Status DC Sodium Chloride (Iv Sodium Chloride 0.9% 1000ml Bag) 1,000 ml @ 100 mls/hr 1X ONCE IV Last administered on 11/10/16 04:41; Start 11/10/16 at 04:30; Stop at 14:29; Status DC Piperacillin Sod/ Tazobactam Sod 1 each 1 each PRN DAILY PRN MC SEE COMMENTS; Start 11/10/16 at 04:30 Metronidazole 100 ml @ 100 mls/hr Q8HRS IV ; Start 11/10/16 at 14:00; Stop at 14:00; Status DC Metronidazole 100 ml @ 100 mls/hr 1X ONCE IV Last administered on 11/10/16 04:40; Start 11/10/16 at 05:00; Stop 11/10/16 at 05:59; Status DC Piperacillin Sod/ Tazobactam Sod/ Sodium Chloride (Zosyn/Iv Sodium Chloride 0.9 % 50ml) 50 ml @ 100 mls/hr Q6HRS IV Last administered on 11/16/16 06:31; Start 11/10/16 at 05:00; Stop 11/16/16 at 09:16; Status DC Lidocaine HCl 1 stevie 1 stevie 1X ONCE MM Last administered on 11/10/16 04:40; Start 11/10/16 at 04:30; Stop 11/10/16 at 04:43; Status DC Norepinephrine Bitartrate 8 mg/ Sodium Chloride 258 ml @ 0 mls/hr CONT PRN IV SEE I/O RECORD; Start 11/10/16 at 07:15; Stop 11/15/16 at 17:27; Status DC Linezolid (Zyvox Premix) 300 ml @ 300 mls/hr Q12HR IV Last administered on 08:34; Start 11/10/16 at 09:00; Stop 11/16/16 at 09:16; Status DC Doxycycline Hyclate (Vibra-Tab) 100 mg BID PO Last administered on 11/13/16 21 :45; Start 11/10/16 at 09:00; Stop 11/14/16 at 07:25; Status DC Aspirin 81 mg 81 mg [id number] PO Last administered on 11/16/16 08:32; Start 11/11/16 at 08:00 Magnesium Sulfate/ Dextrose 50 ml @ 25 mls/hr PRN DAILY PRN IV for Mag < 1.7 on am labs; Start 11/10/16 at 13:00 Sodium Chloride (Iv Sodium Chloride 0.9% 500ml Bag) 500 ml @ 0 mls/hr QID PRN IV UO< 30cc/hr over previous 6hrs; Start 11/10/16 at 13:00; Stop 11/11/16 at 18: 23; Status DC Acetaminophen (Tylenol) 650 mg PRN Q6HRS PRN PO MILD PAIN / TEMP; Start at 13:15 Ondansetron HCl (Zofran) 4 mg PRN Q6HRS PRN IV NAUSEA/VOMITING Last administered on 11/15/16 09:15; Start 11/10/16 at 13:15 Heparin Sodium (Porcine) 5,000 unit Q8HRS SQ ; Start 11/10/16 at 14:00; Stop at 14:00; Status DC Insulin Aspart (Novolog) 0-9 UNITS TIDWMEALS SQ Last administered on 11/16/16 17:29; Start 11/10/16 at 13:30 Dextrose 12.5 gm 12.5 gm PRN Q15MIN PRN IV SEE COMMENTS; Start 11/10/16 at 13: 15 Sodium Chloride (Iv Sodium Chloride 0.9% 1000ml Bag) 1,000 ml @ 100 mls/hr Q10H IV Last administered on 11/10/16 23:41; Start 11/10/16 at 13:15; Stop at 18:23; Status DC Pantoprazole Sodium (Protonix) 40 mg DAILYAC PO Last administered on 11/16/16 08:32; Start 11/10/16 at 14:00 Fentanyl Citrate (Fentanyl 2ml Vial) 50 mcg PRN Q2HR PRN IV SEVERE PAIN Last administered on 11/12/16 20:55; Start 11/11/16 at 02:30 Sodium Polystyrene Sulfonate 60 gm 60 gm 1X ONCE PO Last administered on 06:41; Start 11/11/16 at 06:45; Stop 11/11/16 at 06:46; Status DC Norepinephrine Bitartrate/Sodium Chloride (Levophed Vial/ Iv Sodium Chloride 0.9 % 250ml) 258 ml @ 0 mls/hr CONT PRN IV SEE I/O RECORD; Start 11/11/16 at 22:30 ; Status UNV Methylprednisolone Sodium Succinate (Solu-Medrol 125mg Vial) 125 mg 1X ONCE IV Last administered on 11/12/16 00:09; Start 11/11/16 at 23:00; Stop 11/11/16 at 23:01; Status DC Furosemide (Lasix) 40 mg 1X ONCE IVP Last administered on 11/12/16 01:31; Start 11/12/16 at 01:30; Stop 11/12/16 at 01:31; Status DC Lidocaine/Sodium Bicarbonate (Buffered Lidocaine 1%) 3 ml 1X ONCE IJ Last administered on 11/12/16 09:43; Start 11/12/16 at 09:15; Stop 11/12/16 at 09:16 ; Status DC Heparin Sodium/ Sodium Chloride 60 unit 1X ONCE IV Last administered on 09:43; Start 11/12/16 at 09:15; Stop 11/12/16 at 09:16; Status DC Heparin Sodium (Porcine) 2,500 unit 1X ONCE INT CAT Last administered on 09:42; Start 11/12/16 at 09:15; Stop 11/12/16 at 09:16; Status DC Heparin Sodium (Porcine) 08052 unit 10,000 unit STK-MED ONCE .ROUTE ; Start at 09:09; Stop 11/12/16 at 09:10; Status DC Sodium Chloride 1,000 ml @ 1,000 mls/hr Q1H PRN IV hypotension; Start 11/12/16 at 10:47; Stop 11/12/16 at 16:46; Status DC Albumin Human (Albuminar) 200 ml @ 200 mls/hr 1X ONCE IV Last administered on 11/12/16 13:18; Start 11/12/16 at 12:45; Stop 11/12/16 at 13:44; Status DC Diphenhydramine HCl (Benadryl) 25 mg 1X PRN PRN IV ITCHING; Start 11/12/16 at 11:00; Stop 11/13/16 at 10:59; Status DC Diphenhydramine HCl (Benadryl) 25 mg 1X PRN PRN IV ITCHING; Start 11/12/16 at 11:00; Stop 11/13/16 at 10:59; Status DC Sodium Chloride (Normal Saline Flush) 10 ml 1X PRN PRN IV AP catheter pack; Start 11/12/16 at 11:00; Stop 11/13/16 at 10:59; Status DC Sodium Chloride 10 ml 10 ml 1X PRN PRN IV [employer] DEVELOPER catheter pack; Start 11/12/16 at 11:00; Stop 11/13/16 at 10:59; Status DC Sodium Chloride (Iv Sodium Chloride 0.9% 1000ml Bag) 1,000 ml @ 400 mls/hr Q2H30M PRN IV PATENCY; Start 11/12/16 at 10:47; Stop 11/12/16 at 22:46; Status DC Info (PHARMACY MONITORING -- do not chart) 1 each PRN DAILY PRN MC SEE COMMENTS ; Start 11/12/16 at 11:00 Furosemide 40 mg 40 mg 1X ONCE IVP Last administered on 11/12/16t 16:25; Start 11/12/16 at 11:30; Stop 11/12/16 at 11:31; Status DC Sodium Chloride 1,000 ml @ 1,000 mls/hr Q1H PRN IV hypotension; Start 11/13/16 at 08:00; Stop 11/13/16 at 13:59; Status DC Sodium Chloride (Iv Sodium Chloride 0.9% 1000ml Bag) 1,000 ml @ 400 mls/hr Q2H30M PRN IV PATENCY; Start 11/13/16 at 08:00; Stop 11/13/16 at 19:59; Status DC Info (PHARMACY MONITORING -- do not chart) 1 each PRN DAILY PRN MC SEE COMMENTS ; Start 11/13/16 at 09:00; Status UNV Morphine Sulfate 2 mg 2 mg PRN Q2HR PRN IV PAIN Last administered on 11/15/16 23:33; Start 11/13/16 at 11:15 Sodium Chloride 1,000 ml @ 1,000 mls/hr Q1H PRN IV hypotension; Start 11/15/16 at 11:42; Stop 11/15/16 at 17:41; Status DC Albumin Human (Albuminar) 200 ml @ 200 mls/hr 1X PRN PRN IV Hypotension; Start 11/15/16 at 11:45; Stop 11/15/16 at 17:44; Status DC Diphenhydramine HCl (Benadryl) 25 mg 1X PRN PRN IV ITCHING; Start 11/15/16 at 11:45; Stop 11/15/16 at 19:00; Status DC Diphenhydramine HCl (Benadryl) 25 mg 1X PRN PRN IV ITCHING; Start 11/15/16 at 11:45; Stop 11/15/16 at 19:00; Status DC Info (PHARMACY MONITORING -- do not chart) 1 each PRN DAILY PRN MC SEE COMMENTS ; Start 11/15/16 at 11:45; Status UNV Info 1 each 1 each PRN DAILY PRN MC SEE COMMENTS; Start 11/15/16 at 11:45; Status UNV Piperacillin Sod/ Tazobactam Sod 2.25 gm/Sodium Chloride 50 ml @ 100 mls/hr Q8HRS IV Last administered on 11/16/16 14:52; Start 11/16/16 at 14:00 Sodium Chloride (Iv Sodium Chloride 0.9% 500ml Bag) 500 ml @ 500 mls/hr 1X ONCE IV Last administered on 11/16/16 10:00; Start 11/16/16 at 10:00; Stop at 10:59; Status DC Iohexol (Omnipaque 300 Mg/ml) 60 ml 1X ONCE IV Last administered on 11/16/16 12:48; Start 11/16/16 at 11:45; Stop 11/16/16 at 11:46; Status DC Heparin Sodium (Porcine) 10,000 unit STK-MED ONCE .ROUTE ; Start 11/16/16 at 12: 52; Stop 11/16/16 at 12:53; Status DC Lidocaine/Sodium Bicarbonate 20 ml 20 ml STK-MED ONCE IJ ; Start 11/16/16 at 12: 52; Stop 11/16/16 at 12:53; Status DC Heparin Sodium/ Sodium Chloride 500 ml @ As Directed STK-MED ONCE .ROUTE ; Start 11/16/16 at 12:52; Stop 11/16/16 at 12:53; Status DC Lidocaine/Sodium Bicarbonate (Buffered Lidocaine 1%) 20 ml 1X ONCE IJ Last administered on 11/16/16 13:15; Start 11/16/16 at 13:15; Stop 11/16/16 at 13:16 ; Status DC Heparin Sodium/ Sodium Chloride 1,000 unit 1X ONCE IV Last administered on 13:15; Start 11/16/16 at 13:15; Stop 11/16/16 at 13:16; Status DC Lidocaine/Sodium Bicarbonate (Buffered Lidocaine 1%) 20 ml 1X ONCE IJ ; Start 11/16/16 at 13:15; Stop 11/16/16 at 13:16; Status DC Heparin Sodium (Porcine) 2,500 unit 1X ONCE IV ; Start 11/16/16 at 13:30; Stop 11/16/16 at 13:32; Status DC Active Scripts Active Carvedilol 3.125 Mg Tablet 3.125 Mg PO BIDWMEALS Reported Fish Oil + Vitamin D-3 Softgel (Om-3/Dha/Epa/Fish Oil/Vit D3) 1 Each Capsule 1 Each PO Vitamin D (Cholecalciferol (Vitamin D3)) 1,000 Unit Capsule 1,000 Unit PO DAILY Klor-Con 10 (Potassium Chloride) 10 Meq Tablet.er 2 Tab PO DAILY Lasix (Furosemide) 20 Mg Tablet 10 Mg PO DAILY Aspir 81 (Aspirin) 81 Mg Tablet.dr 81 Mg PO Cozaar (Losartan Potassium) 50 Mg Tablet 50 Mg PO DAILY Amaryl (Glimepiride) 4 Mg Tablet 4 Mg PO DAILY Metformin Hcl 1,000 Mg Tablet 1,000 Mg PO BIDAC Allergies Allergies: Coded Allergies: No Known Drug Allergies (Unverified , 05/11/15) Vitals VITALS Vital Signs Date Time Temp Pulse Resp B/P Pulse Ox O2 Delivery O2 Flow Rate FiO2 11/16/16 11:00 97.4 63 16 87/43 95 Nasal Cannula 5.0 97.4 Labs Labs Laboratory Tests Test 11/14/16 20:55 11/15/16 03:31 11/15/16 07:57 11/15/16 10:14 Glucose (Fingerstick) 271mg/dL (70-99) 243mg/dL (70-99) 269mg/dL (70-99) Prothrombin Time 24.0SEC (11.7-14.0) Prothromb Time International Ratio 2.3 (0.8-1.1) Sodium Level 139mmol/L (136-145) Potassium Level 4.0mmol/L (3.5-5.1) Chloride Level 100mmol/L (98-107) Carbon Dioxide Level 29mmol/L (21-32) Anion Gap 10 (6-14) Blood Urea Nitrogen 59mg/dL (8-26) Creatinine 3.9mg/dL (0.7-1.3) Estimated GFR (Cockcroft-Gault) 14.9 Glucose Level 291mg/dL (70-99) Lactic Acid Level 2.0mmol/L (0.4-2.0) Calcium Level 8.7mg/dL (8.5-10.1) Phosphorus Level 4.8mg/dL (2.6-4.7) Magnesium Level 1.9mg/dL (1.8-2.4) Albumin 2.6g/dL (3.4-5.0) Test 11/15/16 15:56 11/15/16 20:24 11/16/16 01:15 11/16/16 03:55 Glucose (Fingerstick) 150mg/dL (70-99) 174mg/dL (70-99) White Blood Count 15.6x10^3/uL (4.0-11.0) Red Blood Count 3.34x10^6/uL (4.30-5.70) Hemoglobin 10.4g/dL (13.0-17.5) Hematocrit 32.9% (39.0-53.0) Mean Corpuscular Volume 99fL (79-100) Mean Corpuscular Hemoglobin 31pg (25-35) Mean Corpuscular Hemoglobin Concent 32g/dL (31-37) Red Cell Distribution Width 16.0% (11.5-14.5) Platelet Count 32x10^3/uL (140-400) Neutrophils (%) (Auto) 82% (31-73) Lymphocytes (%) (Auto) 11% (24-48) Monocytes (%) (Auto) 6% (0-9) Eosinophils (%) (Auto) 0% (0-3) Basophils (%) (Auto) 1% (0-3) Neutrophils # (Auto) 12.9x10^3uL (1.8-7.7) Lymphocytes # (Auto) 1.7x10^3/uL (1.0-4.8) Monocytes # (Auto) 0.9x10^3/uL (0.0-1.1) Eosinophils # (Auto) 0.0x10^3/uL (0.0-0.7) Basophils # (Auto) 0.1x10^3/uL (0.0-0.2) Platelet Estimate Decreased (ADEQUATE) Prothrombin Time 22.5SEC (11.7-14.0) 21.6SEC (11.7-14.0) Prothromb Time International Ratio 2.1 (0.8-1.1) 2.0 (0.8-1.1) Sodium Level 141mmol/L (136-145) Potassium Level 4.1mmol/L (3.5-5.1) Chloride Level 99mmol/L (98-107) Carbon Dioxide Level 32mmol/L (21-32) Anion Gap 10 (6-14) Blood Urea Nitrogen 42mg/dL (8-26) Creatinine 3.4mg/dL (0.7-1.3) Estimated GFR (Cockcroft-Gault) 17.5 Glucose Level 228mg/dL (70-99) Lactic Acid Level 2.5mmol/L (0.4-2.0) Calcium Level 8.5mg/dL (8.5-10.1) Phosphorus Level 4.3mg/dL (2.6-4.7) Total Bilirubin 2.3mg/dL (0.2-1.0) Direct Bilirubin 1.1mg/dL (0.0-0.2) Aspartate Amino Transf (AST/SGOT) 73U/L (15-37) Alanine Aminotransferase (ALT/SGPT) 359U/L (16-63) Alkaline Phosphatase 63U/L (46-116) Total Protein 5.3g/dL (6.4-8.2) Albumin 2.5g/dL (3.4-5.0) Test 11/16/16 07:39 11/16/16 11:54 11/16/16 15:19 11/16/16 17:09 Glucose (Fingerstick) 214mg/dL (70-99) 246mg/dL (70-99) 232mg/dL (70-99) Prothrombin Time 21.1SEC (11.7-14.0) Prothromb Time International Ratio 1.9 (0.8-1.1) Laboratory Tests Test 11/15/16 20:24 11/16/16 01:15 11/16/16 03:55 11/16/16 07:39 Glucose (Fingerstick) 174mg/dL (70-99) 214mg/dL (70-99) White Blood Count 15.6x10^3/uL (4.0-11.0) Red Blood Count 3.34x10^6/uL (4.30-5.70) Hemoglobin 10.4g/dL (13.0-17.5) Hematocrit 32.9% (39.0-53.0) Mean Corpuscular Volume 99fL (79-100) Mean Corpuscular Hemoglobin 31pg (25-35) Mean Corpuscular Hemoglobin Concent 32g/dL (31-37) Red Cell Distribution Width 16.0% (11.5-14.5) Platelet Count 32x10^3/uL (140-400) Neutrophils (%) (Auto) 82% (31-73) Lymphocytes (%) (Auto) 11% (24-48) Monocytes (%) (Auto) 6% (0-9) Eosinophils (%) (Auto) 0% (0-3) Basophils (%) (Auto) 1% (0-3) Neutrophils # (Auto) 12.9x10^3uL (1.8-7.7) Lymphocytes # (Auto) 1.7x10^3/uL (1.0-4.8) Monocytes # (Auto) 0.9x10^3/uL (0.0-1.1) Eosinophils # (Auto) 0.0x10^3/uL (0.0-0.7) Basophils # (Auto) 0.1x10^3/uL (0.0-0.2) Platelet Estimate Decreased (ADEQUATE) Prothrombin Time 22.5SEC (11.7-14.0) 21.6SEC (11.7-14.0) Prothromb Time International Ratio 2.1 (0.8-1.1) 2.0 (0.8-1.1) Sodium Level 141mmol/L (136-145) Potassium Level 4.1mmol/L (3.5-5.1) Chloride Level 99mmol/L (98-107) Carbon Dioxide Level 32mmol/L (21-32) Anion Gap 10 (6-14) Blood Urea Nitrogen 42mg/dL (8-26) Creatinine 3.4mg/dL (0.7-1.3) Estimated GFR (Cockcroft-Gault) 17.5 Glucose Level 228mg/dL (70-99) Lactic Acid Level 2.5mmol/L (0.4-2.0) Calcium Level 8.5mg/dL (8.5-10.1) Phosphorus Level 4.3mg/dL (2.6-4.7) Total Bilirubin 2.3mg/dL (0.2-1.0) Direct Bilirubin 1.1mg/dL (0.0-0.2) Aspartate Amino Transf (AST/SGOT) 73U/L (15-37) Alanine Aminotransferase (ALT/SGPT) 359U/L (16-63) Alkaline Phosphatase 63U/L (46-116) Total Protein 5.3g/dL (6.4-8.2) Albumin 2.5g/dL (3.4-5.0) Test 11/16/16 11:54 11/16/16 15:19 11/16/16 17:09 Glucose (Fingerstick) 246mg/dL (70-99) 232mg/dL (70-99) Prothrombin Time 21.1SEC (11.7-14.0) Prothromb Time International Ratio 1.9 (0.8-1.1) Assessment/Plan Assessment/Plan Vascular consult dictated Imp: 1. probable microembolization to left forefoot. Thrombolysis or embolectomy is not an option due to location and size of vessels. Adequate inflow to the level of the midfeet bilaterally 2. DVT left pop and tibial veins, duration unknown 3. small PE 4. altered mental status 5. ESRD Rec: 1. anticoagulation with IV heparin for treatment of all of the above unless family wishes comfort measures only. 2. rooke vascular boots 3. will follow as needed. JAYME BECERRIL II, MD Nov 16, 2016 17:54
[2016-11-16 19:00] VITALS: BP 102/44
[2016-11-16 20:42] LABS: HEMATOCRIT 30.8 % (39.0-53.0); HEMOGLOBIN 9.8 g/dL (13.0-17.5)
[2016-11-16] MEDS ORDERED: HEPARIN for IV BOLUS 10,000 UNIT/10 ML VIAL. IV PRN ×2 (20:45)
[2016-11-16] MEDS ORDERED: ANTI-COAG MONITOR BY PHARMACY. MC PRN (21:00)
[2016-11-16] MEDS: HEPARIN 25,000UTS/500ML PREMIX 500 ML IV PRN (22:26)
[2016-11-16 23:00] VITALS: BP 92/43
[2016-11-17 02:51] VITALS: BP 93/42
[2016-11-17 04:26] LABS: ALBUMIN 2.2 g/dL (3.4-5.0); CALCIUM 8.5 mg/dL (8.5-10.1); CREATININE 3.8 mg/dL (0.7-1.3); GFR 15.4; PHOSPHORUS 5.1 mg/dL (2.6-4.7); POTASSIUM 3.9 mmol/L (3.5-5.1)
[2016-11-17] MEDS: PIPERACILLIN/TAZOBACTAM 2.25 GM in IV NORMAL SALINE 50ML 50 ML IV SCH ×3 (05:32→22:45)
[2016-11-17 07:00] VITALS: BP 106/40
[2016-11-17 07:02] LABS: INR 1.9 (0.8-1.1); PROTHROMBIN TIME PATIENT 20.9 SEC (11.7-14.0)
[2016-11-17] MEDS: PANTOPRAZOLE 40 MG TABLET. PO SCH (08:56)
[2016-11-17] MEDS: ASPIRIN ENTERIC COATED 81 MG TABLET.DR. PO SCH (08:56)
[2016-11-17] MEDS: INSULIN ASPART 300 UNITS/3 ML INSULN.PEN SQ SCH ×3 (08:58→17:42)
[2016-11-17 11:00] VITALS: BP 91/49
--- NOTE | 2016-11-17 11:10 | RAD ---
Ultrasound and fluoro guided right IJ temporary hemodialysis catheter Indication: 81-year-old male with acute kidney injury/ATN. He needs ongoing hemodialysis. His recently placed right IJ temporary hemodialysis catheter was inadvertently pulled out. Temporary dialysis catheter reinsertion has been requested by renal. Fluoro time: 0.4 minutes Kerma-Area Product: 4 Gycm2 Anesthesia: Local only Sterility: All elements of maximal sterile barrier technique, including the use of a cap, mask, sterile gown, sterile gloves, large sterile sheet, appropriate hand hygiene, and 2% chlorhexidine for cutaneous antisepsis (or acceptable alternative antiseptic per current guidelines) were utilized. Procedure: Informed consent was obtained from the patient's daughter and verbally from the patient. He was placed supine on the angiography table. Preliminary ultrasound examination of right neck revealed continued patency of right internal jugular vein, which was documented with a single hard copy ultrasound image. Right neck was then prepped and draped in the usual sterile fashion, utilizing all elements of maximal sterile barrier technique, as described above. Using aseptic technique, local anesthesia, direct ultrasound guidance, and the micropuncture system, successful percutaneous entry was achieved into right internal jugular vein, taking care to avoid the indwelling right IJ central venous catheter. The right IJ venostomy tract was then dilated and a 14 [place] 20cm Schon temporary hemodialysis catheter was easily advanced centrally over an angiographic guidewire, and was positioned with its tip at the level of upper right atrium utilizing fluoroscopic guidance. This catheter was documented to flush and aspirate normally, was packed, and was secured at the right neck exit site utilizing suture and sterile dressing. Patient tolerated the procedure well without apparent complication. Satisfactory position of the dialysis catheter was confirmed with a single fluoroscopic spot image. Impression: Successful, uneventful ultrasound and fluoro guided placement of right IJ 14 [place] 20cm Schon temporary hemodialysis catheter, as described.
--- NOTE | 2016-11-17 11:20 | PDOC ---
PULMONARY PROGRESS NOTES Subjective CTA with small PE no soa Vitals Vital Signs Date Time Temp Pulse Resp B/P Pulse Ox O2 Delivery O2 Flow Rate FiO2 11/17/16 07:00 97.8 69 20 106/40 94 Nasal Cannula 1.5 97.8 General: No acute distress, Lethargic Lungs: Other (decrease bs) Cardiovascular: S1, S2 Abdomen: Soft, Non-tender, Other Extremities: No Edema Labs Laboratory Tests Test 11/15/16 15:56 11/15/16 20:24 11/16/16 01:15 11/16/16 03:55 Glucose (Fingerstick) 150mg/dL (70-99) 174mg/dL (70-99) White Blood Count 15.6x10^3/uL (4.0-11.0) Red Blood Count 3.34x10^6/uL (4.30-5.70) Hemoglobin 10.4g/dL (13.0-17.5) Hematocrit 32.9% (39.0-53.0) Mean Corpuscular Volume 99fL (79-100) Mean Corpuscular Hemoglobin 31pg (25-35) Mean Corpuscular Hemoglobin Concent 32g/dL (31-37) Red Cell Distribution Width 16.0% (11.5-14.5) Platelet Count 32x10^3/uL (140-400) Neutrophils (%) (Auto) 82% (31-73) Lymphocytes (%) (Auto) 11% (24-48) Monocytes (%) (Auto) 6% (0-9) Eosinophils (%) (Auto) 0% (0-3) Basophils (%) (Auto) 1% (0-3) Neutrophils # (Auto) 12.9x10^3uL (1.8-7.7) Lymphocytes # (Auto) 1.7x10^3/uL (1.0-4.8) Monocytes # (Auto) 0.9x10^3/uL (0.0-1.1) Eosinophils # (Auto) 0.0x10^3/uL (0.0-0.7) Basophils # (Auto) 0.1x10^3/uL (0.0-0.2) Platelet Estimate Decreased (ADEQUATE) Prothrombin Time 22.5SEC (11.7-14.0) 21.6SEC (11.7-14.0) Prothromb Time International Ratio 2.1 (0.8-1.1) 2.0 (0.8-1.1) Sodium Level 141mmol/L (136-145) Potassium Level 4.1mmol/L (3.5-5.1) Chloride Level 99mmol/L (98-107) Carbon Dioxide Level 32mmol/L (21-32) Anion Gap 10 (6-14) Blood Urea Nitrogen 42mg/dL (8-26) Creatinine 3.4mg/dL (0.7-1.3) Estimated GFR (Cockcroft-Gault) 17.5 Glucose Level 228mg/dL (70-99) Lactic Acid Level 2.5mmol/L (0.4-2.0) Calcium Level 8.5mg/dL (8.5-10.1) Phosphorus Level 4.3mg/dL (2.6-4.7) Total Bilirubin 2.3mg/dL (0.2-1.0) Direct Bilirubin 1.1mg/dL (0.0-0.2) Aspartate Amino Transf (AST/SGOT) 73U/L (15-37) Alanine Aminotransferase (ALT/SGPT) 359U/L (16-63) Alkaline Phosphatase 63U/L (46-116) Total Protein 5.3g/dL (6.4-8.2) Albumin 2.5g/dL (3.4-5.0) Test 11/16/16 07:39 11/16/16 11:54 11/16/16 15:19 11/16/16 17:09 Glucose (Fingerstick) 214mg/dL (70-99) 246mg/dL (70-99) 232mg/dL (70-99) Prothrombin Time 21.1SEC (11.7-14.0) Prothromb Time International Ratio 1.9 (0.8-1.1) Test 11/16/16 20:33 11/16/16 20:35 11/16/16 21:00 11/17/16 03:45 Glucose (Fingerstick) 222mg/dL (70-99) Hemoglobin 9.8g/dL (13.0-17.5) Hematocrit 30.8% (39.0-53.0) Mean Corpuscular Hemoglobin Concent 32g/dL (31-37) Heparin Anti-Xa Act, Unfractionated < 0.10IU/mL (0.30-0.70) < 0.10IU/mL (0.30-0.70) Test 11/17/16 04:00 11/17/16 05:28 11/17/16 07:39 11/17/16 11:04 Sodium Level 138mmol/L (136-145) Potassium Level 3.9mmol/L (3.5-5.1) Chloride Level 100mmol/L (98-107) Carbon Dioxide Level 29mmol/L (21-32) Anion Gap 9 (6-14) Blood Urea Nitrogen 59mg/dL (8-26) Creatinine 3.8mg/dL (0.7-1.3) Estimated GFR (Cockcroft-Gault) 15.4 Glucose Level 244mg/dL (70-99) Lactic Acid Level 2.3mmol/L (0.4-2.0) Calcium Level 8.5mg/dL (8.5-10.1) Phosphorus Level 5.1mg/dL (2.6-4.7) Albumin 2.2g/dL (3.4-5.0) Prothrombin Time 20.9SEC (11.7-14.0) Prothromb Time International Ratio 1.9 (0.8-1.1) Glucose (Fingerstick) 245mg/dL (70-99) 245mg/dL (70-99) Laboratory Tests Test 11/16/16 11:54 11/16/16 15:19 11/16/16 17:09 11/16/16 20:33 Glucose (Fingerstick) 246mg/dL (70-99) 232mg/dL (70-99) 222mg/dL (70-99) Prothrombin Time 21.1SEC (11.7-14.0) Prothromb Time International Ratio 1.9 (0.8-1.1) Test 11/16/16 20:35 11/16/16 21:00 11/17/16 03:45 11/17/16 04:00 Hemoglobin 9.8g/dL (13.0-17.5) Hematocrit 30.8% (39.0-53.0) Mean Corpuscular Hemoglobin Concent 32g/dL (31-37) Heparin Anti-Xa Act, Unfractionated < 0.10IU/mL (0.30-0.70) < 0.10IU/mL (0.30-0.70) Sodium Level 138mmol/L (136-145) Potassium Level 3.9mmol/L (3.5-5.1) Chloride Level 100mmol/L (98-107) Carbon Dioxide Level 29mmol/L (21-32) Anion Gap 9 (6-14) Blood Urea Nitrogen 59mg/dL (8-26) Creatinine 3.8mg/dL (0.7-1.3) Estimated GFR (Cockcroft-Gault) 15.4 Glucose Level 244mg/dL (70-99) Lactic Acid Level 2.3mmol/L (0.4-2.0) Calcium Level 8.5mg/dL (8.5-10.1) Phosphorus Level 5.1mg/dL (2.6-4.7) Albumin 2.2g/dL (3.4-5.0) Test 11/17/16 05:28 11/17/16 07:39 11/17/16 11:04 Prothrombin Time 20.9SEC (11.7-14.0) Prothromb Time International Ratio 1.9 (0.8-1.1) Glucose (Fingerstick) 245mg/dL (70-99) 245mg/dL (70-99) Medications Active Scripts Medications Dose Route/Sig Days Date Category Carvedilol 3.125 Mg Tablet 3.125 Mg PO BIDWMEALS 09/26/16 Rx Fish Oil + Vitamin D-3 Softgel (Om-3/Dha/Epa/Fish Oil/Vit D3) 1 Each Capsule 1 Each PO 05/11/15 Reported Vitamin D (Cholecalciferol (Vitamin D3)) 1,000 Unit Capsule 1,000 Unit PO DAILY 05/11/15 Reported Klor-Con 10 (Potassium Chloride) 10 Meq Tablet.er 2 Tab PO DAILY 05/11/15 Reported Lasix (Furosemide) 20 Mg Tablet 10 Mg PO DAILY 05/11/15 Reported Aspir 81 (Aspirin) 81 Mg Tablet.dr 81 Mg PO 05/11/15 Reported Cozaar (Losartan Potassium) 50 Mg Tablet 50 Mg PO DAILY 05/11/15 Reported Amaryl (Glimepiride) 4 Mg Tablet 4 Mg PO DAILY 05/11/15 Reported Metformin Hcl 1,000 Mg Tablet 1,000 Mg PO BIDAC 05/11/15 Reported Impression . 1. Ifghh-hx-sasdshj hypoxemic, hypercapnic respiratory failure.POA 2. Vnjfo-zx-wjofzgc diastolic/systolic heart failure.POA 3. Acute renal failure, on hemodialysis. 4. Sepsis present upon admission, suspect secondary to urinary tract infection. 5. Elevated liver chemistries secondary to sepsis versus congestive liver. 6. Status post aortic valve replacement. 7. Post pacemaker implantation. 8. Chronic atrial fibrillation. 9. Moderate protein malnutrition present upon admission. 10. Abnormal ct chest c/w CHF 11. New DVT left Lower extremity despite therapeutic INR, Suspect Right atrial thrombus as source, small PE by CTA 12. Arterial insufficiency Plan . 1. Nasal canula 2. Antibiotics per ID. 3. Negative fluid balance with hemodialysis. 4. CTA chest reviewed 5. Consider repeat echo Saturday to see if RV thrombus is still seen since HD catheter is removed/ ? thrombus in pacemaker wire 6. d/w Dr Rivero 7. Consult dietitian for protein malnutrition. 8. DNR/DNI 9 d/w patients daughter. he would benefit from IVC filter (recent fall and poor candidate for correction AC). She agrees with IVC filter 10. consult IR for IVC filter saturday. continue heparin drip for now MICHAEL CARVALHO MD Nov 17, 2016 11:20
[2016-11-17] MEDS ORDERED: IV NORMAL SALINE 1000ML BAG 1,000 ML IV PRN (11:38)
[2016-11-17] MEDS ORDERED: DIALYSIS PATIENT. MC PRN ×2 (11:45)
[2016-11-17] MEDS ORDERED: DIPHENHYDRAMINE 50 MG/ML VIAL IV PRN ×2 (11:45)
[2016-11-17] MEDS ORDERED: 0.9 % SODIUM CHLORIDE 10 ML DISP.SYRIN. IV PRN ×2 (11:45)
[2016-11-17] MEDS: HEPARIN 25,000UTS/500ML PREMIX 500 ML IV PRN (12:08)
--- NOTE | 2016-11-17 13:25 | PDOC ---
Infectious Disease Note Subjective Subjective Periods of confusion per RN Currently dialyzing, did not try to wake him No fever Vital Sign Vital Signs Vital Signs Date Time Temp Pulse Resp B/P Pulse Ox O2 Delivery O2 Flow Rate FiO2 11/17/16 11:00 97.6 86 20 91/49 96 Nasal Cannula 4.0 97.6 Physical Exam PHYSICAL EXAM GENERAL: Resting quietly, mittens on HEENT: OC/OP clear NECK: Supple, no JVD, no LN LUNGS: Clear mouth breather HEART: S1S2 ABD: Obese, soft, no grimace or guarding to palpation EXT: LLE Rooke boot SKIN: No rash RIJ/HDC. clean Labs Lab Laboratory Tests Test 11/16/16 15:19 11/16/16 17:09 11/16/16 20:33 11/16/16 20:35 Prothrombin Time 21.1SEC (11.7-14.0) Prothromb Time International Ratio 1.9 (0.8-1.1) Glucose (Fingerstick) 232mg/dL (70-99) 222mg/dL (70-99) Hemoglobin 9.8g/dL (13.0-17.5) Hematocrit 30.8% (39.0-53.0) Mean Corpuscular Hemoglobin Concent 32g/dL (31-37) Test 11/16/16 21:00 11/17/16 03:45 11/17/16 04:00 11/17/16 05:28 Heparin Anti-Xa Act, Unfractionated < 0.10IU/mL (0.30-0.70) < 0.10IU/mL (0.30-0.70) Sodium Level 138mmol/L (136-145) Potassium Level 3.9mmol/L (3.5-5.1) Chloride Level 100mmol/L (98-107) Carbon Dioxide Level 29mmol/L (21-32) Anion Gap 9 (6-14) Blood Urea Nitrogen 59mg/dL (8-26) Creatinine 3.8mg/dL (0.7-1.3) Estimated GFR (Cockcroft-Gault) 15.4 Glucose Level 244mg/dL (70-99) Lactic Acid Level 2.3mmol/L (0.4-2.0) Calcium Level 8.5mg/dL (8.5-10.1) Phosphorus Level 5.1mg/dL (2.6-4.7) Albumin 2.2g/dL (3.4-5.0) Prothrombin Time 20.9SEC (11.7-14.0) Prothromb Time International Ratio 1.9 (0.8-1.1) Test 11/17/16 07:39 11/17/16 11:04 Glucose (Fingerstick) 245mg/dL (70-99) 245mg/dL (70-99) CTA chest IMPRESSION: 1. Small pulmonary emboli in the right lower lobe and lingula. 2. Small pleural effusions with associated atelectasis. Mild pulmonary edema. 3. Small focal infiltrate laterally in the right middle lobe indicating pneumonia versus additional pulmonary edema. 4. Moderate cardiomegaly. Pulmonary arterial enlargement is consistent with pulmonary arterial hypertension. 5. Lqhs-fb-ropilptr centrilobular emphysema in the apices. Bilateral lower extremity arterial Doppler. IMPRESSION: 1. Extensive left lower extremity deep venous thrombosis involving the popliteal and calf veins. The left greater saphenous vein is also involved to the level of the junction with the common femoral vein. 2. On the right, there is mildly flow limiting stenosis throughout to the level of the ankle, where it becomes severe. 3. On the left, there is mild proximal flow limiting stenosis. This becomes severe at the level of the mid superficial femoral artery. Micro BLOOD CULTURE Preliminary NO GROWTH AFTER 1 DAY Objective Assessment Left foot is cool ? vascular issue. Now right also. PAD & LLE DVT. small PE Leukocytosis Resp failure - better Encephalopathy -better Questionable sepsis present on admission.- cults neg Hypotension - had improved Leukocytosis -increase ? reactive. Acute kidney injury - s/p HD Transaminitis, questionable secondary to sepsis versus congestion.- better. HIDA - neg Congestive heart failure. 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 JEROME was negative. Aortic valve replacement.ECHO with ? thrombus in Right atrium Plan Plan of Care Cont Zosyn CBC in am Supportive care Patient seen and examined. Chart reviewed in detail. Case discussed with [employer]. Agree with above plan ZAFAR HANNAH APRN Nov 17, 2016 13:25 MIRANDA FRANCISCO MD Nov 17, 2016 14:47
--- NOTE | 2016-11-17 14:35 | CONS ---
DATE OF CONSULTATION: 11/16/2016 HISTORY OF PRESENT ILLNESS: This is an 81-year-old gentleman with a history of type 2 diabetes who was admitted 5 days ago. At that time, he was being admitted for evaluation and treatment of left lower chest pain and a fall. We have been asked to see him today for coolness of the lower extremities, worse on the left than the right. The patient had an arterial duplex scan which shows flow down to the feet and both lower extremities. He was also shown to have popliteal and tibial deep vein thrombosis and CT this afternoon reveals that he has had a pulmonary embolism of the right lower lobe and lingula. He also seen to have an infiltrate in the right middle lobe. He is not able to give a history as he is somnolent. Palliative care has been consulted. PAST MEDICAL HISTORY: Significant for atrial fibrillation, coronary artery disease, congestive heart failure, hypertension, hyperlipidemia. Pulmonary: He has history of COPD and pneumonia. He has history of cholelithiasis. PAST SURGICAL HISTORY: Includes pacemaker placement, appendectomy, coronary artery bypass. SOCIAL HISTORY: Not obtainable. REVIEW OF SYSTEMS: Not obtainable. PHYSICAL EXAMINATION: GENERAL: The patient is not awake and does not arouse easily. He has gurgling both inspiratory and expiratory. ABDOMEN: Soft. He has palpable femoral pulses. He has absent popliteal and pedal pulses. EXTREMITIES: The left lower extremity is not markedly swollen compared to the right. SKIN: He has a cool left forefoot with mottling consistent with micro embolization. LABORATORY DATA: His white count is 12,000, hemoglobin is 10. He is on chronic dialysis. ASSESSMENT: 1. Multiple medical issues as palliative care has been consulted. 2. End-stage renal disease. 3. Probable micro embolization to the left forefoot. 4. History of atrial fibrillation. 5. History of deep vein thrombosis of the left lower extremity, probably subacute and evidence of pulmonary embolism by CT angiography of the chest. RECOMMENDATION: Conservative treatment. I understand the family wishes to be aggressive from that standpoint. Therefore, I recommend full anticoagulation with heparin and continued observation of the feet. He is not a candidate for surgical revascularization. We will be available as needed. Thank you for allowing me to evaluate him. JAYME BECERRIL MD DR: SAMEERA/karuna JOB#: [id number] / [id number]
[2016-11-17 15:00] VITALS: BP 94/45
--- NOTE | 2016-11-17 15:27 | PDOC ---
PROGRESS NOTES Chief Complaint Chief Complaint s/p fall with rib injury Multiorgan failure ASSESSMENT AND PLAN: 1. Encephalopathy: multifactorial. resolved. 2. Cardiogenic shock: Off Levophed gtt. BPs remain soft but stable on 90s 3. CHF: acute on chronic, systolic and diastolic. clinically improving. 4. Acute on Chronic respiratory failure: off BIPAP; supplemental oxygen only 5. COPD: no acute issues. nebs PRN 6. Renal failure: acute on chronic; HD per nephrology. (pt declined to have HD any more, but unclear if he is mentally able to understand consequences) 7. Shock liver: LFT improving, monitor 8. Hx CAD, dysrhythmia w/ pacer. cardiology following. consider pacer interrogation 9. Chronic Afib : rate controlled. anticoag 10. Thrombus vs vegetation suspected in the right atrium : therapeutic INR w/o anticoag. INR slowly dropping 11. PVD: cool LE, suspected arterial compromise 2/2 (10.). vasc surg input appreciated 12. DVT/PE: US/CTA positive. INR previously "therapeutic" due to liver compromise, slowly drifting down. start coumadin to keep INR >2.5 (suspected acute PE/DVT on supratherapeutic INR) 13. Prognosis: poor. daughter wants to be aggressive per discussions with Palliative Care. Vitals Vitals Vital Signs Date Time Temp Pulse Resp B/P Pulse Ox O2 Delivery O2 Flow Rate FiO2 11/17/16 15:00 97.6 86 20 94/45 99 Nasal Cannula 4.0 97.6 Physical Exam Physical Exam resting, wakes easily to verbal input, but dozes off almost immediately General: Alert, Cooperative, No acute distress Heart: Regular rate, Other (3/6 GEORGE) Lungs: Other (decrease bs) Abdomen: Normal bowel sounds, Soft, No tenderness Extremities: No edema, Other (both feet cool; erythematous area L distal foot) Skin: No breakdown, No significant lesion Labs LABS Laboratory Tests Test 11/16/16 17:09 11/16/16 20:33 11/16/16 20:35 11/16/16 21:00 Glucose (Fingerstick) 232mg/dL (70-99) 222mg/dL (70-99) Hemoglobin 9.8g/dL (13.0-17.5) Hematocrit 30.8% (39.0-53.0) Mean Corpuscular Hemoglobin Concent 32g/dL (31-37) Heparin Anti-Xa Act, Unfractionated < 0.10IU/mL (0.30-0.70) Test 11/17/16 03:45 11/17/16 04:00 11/17/16 05:28 11/17/16 07:39 Heparin Anti-Xa Act, Unfractionated < 0.10IU/mL (0.30-0.70) Sodium Level 138mmol/L (136-145) Potassium Level 3.9mmol/L (3.5-5.1) Chloride Level 100mmol/L (98-107) Carbon Dioxide Level 29mmol/L (21-32) Anion Gap 9 (6-14) Blood Urea Nitrogen 59mg/dL (8-26) Creatinine 3.8mg/dL (0.7-1.3) Estimated GFR (Cockcroft-Gault) 15.4 Glucose Level 244mg/dL (70-99) Lactic Acid Level 2.3mmol/L (0.4-2.0) Calcium Level 8.5mg/dL (8.5-10.1) Phosphorus Level 5.1mg/dL (2.6-4.7) Albumin 2.2g/dL (3.4-5.0) Prothrombin Time 20.9SEC (11.7-14.0) Prothromb Time International Ratio 1.9 (0.8-1.1) Glucose (Fingerstick) 245mg/dL (70-99) Test 11/17/16 11:04 11/17/16 12:40 Glucose (Fingerstick) 245mg/dL (70-99) Heparin Anti-Xa Act, Unfractionated 0.51IU/mL (0.30-0.70) Review of Systems Review of Systems responding appropriately to simple questions. gets discombobulated if allowed to FAHEEM Seals MD Nov 17, 2016 15:27
--- NOTE | 2016-11-17 17:15 | PDOC ---
Provider Note Provider Note RENAL F/U : YASMIN S : Doing OK No new issues O : VSS Afebrile. Neck : Supple. Lungs : Non labored. CVS : RRR ABD : Portly, benign appearing. No distention. Ext. : No major edema. Labs reviewed. A/P: ARF : Multifactorial. ATN. Had HD today. CHEST WALL PAIN : Better. Supportive care Watch labs. CPM. JASON HOFFMAN MD Nov 17, 2016 17:15
[2016-11-17 19:00] VITALS: BP 106/49
[2016-11-17] MEDS ORDERED: WARFARIN 2.5 MG TABLET. PO ONE (22:30)
[2016-11-17 23:07] VITALS: BP 97/50
[2016-11-18] MEDS: HEPARIN 25,000UTS/500ML PREMIX 500 ML IV PRN (00:59)
[2016-11-18 03:25] VITALS: BP 107/54
[2016-11-18] MEDS: PIPERACILLIN/TAZOBACTAM 2.25 GM in IV NORMAL SALINE 50ML 50 ML IV SCH ×2 (06:06→13:58)
[2016-11-18 07:00] VITALS: BP 107/37
[2016-11-18] MEDS: ASPIRIN ENTERIC COATED 81 MG TABLET.DR. PO SCH (08:23)
[2016-11-18] MEDS: PANTOPRAZOLE 40 MG TABLET. PO SCH (08:23)
[2016-11-18] MEDS: INSULIN ASPART 300 UNITS/3 ML INSULN.PEN SQ SCH ×3 (08:26→17:12)
[2016-11-18 09:17] LABS: BASO % 0 % (0-3); EOS % 0 % (0-3); HEMATOCRIT 29.8 % (39.0-53.0); HEMOGLOBIN 9.5 g/dL (13.0-17.5); LYMPH # 1.8 x10^3/uL (1.0-4.8); LYMPH % 8 % (24-48); MEAN CORPUSCULAR HEMOGLOBIN 31 pg (25-35); MEAN CORPUSCULAR HGB CONC 32 g/dL (31-37); MEAN CORPUSCULAR VOLUME 99 fL (79-100); MONO % 7 % (0-9); NEUT % 86 % (31-73); RED BLOOD COUNT 3.02 x10^6/uL (4.30-5.70); RED CELL DISTRIBUTION WIDTH 17.1 % (11.5-14.5); WHITE BLOOD COUNT 23.9 x10^3/uL (4.0-11.0)
[2016-11-18 09:52] LABS: PLATELET COUNT 25 x10^3/uL (140-400)
--- NOTE | 2016-11-18 10:04 | PDOC ---
PULMONARY PROGRESS NOTES Subjective CTA with small PE no soa Vitals Vital Signs Date Time Temp Pulse Resp B/P Pulse Ox O2 Delivery O2 Flow Rate FiO2 11/18/16 07:00 97.5 78 22 107/37 98 Nasal Cannula 97.5 11/17/16 20:00 4.0 General: No acute distress, Lethargic Lungs: Other (decrease bs) Cardiovascular: S1, S2 Abdomen: Soft, Non-tender, Other Extremities: No Edema, Other (cold feet) Labs Laboratory Tests Test 11/16/16 11:54 11/16/16 15:19 11/16/16 17:09 11/16/16 20:33 Glucose (Fingerstick) 246mg/dL (70-99) 232mg/dL (70-99) 222mg/dL (70-99) Prothrombin Time 21.1SEC (11.7-14.0) Prothromb Time International Ratio 1.9 (0.8-1.1) Test 11/16/16 20:35 11/16/16 21:00 11/17/16 03:45 11/17/16 04:00 Hemoglobin 9.8g/dL (13.0-17.5) Hematocrit 30.8% (39.0-53.0) Mean Corpuscular Hemoglobin Concent 32g/dL (31-37) Heparin Anti-Xa Act, Unfractionated < 0.10IU/mL (0.30-0.70) < 0.10IU/mL (0.30-0.70) Sodium Level 138mmol/L (136-145) Potassium Level 3.9mmol/L (3.5-5.1) Chloride Level 100mmol/L (98-107) Carbon Dioxide Level 29mmol/L (21-32) Anion Gap 9 (6-14) Blood Urea Nitrogen 59mg/dL (8-26) Creatinine 3.8mg/dL (0.7-1.3) Estimated GFR (Cockcroft-Gault) 15.4 Glucose Level 244mg/dL (70-99) Lactic Acid Level 2.3mmol/L (0.4-2.0) Calcium Level 8.5mg/dL (8.5-10.1) Phosphorus Level 5.1mg/dL (2.6-4.7) Albumin 2.2g/dL (3.4-5.0) Test 11/17/16 05:28 11/17/16 07:39 11/17/16 11:04 11/17/16 12:40 Prothrombin Time 20.9SEC (11.7-14.0) Prothromb Time International Ratio 1.9 (0.8-1.1) Glucose (Fingerstick) 245mg/dL (70-99) 245mg/dL (70-99) Heparin Anti-Xa Act, Unfractionated 0.51IU/mL (0.30-0.70) Test 11/17/16 16:21 11/17/16 20:26 11/17/16 20:50 11/18/16 02:20 Glucose (Fingerstick) 200mg/dL (70-99) 243mg/dL (70-99) Heparin Anti-Xa Act, Unfractionated 0.38IU/mL (0.30-0.70) 0.29IU/mL (0.30-0.70) Test 11/18/16 06:03 11/18/16 07:47 11/18/16 09:00 Heparin Anti-Xa Act, Unfractionated 0.52IU/mL (0.30-0.70) Glucose (Fingerstick) 272mg/dL (70-99) White Blood Count 23.9x10^3/uL (4.0-11.0) Red Blood Count 3.02x10^6/uL (4.30-5.70) Hemoglobin 9.5g/dL (13.0-17.5) Hematocrit 29.8% (39.0-53.0) Mean Corpuscular Volume 99fL (79-100) Mean Corpuscular Hemoglobin 31pg (25-35) Mean Corpuscular Hemoglobin Concent 32g/dL (31-37) Red Cell Distribution Width 17.1% (11.5-14.5) Platelet Count 25x10^3/uL (140-400) Neutrophils (%) (Auto) 86% (31-73) Lymphocytes (%) (Auto) 8% (24-48) Monocytes (%) (Auto) 7% (0-9) Eosinophils (%) (Auto) 0% (0-3) Basophils (%) (Auto) 0% (0-3) Neutrophils # (Auto) 20.5x10^3uL (1.8-7.7) Lymphocytes # (Auto) 1.8x10^3/uL (1.0-4.8) Monocytes # (Auto) 1.6x10^3/uL (0.0-1.1) Eosinophils # (Auto) 0.0x10^3/uL (0.0-0.7) Basophils # (Auto) 0.0x10^3/uL (0.0-0.2) Lactic Acid Level 2.4mmol/L (0.4-2.0) Laboratory Tests Test 11/17/16 11:04 11/17/16 12:40 11/17/16 16:21 11/17/16 20:26 Glucose (Fingerstick) 245mg/dL (70-99) 200mg/dL (70-99) 243mg/dL (70-99) Heparin Anti-Xa Act, Unfractionated 0.51IU/mL (0.30-0.70) Test 11/17/16 20:50 11/18/16 02:20 11/18/16 06:03 11/18/16 07:47 Heparin Anti-Xa Act, Unfractionated 0.38IU/mL (0.30-0.70) 0.29IU/mL (0.30-0.70) 0.52IU/mL (0.30-0.70) Glucose (Fingerstick) 272mg/dL (70-99) Test 11/18/16 09:00 White Blood Count 23.9x10^3/uL (4.0-11.0) Red Blood Count 3.02x10^6/uL (4.30-5.70) Hemoglobin 9.5g/dL (13.0-17.5) Hematocrit 29.8% (39.0-53.0) Mean Corpuscular Volume 99fL (79-100) Mean Corpuscular Hemoglobin 31pg (25-35) Mean Corpuscular Hemoglobin Concent 32g/dL (31-37) Red Cell Distribution Width 17.1% (11.5-14.5) Platelet Count 25x10^3/uL (140-400) Neutrophils (%) (Auto) 86% (31-73) Lymphocytes (%) (Auto) 8% (24-48) Monocytes (%) (Auto) 7% (0-9) Eosinophils (%) (Auto) 0% (0-3) Basophils (%) (Auto) 0% (0-3) Neutrophils # (Auto) 20.5x10^3uL (1.8-7.7) Lymphocytes # (Auto) 1.8x10^3/uL (1.0-4.8) Monocytes # (Auto) 1.6x10^3/uL (0.0-1.1) Eosinophils # (Auto) 0.0x10^3/uL (0.0-0.7) Basophils # (Auto) 0.0x10^3/uL (0.0-0.2) Lactic Acid Level 2.4mmol/L (0.4-2.0) Medications Active Scripts Medications Dose Route/Sig Days Date Category Carvedilol 3.125 Mg Tablet 3.125 Mg PO BIDWMEALS 09/26/16 Rx Fish Oil + Vitamin D-3 Softgel (Om-3/Dha/Epa/Fish Oil/Vit D3) 1 Each Capsule 1 Each PO 05/11/15 Reported Vitamin D (Cholecalciferol (Vitamin D3)) 1,000 Unit Capsule 1,000 Unit PO DAILY 05/11/15 Reported Klor-Con 10 (Potassium Chloride) 10 Meq Tablet.er 2 Tab PO DAILY 05/11/15 Reported Lasix (Furosemide) 20 Mg Tablet 10 Mg PO DAILY 05/11/15 Reported Aspir 81 (Aspirin) 81 Mg Tablet.dr 81 Mg PO 05/11/15 Reported Cozaar (Losartan Potassium) 50 Mg Tablet 50 Mg PO DAILY 05/11/15 Reported Amaryl (Glimepiride) 4 Mg Tablet 4 Mg PO DAILY 05/11/15 Reported Metformin Hcl 1,000 Mg Tablet 1,000 Mg PO BIDAC 05/11/15 Reported Impression . 1. Kycnr-yj-ndzxmse hypoxemic, hypercapnic respiratory failure.POA 2. Gpkxq-fk-abulxxa diastolic/systolic heart failure.POA 3. Acute renal failure, on hemodialysis. 4. Sepsis present upon admission, suspect secondary to urinary tract infection. 5. Elevated liver chemistries secondary to sepsis versus congestive liver. 6. Status post aortic valve replacement. 7. Post pacemaker implantation. 8. Chronic atrial fibrillation. 9. Moderate protein malnutrition present upon admission. 10. Abnormal ct chest c/w CHF 11. New DVT left Lower extremity/ small PE, despite therapeutic INR, Suspect Right atrial thrombus as source, small PE by CTA 12. Arterial insufficiency Plan . 1. Nasal canula 2. Antibiotics per ID. 3. Negative fluid balance with hemodialysis. 4. CTA chest reviewed 5. Consider repeat echo Saturday to see if RV thrombus is still seen since HD catheter is removed/ ? thrombus in pacemaker wire 6. d/w patients daughter. he would benefit from IVC filter (recent fall and poor candidate for jail AC). She agrees with IVC filter 7. consult IR for IVC filter saturday. continue heparin drip for now 8. DNR/DNI 9 family meeting today with PCP regarding goals of care MICHAEL CARVALHO MD Nov 18, 2016 10:04
[2016-11-18 10:57] LABS: INR 1.7 (0.8-1.1); PROTHROMBIN TIME PATIENT 18.8 SEC (11.7-14.0)
[2016-11-18 11:00] VITALS: BP 88/39
--- NOTE | 2016-11-18 11:06 | PDOC ---
PULMONARY PROGRESS NOTES Subjective CTA with small PE no soa Vitals Vital Signs Date Time Temp Pulse Resp B/P Pulse Ox O2 Delivery O2 Flow Rate FiO2 11/18/16 10:05 Nasal Cannula 4.0 11/18/16 07:00 97.5 78 22 107/37 98 97.5 General: No acute distress, Lethargic Lungs: Other (decrease bs) Cardiovascular: S1, S2 Abdomen: Soft, Non-tender, Other Extremities: No Edema, Other (cold feet) Labs Laboratory Tests Test 11/16/16 11:54 11/16/16 15:19 11/16/16 17:09 11/16/16 20:33 Glucose (Fingerstick) 246mg/dL (70-99) 232mg/dL (70-99) 222mg/dL (70-99) Prothrombin Time 21.1SEC (11.7-14.0) Prothromb Time International Ratio 1.9 (0.8-1.1) Test 11/16/16 20:35 11/16/16 21:00 11/17/16 03:45 11/17/16 04:00 Hemoglobin 9.8g/dL (13.0-17.5) Hematocrit 30.8% (39.0-53.0) Mean Corpuscular Hemoglobin Concent 32g/dL (31-37) Heparin Anti-Xa Act, Unfractionated < 0.10IU/mL (0.30-0.70) < 0.10IU/mL (0.30-0.70) Sodium Level 138mmol/L (136-145) Potassium Level 3.9mmol/L (3.5-5.1) Chloride Level 100mmol/L (98-107) Carbon Dioxide Level 29mmol/L (21-32) Anion Gap 9 (6-14) Blood Urea Nitrogen 59mg/dL (8-26) Creatinine 3.8mg/dL (0.7-1.3) Estimated GFR (Cockcroft-Gault) 15.4 Glucose Level 244mg/dL (70-99) Lactic Acid Level 2.3mmol/L (0.4-2.0) Calcium Level 8.5mg/dL (8.5-10.1) Phosphorus Level 5.1mg/dL (2.6-4.7) Albumin 2.2g/dL (3.4-5.0) Test 11/17/16 05:28 11/17/16 07:39 11/17/16 11:04 11/17/16 12:40 Prothrombin Time 20.9SEC (11.7-14.0) Prothromb Time International Ratio 1.9 (0.8-1.1) Glucose (Fingerstick) 245mg/dL (70-99) 245mg/dL (70-99) Heparin Anti-Xa Act, Unfractionated 0.51IU/mL (0.30-0.70) Test 11/17/16 16:21 11/17/16 20:26 11/17/16 20:50 11/18/16 02:20 Glucose (Fingerstick) 200mg/dL (70-99) 243mg/dL (70-99) Heparin Anti-Xa Act, Unfractionated 0.38IU/mL (0.30-0.70) 0.29IU/mL (0.30-0.70) Test 11/18/16 06:03 11/18/16 07:47 11/18/16 09:00 11/18/16 09:10 Heparin Anti-Xa Act, Unfractionated 0.52IU/mL (0.30-0.70) 0.45IU/mL (0.30-0.70) Glucose (Fingerstick) 272mg/dL (70-99) White Blood Count 23.9x10^3/uL (4.0-11.0) Red Blood Count 3.02x10^6/uL (4.30-5.70) Hemoglobin 9.5g/dL (13.0-17.5) Hematocrit 29.8% (39.0-53.0) Mean Corpuscular Volume 99fL (79-100) Mean Corpuscular Hemoglobin 31pg (25-35) Mean Corpuscular Hemoglobin Concent 32g/dL (31-37) Red Cell Distribution Width 17.1% (11.5-14.5) Platelet Count 25x10^3/uL (140-400) Neutrophils (%) (Auto) 86% (31-73) Lymphocytes (%) (Auto) 8% (24-48) Monocytes (%) (Auto) 7% (0-9) Eosinophils (%) (Auto) 0% (0-3) Basophils (%) (Auto) 0% (0-3) Neutrophils # (Auto) 20.5x10^3uL (1.8-7.7) Lymphocytes # (Auto) 1.8x10^3/uL (1.0-4.8) Monocytes # (Auto) 1.6x10^3/uL (0.0-1.1) Eosinophils # (Auto) 0.0x10^3/uL (0.0-0.7) Basophils # (Auto) 0.0x10^3/uL (0.0-0.2) Lactic Acid Level 2.4mmol/L (0.4-2.0) Prothrombin Time 18.8SEC (11.7-14.0) Prothromb Time International Ratio 1.7 (0.8-1.1) Test 11/18/16 10:53 Glucose (Fingerstick) 293mg/dL (70-99) Laboratory Tests Test 11/17/16 11:04 11/17/16 12:40 11/17/16 16:21 11/17/16 20:26 Glucose (Fingerstick) 245mg/dL (70-99) 200mg/dL (70-99) 243mg/dL (70-99) Heparin Anti-Xa Act, Unfractionated 0.51IU/mL (0.30-0.70) Test 11/17/16 20:50 11/18/16 02:20 11/18/16 06:03 11/18/16 07:47 Heparin Anti-Xa Act, Unfractionated 0.38IU/mL (0.30-0.70) 0.29IU/mL (0.30-0.70) 0.52IU/mL (0.30-0.70) Glucose (Fingerstick) 272mg/dL (70-99) Test 11/18/16 09:00 11/18/16 09:10 11/18/16 10:53 White Blood Count 23.9x10^3/uL (4.0-11.0) Red Blood Count 3.02x10^6/uL (4.30-5.70) Hemoglobin 9.5g/dL (13.0-17.5) Hematocrit 29.8% (39.0-53.0) Mean Corpuscular Volume 99fL (79-100) Mean Corpuscular Hemoglobin 31pg (25-35) Mean Corpuscular Hemoglobin Concent 32g/dL (31-37) Red Cell Distribution Width 17.1% (11.5-14.5) Platelet Count 25x10^3/uL (140-400) Neutrophils (%) (Auto) 86% (31-73) Lymphocytes (%) (Auto) 8% (24-48) Monocytes (%) (Auto) 7% (0-9) Eosinophils (%) (Auto) 0% (0-3) Basophils (%) (Auto) 0% (0-3) Neutrophils # (Auto) 20.5x10^3uL (1.8-7.7) Lymphocytes # (Auto) 1.8x10^3/uL (1.0-4.8) Monocytes # (Auto) 1.6x10^3/uL (0.0-1.1) Eosinophils # (Auto) 0.0x10^3/uL (0.0-0.7) Basophils # (Auto) 0.0x10^3/uL (0.0-0.2) Heparin Anti-Xa Act, Unfractionated 0.45IU/mL (0.30-0.70) Lactic Acid Level 2.4mmol/L (0.4-2.0) Prothrombin Time 18.8SEC (11.7-14.0) Prothromb Time International Ratio 1.7 (0.8-1.1) Glucose (Fingerstick) 293mg/dL (70-99) Medications Active Scripts Medications Dose Route/Sig Days Date Category Carvedilol 3.125 Mg Tablet 3.125 Mg PO BIDWMEALS 09/26/16 Rx Fish Oil + Vitamin D-3 Softgel (Om-3/Dha/Epa/Fish Oil/Vit D3) 1 Each Capsule 1 Each PO 05/11/15 Reported Vitamin D (Cholecalciferol (Vitamin D3)) 1,000 Unit Capsule 1,000 Unit PO DAILY 05/11/15 Reported Klor-Con 10 (Potassium Chloride) 10 Meq Tablet.er 2 Tab PO DAILY 05/11/15 Reported Lasix (Furosemide) 20 Mg Tablet 10 Mg PO DAILY 05/11/15 Reported Aspir 81 (Aspirin) 81 Mg Tablet.dr 81 Mg PO 05/11/15 Reported Cozaar (Losartan Potassium) 50 Mg Tablet 50 Mg PO DAILY 05/11/15 Reported Amaryl (Glimepiride) 4 Mg Tablet 4 Mg PO DAILY 05/11/15 Reported Metformin Hcl 1,000 Mg Tablet 1,000 Mg PO BIDAC 05/11/15 Reported Impression . 1. Lkjwx-ex-fpycnfu hypoxemic, hypercapnic respiratory failure.POA 2. Cdooc-iu-jdvjqqe diastolic/systolic heart failure.POA 3. Acute renal failure, on hemodialysis. 4. Sepsis present upon admission, suspect secondary to urinary tract infection. 5. Elevated liver chemistries secondary to sepsis versus congestive liver. 6. Status post aortic valve replacement. 7. Post pacemaker implantation. 8. Chronic atrial fibrillation. 9. Moderate protein malnutrition present upon admission. 10. Abnormal ct chest c/w CHF 11. New DVT left Lower extremity/ small PE, despite therapeutic INR, Suspect Right atrial thrombus as source, small PE by CTA 12. Arterial insufficiency Plan . 1. Nasal canula 2. Antibiotics per ID. 3. Negative fluid balance with hemodialysis. 4. CTA chest reviewed 5. Consider repeat echo Saturday to see if RV thrombus is still seen since HD catheter is removed/ ? thrombus in pacemaker wire 6. d/w patients daughter. he would benefit from IVC filter (recent fall and poor candidate for half-way AC). She agrees with IVC filter 7. consult IR for IVC filter saturday. dc heparin drip for now due to falling platelet 8. DNR/DNI 9 family meeting today with PCP regarding goals of care/ I am ok with comfort care if daughter agrees MICHAEL CARVALHO MD Nov 18, 2016 11:06
--- NOTE | 2016-11-18 11:56 | PDOC ---
Infectious Disease Note Subjective Subjective Confused Denies pain No fever Vital Sign Vital Signs Vital Signs Date Time Temp Pulse Resp B/P Pulse Ox O2 Delivery O2 Flow Rate FiO2 11/18/16 11:00 97.9 62 20 88/39 98 Nasal Cannula 4.0 97.9 Physical Exam PHYSICAL EXAM GENERAL: Alert, calm, mittens HEENT: OC/OP dry NECK: Supple, no JVD, no LN LUNGS: Clear HEART: S1S2 ABD: Obese, soft, NT EXT: Mottling bilat feet L>R. Cool, distal pulses difficult to palpate, LLE [place] boot SKIN: No rash CND: Alert, coop, oriented to self and month [facility] [place]. clean Labs Lab Laboratory Tests Test 11/17/16 12:40 11/17/16 16:21 11/17/16 20:26 11/17/16 20:50 Heparin Anti-Xa Act, Unfractionated 0.51IU/mL (0.30-0.70) 0.38IU/mL (0.30-0.70) Glucose (Fingerstick) 200mg/dL (70-99) 243mg/dL (70-99) Test 11/18/16 02:20 11/18/16 06:03 11/18/16 07:47 11/18/16 09:00 Heparin Anti-Xa Act, Unfractionated 0.29IU/mL (0.30-0.70) 0.52IU/mL (0.30-0.70) 0.45IU/mL (0.30-0.70) Glucose (Fingerstick) 272mg/dL (70-99) White Blood Count 23.9x10^3/uL (4.0-11.0) Red Blood Count 3.02x10^6/uL (4.30-5.70) Hemoglobin 9.5g/dL (13.0-17.5) Hematocrit 29.8% (39.0-53.0) Mean Corpuscular Volume 99fL (79-100) Mean Corpuscular Hemoglobin 31pg (25-35) Mean Corpuscular Hemoglobin Concent 32g/dL (31-37) Red Cell Distribution Width 17.1% (11.5-14.5) Platelet Count 25x10^3/uL (140-400) Neutrophils (%) (Auto) 86% (31-73) Lymphocytes (%) (Auto) 8% (24-48) Monocytes (%) (Auto) 7% (0-9) Eosinophils (%) (Auto) 0% (0-3) Basophils (%) (Auto) 0% (0-3) Neutrophils # (Auto) 20.5x10^3uL (1.8-7.7) Lymphocytes # (Auto) 1.8x10^3/uL (1.0-4.8) Monocytes # (Auto) 1.6x10^3/uL (0.0-1.1) Eosinophils # (Auto) 0.0x10^3/uL (0.0-0.7) Basophils # (Auto) 0.0x10^3/uL (0.0-0.2) Lactic Acid Level 2.4mmol/L (0.4-2.0) Test 11/18/16 09:10 11/18/16 10:53 Prothrombin Time 18.8SEC (11.7-14.0) Prothromb Time International Ratio 1.7 (0.8-1.1) Glucose (Fingerstick) 293mg/dL (70-99) Micro BLOOD CULTURE Preliminary NO GROWTH AFTER 1 DAY Objective Assessment Leukocytosis Left foot is cool ? vascular issue. Now right also. PAD & LLE DVT. Small PE Resp failure - better Encephalopathy -better Questionable sepsis present on admission.- cults neg Hypotension - had improved Leukocytosis -increase ? reactive. Acute kidney injury - s/p HD Transaminitis, questionable secondary to sepsis versus congestion.- better. HIDA - neg Congestive heart failure. 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 JEROME was negative. Aortic valve replacement. ECHO with ? thrombus in Right atrium Plan Plan of Care Zosyn CBC in am Check c. diff Supportive care Patient seen and examined. Chart reviewed. Case discussed with OPERATING ENGINEER APPRENTICE. Agree with above plan in addition to the following Patient now Comfort measures only ZAFAR HANNAH APRN Nov 18, 2016 11:56 MIRANDA FRANCISCO MD Nov 18, 2016 17:37
[2016-11-18] MEDS: FENTANYL PF 100 MCG/2 ML VIAL. IV PRN ×2 (12:14→22:17)
[2016-11-18 12:15] LABS: NUCLEATED RBC 1
[2016-11-18 12:16] LABS: PLT ESTIMATE DECREASED (ADEQUATE)
[2016-11-18 12:17] LABS: HOWELL-JOLLY BODIES PRESENT; POLYCHROMASIA PRESENT; SCHISTOCYTES MOD
--- NOTE | 2016-11-18 14:23 | PDOC ---
SURGICAL PROGRESS NOTE Subjective pt somnolent Vital Signs Vital Signs Date Time Temp Pulse Resp B/P Pulse Ox O2 Delivery O2 Flow Rate FiO2 11/18/16 11:00 97.9 62 20 88/39 98 Nasal Cannula 4.0 97.9 I&O Intake and Output 11/18/16 07:00 Intake Total 20 ml Balance 20 ml Intake Oral 20 ml # Voids 3 # Bowel Movements 6 Extremities: Other (left forefoot mottled but viable; doppler flow post. tib artery; 2+ pop pulse left) Labs Laboratory Tests Test 11/16/16 15:19 11/16/16 17:09 11/16/16 20:33 11/16/16 20:35 Prothrombin Time 21.1SEC (11.7-14.0) Prothromb Time International Ratio 1.9 (0.8-1.1) Glucose (Fingerstick) 232mg/dL (70-99) 222mg/dL (70-99) Hemoglobin 9.8g/dL (13.0-17.5) Hematocrit 30.8% (39.0-53.0) Mean Corpuscular Hemoglobin Concent 32g/dL (31-37) Test 11/16/16 21:00 11/17/16 03:45 11/17/16 04:00 11/17/16 05:28 Heparin Anti-Xa Act, Unfractionated < 0.10IU/mL (0.30-0.70) < 0.10IU/mL (0.30-0.70) Sodium Level 138mmol/L (136-145) Potassium Level 3.9mmol/L (3.5-5.1) Chloride Level 100mmol/L (98-107) Carbon Dioxide Level 29mmol/L (21-32) Anion Gap 9 (6-14) Blood Urea Nitrogen 59mg/dL (8-26) Creatinine 3.8mg/dL (0.7-1.3) Estimated GFR (Cockcroft-Gault) 15.4 Glucose Level 244mg/dL (70-99) Lactic Acid Level 2.3mmol/L (0.4-2.0) Calcium Level 8.5mg/dL (8.5-10.1) Phosphorus Level 5.1mg/dL (2.6-4.7) Albumin 2.2g/dL (3.4-5.0) Prothrombin Time 20.9SEC (11.7-14.0) Prothromb Time International Ratio 1.9 (0.8-1.1) Test 11/17/16 07:39 11/17/16 11:04 11/17/16 12:40 11/17/16 16:21 Glucose (Fingerstick) 245mg/dL (70-99) 245mg/dL (70-99) 200mg/dL (70-99) Heparin Anti-Xa Act, Unfractionated 0.51IU/mL (0.30-0.70) Test 11/17/16 20:26 11/17/16 20:50 11/18/16 02:20 11/18/16 06:03 Glucose (Fingerstick) 243mg/dL (70-99) Heparin Anti-Xa Act, Unfractionated 0.38IU/mL (0.30-0.70) 0.29IU/mL (0.30-0.70) 0.52IU/mL (0.30-0.70) Test 11/18/16 07:47 11/18/16 09:00 11/18/16 09:10 11/18/16 10:53 Glucose (Fingerstick) 272mg/dL (70-99) 293mg/dL (70-99) White Blood Count 23.9x10^3/uL (4.0-11.0) Red Blood Count 3.02x10^6/uL (4.30-5.70) Hemoglobin 9.5g/dL (13.0-17.5) Hematocrit 29.8% (39.0-53.0) Mean Corpuscular Volume 99fL (79-100) Mean Corpuscular Hemoglobin 31pg (25-35) Mean Corpuscular Hemoglobin Concent 32g/dL (31-37) Red Cell Distribution Width 17.1% (11.5-14.5) Platelet Count 25x10^3/uL (140-400) Neutrophils (%) (Auto) 86% (31-73) Lymphocytes (%) (Auto) 8% (24-48) Monocytes (%) (Auto) 7% (0-9) Eosinophils (%) (Auto) 0% (0-3) Basophils (%) (Auto) 0% (0-3) Neutrophils # (Auto) 20.5x10^3uL (1.8-7.7) Lymphocytes # (Auto) 1.8x10^3/uL (1.0-4.8) Monocytes # (Auto) 1.6x10^3/uL (0.0-1.1) Eosinophils # (Auto) 0.0x10^3/uL (0.0-0.7) Basophils # (Auto) 0.0x10^3/uL (0.0-0.2) Segmented Neutrophils % 95% (35-66) Band Neutrophils % 1% (0-9) Lymphocytes % 2% (24-48) Monocytes % 2% (0-10) Nucleated Red Blood Cells 1 Platelet Estimate Decreased (ADEQUATE) Polychromasia Present [place] Bodies Present Schistocytes Mod Heparin Anti-Xa Act, Unfractionated 0.45IU/mL (0.30-0.70) Lactic Acid Level 2.4mmol/L (0.4-2.0) Prothrombin Time 18.8SEC (11.7-14.0) Prothromb Time International Ratio 1.7 (0.8-1.1) Test 11/18/16 12:00 Heparin Anti-Xa Act, Unfractionated < 0.10IU/mL (0.30-0.70) Laboratory Tests Test 11/17/16 16:21 11/17/16 20:26 11/17/16 20:50 11/18/16 02:20 Glucose (Fingerstick) 200mg/dL (70-99) 243mg/dL (70-99) Heparin Anti-Xa Act, Unfractionated 0.38IU/mL (0.30-0.70) 0.29IU/mL (0.30-0.70) Test 11/18/16 06:03 11/18/16 07:47 11/18/16 09:00 11/18/16 09:10 Heparin Anti-Xa Act, Unfractionated 0.52IU/mL (0.30-0.70) 0.45IU/mL (0.30-0.70) Glucose (Fingerstick) 272mg/dL (70-99) White Blood Count 23.9x10^3/uL (4.0-11.0) Red Blood Count 3.02x10^6/uL (4.30-5.70) Hemoglobin 9.5g/dL (13.0-17.5) Hematocrit 29.8% (39.0-53.0) Mean Corpuscular Volume 99fL (79-100) Mean Corpuscular Hemoglobin 31pg (25-35) Mean Corpuscular Hemoglobin Concent 32g/dL (31-37) Red Cell Distribution Width 17.1% (11.5-14.5) Platelet Count 25x10^3/uL (140-400) Neutrophils (%) (Auto) 86% (31-73) Lymphocytes (%) (Auto) 8% (24-48) Monocytes (%) (Auto) 7% (0-9) Eosinophils (%) (Auto) 0% (0-3) Basophils (%) (Auto) 0% (0-3) Neutrophils # (Auto) 20.5x10^3uL (1.8-7.7) Lymphocytes # (Auto) 1.8x10^3/uL (1.0-4.8) Monocytes # (Auto) 1.6x10^3/uL (0.0-1.1) Eosinophils # (Auto) 0.0x10^3/uL (0.0-0.7) Basophils # (Auto) 0.0x10^3/uL (0.0-0.2) Segmented Neutrophils % 95% (35-66) Band Neutrophils % 1% (0-9) Lymphocytes % 2% (24-48) Monocytes % 2% (0-10) Nucleated Red Blood Cells 1 Platelet Estimate Decreased (ADEQUATE) Polychromasia Present [place] Bodies Present Schistocytes Mod Lactic Acid Level 2.4mmol/L (0.4-2.0) Prothrombin Time 18.8SEC (11.7-14.0) Prothromb Time International Ratio 1.7 (0.8-1.1) Test 11/18/16 10:53 11/18/16 12:00 Glucose (Fingerstick) 293mg/dL (70-99) Heparin Anti-Xa Act, Unfractionated < 0.10IU/mL (0.30-0.70) Problem List Problems Medical Problems: (1) ECG abnormal Status: Acute (2) Hyperkalemia Status: Acute (3) Hypotension Status: Acute (4) Renal failure Status: Acute Assessment/Plan 1. left forefoot ischemia likely secondary to microemboli from proximal source Rec: discussed overall situation with pt's daughter regarding therapeutic options and work-up required. She wants to purse palliative care, comfort measures. Will sign off. Consider INO a possibility. Consider alternative to heparin (argatroban) if anticoagulation is to be continued per family wishes. Problems: JAYME BECERRIL II, MD Nov 18, 2016 14:23
[2016-11-18 15:00] VITALS: BP 83/49
--- NOTE | 2016-11-18 15:28 | PDOC ---
PROGRESS NOTES Chief Complaint Chief Complaint s/p fall with rib injury Multiorgan failure ASSESSMENT AND PLAN: 1. Encephalopathy: multifactorial. resolved, but underlying dementia 2. Cardiogenic shock: Off Levophed gtt. BPs drifting down 3. CHF: acute on chronic, systolic and diastolic. no resir compromise at this time 4. Acute on Chronic respiratory failure: off BIPAP; supplemental oxygen only 5. COPD: no acute issues. nebs PRN 6. Renal failure: acute on chronic; HD per nephrology. 7. Shock liver: LFT improving, monitor 8. Hx CAD, dysrhythmia w/ pacer. cardiology following. 9. Chronic Afib : rate controlled. anticoag 10. Thrombus vs vegetation suspected in the right atrium : therapeutic INR w/o anticoag. INR slowly dropping 11. PVD: cool LE, suspected arterial compromise 2/2 (10.). vasc surg input appreciated 12. DVT/PE: US/CTA positive. INR previously "therapeutic" due to liver compromise, slowly drifting down. heparin gtt stopped 2/2 dropping plts 13. Thrombocytopenia: ? HIT, but most likely reactive (drugs, infect, etc) with change in code status, no further W/U 13. Prognosis: poor. D/w daughter Isabelle ([phone]) via phone: change code status to CYLINDER BLOCK HOLE RELINER ( comfort measures only); no further aggressive measures, stop HD. pt is potential candidate fir inpatient hospice. Palliative care following. Vitals Vitals Vital Signs Date Time Temp Pulse Resp B/P Pulse Ox O2 Delivery O2 Flow Rate FiO2 11/18/16 11:00 97.9 62 20 88/39 98 Nasal Cannula 4.0 97.9 Physical Exam Physical Exam resting, wakes easily to verbal input, but dozes off almost immediately General: Alert, Cooperative, No acute distress Heart: Regular rate, Other (3/6 GEORGE) Lungs: Other (decrease bs) Abdomen: Normal bowel sounds, Soft, No tenderness Extremities: Other (left forefoot mottled but viable; doppler flow post. tib artery; 2+ pop pulse left) Skin: No breakdown, No significant lesion Labs LABS Laboratory Tests Test 11/17/16 16:21 11/17/16 20:26 11/17/16 20:50 11/18/16 02:20 Glucose (Fingerstick) 200mg/dL (70-99) 243mg/dL (70-99) Heparin Anti-Xa Act, Unfractionated 0.38IU/mL (0.30-0.70) 0.29IU/mL (0.30-0.70) Test 11/18/16 06:03 11/18/16 07:47 11/18/16 09:00 11/18/16 09:10 Heparin Anti-Xa Act, Unfractionated 0.52IU/mL (0.30-0.70) 0.45IU/mL (0.30-0.70) Glucose (Fingerstick) 272mg/dL (70-99) White Blood Count 23.9x10^3/uL (4.0-11.0) Red Blood Count 3.02x10^6/uL (4.30-5.70) Hemoglobin 9.5g/dL (13.0-17.5) Hematocrit 29.8% (39.0-53.0) Mean Corpuscular Volume 99fL (79-100) Mean Corpuscular Hemoglobin 31pg (25-35) Mean Corpuscular Hemoglobin Concent 32g/dL (31-37) Red Cell Distribution Width 17.1% (11.5-14.5) Platelet Count 25x10^3/uL (140-400) Neutrophils (%) (Auto) 86% (31-73) Lymphocytes (%) (Auto) 8% (24-48) Monocytes (%) (Auto) 7% (0-9) Eosinophils (%) (Auto) 0% (0-3) Basophils (%) (Auto) 0% (0-3) Neutrophils # (Auto) 20.5x10^3uL (1.8-7.7) Lymphocytes # (Auto) 1.8x10^3/uL (1.0-4.8) Monocytes # (Auto) 1.6x10^3/uL (0.0-1.1) Eosinophils # (Auto) 0.0x10^3/uL (0.0-0.7) Basophils # (Auto) 0.0x10^3/uL (0.0-0.2) Segmented Neutrophils % 95% (35-66) Band Neutrophils % 1% (0-9) Lymphocytes % 2% (24-48) Monocytes % 2% (0-10) Nucleated Red Blood Cells 1 Platelet Estimate Decreased (ADEQUATE) Polychromasia Present [place] Bodies Present Schistocytes Mod Lactic Acid Level 2.4mmol/L (0.4-2.0) Prothrombin Time 18.8SEC (11.7-14.0) Prothromb Time International Ratio 1.7 (0.8-1.1) Test 11/18/16 10:53 11/18/16 12:00 Glucose (Fingerstick) 293mg/dL (70-99) Heparin Anti-Xa Act, Unfractionated < 0.10IU/mL (0.30-0.70) Review of Systems Review of Systems shaking head when asked how he is doing Comment Review of Relevant I have reviewed the following items sandie (where applicable) has been applied. Labs Laboratory Tests Test 11/16/16 15:19 11/16/16 17:09 11/16/16 20:33 11/16/16 20:35 Prothrombin Time 21.1SEC (11.7-14.0) Prothromb Time International Ratio 1.9 (0.8-1.1) Glucose (Fingerstick) 232mg/dL (70-99) 222mg/dL (70-99) Hemoglobin 9.8g/dL (13.0-17.5) Hematocrit 30.8% (39.0-53.0) Mean Corpuscular Hemoglobin Concent 32g/dL (31-37) Test 11/16/16 21:00 11/17/16 03:45 11/17/16 04:00 11/17/16 05:28 Heparin Anti-Xa Act, Unfractionated < 0.10IU/mL (0.30-0.70) < 0.10IU/mL (0.30-0.70) Sodium Level 138mmol/L (136-145) Potassium Level 3.9mmol/L (3.5-5.1) Chloride Level 100mmol/L (98-107) Carbon Dioxide Level 29mmol/L (21-32) Anion Gap 9 (6-14) Blood Urea Nitrogen 59mg/dL (8-26) Creatinine 3.8mg/dL (0.7-1.3) Estimated GFR (Cockcroft-Gault) 15.4 Glucose Level 244mg/dL (70-99) Lactic Acid Level 2.3mmol/L (0.4-2.0) Calcium Level 8.5mg/dL (8.5-10.1) Phosphorus Level 5.1mg/dL (2.6-4.7) Albumin 2.2g/dL (3.4-5.0) Prothrombin Time 20.9SEC (11.7-14.0) Prothromb Time International Ratio 1.9 (0.8-1.1) Test 11/17/16 07:39 11/17/16 11:04 11/17/16 12:40 11/17/16 16:21 Glucose (Fingerstick) 245mg/dL (70-99) 245mg/dL (70-99) 200mg/dL (70-99) Heparin Anti-Xa Act, Unfractionated 0.51IU/mL (0.30-0.70) Test 11/17/16 20:26 11/17/16 20:50 11/18/16 02:20 11/18/16 06:03 Glucose (Fingerstick) 243mg/dL (70-99) Heparin Anti-Xa Act, Unfractionated 0.38IU/mL (0.30-0.70) 0.29IU/mL (0.30-0.70) 0.52IU/mL (0.30-0.70) Test 11/18/16 07:47 11/18/16 09:00 11/18/16 09:10 11/18/16 10:53 Glucose (Fingerstick) 272mg/dL (70-99) 293mg/dL (70-99) White Blood Count 23.9x10^3/uL (4.0-11.0) Red Blood Count 3.02x10^6/uL (4.30-5.70) Hemoglobin 9.5g/dL (13.0-17.5) Hematocrit 29.8% (39.0-53.0) Mean Corpuscular Volume 99fL (79-100) Mean Corpuscular Hemoglobin 31pg (25-35) Mean Corpuscular Hemoglobin Concent 32g/dL (31-37) Red Cell Distribution Width 17.1% (11.5-14.5) Platelet Count 25x10^3/uL (140-400) Neutrophils (%) (Auto) 86% (31-73) Lymphocytes (%) (Auto) 8% (24-48) Monocytes (%) (Auto) 7% (0-9) Eosinophils (%) (Auto) 0% (0-3) Basophils (%) (Auto) 0% (0-3) Neutrophils # (Auto) 20.5x10^3uL (1.8-7.7) Lymphocytes # (Auto) 1.8x10^3/uL (1.0-4.8) Monocytes # (Auto) 1.6x10^3/uL (0.0-1.1) Eosinophils # (Auto) 0.0x10^3/uL (0.0-0.7) Basophils # (Auto) 0.0x10^3/uL (0.0-0.2) Segmented Neutrophils % 95% (35-66) Band Neutrophils % 1% (0-9) Lymphocytes % 2% (24-48) Monocytes % 2% (0-10) Nucleated Red Blood Cells 1 Platelet Estimate Decreased (ADEQUATE) Polychromasia Present [place] Bodies Present Schistocytes Mod Heparin Anti-Xa Act, Unfractionated 0.45IU/mL (0.30-0.70) Lactic Acid Level 2.4mmol/L (0.4-2.0) Prothrombin Time 18.8SEC (11.7-14.0) Prothromb Time International Ratio 1.7 (0.8-1.1) Test 11/18/16 12:00 Heparin Anti-Xa Act, Unfractionated < 0.10IU/mL (0.30-0.70) Laboratory Tests Test 11/17/16 16:21 11/17/16 20:26 11/17/16 20:50 11/18/16 02:20 Glucose (Fingerstick) 200mg/dL (70-99) 243mg/dL (70-99) Heparin Anti-Xa Act, Unfractionated 0.38IU/mL (0.30-0.70) 0.29IU/mL (0.30-0.70) Test 11/18/16 06:03 11/18/16 07:47 11/18/16 09:00 11/18/16 09:10 Heparin Anti-Xa Act, Unfractionated 0.52IU/mL (0.30-0.70) 0.45IU/mL (0.30-0.70) Glucose (Fingerstick) 272mg/dL (70-99) White Blood Count 23.9x10^3/uL (4.0-11.0) Red Blood Count 3.02x10^6/uL (4.30-5.70) Hemoglobin 9.5g/dL (13.0-17.5) Hematocrit 29.8% (39.0-53.0) Mean Corpuscular Volume 99fL (79-100) Mean Corpuscular Hemoglobin 31pg (25-35) Mean Corpuscular Hemoglobin Concent 32g/dL (31-37) Red Cell Distribution Width 17.1% (11.5-14.5) Platelet Count 25x10^3/uL (140-400) Neutrophils (%) (Auto) 86% (31-73) Lymphocytes (%) (Auto) 8% (24-48) Monocytes (%) (Auto) 7% (0-9) Eosinophils (%) (Auto) 0% (0-3) Basophils (%) (Auto) 0% (0-3) Neutrophils # (Auto) 20.5x10^3uL (1.8-7.7) Lymphocytes # (Auto) 1.8x10^3/uL (1.0-4.8) Monocytes # (Auto) 1.6x10^3/uL (0.0-1.1) Eosinophils # (Auto) 0.0x10^3/uL (0.0-0.7) Basophils # (Auto) 0.0x10^3/uL (0.0-0.2) Segmented Neutrophils % 95% (35-66) Band Neutrophils % 1% (0-9) Lymphocytes % 2% (24-48) Monocytes % 2% (0-10) Nucleated Red Blood Cells 1 Platelet Estimate Decreased (ADEQUATE) Polychromasia Present [place] Bodies Present Schistocytes Mod Lactic Acid Level 2.4mmol/L (0.4-2.0) Prothrombin Time 18.8SEC (11.7-14.0) Prothromb Time International Ratio 1.7 (0.8-1.1) Test 11/18/16 10:53 11/18/16 12:00 Glucose (Fingerstick) 293mg/dL (70-99) Heparin Anti-Xa Act, Unfractionated < 0.10IU/mL (0.30-0.70) Microbiology 11/10/16 Blood Culture - Final, Complete NO GROWTH AFTER 5 DAYS 11/10/16 Urine Culture - Final, Complete 11/10/16 Urine Culture Result 1 (EMMANUEL) - Final, Complete Medications Current Medications Fentanyl Citrate (Fentanyl 2ml Vial) 25 mcg PRN Q15MIN PRN IV PAIN GREATER THAN 3/10 Last administered on 11/10/16 23:41; Start 11/10/16 at 01:00; Stop at 00:59; Status DC Lidocaine (Lidoderm) 1 patch 1X ONCE TD Last administered on 11/10/16 01:14; Start 11/10/16 at 01:00; Stop 11/10/16 at 01:01; Status DC Calcium Gluconate 1,000 mg 1X ONCE IVP Last administered on 11/10/16 02:20; Start 11/10/16 at 02:30; Stop 11/10/16 at 02:31; Status DC Sodium Bicarbonate 50 meq 1X ONCE IV Last administered on 11/10/16 02:20; Start 11/10/16 at 02:30; Stop 11/10/16 at 02:31; Status DC Dextrose 25 gm 1X ONCE IV Last administered on 11/10/16 02:20; Start at 02:30; Stop 11/10/16 at 02:31; Status DC Insulin Human Regular (Novolin R Vial) 10 unit 1X ONCE IV Last administered on 11/10/16 02:22; Start 11/10/16 at 02:30; Stop 11/10/16 at 02:31; Status DC Calcium Gluconate 1,000 mg 1X ONCE IVP Last administered on 11/10/16 03:56; Start 11/10/16 at 04:00; Stop 11/10/16 at 04:01; Status DC Sodium Bicarbonate 50 meq 1X ONCE IV Last administered on 11/10/16 04:00; Start 11/10/16 at 04:00; Stop 11/10/16 at 04:01; Status DC Dextrose 25 gm 1X ONCE IV Last administered on 11/10/16 04:01; Start at 04:00; Stop 11/10/16 at 04:01; Status DC Insulin Human Regular 10 unit 10 unit 1X ONCE IV Last administered on 03:59; Start 11/10/16 at 04:00; Stop 11/10/16 at 04:01; Status DC Sodium Bicarbonate 150 meq/Sterile Water 1,150 ml @ 125 mls/hr Q9H12M IV ; Start 11/10/16 at 04:30; Stop 11/10/16 at 04:30; Status DC Sodium Chloride (Iv Sodium Chloride 0.9% 1000ml Bag) 1,000 ml @ 100 mls/hr 1X ONCE IV Last administered on 11/10/16 04:41; Start 11/10/16 at 04:30; Stop at 14:29; Status DC Piperacillin Sod/ Tazobactam Sod 1 each 1 each PRN DAILY PRN MC SEE COMMENTS; Start 11/10/16 at 04:30 Metronidazole 100 ml @ 100 mls/hr Q8HRS IV ; Start 11/10/16 at 14:00; Stop at 14:00; Status DC Metronidazole 100 ml @ 100 mls/hr 1X ONCE IV Last administered on 11/10/16 04:40; Start 11/10/16 at 05:00; Stop 11/10/16 at 05:59; Status DC Piperacillin Sod/ Tazobactam Sod/ Sodium Chloride (Zosyn/Iv Sodium Chloride 0.9 % 50ml) 50 ml @ 100 mls/hr Q6HRS IV Last administered on 11/16/16 06:31; Start 11/10/16 at 05:00; Stop 11/16/16 at 09:16; Status DC Lidocaine HCl 1 stevie 1 stevie 1X ONCE MM Last administered on 11/10/16 04:40; Start 11/10/16 at 04:30; Stop 11/10/16 at 04:43; Status DC Norepinephrine Bitartrate 8 mg/ Sodium Chloride 258 ml @ 0 mls/hr CONT PRN IV SEE I/O RECORD; Start 11/10/16 at 07:15; Stop 11/15/16 at 17:27; Status DC Linezolid (Zyvox Premix) 300 ml @ 300 mls/hr Q12HR IV Last administered on 08:34; Start 11/10/16 at 09:00; Stop 11/16/16 at 09:16; Status DC Doxycycline Hyclate (Vibra-Tab) 100 mg BID PO Last administered on 11/13/16 21 :45; Start 11/10/16 at 09:00; Stop 11/14/16 at 07:25; Status DC Aspirin 81 mg 81 mg [id number] PO Last administered on 11/17/16 08:56; Start 11/11/16 at 08:00 Magnesium Sulfate/ Dextrose 50 ml @ 25 mls/hr PRN DAILY PRN IV for Mag < 1.7 on am labs; Start 11/10/16 at 13:00 Sodium Chloride (Iv Sodium Chloride 0.9% 500ml Bag) 500 ml @ 0 mls/hr QID PRN IV UO< 30cc/hr over previous 6hrs; Start 11/10/16 at 13:00; Stop 11/11/16 at 18: 23; Status DC Acetaminophen (Tylenol) 650 mg PRN Q6HRS PRN PO MILD PAIN / TEMP; Start at 13:15 Ondansetron HCl (Zofran) 4 mg PRN Q6HRS PRN IV NAUSEA/VOMITING Last administered on 11/15/16 09:15; Start 11/10/16 at 13:15 Heparin Sodium (Porcine) 5,000 unit Q8HRS SQ ; Start 11/10/16 at 14:00; Stop at 14:00; Status DC Insulin Aspart (Novolog) 0-9 UNITS TIDWMEALS SQ Last administered on 11/18/16 12:12; Start 11/10/16 at 13:30 Dextrose 12.5 gm 12.5 gm PRN Q15MIN PRN IV SEE COMMENTS; Start 11/10/16 at 13: 15 Sodium Chloride (Iv Sodium Chloride 0.9% 1000ml Bag) 1,000 ml @ 100 mls/hr Q10H IV Last administered on 11/10/16 23:41; Start 11/10/16 at 13:15; Stop at 18:23; Status DC Pantoprazole Sodium (Protonix) 40 mg DAILYAC PO Last administered on 11/17/16 08:56; Start 11/10/16 at 14:00 Fentanyl Citrate (Fentanyl 2ml Vial) 50 mcg PRN Q2HR PRN IV SEVERE PAIN Last administered on 11/18/16 12:14; Start 11/11/16 at 02:30 Sodium Polystyrene Sulfonate 60 gm 60 gm 1X ONCE PO Last administered on 06:41; Start 11/11/16 at 06:45; Stop 11/11/16 at 06:46; Status DC Norepinephrine Bitartrate/Sodium Chloride (Levophed Vial/ Iv Sodium Chloride 0.9 % 250ml) 258 ml @ 0 mls/hr CONT PRN IV SEE I/O RECORD; Start 11/11/16 at 22:30 ; Status UNV Methylprednisolone Sodium Succinate (Solu-Medrol 125mg Vial) 125 mg 1X ONCE IV Last administered on 11/12/16 00:09; Start 11/11/16 at 23:00; Stop 11/11/16 at 23:01; Status DC Furosemide (Lasix) 40 mg 1X ONCE IVP Last administered on 11/12/16 01:31; Start 11/12/16 at 01:30; Stop 11/12/16 at 01:31; Status DC Lidocaine/Sodium Bicarbonate (Buffered Lidocaine 1%) 3 ml 1X ONCE IJ Last administered on 11/12/16 09:43; Start 11/12/16 at 09:15; Stop 11/12/16 at 09:16 ; Status DC Heparin Sodium/ Sodium Chloride 60 unit 1X ONCE IV Last administered on 09:43; Start 11/12/16 at 09:15; Stop 11/12/16 at 09:16; Status DC Heparin Sodium (Porcine) 2,500 unit 1X ONCE INT CAT Last administered on 09:42; Start 11/12/16 at 09:15; Stop 11/12/16 at 09:16; Status DC Heparin Sodium (Porcine) 21873 unit 10,000 unit STK-MED ONCE .ROUTE ; Start at 09:09; Stop 11/12/16 at 09:10; Status DC Sodium Chloride 1,000 ml @ 1,000 mls/hr Q1H PRN IV hypotension; Start 11/12/16 at 10:47; Stop 11/12/16 at 16:46; Status DC Albumin Human (Albuminar) 200 ml @ 200 mls/hr 1X ONCE IV Last administered on 11/12/16t 13:18; Start 11/12/16 at 12:45; Stop 11/12/16 at 13:44; Status DC Diphenhydramine HCl (Benadryl) 25 mg 1X PRN PRN IV ITCHING; Start 11/12/16 at 11:00; Stop 11/13/16 at 10:59; Status DC Diphenhydramine HCl (Benadryl) 25 mg 1X PRN PRN IV ITCHING; Start 11/12/16 at 11:00; Stop 11/13/16 at 10:59; Status DC Sodium Chloride (Normal Saline Flush) 10 ml 1X PRN PRN IV AP catheter pack; Start 11/12/16 at 11:00; Stop 11/13/16 at 10:59; Status DC Sodium Chloride 10 ml 10 ml 1X PRN PRN IV ATTORNEY GENERAL catheter pack; Start 11/12/16 at 11:00; Stop 11/13/16 at 10:59; Status DC Sodium Chloride (Iv Sodium Chloride 0.9% 1000ml Bag) 1,000 ml @ 400 mls/hr Q2H30M PRN IV PATENCY; Start 11/12/16 at 10:47; Stop 11/12/16 at 22:46; Status DC Info (PHARMACY MONITORING -- do not chart) 1 each PRN DAILY PRN MC SEE COMMENTS ; Start 11/12/16 at 11:00 Furosemide 40 mg 40 mg 1X ONCE IVP Last administered on 11/12/16t 16:25; Start 11/12/16 at 11:30; Stop 11/12/16 at 11:31; Status DC Sodium Chloride 1,000 ml @ 1,000 mls/hr Q1H PRN IV hypotension; Start 11/13/16 at 08:00; Stop 11/13/16 at 13:59; Status DC Sodium Chloride (Iv Sodium Chloride 0.9% 1000ml Bag) 1,000 ml @ 400 mls/hr Q2H30M PRN IV PATENCY; Start 11/13/16 at 08:00; Stop 11/13/16 at 19:59; Status DC Info (PHARMACY MONITORING -- do not chart) 1 each PRN DAILY PRN MC SEE COMMENTS ; Start 11/13/16 at 09:00; Status UNV Morphine Sulfate 2 mg 2 mg PRN Q2HR PRN IV PAIN Last administered on 11/15/16 23:33; Start 11/13/16 at 11:15 Sodium Chloride 1,000 ml @ 1,000 mls/hr Q1H PRN IV hypotension; Start 11/15/16 at 11:42; Stop 11/15/16 at 17:41; Status DC Albumin Human (Albuminar) 200 ml @ 200 mls/hr 1X PRN PRN IV Hypotension; Start 11/15/16 at 11:45; Stop 11/15/16 at 17:44; Status DC Diphenhydramine HCl (Benadryl) 25 mg 1X PRN PRN IV ITCHING; Start 11/15/16 at 11:45; Stop 11/15/16 at 19:00; Status DC Diphenhydramine HCl (Benadryl) 25 mg 1X PRN PRN IV ITCHING; Start 11/15/16 at 11:45; Stop 11/15/16 at 19:00; Status DC Info (PHARMACY MONITORING -- do not chart) 1 each PRN DAILY PRN MC SEE COMMENTS ; Start 11/15/16 at 11:45; Status UNV Info 1 each 1 each PRN DAILY PRN MC SEE COMMENTS; Start 11/15/16 at 11:45; Status UNV Piperacillin Sod/ Tazobactam Sod 2.25 gm/Sodium Chloride 50 ml @ 100 mls/hr Q8HRS IV Last administered on 11/18/16 13:58; Start 11/16/16 at 14:00 Sodium Chloride (Iv Sodium Chloride 0.9% 500ml Bag) 500 ml @ 500 mls/hr 1X ONCE IV Last administered on 11/16/16 10:00; Start 11/16/16 at 10:00; Stop at 10:59; Status DC Iohexol (Omnipaque 300 Mg/ml) 60 ml 1X ONCE IV Last administered on 11/16/16 12:48; Start 11/16/16 at 11:45; Stop 11/16/16 at 11:46; Status DC Heparin Sodium (Porcine) 10,000 unit STK-MED ONCE .ROUTE ; Start 11/16/16 at 12: 52; Stop 11/16/16 at 12:53; Status DC Lidocaine/Sodium Bicarbonate 20 ml 20 ml STK-MED ONCE IJ ; Start 11/16/16 at 12: 52; Stop 11/16/16 at 12:53; Status DC Heparin Sodium/ Sodium Chloride 500 ml @ As Directed STK-MED ONCE .ROUTE ; Start 11/16/16 at 12:52; Stop 11/16/16 at 12:53; Status DC Lidocaine/Sodium Bicarbonate (Buffered Lidocaine 1%) 20 ml 1X ONCE IJ Last administered on 11/16/16 13:15; Start 11/16/16 at 13:15; Stop 11/16/16 at 13:16 ; Status DC Heparin Sodium/ Sodium Chloride 1,000 unit 1X ONCE IV Last administered on 13:15; Start 11/16/16 at 13:15; Stop 11/16/16 at 13:16; Status DC Lidocaine/Sodium Bicarbonate (Buffered Lidocaine 1%) 20 ml 1X ONCE IJ ; Start 11/16/16 at 13:15; Stop 11/16/16 at 13:16; Status DC Heparin Sodium (Porcine) 2500 unit 2,500 unit 1X ONCE IV ; Start 11/16/16 at 13 :30; Stop 11/16/16 at 13:32; Status DC Heparin Sodium/ Dextrose 500 ml @ 0 mls/hr CONT PRN IV SEE I/O RECORD Last administered on 11/18/16 00:59; Start 11/16/16 at 20:45; Stop 11/18/16 at 10:47 ; Status DC Heparin Sodium (Porcine) 3,200 unit PRN Q6HRS PRN IV FOR UFH LEVEL LESS THAN 0.2 Last administered on 11/17/16 06:41; Start 11/16/16 at 20:45; Stop at 10:47; Status DC Heparin Sodium (Porcine) 1,600 unit PRN Q6HRS PRN IV FOR UFH LEVEL 0.2 - 0.29 Last administered on 11/18/16 04:06; Start 11/16/16 at 20:45; Stop 11/18/16 at 10:47; Status DC Warfarin Sodium (Coumadin Per Pharmacy) 1 each PRN DAILY PRN MC PER PROTOCOL; Start 11/16/16 at 20:45; Status UNV Info 1 each 1 each PRN DAILY PRN MC SEE COMMENTS; Start 11/16/16 at 21:00; Status Cancel Sodium Chloride (Iv Sodium Chloride 0.9% 1000ml Bag) 1,000 ml @ 1,000 mls/hr Q1H PRN IV hypotension; Start 11/17/16 at 11:38; Stop 11/17/16 at 17:37; Status DC Diphenhydramine HCl (Benadryl) 25 mg 1X PRN PRN IV ITCHING; Start 11/17/16 at 11:45; Stop 11/18/16 at 11:44; Status DC Diphenhydramine HCl (Benadryl) 25 mg 1X PRN PRN IV ITCHING; Start 11/17/16 at 11:45; Stop 11/18/16 at 11:44; Status DC Sodium Chloride (Normal Saline Flush) 10 ml 1X PRN PRN IV AP catheter pack; Start 11/17/16 at 11:45; Stop 11/18/16 at 11:44; Status DC Sodium Chloride (Normal Saline Flush) 10 ml 1X PRN PRN IV ATTORNEY GENERAL catheter pack; Start 11/17/16 at 11:45; Stop 11/18/16 at 11:44; Status DC Info (PHARMACY MONITORING -- do not chart) 1 each PRN DAILY PRN MC SEE COMMENTS ; Start 11/17/16 at 11:45; Status UNV Info (PHARMACY MONITORING -- do not chart) 1 each PRN DAILY PRN MC SEE COMMENTS ; Start 11/17/16 at 11:45; Status UNV Warfarin Sodium (Coumadin Per Pharmacy) 1 each PRN DAILY PRN MC SEE COMMENTS Last administered on 11/18/16 14:42; Start 11/17/16 at 21:45 Warfarin Sodium (Coumadin) 2.5 mg ONCE ONCE PO Last administered on 11/17/16t 22:44; Start 11/17/16 at 22:30; Stop 11/17/16 at 22:31; Status DC Warfarin Sodium (Coumadin) 6 mg 1X WARF ONCE PO ; Start 11/18/16 at 16:00; Stop 11/18/16 at 16:01 Active Scripts Active Carvedilol 3.125 Mg Tablet 3.125 Mg PO BIDWMEALS Reported Fish Oil + Vitamin D-3 Softgel (Om-3/Dha/Epa/Fish Oil/Vit D3) 1 Each Capsule 1 Each PO Vitamin D (Cholecalciferol (Vitamin D3)) 1,000 Unit Capsule 1,000 Unit PO DAILY Klor-Con 10 (Potassium Chloride) 10 Meq Tablet.er 2 Tab PO DAILY Lasix (Furosemide) 20 Mg Tablet 10 Mg PO DAILY Aspir 81 (Aspirin) 81 Mg Tablet.dr 81 Mg PO Cozaar (Losartan Potassium) 50 Mg Tablet 50 Mg PO DAILY Amaryl (Glimepiride) 4 Mg Tablet 4 Mg PO DAILY Metformin Hcl 1,000 Mg Tablet 1,000 Mg PO BIDAC Vitals/I & O Vital Sign - Last 24 Hours 11/17/16 11/17/16 11/17/16 11/18/16 19:00 20:00 23:07 03:25 Temp 98.6 98.6 97.4 98.6 98.6 97.4 Pulse 67 65 65 Resp 18 18 18 B/P 106/49 97/50 107/54 Pulse Ox 92 96 98 O2 Delivery Nasal Cannula Nasal Cannula Room Air Room Air O2 Flow Rate 5.0 4.0 11/18/16 11/18/16 11/18/16 07:00 10:05 11:00 Temp 97.5 97.9 97.5 97.9 Pulse 78 62 Resp 22 20 B/P 107/37 88/39 Pulse Ox 98 98 O2 Delivery Nasal Cannula Nasal Cannula Nasal Cannula O2 Flow Rate 4.0 4.0 Intake and Output 11/17/16 11/17/16 11/18/16 15:00 23:00 07:00 Intake Total 20 ml Balance 20 ml FAHEEM WARE MD Nov 18, 2016 15:28
[2016-11-18] MEDS ORDERED: WARFARIN 6 MG TABLET. PO ONE (16:00)
[2016-11-18 19:00] VITALS: BP 102/49
[2016-11-18 23:02] VITALS: BP 105/36
--- NOTE | 2016-11-18 23:46 | PDOC ---
Provider Note Provider Note Provider Note RENAL F/U : YASMIN S : Doing fair. No new issues O : VSS Afebrile. Neck : Supple. Lungs : Non labored. CVS : RRR ABD : Portly, benign appearing. No distention. Ext. : No major edema. Labs reviewed. A/P: ARF : Multifactorial. ATN. Had HD yesterday. CHEST WALL PAIN : Better. Supportive care Watch labs. CPM. JASON HOFFMAN MD Nov 18, 2016 23:46
[2016-11-19 03:32] VITALS: BP 107/48
[2016-11-19] MEDS: MORPHINE SULFATE 2 MG/ML DISP.SYRIN. IV PRN (05:16)
[2016-11-19 07:00] VITALS: BP 88/49
[2016-11-19] MEDS: PANTOPRAZOLE 40 MG TABLET. PO SCH (07:30)
[2016-11-19] MEDS: INSULIN ASPART 300 UNITS/3 ML INSULN.PEN SQ SCH ×3 (09:23→16:43)
[2016-11-19] MEDS: FENTANYL PF 100 MCG/2 ML VIAL. IV PRN (09:45)
--- NOTE | 2016-11-19 09:47 | PDOC2 ---
PALLIATIVE CARE Palliative Care Note Palliative Care Spoke with daughter-Isabelle. Focus is comfort now. Discussed options for care. Requests [facility] Eval Spoke with Isamar BHAGAT who will fax information. EZRA FIGUEROA Nov 19, 2016 09:47
--- NOTE | 2016-11-19 10:50 | PDOC ---
PULMONARY PROGRESS NOTES Subjective CTA with small PE no soa Vitals Vital Signs Date Time Temp Pulse Resp B/P Pulse Ox O2 Delivery O2 Flow Rate FiO2 11/19/16 10:15 93 Nasal Cannula 4.0 11/19/16 09:45 32 11/19/16 07:00 97.9 76 88/49 97.9 General: No acute distress, Lethargic Lungs: Other (decrease bs) Cardiovascular: S1, S2 Abdomen: Soft, Non-tender, Other Extremities: No Edema, Other (cold feet) Labs Laboratory Tests Test 11/17/16 11:04 11/17/16 12:40 11/17/16 16:21 11/17/16 20:26 Glucose (Fingerstick) 245mg/dL (70-99) 200mg/dL (70-99) 243mg/dL (70-99) Heparin Anti-Xa Act, Unfractionated 0.51IU/mL (0.30-0.70) Test 11/17/16 20:50 11/18/16 02:20 11/18/16 06:03 11/18/16 07:47 Heparin Anti-Xa Act, Unfractionated 0.38IU/mL (0.30-0.70) 0.29IU/mL (0.30-0.70) 0.52IU/mL (0.30-0.70) Glucose (Fingerstick) 272mg/dL (70-99) Test 11/18/16 09:00 11/18/16 09:10 11/18/16 10:53 11/18/16 12:00 White Blood Count 23.9x10^3/uL (4.0-11.0) Red Blood Count 3.02x10^6/uL (4.30-5.70) Hemoglobin 9.5g/dL (13.0-17.5) Hematocrit 29.8% (39.0-53.0) Mean Corpuscular Volume 99fL (79-100) Mean Corpuscular Hemoglobin 31pg (25-35) Mean Corpuscular Hemoglobin Concent 32g/dL (31-37) Red Cell Distribution Width 17.1% (11.5-14.5) Platelet Count 25x10^3/uL (140-400) Neutrophils (%) (Auto) 86% (31-73) Lymphocytes (%) (Auto) 8% (24-48) Monocytes (%) (Auto) 7% (0-9) Eosinophils (%) (Auto) 0% (0-3) Basophils (%) (Auto) 0% (0-3) Neutrophils # (Auto) 20.5x10^3uL (1.8-7.7) Lymphocytes # (Auto) 1.8x10^3/uL (1.0-4.8) Monocytes # (Auto) 1.6x10^3/uL (0.0-1.1) Eosinophils # (Auto) 0.0x10^3/uL (0.0-0.7) Basophils # (Auto) 0.0x10^3/uL (0.0-0.2) Segmented Neutrophils % 95% (35-66) Band Neutrophils % 1% (0-9) Lymphocytes % 2% (24-48) Monocytes % 2% (0-10) Nucleated Red Blood Cells 1 Platelet Estimate Decreased (ADEQUATE) Polychromasia Present Coy-Peavine Bodies Present Schistocytes Mod Heparin Anti-Xa Act, Unfractionated 0.45IU/mL (0.30-0.70) < 0.10IU/mL (0.30-0.70) Lactic Acid Level 2.4mmol/L (0.4-2.0) Prothrombin Time 18.8SEC (11.7-14.0) Prothromb Time International Ratio 1.7 (0.8-1.1) Glucose (Fingerstick) 293mg/dL (70-99) Test 11/18/16 16:31 11/18/16 20:33 11/19/16 07:30 Glucose (Fingerstick) 316mg/dL (70-99) 280mg/dL (70-99) 246mg/dL (70-99) Laboratory Tests Test 11/18/16 10:53 11/18/16 12:00 11/18/16 16:31 11/18/16 20:33 Glucose (Fingerstick) 293mg/dL (70-99) 316mg/dL (70-99) 280mg/dL (70-99) Heparin Anti-Xa Act, Unfractionated < 0.10IU/mL (0.30-0.70) Test 11/19/16 07:30 Glucose (Fingerstick) 246mg/dL (70-99) Medications Active Scripts Medications Dose Route/Sig Days Date Category Carvedilol 3.125 Mg Tablet 3.125 Mg PO BIDWMEALS 09/26/16 Rx Fish Oil + Vitamin D-3 Softgel (Om-3/Dha/Epa/Fish Oil/Vit D3) 1 Each Capsule 1 Each PO 05/11/15 Reported Vitamin D (Cholecalciferol (Vitamin D3)) 1,000 Unit Capsule 1,000 Unit PO DAILY 05/11/15 Reported Klor-Con 10 (Potassium Chloride) 10 Meq Tablet.er 2 Tab PO DAILY 05/11/15 Reported Lasix (Furosemide) 20 Mg Tablet 10 Mg PO DAILY 05/11/15 Reported Aspir 81 (Aspirin) 81 Mg Tablet.dr 81 Mg PO 05/11/15 Reported Cozaar (Losartan Potassium) 50 Mg Tablet 50 Mg PO DAILY 05/11/15 Reported Amaryl (Glimepiride) 4 Mg Tablet 4 Mg PO DAILY 05/11/15 Reported Metformin Hcl 1,000 Mg Tablet 1,000 Mg PO BIDAC 05/11/15 Reported Impression . 1. Osjrj-xg-mljyltq hypoxemic, hypercapnic respiratory failure.POA 2. Dvywi-qp-vrtjgaw diastolic/systolic heart failure.POA 3. Acute renal failure, on hemodialysis. 4. Sepsis present upon admission, suspect secondary to urinary tract infection. 5. Elevated liver chemistries secondary to sepsis versus congestive liver. 6. Status post aortic valve replacement. 7. Post pacemaker implantation. 8. Chronic atrial fibrillation. 9. Moderate protein malnutrition present upon admission. 10. Abnormal ct chest c/w CHF 11. New DVT left Lower extremity/ small PE, despite therapeutic INR, Suspect Right atrial thrombus as source, small PE by CTA 12. Arterial insufficiency Plan . 1. Nasal canula 2. Antibiotics per ID. 3. Negative fluid balance with hemodialysis. 4. CTA chest reviewed 5. d/c repeat echo to see if RV thrombus is still seen since HD catheter is removed/ ? thrombus in pacemaker wire 6. d/w patients daughter. he would benefit from IVC filter (recent fall and poor candidate for medical terminologist AC). She agrees with IVC filter 7. cancel IR for IVC filter 8. DNR/DNI 9 d/w PCP. family meeting with comfort care only. d/c IVC filter. will sign off. palliative care to arrange home hospice MICHAEL CARVALHO MD Nov 19, 2016 10:50
--- NOTE | 2016-11-19 10:59 | PDOC ---
PROGRESS NOTES Chief Complaint Chief Complaint s/p fall with rib injury Multiorgan failure ASSESSMENT AND PLAN: 1. Encephalopathy: multifactorial. resolved, but underlying dementia 2. Cardiogenic shock: Off Levophed gtt. BPs drifting down 3. CHF: acute on chronic, 4. Acute on Chronic respiratory failure: off BIPAP; supplemental oxygen only 5. COPD: no acute issues. nebs PRN 6. Renal failure: acute on chronic; HD per nephrology. 7. Shock liver: LFT improving, monitor 8. Hx CAD, dysrhythmia w/ pacer. cardiology following. 9. Chronic Afib : rate controlled. anticoag 10. Thrombus vs vegetation suspected in the right atrium : Therapeutic INR w/o anticoag. INR slowly dropping 11. PVD: cool LE, suspected arterial compromise 2/2 (10.). vasc surg input appreciated 12. DVT/PE: US/CTA positive. INR previously "therapeutic" due to liver compromise, slowly drifting down. heparin gtt stopped 2/2 dropping plts 13. Thrombocytopenia: ? HIT, but most likely reactive (drugs, infect, etc) with change in code status, no further W/U 13. Prognosis: poor. 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 Hospice evaluation pending. Vitals Vitals Vital Signs Date Time Temp Pulse Resp B/P Pulse Ox O2 Delivery O2 Flow Rate FiO2 11/19/16 10:15 93 Nasal Cannula 4.0 11/19/16 09:45 32 11/19/16 07:00 97.9 76 88/49 97.9 Physical Exam General: Alert, Cooperative, No acute distress Heart: Regular rate, Other (3/6 GEORGE) Lungs: Other (decrease bs) Abdomen: Normal bowel sounds, Soft, No tenderness Extremities: Other (left forefoot mottled but viable; doppler flow post. tib artery; 2+ pop pulse left) Skin: No breakdown, No significant lesion Labs LABS Laboratory Tests Test 11/18/16 12:00 11/18/16 16:31 11/18/16 20:33 11/19/16 07:30 Heparin Anti-Xa Act, Unfractionated < 0.10IU/mL (0.30-0.70) Glucose (Fingerstick) 316mg/dL (70-99) 280mg/dL (70-99) 246mg/dL (70-99) Assessment and Plan Assessmemt and Plan Problems Medical Problems: (1) ECG abnormal Status: Acute (2) Hyperkalemia Status: Acute (3) Hypotension Status: Acute (4) Renal failure Status: Acute Problems: Comment Review of Relevant I have reviewed the following items sandie (where applicable) has been applied. Labs Laboratory Tests Test 11/17/16 11:04 11/17/16 12:40 11/17/16 16:21 11/17/16 20:26 Glucose (Fingerstick) 245mg/dL (70-99) 200mg/dL (70-99) 243mg/dL (70-99) Heparin Anti-Xa Act, Unfractionated 0.51IU/mL (0.30-0.70) Test 11/17/16 20:50 11/18/16 02:20 11/18/16 06:03 11/18/16 07:47 Heparin Anti-Xa Act, Unfractionated 0.38IU/mL (0.30-0.70) 0.29IU/mL (0.30-0.70) 0.52IU/mL (0.30-0.70) Glucose (Fingerstick) 272mg/dL (70-99) Test 11/18/16 09:00 11/18/16 09:10 11/18/16 10:53 11/18/16 12:00 White Blood Count 23.9x10^3/uL (4.0-11.0) Red Blood Count 3.02x10^6/uL (4.30-5.70) Hemoglobin 9.5g/dL (13.0-17.5) Hematocrit 29.8% (39.0-53.0) Mean Corpuscular Volume 99fL (79-100) Mean Corpuscular Hemoglobin 31pg (25-35) Mean Corpuscular Hemoglobin Concent 32g/dL (31-37) Red Cell Distribution Width 17.1% (11.5-14.5) Platelet Count 25x10^3/uL (140-400) Neutrophils (%) (Auto) 86% (31-73) Lymphocytes (%) (Auto) 8% (24-48) Monocytes (%) (Auto) 7% (0-9) Eosinophils (%) (Auto) 0% (0-3) Basophils (%) (Auto) 0% (0-3) Neutrophils # (Auto) 20.5x10^3uL (1.8-7.7) Lymphocytes # (Auto) 1.8x10^3/uL (1.0-4.8) Monocytes # (Auto) 1.6x10^3/uL (0.0-1.1) Eosinophils # (Auto) 0.0x10^3/uL (0.0-0.7) Basophils # (Auto) 0.0x10^3/uL (0.0-0.2) Segmented Neutrophils % 95% (35-66) Band Neutrophils % 1% (0-9) Lymphocytes % 2% (24-48) Monocytes % 2% (0-10) Nucleated Red Blood Cells 1 Platelet Estimate Decreased (ADEQUATE) Polychromasia Present Coy-Hasty Bodies Present Schistocytes Mod Heparin Anti-Xa Act, Unfractionated 0.45IU/mL (0.30-0.70) < 0.10IU/mL (0.30-0.70) Lactic Acid Level 2.4mmol/L (0.4-2.0) Prothrombin Time 18.8SEC (11.7-14.0) Prothromb Time International Ratio 1.7 (0.8-1.1) Glucose (Fingerstick) 293mg/dL (70-99) Test 11/18/16 16:31 11/18/16 20:33 11/19/16 07:30 Glucose (Fingerstick) 316mg/dL (70-99) 280mg/dL (70-99) 246mg/dL (70-99) Laboratory Tests Test 11/18/16 12:00 11/18/16 16:31 11/18/16 20:33 11/19/16 07:30 Heparin Anti-Xa Act, Unfractionated < 0.10IU/mL (0.30-0.70) Glucose (Fingerstick) 316mg/dL (70-99) 280mg/dL (70-99) 246mg/dL (70-99) Microbiology 11/10/16 Blood Culture - Final, Complete NO GROWTH AFTER 5 DAYS 11/10/16 Urine Culture - Final, Complete 11/10/16 Urine Culture Result 1 (EMMANUEL) - Final, Complete Medications Current Medications Fentanyl Citrate (Fentanyl 2ml Vial) 25 mcg PRN Q15MIN PRN IV PAIN GREATER THAN 3/10 Last administered on 11/10/16 23:41; Start 11/10/16 at 01:00; Stop at 00:59; Status DC Lidocaine (Lidoderm) 1 patch 1X ONCE TD Last administered on 11/10/16 01:14; Start 11/10/16 at 01:00; Stop 11/10/16 at 01:01; Status DC Calcium Gluconate 1,000 mg 1X ONCE IVP Last administered on 11/10/16 02:20; Start 11/10/16 at 02:30; Stop 11/10/16 at 02:31; Status DC Sodium Bicarbonate 50 meq 1X ONCE IV Last administered on 11/10/16 02:20; Start 11/10/16 at 02:30; Stop 11/10/16 at 02:31; Status DC Dextrose 25 gm 1X ONCE IV Last administered on 11/10/16 02:20; Start at 02:30; Stop 11/10/16 at 02:31; Status DC Insulin Human Regular (Novolin R Vial) 10 unit 1X ONCE IV Last administered on 11/10/16 02:22; Start 11/10/16 at 02:30; Stop 11/10/16 at 02:31; Status DC Calcium Gluconate 1,000 mg 1X ONCE IVP Last administered on 11/10/16 03:56; Start 11/10/16 at 04:00; Stop 11/10/16 at 04:01; Status DC Sodium Bicarbonate 50 meq 1X ONCE IV Last administered on 11/10/16 04:00; Start 11/10/16 at 04:00; Stop 11/10/16 at 04:01; Status DC Dextrose 25 gm 1X ONCE IV Last administered on 11/10/16 04:01; Start at 04:00; Stop 11/10/16 at 04:01; Status DC Insulin Human Regular 10 unit 10 unit 1X ONCE IV Last administered on 03:59; Start 11/10/16 at 04:00; Stop 11/10/16 at 04:01; Status DC Sodium Bicarbonate 150 meq/Sterile Water 1,150 ml @ 125 mls/hr Q9H12M IV ; Start 11/10/16 at 04:30; Stop 11/10/16 at 04:30; Status DC Sodium Chloride (Iv Sodium Chloride 0.9% 1000ml Bag) 1,000 ml @ 100 mls/hr 1X ONCE IV Last administered on 11/10/16 04:41; Start 11/10/16 at 04:30; Stop at 14:29; Status DC Piperacillin Sod/ Tazobactam Sod 1 each 1 each PRN DAILY PRN MC SEE COMMENTS; Start 11/10/16 at 04:30; Stop 11/18/16 at 17:59; Status DC Metronidazole 100 ml @ 100 mls/hr Q8HRS IV ; Start 11/10/16 at 14:00; Stop at 14:00; Status DC Metronidazole 100 ml @ 100 mls/hr 1X ONCE IV Last administered on 11/10/16 04:40; Start 11/10/16 at 05:00; Stop 11/10/16 at 05:59; Status DC Piperacillin Sod/ Tazobactam Sod/ Sodium Chloride (Zosyn/Iv Sodium Chloride 0.9 % 50ml) 50 ml @ 100 mls/hr Q6HRS IV Last administered on 11/16/16 06:31; Start 11/10/16 at 05:00; Stop 11/16/16 at 09:16; Status DC Lidocaine HCl 1 stevie 1 stevie 1X ONCE MM Last administered on 11/10/16 04:40; Start 11/10/16 at 04:30; Stop 11/10/16 at 04:43; Status DC Norepinephrine Bitartrate 8 mg/ Sodium Chloride 258 ml @ 0 mls/hr CONT PRN IV SEE I/O RECORD; Start 11/10/16 at 07:15; Stop 11/15/16 at 17:27; Status DC Linezolid (Zyvox Premix) 300 ml @ 300 mls/hr Q12HR IV Last administered on 08:34; Start 11/10/16 at 09:00; Stop 11/16/16 at 09:16; Status DC Doxycycline Hyclate (Vibra-Tab) 100 mg BID PO Last administered on 11/13/16 21 :45; Start 11/10/16 at 09:00; Stop 11/14/16 at 07:25; Status DC Aspirin 81 mg 81 mg [id number] PO Last administered on 11/17/16 08:56; Start 11/11/16 at 08:00; Stop 11/18/16 at 17:59; Status DC Magnesium Sulfate/ Dextrose 50 ml @ 25 mls/hr PRN DAILY PRN IV for Mag < 1.7 on am labs; Start 11/10/16 at 13:00; Stop 11/18/16 at 17:59; Status DC Sodium Chloride (Iv Sodium Chloride 0.9% 500ml Bag) 500 ml @ 0 mls/hr QID PRN IV UO< 30cc/hr over previous 6hrs; Start 11/10/16 at 13:00; Stop 11/11/16 at 18: 23; Status DC Acetaminophen (Tylenol) 650 mg PRN Q6HRS PRN PO MILD PAIN / TEMP; Start at 13:15 Ondansetron HCl (Zofran) 4 mg PRN Q6HRS PRN IV NAUSEA/VOMITING Last administered on 11/15/16 09:15; Start 11/10/16 at 13:15 Heparin Sodium (Porcine) 5,000 unit Q8HRS SQ ; Start 11/10/16 at 14:00; Stop at 14:00; Status DC Insulin Aspart (Novolog) 0-9 UNITS TIDWMEALS SQ Last administered on 11/19/16 09:23; Start 11/10/16 at 13:30 Dextrose 12.5 gm 12.5 gm PRN Q15MIN PRN IV SEE COMMENTS; Start 11/10/16 at 13: 15 Sodium Chloride (Iv Sodium Chloride 0.9% 1000ml Bag) 1,000 ml @ 100 mls/hr Q10H IV Last administered on 11/10/16 23:41; Start 11/10/16 at 13:15; Stop at 18:23; Status DC Pantoprazole Sodium (Protonix) 40 mg DAILYAC PO Last administered on 11/17/16 08:56; Start 11/10/16 at 14:00 Fentanyl Citrate (Fentanyl 2ml Vial) 50 mcg PRN Q2HR PRN IV SEVERE PAIN Last administered on 11/19/16 09:45; Start 11/11/16 at 02:30 Sodium Polystyrene Sulfonate 60 gm 60 gm 1X ONCE PO Last administered on 06:41; Start 11/11/16 at 06:45; Stop 11/11/16 at 06:46; Status DC Norepinephrine Bitartrate/Sodium Chloride (Levophed Vial/ Iv Sodium Chloride 0.9 % 250ml) 258 ml @ 0 mls/hr CONT PRN IV SEE I/O RECORD; Start 11/11/16 at 22:30 ; Status UNV Methylprednisolone Sodium Succinate (Solu-Medrol 125mg Vial) 125 mg 1X ONCE IV Last administered on 11/12/16 00:09; Start 11/11/16 at 23:00; Stop 11/11/16 at 23:01; Status DC Furosemide (Lasix) 40 mg 1X ONCE IVP Last administered on 11/12/16 01:31; Start 11/12/16 at 01:30; Stop 11/12/16 at 01:31; Status DC Lidocaine/Sodium Bicarbonate (Buffered Lidocaine 1%) 3 ml 1X ONCE IJ Last administered on 11/12/16 09:43; Start 11/12/16 at 09:15; Stop 11/12/16 at 09:16 ; Status DC Heparin Sodium/ Sodium Chloride 60 unit 1X ONCE IV Last administered on 09:43; Start 11/12/16 at 09:15; Stop 11/12/16 at 09:16; Status DC Heparin Sodium (Porcine) 2,500 unit 1X ONCE INT CAT Last administered on 09:42; Start 11/12/16 at 09:15; Stop 11/12/16 at 09:16; Status DC Heparin Sodium (Porcine) 17456 unit 10,000 unit STK-MED ONCE .ROUTE ; Start at 09:09; Stop 11/12/16 at 09:10; Status DC Sodium Chloride 1,000 ml @ 1,000 mls/hr Q1H PRN IV hypotension; Start 11/12/16 at 10:47; Stop 11/12/16 at 16:46; Status DC Albumin Human (Albuminar) 200 ml @ 200 mls/hr 1X ONCE IV Last administered on 11/12/16 13:18; Start 11/12/16 at 12:45; Stop 11/12/16 at 13:44; Status DC Diphenhydramine HCl (Benadryl) 25 mg 1X PRN PRN IV ITCHING; Start 11/12/16 at 11:00; Stop 11/13/16 at 10:59; Status DC Diphenhydramine HCl (Benadryl) 25 mg 1X PRN PRN IV ITCHING; Start 11/12/16 at 11:00; Stop 11/13/16 at 10:59; Status DC Sodium Chloride (Normal Saline Flush) 10 ml 1X PRN PRN IV AP catheter pack; Start 11/12/16 at 11:00; Stop 11/13/16 at 10:59; Status DC Sodium Chloride 10 ml 10 ml 1X PRN PRN IV PLANT GUARD catheter pack; Start 11/12/16 at 11:00; Stop 11/13/16 at 10:59; Status DC Sodium Chloride (Iv Sodium Chloride 0.9% 1000ml Bag) 1,000 ml @ 400 mls/hr Q2H30M PRN IV PATENCY; Start 11/12/16 at 10:47; Stop 11/12/16 at 22:46; Status DC Info (PHARMACY MONITORING -- do not chart) 1 each PRN DAILY PRN MC SEE COMMENTS ; Start 11/12/16 at 11:00; Stop 11/18/16 at 17:59; Status DC Furosemide 40 mg 40 mg 1X ONCE IVP Last administered on 11/12/16t 16:25; Start 11/12/16 at 11:30; Stop 11/12/16 at 11:31; Status DC Sodium Chloride 1,000 ml @ 1,000 mls/hr Q1H PRN IV hypotension; Start 11/13/16 at 08:00; Stop 11/13/16 at 13:59; Status DC Sodium Chloride (Iv Sodium Chloride 0.9% 1000ml Bag) 1,000 ml @ 400 mls/hr Q2H30M PRN IV PATENCY; Start 11/13/16 at 08:00; Stop 11/13/16 at 19:59; Status DC Info (PHARMACY MONITORING -- do not chart) 1 each PRN DAILY PRN MC SEE COMMENTS ; Start 11/13/16 at 09:00; Status UNV Morphine Sulfate 2 mg 2 mg PRN Q2HR PRN IV PAIN Last administered on 11/19/16t 05:16; Start 11/13/16 at 11:15 Sodium Chloride 1,000 ml @ 1,000 mls/hr Q1H PRN IV hypotension; Start 11/15/16 at 11:42; Stop 11/15/16 at 17:41; Status DC Albumin Human (Albuminar) 200 ml @ 200 mls/hr 1X PRN PRN IV Hypotension; Start 11/15/16 at 11:45; Stop 11/15/16 at 17:44; Status DC Diphenhydramine HCl (Benadryl) 25 mg 1X PRN PRN IV ITCHING; Start 11/15/16 at 11:45; Stop 11/15/16 at 19:00; Status DC Diphenhydramine HCl (Benadryl) 25 mg 1X PRN PRN IV ITCHING; Start 11/15/16 at 11:45; Stop 11/15/16 at 19:00; Status DC Info (PHARMACY MONITORING -- do not chart) 1 each PRN DAILY PRN MC SEE COMMENTS ; Start 11/15/16 at 11:45; Status UNV Info 1 each 1 each PRN DAILY PRN MC SEE COMMENTS; Start 11/15/16 at 11:45; Status UNV Piperacillin Sod/ Tazobactam Sod 2.25 gm/Sodium Chloride 50 ml @ 100 mls/hr Q8HRS IV Last administered on 11/18/16 13:58; Start 11/16/16 at 14:00; Stop at 17:59; Status DC Sodium Chloride (Iv Sodium Chloride 0.9% 500ml Bag) 500 ml @ 500 mls/hr 1X ONCE IV Last administered on 11/16/16 10:00; Start 11/16/16 at 10:00; Stop at 10:59; Status DC Iohexol (Omnipaque 300 Mg/ml) 60 ml 1X ONCE IV Last administered on 11/16/16 12:48; Start 11/16/16 at 11:45; Stop 11/16/16 at 11:46; Status DC Heparin Sodium (Porcine) 10,000 unit STK-MED ONCE .ROUTE ; Start 11/16/16 at 12: 52; Stop 11/16/16 at 12:53; Status DC Lidocaine/Sodium Bicarbonate 20 ml 20 ml STK-MED ONCE IJ ; Start 11/16/16 at 12: 52; Stop 11/16/16 at 12:53; Status DC Heparin Sodium/ Sodium Chloride 500 ml @ As Directed STK-MED ONCE .ROUTE ; Start 11/16/16 at 12:52; Stop 11/16/16 at 12:53; Status DC Lidocaine/Sodium Bicarbonate (Buffered Lidocaine 1%) 20 ml 1X ONCE IJ Last administered on 11/16/16 13:15; Start 11/16/16 at 13:15; Stop 11/16/16 at 13:16 ; Status DC Heparin Sodium/ Sodium Chloride 1,000 unit 1X ONCE IV Last administered on 13:15; Start 11/16/16 at 13:15; Stop 11/16/16 at 13:16; Status DC Lidocaine/Sodium Bicarbonate (Buffered Lidocaine 1%) 20 ml 1X ONCE IJ ; Start 11/16/16 at 13:15; Stop 11/16/16 at 13:16; Status DC Heparin Sodium (Porcine) 2500 unit 2,500 unit 1X ONCE IV ; Start 11/16/16 at 13 :30; Stop 11/16/16 at 13:32; Status DC Heparin Sodium/ Dextrose 500 ml @ 0 mls/hr CONT PRN IV SEE I/O RECORD Last administered on 11/18/16 00:59; Start 11/16/16 at 20:45; Stop 11/18/16 at 10:47 ; Status DC Heparin Sodium (Porcine) 3,200 unit PRN Q6HRS PRN IV FOR UFH LEVEL LESS THAN 0.2 Last administered on 11/17/16 06:41; Start 11/16/16 at 20:45; Stop at 10:47; Status DC Heparin Sodium (Porcine) 1,600 unit PRN Q6HRS PRN IV FOR UFH LEVEL 0.2 - 0.29 Last administered on 11/18/16 04:06; Start 11/16/16 at 20:45; Stop 11/18/16 at 10:47; Status DC Warfarin Sodium (Coumadin Per Pharmacy) 1 each PRN DAILY PRN MC PER PROTOCOL; Start 11/16/16 at 20:45; Status UNV Info 1 each 1 each PRN DAILY PRN MC SEE COMMENTS; Start 11/16/16 at 21:00; Status Cancel Sodium Chloride (Iv Sodium Chloride 0.9% 1000ml Bag) 1,000 ml @ 1,000 mls/hr Q1H PRN IV hypotension; Start 11/17/16 at 11:38; Stop 11/17/16 at 17:37; Status DC Diphenhydramine HCl (Benadryl) 25 mg 1X PRN PRN IV ITCHING; Start 11/17/16 at 11:45; Stop 11/18/16 at 11:44; Status DC Diphenhydramine HCl (Benadryl) 25 mg 1X PRN PRN IV ITCHING; Start 11/17/16 at 11:45; Stop 11/18/16 at 11:44; Status DC Sodium Chloride (Normal Saline Flush) 10 ml 1X PRN PRN IV AP catheter pack; Start 11/17/16 at 11:45; Stop 11/18/16 at 11:44; Status DC Sodium Chloride (Normal Saline Flush) 10 ml 1X PRN PRN IV PLANT GUARD catheter pack; Start 11/17/16 at 11:45; Stop 11/18/16 at 11:44; Status DC Info (PHARMACY MONITORING -- do not chart) 1 each PRN DAILY PRN MC SEE COMMENTS ; Start 11/17/16 at 11:45; Status UNV Info (PHARMACY MONITORING -- do not chart) 1 each PRN DAILY PRN MC SEE COMMENTS ; Start 11/17/16 at 11:45; Status UNV Warfarin Sodium (Coumadin Per Pharmacy) 1 each PRN DAILY PRN MC SEE COMMENTS Last administered on 11/18/16 14:42; Start 11/17/16 at 21:45; Stop 11/18/16 at 17:59; Status DC Warfarin Sodium (Coumadin) 2.5 mg ONCE ONCE PO Last administered on 11/17/16t 22:44; Start 11/17/16 at 22:30; Stop 11/17/16 at 22:31; Status DC Warfarin Sodium (Coumadin) 6 mg 1X WARF ONCE PO ; Start 11/18/16 at 16:00; Stop 11/18/16 at 16:01; Status DC Active Scripts Active Carvedilol 3.125 Mg Tablet 3.125 Mg PO BIDWMEALS Reported Fish Oil + Vitamin D-3 Softgel (Om-3/Dha/Epa/Fish Oil/Vit D3) 1 Each Capsule 1 Each PO Vitamin D (Cholecalciferol (Vitamin D3)) 1,000 Unit Capsule 1,000 Unit PO DAILY Klor-Con 10 (Potassium Chloride) 10 Meq Tablet.er 2 Tab PO DAILY Lasix (Furosemide) 20 Mg Tablet 10 Mg PO DAILY Aspir 81 (Aspirin) 81 Mg Tablet.dr 81 Mg PO Cozaar (Losartan Potassium) 50 Mg Tablet 50 Mg PO DAILY Amaryl (Glimepiride) 4 Mg Tablet 4 Mg PO DAILY Metformin Hcl 1,000 Mg Tablet 1,000 Mg PO BIDAC Vitals/I & O Vital Sign - Last 24 Hours 11/18/16 11/18/16 11/18/16 11/18/16 11:00 15:00 19:00 20:00 Temp 97.9 97.5 97.3 97.9 97.5 97.3 Pulse 62 58 67 Resp 20 20 18 B/P 88/39 83/49 102/49 Pulse Ox 98 100 96 O2 Delivery Nasal Cannula Nasal Cannula Room Air Nasal Cannula O2 Flow Rate 4.0 4.0 4.0 11/18/16 11/18/16 11/19/16 11/19/16 22:17 23:02 03:32 05:16 Temp 98.0 97.0 98.0 97.0 Pulse 67 98 Resp 18 20 B/P 105/36 107/48 Pulse Ox 96 94 O2 Delivery Nasal Cannula Nasal Cannula Nasal Cannula Nasal Cannula O2 Flow Rate 5.0 3.0 11/19/16 11/19/16 11/19/16 11/19/16 05:51 07:00 09:45 10:15 Temp 97.9 97.9 Pulse 76 Resp 20 32 B/P 88/49 Pulse Ox 93 93 O2 Delivery Nasal Cannula Nasal Cannula Nasal Cannula Nasal Cannula O2 Flow Rate 4.0 4.0 4.0 Intake and Output 11/18/16 11/18/16 11/19/16 15:00 23:00 07:00 Intake Total 50 ml 0 ml Output Total 100 ml Balance 50 ml 0 ml -100 ml LOUISE [place] MD Nov 19, 2016 10:59
[2016-11-19 11:00] VITALS: BP_SYST 104; BP_SYST 88; BP_DIAS 48; BP_DIAS 49
[2016-11-19 15:00] VITALS: BP 97/35
--- NOTE | 2016-11-19 15:12 | PDOC ---
Objective: Vital Signs: Vital Signs Date Time Temp Pulse Resp B/P Pulse Ox O2 Delivery O2 Flow Rate FiO2 11/19/16 11:00 97.2 113 20 88/49 94 Nasal Cannula 4.0 97.2 Labs: Laboratory Tests Test 11/18/16 16:31 11/18/16 20:33 11/19/16 07:30 Glucose (Fingerstick) 316mg/dL (70-99) 280mg/dL (70-99) 246mg/dL (70-99) PE: GEN: NAD ABD: soft NEURO/PSYCH: moaning, confused A/P: Elevated LFTs -- Note family planning for comfort care/Hospice. JONNATHAN ROSE Nov 19, 2016 15:12
[2016-11-19 19:00] VITALS: BP 98/44
[2016-11-19 22:50] VITALS: BP 95/48
[2016-11-20] MEDS: FENTANYL PF 100 MCG/2 ML VIAL. IV PRN ×4 (00:30→12:17)
[2016-11-20 03:16] VITALS: BP 90/42
[2016-11-20 07:00] VITALS: BP 96/34
[2016-11-20] MEDS: PANTOPRAZOLE 40 MG TABLET. PO SCH (07:30)
[2016-11-20] MEDS: INSULIN ASPART 300 UNITS/3 ML INSULN.PEN SQ SCH ×2 (08:04→12:00)
--- NOTE | 2016-11-20 09:57 | PDOC ---
PULMONARY PROGRESS NOTES Subjective CTA with small PE no soa Vitals Vital Signs Date Time Temp Pulse Resp B/P Pulse Ox O2 Delivery O2 Flow Rate FiO2 11/20/16 09:52 97 Nasal Cannula 3.0 11/20/16 07:05 26 11/20/16 07:00 96.1 72 96/34 96.1 General: No acute distress, Lethargic Lungs: Other (decrease bs) Cardiovascular: S1, S2 Abdomen: Soft, Non-tender, Other Extremities: No Edema, Other (cold feet) Labs Laboratory Tests Test 11/18/16 10:53 11/18/16 12:00 11/18/16 16:31 11/18/16 20:33 Glucose (Fingerstick) 293mg/dL (70-99) 316mg/dL (70-99) 280mg/dL (70-99) Heparin Anti-Xa Act, Unfractionated < 0.10IU/mL (0.30-0.70) Test 11/19/16 07:30 11/19/16 10:35 11/19/16 16:04 11/19/16 20:27 Glucose (Fingerstick) 246mg/dL (70-99) 262mg/dL (70-99) 278mg/dL (70-99) 261mg/dL (70-99) Test 11/20/16 07:18 Glucose (Fingerstick) 172mg/dL (70-99) Laboratory Tests Test 11/19/16 10:35 11/19/16 16:04 11/19/16 20:27 11/20/16 07:18 Glucose (Fingerstick) 262mg/dL (70-99) 278mg/dL (70-99) 261mg/dL (70-99) 172mg/dL (70-99) Medications Active Scripts Medications Dose Route/Sig Days Date Category Carvedilol 3.125 Mg Tablet 3.125 Mg PO BIDWMEALS 09/26/16 Rx Fish Oil + Vitamin D-3 Softgel (Om-3/Dha/Epa/Fish Oil/Vit D3) 1 Each Capsule 1 Each PO 05/11/15 Reported Vitamin D (Cholecalciferol (Vitamin D3)) 1,000 Unit Capsule 1,000 Unit PO DAILY 05/11/15 Reported Klor-Con 10 (Potassium Chloride) 10 Meq Tablet.er 2 Tab PO DAILY 05/11/15 Reported Lasix (Furosemide) 20 Mg Tablet 10 Mg PO DAILY 05/11/15 Reported Aspir 81 (Aspirin) 81 Mg Tablet.dr 81 Mg PO 05/11/15 Reported Cozaar (Losartan Potassium) 50 Mg Tablet 50 Mg PO DAILY 05/11/15 Reported Amaryl (Glimepiride) 4 Mg Tablet 4 Mg PO DAILY 05/11/15 Reported Metformin Hcl 1,000 Mg Tablet 1,000 Mg PO BIDAC 05/11/15 Reported Impression . 1. [id number]-qr-[id number] hypoxemic, hypercapnic respiratory failure.POA 2. Krqav-yy-wnfbpcn diastolic/systolic heart failure.POA 3. Acute renal failure, on hemodialysis. 4. Sepsis present upon admission, suspect secondary to urinary tract infection. 5. Elevated liver chemistries secondary to sepsis versus congestive liver. 6. Status post aortic valve replacement. 7. Post pacemaker implantation. 8. Chronic atrial fibrillation. 9. Moderate protein malnutrition present upon admission. 10. Abnormal ct chest c/w CHF 11. New DVT left Lower extremity/ small PE, despite therapeutic INR, Suspect Right atrial thrombus as source, small PE by CTA 12. Arterial insufficiency Plan . 1. Nasal canula 2. Antibiotics per ID. 3. Negative fluid balance with hemodialysis. 4. CTA chest reviewed 5. d/c repeat echo to see if RV thrombus is still seen since HD catheter is removed/ ? thrombus in pacemaker wire 6. d/w patients daughter. 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 She agrees with IVC filter 7. cancel IR for IVC filter 8. DNR/DNI 9 d/w PCP. family meeting with comfort care only. d/c IVC filter. will sign off. palliative care to arrange home hospice JEFFERY VERNON MD Nov 20, 2016 09:57
[2016-11-20 10:57] VITALS: BP 95/32
--- NOTE | 2016-11-21 02:26 | DS ---
DATE OF DISCHARGE: 11/20/2016 DISCHARGE DIAGNOSES: 1. Acute on chronic hypoxic hypercarbic respiratory failure. 2. Acute on chronic diastolic and systolic heart failure. 3. Acute renal failure, on hemodialysis. 4. Sepsis present on admission, suspected due to urinary tract infection. 5. Elevated liver functions due to congestive heart failure. 6. Status post aortic valve replacement. 7. Chronic atrial fibrillation. 8. Moderate protein-calorie malnutrition. 9. New deep vein thrombosis, left lower extremity and small pulmonary embolism despite therapeutic INR. 10. Arterial insufficiency. 11. Encephalopathy, multifactorial. 12. Cardiogenic shock, resolving. 13. Thrombocytopenia. BRIEF HOSPITAL COURSE: An 81-year-old male patient admitted to the hospital on 11/10/2016, ____ chest pain and acute on chronic respiratory failure. He was admitted to Critical Care Unit and he was started on broad spectrum antibiotics. He was evaluated by several consulting physicians such as Dr. Medeiros, Dr. Beatty, Dr. Jacob and Dr. Zacarias. He was on hemodialysis for some time; however, the patient declined to have hemodialysis during hospitalization as he did not want any more treatments as he tired off his medical treatment and also the patient was on vasopressors to support his cardiogenic shock and his LV ejection fraction showed 40-45%. The patient and family, daughter Isabelle, who is the DPOA, met with the palliative team several times and yesterday, on 11/19/2016, made him DNR/DNI and wants only comfort care measures. The patient was treated comfortably with morphine and fentanyl and today he has been discharged to hospice house. I did discuss with the patient's daughter, Isabelle, in room and all her questions were answered. The patient continued to be declining. DISCHARGE EXAMINATION: GENERAL: Alert and encephalopathic. HEART: S1, S2 present. LUNGS: Anterior chest, bilateral rales sounds. ABDOMEN: Soft and nontender. EXTREMITIES: Edema present, +2. DISCHARGE DISPOSITION: Hospice inpatient. DISCHARGE CONDITION: Stable. PROGNOSIS: Poor. MEDICATIONS: Reviewed and reconciled. Please see MRAD. Total time spent for discharge is 35 minutes for patient education, counseling, and coordination of care. LOUISE NJ MD DR: NEO/karuna JOB#: [id number] / [id number]
== END 2016-11-20 12:30 | disposition hospice, home (50) | DRG 871 ==
LOC: ER 00:18 → 1 WEST ICU 04:25 → 5 SOUTH 11-14 23:00
PROVIDERS: ADMIT Internal Medicine; ATTEND Internal Medicine
PROC: 5A09357 Assistance with Respiratory Ventilation, Less than 24 Consecutive Hours, Continuous Positive Airway Pressure (ICD-10-PCS; principal; 2016-11-11)
PROC: 5A1D60Z (ICD-10-PCS; 2016-11-12)
PROC: 02HV33Z Insertion of Infusion Device into Superior Vena Cava, Percutaneous Approach (ICD-10-PCS; 2016-11-17)
PROC: B548ZZA Ultrasonography of Superior Vena Cava, Guidance (ICD-10-PCS; 2016-11-17)
PROC: 02H633Z Insertion of Infusion Device into Right Atrium, Percutaneous Approach (ICD-10-PCS; 2016-11-17)
PROC: B5181ZA Fluoroscopy of Superior Vena Cava using Low Osmolar Contrast, Guidance (ICD-10-PCS; 2016-11-17)
PROC: B244ZZZ Ultrasonography of Right Heart (ICD-10-PCS; 2016-11-17)
DX: A41.9 Sepsis, unspecified organism (principal); J18.9 Pneumonia, unspecified organism; G93.41 Metabolic encephalopathy; I50.43 Acute on chronic combined systolic (congestive) and diastolic (congestive) heart failure; J96.21 Acute and chronic respiratory failure with hypoxia; J96.22 Acute and chronic respiratory failure with hypercapnia; K72.00 Acute and subacute hepatic failure without coma; N17.0 Acute kidney failure with tubular necrosis; R57.0 Cardiogenic shock; N18.6 End stage renal disease; I26.99 Other pulmonary embolism without acute cor pulmonale; E44.0 Moderate protein-calorie malnutrition; E87.2 Acidosis; I24.8 Other forms of acute ischemic heart disease; J44.0 Chronic obstructive pulmonary disease with (acute) lower respiratory infection; I13.2 Hypertensive heart and chronic kidney disease with heart failure and with stage 5 chronic kidney disease, or end stage renal disease; N39.0 Urinary tract infection, site not specified; D68.9 Coagulation defect, unspecified; I82.402 Acute embolism and thrombosis of unspecified deep veins of left lower extremity; I82.449 Acute embolism and thrombosis of unspecified tibial vein; E11.65 Type 2 diabetes mellitus with hyperglycemia; D64.9 Anemia, unspecified; D69.6 Thrombocytopenia, unspecified; E11.22 Type 2 diabetes mellitus with diabetic chronic kidney disease; Z51.5 Encounter for palliative care; Z66 Do not resuscitate; E78.00 Pure hypercholesterolemia, unspecified; E78.5 Hyperlipidemia, unspecified; E86.1 Hypovolemia; E87.5 Hyperkalemia; F03.90 Unspecified dementia, unspecified severity, without behavioral disturbance, psychotic disturbance, mood disturbance, and anxiety; I25.10 Atherosclerotic heart disease of native coronary artery without angina pectoris; I27.2 Other secondary pulmonary hypertension; I48.2 Chronic atrial fibrillation; I49.5 Sick sinus syndrome; I77.1 Stricture of artery; N40.1 Benign prostatic hyperplasia with lower urinary tract symptoms; E11.51 Type 2 diabetes mellitus with diabetic peripheral angiopathy without gangrene; M19.90 Unspecified osteoarthritis, unspecified site; N28.1 Cyst of kidney, acquired; E66.9 Obesity, unspecified; Z68.29 Body mass index [BMI] 29.0-29.9, adult; Z83.3 Family history of diabetes mellitus; Z86.711 Personal history of pulmonary embolism; Z86.718 Personal history of other venous thrombosis and embolism; Z95.2 Presence of prosthetic heart valve; Z95.0 Presence of cardiac pacemaker; Z90.49 Acquired absence of other specified parts of digestive tract; Z87.01 Personal history of pneumonia (recurrent); Z87.891 Personal history of nicotine dependence; Z95.1 Presence of aortocoronary bypass graft; Z95.3 Presence of xenogenic heart valve
CPT/HCPCS: 36415; 36556; 36600; 51702; 71010; 71250; 71275; 74176; 76700; 76937; 77001; 78226; 80047; 80048; 80053; 80069; 80074; 80076; 81001; 82248; 82550; 82570; 82805; 82947; 83605; 83690; 83735; 83880; 84100; 84156; 84300; 84484; 84550; 85007; 85014; 85018; 85027; 85520; 85610; 85730; 86255; 86706; 87040; 87086; 87641; 93005; 93306; 93925; 94660; 96374; 96375; A4215; A9537; C1892; J0610; J1815; J1940; J2020; J2270; J2405; J2543; J2930; J3010; J3490; J7030; J7040; J7042; P9046; Q9967; 97530; 99285-25